=== PATIENT | male | born 1950 | race Caucasian/White ===

== ENCOUNTER → 2016-05-29 | Outpatient (CLI) | payer MEDICARE ==
[2016-05-29 16:00] LABS: Partial Thromboplastin Time 27.1 sec (22.0-30.0); Prothrombin Time 10.2 sec (9.0-12.0)
[2016-05-29 16:02] LABS: Basophils % (A) 0 %; CH 33.9; CHCM 35.2; Eosinophils # (A) 0.1 k/uL (0-0.7); Eosinophils % (A) 2 %; HCT 42.9 % (39.0-53.0); HDW 2.72; Luc # (Auto) 0.19; Luc % (Auto) 3; Lymphocytes # (A) 1.3 k/uL (1.0-4.8); Lymphocytes % (A) 18 %; MCH 33.8 pg (25.0-35.0); MCHC 34.9 g/dL (31.0-37.0); MCV 96.8 fL (80.0-100.0); Mean Platelet Volume 7.5; Monocytes # (A) 0.5 k/uL (0-1.0); Monocytes % (A) 7 %; Neutrophils # (A) 5.3 k/uL (1.3-7.7); Neutrophils % (A) 71 %; RBC 4.43 m/uL (4.30-5.90); WBC 7.5 k/uL (3.8-10.6); WBC (Perox) 7.33
[2016-05-29 16:06] LABS: Appearance,Urine Clear (Clear); Bilirubin,Urine Negative (Negative); Glucose,Urine (UA) Negative (Negative); Ketones,Urine Negative (Negative); Leukocyte Esterase,Urine Negative (Negative); Nitrite,Urine Negative (Negative); PH, Urine 5.5 (5.0-8.0); Protein,Urine Negative (Negative); Specific Gravity,Urine 1.007 (1.001-1.035); UA Billing (MACRO vs. MICRO) CHEM; Urobilinogen,Urine <2.0 mg/dL (<2.0)
[2016-05-29 16:10] LABS: ALT 50 U/L (21-72); AST 27 U/L (17-59); Alkaline Phosphatase 66 U/L (38-126); Anion Gap 11 mmol/L; Blood Urea Nitrogen 18 mg/dL (9-20); Calcium 9.7 mg/dL (8.4-10.2); Carbon Dioxide 25 mmol/L (22-30); Chloride 103 mmol/L (98-107); Glucose 112 mg/dL (74-99); Non-African American GFR(MDRD) >60 (>60 ml/min/1.73 sqM); Potassium 4.3 mmol/L (3.5-5.1); Sodium 139 mmol/L (137-145); Total Bilirubin 0.8 mg/dL (0.2-1.3); Total Protein 7.6 g/dL (6.3-8.2)
--- NOTE | 2016-05-30 08:11 | XR ---
EXAMINATION TYPE: XR chest 2V DATE OF EXAM: 05/29/2016 4:04 PM COMPARISON: Right chest x-ray 07 Aug 2015 HISTORY: Preop TECHNIQUE: Frontal and lateral views of the chest are obtained. FINDINGS: There is no pleural effusion, or pneumothorax seen. The cardiac silhouette size is within normal limits. Area of increased attenuation is present at the anterior right third rib similar to p rior exam compatible with bone island. The osseous structures are intact. IMPRESSION: No acute cardiopulmonary process.
== END | disposition home or self-care (01) ==
LOC: LABPAT 15:12
PROVIDERS: ATTEND Orthopaedic Surgery Orthopaedic Surgery of the Spine
DX: Z01.818 Encounter for other preprocedural examination (principal); Z01.812 Encounter for preprocedural laboratory examination; Z79.01 Long term (current) use of anticoagulants
CPT/HCPCS: 36415; 71020; 80053; 81003; 85025; 85610; 85730; 86850; 86900; 86901

== ENCOUNTER 2016-06-12 08:15 | Inpatient (IN) | payer MEDICARE ==
[2016-06-05 11:19] VITALS: BMI 33.2
[~2016-06-12 08:15] MED LIST: BACITRACIN 50,000 UNIT, POLYMYXIN B 500,000 UNIT in SODIUM CHLORIDE 0.9% IRRIGATIO 1,00... IRRIGATION ONE; DEXAMETHASONE SOD PHOSPHATE 10 MG/ML 1 ML VIAL IV ONE; HYDROmorphone 1 MG/ML 1 ML SYRINGE IVP PRN; LACTATED RINGERS 1,000 ML IV SCH; MIDAZOLAM 2 MG/2 ML VIAL IV PRN; ONDANSETRON 4 MG/2 ML VIAL IVP ONE; ceFAZolin 2 GM in SODIUM CHLORIDE 0.9% 100 ML IVPB ONE
[2016-06-12] MEDS ORDERED: LIDOCAINE 1% 20 ML VIAL (10MG/ML) FOR IV START INTRADERMA ONE (11:51)
[2016-06-12] MEDS ORDERED: LIDOCAINE 0.5%-EPI 1:200,000 50 ML VIAL SQ ONE (12:09)
[2016-06-12] MEDS ORDERED: fentaNYL (PF) 50 MCG/ML 2 ML AMP ONE (12:09)
[2016-06-12] MEDS ORDERED: THROMBIN (BOVINE) 5,000 UNIT VIAL TOPICAL ONE (12:09)
[2016-06-12] MEDS ORDERED: SUCCINYLCHOLINE CHLORIDE 100 MG/5 ML SYR IV ONE (12:09)
[2016-06-12] MEDS ORDERED: LIDOCAINE 1% INJ 10MG/ML (20 ML MDV) ONE (12:09)
[2016-06-12] MEDS ORDERED: GELATIN SPONGE,ABSORB (LARGE) 1 EACH SPONGE TOPICAL ONE (12:09)
[2016-06-12] MEDS ORDERED: MIDAZOLAM 2 MG/2 ML VIAL ONE (12:09)
[2016-06-12] MEDS ORDERED: DEXAMETHASONE SOD PHOS (MDV) 100 MG/10 ML VIAL ONE (12:09)
[2016-06-12] MEDS ORDERED: PHENYLEPHRINE-0.9% NACL SYG 1 MG/10 ML SYRINGE ONE (12:09)
[2016-06-12] MEDS ORDERED: ROCURONIUM BROMIDE 10 MG/ML 10 ML VIAL IV ONE (12:09)
[2016-06-12] MEDS ORDERED: ePHEDrine 50 MG/ML 1 ML AMP ONE (12:09)
[2016-06-12] MEDS ORDERED: PROPOFOL 10 MG/ML 20 ML VIAL IV ONE (12:09)
[2016-06-12] MEDS ORDERED: BUPIVACAINE (PF) 0.5% 30 ML VIAL SQ ONE (14:35)
--- NOTE | 2016-06-12 14:44 | XR ---
EXAMINATION TYPE: XR cervical spine 1V DATE OF EXAM ORDERED: 06/12/2016 1:02 PM HISTORY: Needle Placement. COMPARISON: None. FINDINGS: The patient is intubated. A metallic probe is pointing at the C4-5 disc level. IMPRESSION: MARKER IS AT THE C4-5 DISC LEVEL.
[2016-06-12] MEDS ORDERED: LACTATED RINGERS 1,000 ML IV ONE (14:46)
--- NOTE | 2016-06-12 15:07 | XR ---
Cervical spine HISTORY: Anterior cervical fusion and discectomy Correlation to prior cervical spine same date earlier time. Single lateral view submitted cervical sp ine. There is been interval anterior cervical fusion and discectomy at C5-C7. Anatomic alignment. Lower ce rvical vertebral bodies are not well seen. Endotracheal tube is present. IMPRESSION: Orthopedic follow-up.
[2016-06-12] MEDS ORDERED: HYDROcodone/APAP 5-325MG 1 EACH TAB PO PRN ×2 (15:10→15:16)
[2016-06-12] MEDS ORDERED: HYDROmorphone 1 MG/ML 1 ML SYRINGE IVP PRN ×3 (15:15→15:16)
[2016-06-12] MEDS ORDERED: DIAZEPAM 5 MG TAB PO PRN (15:16)
[2016-06-12] MEDS ORDERED: ONDANSETRON 4 MG/2 ML VIAL IVP PRN (15:16)
--- NOTE | 2016-06-12 15:16 | P.OP ---
Date of Procedure: 06/12/16 Preoperative Diagnosis: Cervical stenosis C5 6 C6 7, degenerative disc disease C5 6 C6 7, neck pain with right upper extremity radiculopathy Right carpal tunnel syndrome, Postoperative Diagnosis: Same Anesthesia: GETA Pathology: none sent Condition: stable Disposition: PACU Description of Procedure: BRIEF OPERATIVE NOTE Preoperative Diagnosis: Cervical stenosis C5 6 C6 7, degenerative disc disease C5 6 C6 7, large cervical osteophyte C5 6 C6 7, neck pain with upper extremity radiculopathy, right carpal tunnel syndrome electrodiagnostic proven Postoperative Diagnosis: Same Procedure: Anterior cervical decompression and fusion Placement of interbody graft Application of anterior cervical plate Under the same anesthesia patient also had performed a right carpal tunnel release Surgeon: Dr. Wills Steam Heating Installer: Musa Stanton is present throughout the entire the case persistence during positioning, dissection, exposure, visualization, and all crucial elements of the case as well as closure. Anesthesia: General anesthesia Estimated blood loss: Approximately 100 mL Complications: None apparent Components implanted: At the cervical spine the implanted K2M [place] anterior cervical plate system with appropriate screws and Vikos cervical allograft with 1 mL of bone putty to supplement the allograft Disposition: To recovery room in good stable condition. OPERATIVE INDICATIONS The patient has had long-standing issues in their neck and upper extremities. He was found have severe stenosis C5 6 and C6 7 along with right upper extremity carpal tunnel syndrome which was electric diagnostically proven. The patient had multiple treatments for his cervical spine and 4 x 4's extremities. He is not having prolonged benefit is having worsening symptoms despite conservative care. The patient has been through conservative treatment. We discussed various treatment options including surgery, and the patient wishes to proceed with surgery We discussed the risk, patient's alternatives and benefits of surgery including but not limited to, risk of bleeding risk of infection, risk of need for further surgery, risk of decreased, loss of motion, muscle function, malunion nonunion, hardware failure, nerve damage, paralysis, heart attack, and . He underwent clearance for both cervical surgery as well as for his right carpal tunnel syndrome. OPERATIVE SUMMARY After discussing all the risks, patient alternatives and benefits at length, the patient elected to proceed with surgical intervention, signed informed consent, and presented for their procedure. The patient was seen and examined in the preoperative holding area and the surgical site was marked. The patient was given antibiotics and brought to the operating room. The patient was positioned on the operating room table in a supine position being careful to pad any bony prominences and pressure points. The patient was sedated and intubated by anesthesia in standard fashion. Once the airway and C- spine were stabilized the patient's arms were padded and tucked at her side, with her shoulders gently taped. The head was placed in a donut pad with the neck in good neutral alignment and position. We were careful to maintain the patient's cervical spine and good neutral alignment and position throughout. The patient was prepped and draped in a normal standard fashion. An appropriate timeout and keystone protocol performed. We were able to proceed with the surgery. The local wound area was infiltrated with local anesthetic. An incision was made transversely approximately 2-1/2 cm over the appropriate levels at C6. Dissection was taken down subcutaneously to the level of the platysma which was split in line with its fibers. Dissection was taken with a carotid approach, with the trachea and esophagus medial and the carotid sheath laterally. We dissected down to the anterior surface of the vertebral bodies. Intraoperative x-ray was taken which showed a marker at the C4 5 level and I was able to expose the C5 6 and C6 7 level at which there were very large osteophytes. With the appropriate level positively confirmed, we were able to proceed with discectomy at the appropriate levels first at C6 7 and C5 6. All of the operative levels were exposed appropriately. The patient had all their twitches back, and there was no evidence of recurrent laryngeal issue. The wound was copiously irrigated and suctioned dry as had been done periodically throughout the case. At the appropriate level/levels, I established an annulotomy with an 11 blade scalpel. I removed the large anterior osteophytes combination of rongeurs and the high-speed bur. A discectomy was performed with a combination of pituitary rongeurs, curettes, a high-speed bur, and Kerrison rongeurs. The posterior longitudinal ligament was taken down as were any posterior osteophytes. There were large posterior osteophytes causing significant stenosis in the was were removed as well. First at C6 7 than at C5 6 This gave good central and bilateral foraminal decompression. There is no evidence of any dural tear or leak. The endplates were prepared with a high- speed bur. With the endplates in good parallel position, I was able to size for the appropriate size interbody graft. The wound was irrigated and suctioned dry the graft was prepared and malleted into position. It had good alignment and position with the anterior surface flush with the anterior surface of the vertebral bodies. This was done similarly the appropriate levels. With the grafts intact, I was able to measure and contour and appropriate sized plate. The plate was positioned at the midline over the appropriate levels at C5 6 and 7. Screw holes were established with a hand drill and drill guide. Screws were placed in good alignment and position with excellent bony purchase. They were seated under the locking device. The construct was checked and found to be stable. Intraoperative x-ray was taken which showed good alignment and position of the implants at the appropriate levels. There was no evidence of any dural tear or leak. Good hemostasis was maintained. The wound was copiously irrigated and suctioned dry as had been done periodically throughout the case. The platysma was closed with absorbable suture. The subcutaneous tissue was closed. The subcuticular tissue was closed with absorbable suture. The wound was cleaned and dried and dressed appropriately. A soft cervical collar was placed appropriately. We were able to then turn our attention to the right carpal tunnel surgery. At this point the drapes were broken down and we were able to keep him under the same anesthesia and prep and drape his right upper extremity with a nonsterile tourniquet over his right upper arm. With the patient appropriately prepped and draped in another timeout was performed for his right carpal tunnel syndrome surgery. He was injected local anesthetic. The arm was elevated and the tourniquet was raised to 250 mmHg was utilized to total of 13 minutes. a skin incision was made sharply through skin and subcu tissue approximately 1/2 cm in length at the volar aspect of his palm over the carpal tunnel. I was able to dissect down to the transverse carpal ligament. The transverse carpal ligament was identified and split sharply with an 11 blade scalpel. Once I had an appropriate red I was able to dissect under the transverse carpal ligament and then incised the transcarpal ligament with a tenotomy sit surgery proximally and distally to get good release approximately and distally on the transverse carpal alignment and the carpal tunnel. I was able to identify the median nerve. There is no evidence of acute injury to the median nerve. There is no evidence of any growth or deformity. The median nerve was appropriately decompressed approximately and distally the wound was copiously irrigated and suctioned dry and we will screw form closure. The skin was closed with 5-0 nylon interrupted stitches. The wound was dressed with Adaptic 4 x 4 and a bulky short arm volar splint which was well- padded and well molded. The tourniquet was dropped and the patient had good recirculation in his hand and fingers throughout. The patient was woken up by anesthesia, extubated, transferred back gently to their hospital bed and brought to the recovery room in good stable condition having undergone both anterior cervical decompression and fusion as well as his right carpal tunnel surgery.. The patient will be admitted to the hospital for appropriate postoperative care , medical management and monitoring. We will continue to follow them closely about the postoperative course.
[2016-06-12] MEDS ORDERED: OMALIZUMAB 150 MG VIAL SQ PRN (15:17)
[2016-06-12] MEDS ORDERED: ceFAZolin 2 GM in SODIUM CHLORIDE 0.9% 100 ML IVPB SCH (16:00)
[2016-06-12] MEDS ORDERED: NON-FORMULARY DRUG (Omega-3 Fatty Acids/Fish Oil [Fish Oil 1,000 Mg Softgel] 1 CAP) PO SCH (21:00)
[2016-06-12] MEDS ORDERED: POTASSIUM CHLORIDE ORAL LIQUID 40 MEQ/30 ML CUP PO SCH (21:00)
[2016-06-12] MEDS ORDERED: LATANOPROST 0.005% OPHTH DROPS 2.5 ML BTL BOTH EYES SCH (21:00)
[2016-06-12] MEDS: ATORVASTATIN 40 MG TAB PO SCH ×2 (21:06→21:50)
[2016-06-12] MEDS: LISINOPRIL-HCTZ 10-12.5 MG 1 EACH TAB PO SCH (21:06)
[2016-06-12] MEDS: ceFAZolin 2 GM in SODIUM CHLORIDE 0.9% 100 ML IVPB SCH (21:11)
[2016-06-12] MEDS: SODIUM CHLORIDE 0.9% 1,000 ML IV SCH (21:11)
[2016-06-12] MEDS: IBUPROFEN 600 MG TAB PO PRN (21:15)
[2016-06-12] MEDS: BENZOCAINE/MENTHOL LOZENG 1 EACH LOZENGE MUCOUS MEM PRN ×2 (21:15→21:52)
[2016-06-13] MEDS: ceFAZolin 2 GM in SODIUM CHLORIDE 0.9% 100 ML IVPB SCH (04:50)
[2016-06-13] MEDS: BENZOCAINE/MENTHOL LOZENG 1 EACH LOZENGE MUCOUS MEM PRN (04:53)
[2016-06-13] MEDS: IBUPROFEN 600 MG TAB PO PRN (04:59)
[2016-06-13] MEDS: SODIUM CHLORIDE 0.9% 1,000 ML IV SCH (04:59)
[2016-06-13] MEDS: LISINOPRIL-HCTZ 10-12.5 MG 1 EACH TAB PO SCH (08:47)
--- NOTE | 2016-06-13 08:57 | P.DS ---
Providers Date of admission: 06/12/16 11:03 Expected date of discharge: 06/13/16 Attending physician: Lennox Wills Primary care physician: Luis E Dobbins - Discharge Diagnosis(es) (1) Degenerative disc disease, cervical Current Visit: Yes Status: Acute (2) Cervicalgia Current Visit: Yes Status: Acute (3) Radiculopathy affecting upper extremity Current Visit: Yes Status: Acute (4) Carpal tunnel syndrome of right wrist Current Visit: Yes Status: Acute (5) Cervical stenosis of spinal canal Current Visit: Yes Status: Acute Hospital Course: This is a pleasant 66-year-old male who presented with C5-6 and C6-7 cervical stenosis and degenerative disc disease, cervical pain with right upper extremity radiculopathy, and right carpal tunnel syndrome who failed outpatient conservative therapy. He was admitted for an anterior cervical decompression and fusion C5-6 and C6-7 and right carpal tunnel release. The patient tolerated the procedure well and did well postoperatively. His pain is been well-controlled. He states he does have some discomfort at the right wrist and posterior cervical spine. He feels generally weak in the bilateral upper extremities without specific weakness. He is ready for discharge home. Condition on day of discharge stable. Patient was cleared preoperatively for surgery by Dr. Dobbins. Patient currently denies any nausea, vomiting, fever, or chills. Patient is eating and voiding freely without difficulty. Patient may shower Tegaderm dressing intact. Patient may remove Tegaderm dressing in 3 days and shower without a dressing at that time. Patient should keep Steri- Strips intact and allow them to fall off naturally. Patient should refrain from driving until at least after their first follow-up appointment in the office. Patient should keep splint and Mele wrap dry and intact over the right wrist. He should avoid excessive activities with right upper extremity. He may use the right upper extremity for light activities. No heavy lifting right upper extremity. Patient should avoid excessive neck flexion, extension, rotation, and lateral sidebending; no overhead lifting; no lifting greater than 10 pounds. Patient will be given a prescription for Tylenol 3 with codeine. 1 tab every 6 hours as needed for pain. Dispense 90. Patient should avoid anti- inflammatories over the next 6 weeks postsurgically. Physical Exam on day of discharge: Patient is awake, alert, and oriented 3 Vital signs stable Good chest excursion with deep inspiration and expiration Abdomen soft nontender No signs or symptoms of DVT; no calf pain Full range of motion of the cervical spine with adequate flexion, extension, and bilateral rotation Flue Gas Analyst strength, thumb strength, interosseous strength, biceps strength, triceps strength, and shoulder strength positive sustained bilaterally Soft cervical collar intact Incision is clean, dry, and intact; no erythema, purulence, or signs of infection Tegaderm dressing and non-stick Telfa intact Splint and Mele wrap clean, dry, and intact over the right wrist Patient able to wiggle all fingers and thumb of the right wrist without significant difficulty Active full range of motion of the right shoulder and elbow without difficulty Procedures: Anterior cervical decompression and fusion C5-6 and C6-7 and right carpal tunnel release. Patient Condition at Discharge: Stable Plan - Discharge Summary New Discharge Prescriptions: Acetaminophen-Codeine 300-30mg [Tylenol #3] 1 tab PO Q6H PRN #90 tablet PRN Reason: Pain Discharge Medication List Magnesium Gluconate [Magonate] 500 mg PO DAILY 08/07/15 [History] Niacinamide [Niacin] 500 mg PO DAILY 08/07/15 [History] Omalizumab [Xolair] 300 mg SQ QMONTH PRN 08/07/15 [History] Bybee-3 Fatty Acids/Fish Oil [Fish Oil 1,000 mg Softgel] 1 cap PO BID 08/07/15 [ History] Atorvastatin [Lipitor] 40 mg PO HS #30 tab 08/09/15 [Rx] Clopidogrel [Plavix] 75 mg PO DAILY tab 08/09/15 [Rx] Latanoprost [Xalatan 0.005%] 1 drop BOTH EYES HS 06/05/16 [History] Lisinopril-Hctz 10-12.5 mg [Zestoretic 10-12.5] 1 tab PO BID 06/05/16 [History] Potassium 99 mg PO HS 06/05/16 [History] Acetaminophen-Codeine 300-30mg [Tylenol #3] 1 tab PO Q6H PRN #90 tablet [Rx] Follow up Appointment(s)/Referral(s): Musa Zafar, EL [PHYSICIAN BLANKET WINDER HELPER] - 2 Weeks (Patient may follow-up with Musa Zafar PA-C or Dr. Dayo Wills at [facility] in 2-3 weeks following discharge. ) Activity/Diet/Wound Care/Special Instructions: 1. Patient may shower Tegaderm dressing intact. 2. Patient may remove Tegaderm dressing in 3 days and shower without a dressing at that time. 3. Patient should keep Steri-Strips intact and allow them to fall off naturally. 4. Patient should refrain from driving until at least after their first follow- up appointment in the office. 5. Patient should avoid excessive bending, twisting, and lifting; no lifting greater than 10 pounds 6. Do not soak in tub 7. Keep splint and Mele wrap clean, dry, and intact over the right wrist 8. Avoid excessive activities regards to the right upper extremity; able to perform light activity the right upper extremity Discharge Disposition: HOME SELF-CARE
[2016-06-13] MEDS ORDERED: NIACIN TR 500 MG CAPSULE.ER PO SCH (09:00)
[2016-06-13] MEDS ORDERED: CLOPIDOGREL 75 MG TAB PO SCH (09:00)
[2016-06-13] MEDS ORDERED: MAGNESIUM OXIDE 400 MG TAB PO SCH (09:00)
[2016-06-13 11:56] VITALS: BP 112/67; PULSE 71; RESP 15; TEMP 97.6
== END 2016-06-13 12:35 | disposition home or self-care (01) | DRG 473 ==
LOC: 2ORMAIN 11:03 → 3SUR 15:00
PROVIDERS: ADMIT Orthopaedic Surgery Orthopaedic Surgery of the Spine; ATTEND Orthopaedic Surgery Orthopaedic Surgery of the Spine
PROC: 0RG20A0 Fusion of 2 or more Cervical Vertebral Joints with Interbody Fusion Device, Anterior Approach, Anterior Column, Open Approach (ICD-10-PCS; 2016-06-12)
PROC: 01N50ZZ Release Median Nerve, Open Approach (ICD-10-PCS; 2016-06-12)
PROC: 4A11X4G Monitoring of Peripheral Nervous Electrical Activity, Intraoperative, External Approach (ICD-10-PCS; 2016-06-12)
PROC: 0RG20K0 Fusion of 2 or more Cervical Vertebral Joints with Nonautologous Tissue Substitute, Anterior Approach, Anterior Column, Open Approach (ICD-10-PCS; principal; 2016-06-12 13:00)
PROC: 0RB30ZZ Excision of Cervical Vertebral Disc, Open Approach (ICD-10-PCS; 2016-06-12 13:00)
DX: M48.02 Spinal stenosis, cervical region (principal); I10 Essential (primary) hypertension; G56.01 Carpal tunnel syndrome, right upper limb; M50.122 Cervical disc disorder at C5-C6 level with radiculopathy; M25.78 Osteophyte, vertebrae; E78.5 Hyperlipidemia, unspecified; R53.1 Weakness; Z86.73 Personal history of transient ischemic attack (TIA), and cerebral infarction without residual deficits; Z79.1 Long term (current) use of non-steroidal anti-inflammatories (NSAID); Z79.899 Other long term (current) drug therapy; Z87.891 Personal history of nicotine dependence; Z82.49 Family history of ischemic heart disease and other diseases of the circulatory system; Z83.3 Family history of diabetes mellitus; Z96.649 Presence of unspecified artificial hip joint
CPT/HCPCS: 72020; 86850; 86900; 86901

== ENCOUNTER → 2017-05-07 | Outpatient (CLI) | payer MEDICARE ==
[2017-05-07 16:47] LABS: Blood Urea Nitrogen 20 mg/dL (9-20)
--- NOTE | 2017-05-08 08:08 | CT ---
EXAMINATION TYPE: CT chest w con DATE OF EXAM: 05/07/2017 COMPARISON: 04/10/2012 HISTORY: Patient has no complaints at time of service. Follow up study for known lung nodule. CT DLP: 752 mGycm. Automated Exposure Control for Dose Reduction was Utilized. TECHNIQUE: CT scan of the thorax is performed following with IV Contrast, patient injected with 100 mL of Omnipaque 300. FINDINGS: LUNGS: The previously seen 6 mm subpleural pulmonary nodule in the lateral aspect of the right lung o n series 4 image 43 is unchanged in the prior 2013 and should be considered benign. Additionally B4 0 .5 mm superior segment right lower lobe pulmonary nodule on series 4 image 40 is also unchanged from the exam of 2013 and should also be considered benign. Additionally a 3 mm nodule within the right up per lobe on series 4 image 24 is retrospectively unchanged from the prior exam and should also be con sidered benign. No pulmonary masses or focal consolidation. No pneumothorax or pleural effusion. The lungs are grossly clear, there is no concerning parenchymal mass or nodule identified. There is no pleural effusion or pneumothorax seen. The tracheobronchial tree is patent. MEDIASTINUM: A similar-appearing 1 cm short axis prevascular lymph node is seen. There are no greater than 1 cm hilar or mediastinal lymph nodes. No pericardial effusion is seen. OTHER: 2 unchanged hepatic cysts are seen within the left lobe of the liver. Additional too small to accurately characterize right hepatic hypoattenuated lesion is similar to the prior exam. This likely represents an additional small cyst and a fourth hepatic cyst is seen in segment IVb, unchanged from the prior. There is partial visualization of an anterior cervical fusion device. Moderate multilevel degenerative changes of the thoracic spine are noted. IMPRESSION: 1. Multiple stable right-sided pulmonary nodules dating back to 2012, which should be considered julián gn. 2. Benign hepatic cysts.
== END | disposition home or self-care (01) ==
LOC: RADCTMAIN 16:08
PROVIDERS: ATTEND Family Medicine
DX: R91.8 Other nonspecific abnormal finding of lung field (principal)
CPT/HCPCS: 82565; 84520; 71260; 36415; Q9967

== ENCOUNTER 2017-05-14 10:46 | Emergency (ER) | payer MEDICARE ==
[2017-05-14 10:52] VITALS: RESP 18
[2017-05-14] MEDS ORDERED: LABETALOL 5 MG/ML VIAL MDV IVP STA (11:15)
[2017-05-14] MEDS ORDERED: SODIUM CHLORIDE 0.9% 500 ML IV STA (11:15)
--- NOTE | 2017-05-14 11:19 | ED ---
General Adult HPI - General Chief complaint: Neuro Symptoms/Deficit Stated complaint: DIZZINESS, HYPERTENSION Time Seen by Provider: 05/14/17 10:50 Source: patient, RN notes reviewed Mode of arrival: wheelchair Limitations: no limitations - History of Present Illness Initial comments: This is a 67-year-old male who presents emergency department with past medical history significant for TIAs as well as hypertension. Patient states since last night he has been feeling as though he cannot speak clearly even though I do not appreciate any deficit in his speech. Patient states he also has some expressive aphasia he can think of words and cannot express medication he cannot even come up with the correct word. Patient states he also feels a little bit flushed in the face and he also has some shaking in both of his hands that he normally does not have. Patient denies any recent fever chills or cough. Patient denies any chest pain palpitations but does have some shortness of breath occasionally. Patient denies any abdominal pain patient denies nausea vomiting or diarrhea. Patient denies any pain anywhere at this time. - Related Data Home Medications Medication Instructions Recorded Confirmed Magnesium Gluconate [Magonate] 500 mg PO DAILY 08/07/15 05/14/17 Niacinamide [Niacin] 500 mg PO DAILY 08/07/15 05/14/17 Omalizumab [Xolair] 300 mg SQ QMONTH PRN 08/07/15 05/14/17 [place]-3 Fatty Acids/Fish Oil [Fish 1 cap PO BID 08/07/15 05/14/17 Oil 1,000 mg Softgel] Latanoprost [Xalatan 0.005%] 1 drop BOTH EYES HS 06/05/16 05/14/17 Potassium 99 mg PO HS 06/05/16 05/14/17 Lisinopril [Prinivil] 10 mg PO BID 05/14/17 05/14/17 Previous Rx's Medication Instructions Recorded Atorvastatin [Lipitor] 40 mg PO HS #30 tab 08/09/15 Clopidogrel [Plavix] 75 mg PO DAILY tab 08/09/15 Allergies Allergy/AdvReac Type Severity Reaction Status Date / Time No Known Allergies Allergy Verified 05/14/17 11:01 Review of Systems ROS Statement: Those systems with pertinent positive or pertinent negative responses have been documented in the HPI. ROS Other: All systems not noted in ROS Statement are negative. 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 PASSED OUT IN 2013 AND HIT HEAD - HAS BEEN HAVING DIZZY SPELLS/ LIGHTHEADED EPISODES EVER SINCE. OCCASIONAL NOSE BLEEDS. History of Any Multi-Drug Resistant Organisms: None Reported Past Surgical History: Joint Replacement Additional Past Surgical History / Comment(s): left hip arthroplasty 2012, hemorrhoidectomy. Past Anesthesia/Blood Transfusion Reactions: No Reported Reaction Past Psychological History: No Psychological Hx Reported Smoking Status: Former smoker - Past Family History Father Family Medical History: Cancer Additional Family Medical History / Comment(s): Father of throat cancer in his 40's Mother Family Medical History: Diabetes Mellitus Additional Family Medical History / Comment(s): Pt thinks mother may have had cancer. Brother(s) Family Medical History: Cancer Additional Family Medical History / Comment(s): Leticia brother had a CVA with speach difficulty but had full recovery. General Exam - General Exam Comments Initial Comments: GENERAL: Patient is well-developed and well-nourished. Patient is nontoxic and well- hydrated and is in no acute distress. ENT: Neck is soft and supple. No significant lymphadenopathy is noted. Oropharynx is clear. Moist mucous membranes. Neck has full range of motion without eliciting any pain. EYES: The sclera were anicteric and conjunctiva were pink and moist. Extraocular movements were intact and pupils were equal round and reactive to light. Eyelids were unremarkable. PULMONARY: Unlabored respirations. Good breath sounds bilaterally. No audible rales rhonchi or wheezing was noted. CARDIOVASCULAR: There is a regular rate and rhythm without any murmurs gallops or rubs. ABDOMEN: Soft and nontender with normal bowel sounds. No palpable organomegaly was noted. There is no palpable pulsatile mass. SKIN: Skin is clear with no lesions or rashes and otherwise unremarkable. NEUROLOGIC: Patient is alert and oriented x3. Cranial nerves II through XII are grossly intact. Motor and sensory are also intact. Normal speech, volume and content. Symmetrical smile. Cerebellar exam grossly intact. Patient's NIH is 0. Patient does have some shaking in both hands when he tries to hold him up front of him but he is able to hold his hands out in front of him without drift but they were both shaking. MUSCULOSKELETAL: Normal extremities with adequate strength and full range of motion. No lower extremity swelling or edema. No calf tenderness. LYMPHATICS: No significant lymphadenopathy is noted PSYCHIATRIC: Normal psychiatric evaluation. Limitations: no limitations Course Vital Signs 05/14/17 05/14/17 05/14/17 10:48 11:31 12:00 Temperature 98.3 F Pulse Rate 119 H 77 68 Respiratory 18 18 18 Rate Blood Pressure 189/83 148/68 129/62 O2 Sat by Pulse 97 97 98 Oximetry 05/14/17 13:18 Temperature Pulse Rate 65 Respiratory 18 Rate Blood Pressure 138/67 O2 Sat by Pulse 99 Oximetry Medical Decision Making - Medical Decision Making EKG shows normal sinus rhythm at 79 bpm RI interval is on a 94 QRS is 86 QT interval 360 QTC is 412. Patient's EKG shows no ST segment elevation or depression or T wave abnormalities are noted. Patient's chest x-ray shows no acute abnormality. Patient's CT shows no acute normalities. Because of the patient's symptoms I suggest the patient stay patient talk to me for at least 15-20 minutes and concluded he did not want to stay and that he would follow-up with his neurologist as an outpatient. Patient states he's had similar symptoms for the last 4 years which was new information to me and stated that this didn't concern him for anything acute so he was fine with following up with his physician. - Lab Data Result diagrams: 05/14/17 11:27 05/14/17 11:27 Lab Results 05/14/17 05/14/17 05/14/17 Range/Units 11:27 11:27 11:27 WBC 7.7 (3.8-10.6) k/uL RBC 4.65 (4.30-5.90) m/uL Hgb 15.0 (13.0-17.5) gm/dL Hct 45.1 (39.0-53.0) % MCV 96.9 (80.0-100.0) fL MCH 32.3 (25.0-35.0) pg MCHC 33.3 (31.0-37.0) g/dL RDW 12.5 (11.5-15.5) % Plt Count 245 (150-450) k/uL Neutrophils % 79 % Lymphocytes % 14 % Monocytes % 6 % Eosinophils % 1 % Basophils % 0 % Neutrophils # 6.1 (1.3-7.7) k/uL Lymphocytes # 1.0 (1.0-4.8) k/uL Monocytes # 0.4 (0-1.0) k/uL Eosinophils # 0.1 (0-0.7) k/uL Basophils # 0.0 (0-0.2) k/uL PT (9.0-12.0) sec INR (<1.2) APTT (22.0-30.0) sec Sodium 142 (137-145) mmol/L Potassium 4.1 (3.5-5.1) mmol/L Chloride 106 (98-107) mmol/L Carbon Dioxide 25 (22-30) mmol/L Anion Gap 11 mmol/L BUN 15 (9-20) mg/dL Creatinine 0.91 (0.66-1.25) mg/dL Est GFR (MDRD) Af Amer >60 (>60 ml/min/1.73 sqM) Est GFR (MDRD) Non-Af >60 (>60 ml/min/1.73 sqM) Glucose 155 H (74-99) mg/dL Calcium 9.5 (8.4-10.2) mg/dL Magnesium (1.6-2.3) mg/dL Total Bilirubin 0.6 (0.2-1.3) mg/dL AST 21 (17-59) U/L ALT 29 (21-72) U/L Alkaline Phosphatase 54 (38-126) U/L Ammonia (<30) umol/L Total Creatine Kinase 70 (55-170) U/L CK-MB (CK-2) 1.3 (0.0-2.4) ng/mL CK-MB (CK-2) Rel Index 1.9 Troponin I <0.012 (0.000-0.034) ng/mL Total Protein 6.6 (6.3-8.2) g/dL Albumin 4.0 (3.5-5.0) g/dL Serum Alcohol mg/dL 05/14/17 05/14/17 05/14/17 Range/Units 11:27 11:27 12:18 WBC (3.8-10.6) k/uL RBC (4.30-5.90) m/uL Hgb (13.0-17.5) gm/dL Hct (39.0-53.0) % MCV (80.0-100.0) fL MCH (25.0-35.0) pg MCHC (31.0-37.0) g/dL RDW (11.5-15.5) % Plt Count (150-450) k/uL Neutrophils % % Lymphocytes % % Monocytes % % Eosinophils % % Basophils % % Neutrophils # (1.3-7.7) k/uL Lymphocytes # (1.0-4.8) k/uL Monocytes # (0-1.0) k/uL Eosinophils # (0-0.7) k/uL Basophils # (0-0.2) k/uL PT 10.2 (9.0-12.0) sec INR 1.0 (<1.2) APTT 25.3 (22.0-30.0) sec Sodium (137-145) mmol/L Potassium (3.5-5.1) mmol/L Chloride (98-107) mmol/L Carbon Dioxide (22-30) mmol/L Anion Gap mmol/L BUN (9-20) mg/dL Creatinine (0.66-1.25) mg/dL Est GFR (MDRD) Af Amer (>60 ml/min/1.73 sqM) Est GFR (MDRD) Non-Af (>60 ml/min/1.73 sqM) Glucose (74-99) mg/dL Calcium (8.4-10.2) mg/dL Magnesium 2.0 (1.6-2.3) mg/dL Total Bilirubin (0.2-1.3) mg/dL AST (17-59) U/L ALT (21-72) U/L Alkaline Phosphatase (38-126) U/L Ammonia (<30) umol/L Total Creatine Kinase (55-170) U/L CK-MB (CK-2) (0.0-2.4) ng/mL CK-MB (CK-2) Rel Index Troponin I (0.000-0.034) ng/mL Total Protein (6.3-8.2) g/dL Albumin (3.5-5.0) g/dL Serum Alcohol <10 mg/dL 05/14/17 Range/Units 12:18 WBC (3.8-10.6) k/uL RBC (4.30-5.90) m/uL Hgb (13.0-17.5) gm/dL Hct (39.0-53.0) % MCV (80.0-100.0) fL MCH (25.0-35.0) pg MCHC (31.0-37.0) g/dL RDW (11.5-15.5) % Plt Count (150-450) k/uL Neutrophils % % Lymphocytes % % Monocytes % % Eosinophils % % Basophils % % Neutrophils # (1.3-7.7) k/uL Lymphocytes # (1.0-4.8) k/uL Monocytes # (0-1.0) k/uL Eosinophils # (0-0.7) k/uL Basophils # (0-0.2) k/uL PT (9.0-12.0) sec INR (<1.2) APTT (22.0-30.0) sec Sodium (137-145) mmol/L Potassium (3.5-5.1) mmol/L Chloride (98-107) mmol/L Carbon Dioxide (22-30) mmol/L Anion Gap mmol/L BUN (9-20) mg/dL Creatinine (0.66-1.25) mg/dL Est GFR (MDRD) Af Amer (>60 ml/min/1.73 sqM) Est GFR (MDRD) Non-Af (>60 ml/min/1.73 sqM) Glucose (74-99) mg/dL Calcium (8.4-10.2) mg/dL Magnesium (1.6-2.3) mg/dL Total Bilirubin (0.2-1.3) mg/dL AST (17-59) U/L ALT (21-72) U/L Alkaline Phosphatase (38-126) U/L Ammonia <9 (<30) umol/L Total Creatine Kinase (55-170) U/L CK-MB (CK-2) (0.0-2.4) ng/mL CK-MB (CK-2) Rel Index Troponin I (0.000-0.034) ng/mL Total Protein (6.3-8.2) g/dL Albumin (3.5-5.0) g/dL Serum Alcohol mg/dL Disposition Clinical Impression: TIA (transient ischemic attack) Disposition: HOME SELF-CARE Instructions: Transient Ischemic Attack (ED) Referrals: Epifanio Dobbins MD [Primary Care Provider] - 1-2 days Time of Disposition: 13:55
[2017-05-14 11:43] LABS: Basophils % (A) 0 %; Eosinophils # (A) 0.1 k/uL (0-0.7); Eosinophils % (A) 1 %; HCT 45.1 % (39.0-53.0); Lymphocytes % (A) 14 %; MCH 32.3 pg (25.0-35.0); MCHC 33.3 g/dL (31.0-37.0); MCV 96.9 fL (80.0-100.0); Mean Platelet Volume 6.8; Monocytes # (A) 0.4 k/uL (0-1.0); Monocytes % (A) 6 %; Neutrophils # (A) 6.1 k/uL (1.3-7.7); Neutrophils % (A) 79 %; Platelet Count 245 k/uL (150-450); RBC 4.65 m/uL (4.30-5.90); RDW 12.5 % (11.5-15.5); WBC 7.7 k/uL (3.8-10.6)
[2017-05-14 11:57] LABS: ALT 29 U/L (21-72); AST 21 U/L (17-59); Alkaline Phosphatase 54 U/L (38-126); Anion Gap 11 mmol/L; Blood Urea Nitrogen 15 mg/dL (9-20); Calcium 9.5 mg/dL (8.4-10.2); Carbon Dioxide 25 mmol/L (22-30); Chloride 106 mmol/L (98-107); Glucose 155 mg/dL (74-99); Potassium 4.1 mmol/L (3.5-5.1); Sodium 142 mmol/L (137-145); Total Bilirubin 0.6 mg/dL (0.2-1.3); Total Protein 6.6 g/dL (6.3-8.2)
--- NOTE | 2017-05-14 12:08 | CT ---
EXAMINATION TYPE: CT brain wo con DATE OF EXAM: 05/14/2017 COMPARISON: 08/07/2015 INDICATION: Dizziness, Hypertension DLP: 1153 mGycm, Automated exposure control for dose reduction was used. CONTRAST: None CT of the brain is performed utilizing 3 mm thick sections through the posterior fossa and 3 mm thick sections through the remaining calvarium. Study is performed within 24 hours of arrival to the hosp [facility]. No abnormal hyperdensity is present to suggest an acute intracranial hemorrhage. No mass lesion is evident. No acute infarcts are evident. Ventricles and sulci are appropriate for the patient age. Mild mucosal thickening is within some posterior left ethmoid air cells and mid right ethmoid air diane ls. Paranasal sinuses and mastoid air cells are otherwise clear. IMPRESSIONS: 1. No acute intracranial process.
[2017-05-14 12:09] LABS: Creatine Kinase 70 U/L (55-170)
[2017-05-14 12:14] LABS: Partial Thromboplastin Time 25.3 sec (22.0-30.0); Prothrombin Time 10.2 sec (9.0-12.0)
[2017-05-14 12:22] LABS: Creatine Kinase MB 1.3 ng/mL (0.0-2.4); Troponin I <0.012 ng/mL (0.000-0.034)
--- NOTE | 2017-05-14 13:42 | XR ---
EXAMINATION TYPE: XR chest 2V DATE OF EXAM: 05/14/2017 COMPARISON: Prior chest x-ray 05/29/[address] 05/07/2017 HISTORY: Difficulty breathing TECHNIQUE: Frontal and lateral views of the chest are obtained. FINDINGS: Sclerotic focus in the anterior right third rib is again noted. There are overlying cardia c leads. There is no evident airspace disease, pneumothorax, or pleural effusion. Postop change noted cervical spine. Cardiac mediastinal silhouette, pulmonary vascularity and augie are stable. IMPRESSION: Sclerotic density in the anterior right third rib is unchanged, bone scan may be of bene fit, lesion has been stable dating 2012 and may represent bone island..
[2017-05-14 14:08] VITALS: BP 130/59; PULSE 70; TEMP 98.7
== END 2017-05-14 14:07 | disposition home or self-care (01) ==
LOC: EC 10:46
DX: G45.9 Transient cerebral ischemic attack, unspecified (principal); I10 Essential (primary) hypertension; Z87.891 Personal history of nicotine dependence; Z79.899 Other long term (current) drug therapy
CPT/HCPCS: 36415; 70450; 71046; 80053; 80320; 82140; 82550; 82553; 83735; 84484; 85025; 85610; 85730; 93005; 99284

== ENCOUNTER 2017-06-22 00:17 | Observation (INO) | payer MEDICARE ==
[2017-06-22 00:26] LABS: Glucose,Whole Blood 106 mg/dL (75-99)
[2017-06-22] MEDS ORDERED: SODIUM CHLORIDE 0.9% 500 ML IV STA (00:30)
[2017-06-22] MEDS ORDERED: SODIUM CHLORIDE 0.9% 1,000 ML IV STA (00:30)
[2017-06-22 00:41] LABS: Basophils % (A) 0 %; Eosinophils # (A) 0.1 k/uL (0-0.7); Eosinophils % (A) 1 %; Lymphocytes # (A) 3.4 k/uL (1.0-4.8); Lymphocytes % (A) 33 %; MCH 32.6 pg (25.0-35.0); MCHC 34.9 g/dL (31.0-37.0); MCV 93.5 fL (80.0-100.0); Mean Platelet Volume 7.7; Monocytes # (A) 0.8 k/uL (0-1.0); Monocytes % (A) 8 %; Neutrophils # (A) 5.9 k/uL (1.3-7.7); Neutrophils % (A) 57 %; Platelet Count 241 k/uL (150-450); RBC 4.92 m/uL (4.30-5.90); RDW 12.5 % (11.5-15.5); WBC 10.4 k/uL (3.8-10.6)
[2017-06-22] MEDS ORDERED: RX INFO: IV CONTRAST WAS GIVEN 1 EACH MISC MISCELLANE PRN (00:42)
[2017-06-22 00:48] LABS: ALT 39 U/L (21-72); AST 59 U/L (17-59); Albumin 4.4 g/dL (3.5-5.0); Alkaline Phosphatase 53 U/L (38-126); Anion Gap 10 mmol/L; Blood Urea Nitrogen 15 mg/dL (9-20); Calcium 9.6 mg/dL (8.4-10.2); Carbon Dioxide 24 mmol/L (22-30); Chloride 104 mmol/L (98-107); Glucose 102 mg/dL (74-99); Magnesium 2.2 mg/dL (1.6-2.3); Phosphorus 3.6 mg/dL (2.5-4.5); Potassium 5.8 mmol/L (3.5-5.1); Sodium 138 mmol/L (137-145); Total Bilirubin 1.5 mg/dL (0.2-1.3); Total Protein 7.5 g/dL (6.3-8.2)
[2017-06-22 00:59] LABS: Creatine Kinase MB 0.8 ng/mL (0.0-2.4); Troponin I 0.015 ng/mL (0.000-0.034)
--- NOTE | 2017-06-22 01:14 | ED ---
General Adult HPI - General Chief complaint: Dizziness Stated complaint: Weakness Time Seen by Provider: 06/22/17 00:29 Source: patient, EMS, RN notes reviewed, old records reviewed Mode of arrival: EMS Limitations: no limitations - History of Present Illness Initial comments: This is a 67 male to the ED co weakness, dizziness, lightheadedness, patient got out of bed and felt very dizzy unable to stand and is followed he was leaning to the left. Patient says he knew something was wrong and came to the ER for evaluation. Patient denies drugs or alcohol takes all medication as prescribed he does have history of high blood pressure high cholesterol history of prior TIA. Patient currently admits to some restlessness or trauma, and shaking of his upper extremities - Related Data Home Medications Medication Instructions Recorded Confirmed Magnesium Gluconate [Magonate] 500 mg PO DAILY 08/07/15 06/22/17 Niacinamide [Niacin] 500 mg PO DAILY 08/07/15 06/22/17 Omalizumab [Xolair] 300 mg SQ QMONTH PRN 08/07/15 06/22/17 [place]-3 Fatty Acids/Fish Oil [Fish 1 cap PO BID 08/07/15 06/22/17 Oil 1,000 mg Softgel] Latanoprost [Xalatan 0.005%] 1 drop BOTH EYES HS 06/05/16 06/22/17 Potassium 99 mg PO HS 06/05/16 06/22/17 Lisinopril [Prinivil] 10 mg PO BID 05/14/17 06/22/17 Previous Rx's Medication Instructions Recorded Atorvastatin [Lipitor] 40 mg PO HS #30 tab 08/09/15 Clopidogrel [Plavix] 75 mg PO DAILY tab 08/09/15 Allergies Allergy/AdvReac Type Severity Reaction Status Date / Time No Known Allergies Allergy Verified 06/22/17 00:30 Review of Systems ROS Statement: Those systems with pertinent positive or pertinent negative responses have been documented in the HPI. ROS Other: All systems not noted in ROS Statement are negative. 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 PASSED OUT IN 2013 AND HIT HEAD - HAS BEEN HAVING DIZZY SPELLS/ LIGHTHEADED EPISODES EVER SINCE. OCCASIONAL NOSE BLEEDS. History of Any Multi-Drug Resistant Organisms: None Reported Past Surgical History: Joint Replacement Additional Past Surgical History / Comment(s): left hip arthroplasty 2013, hemorrhoidectomy. Past Anesthesia/Blood Transfusion Reactions: No Reported Reaction Past Psychological History: No Psychological Hx Reported Smoking Status: Former smoker Past Alcohol Use History: Occasional Past Drug Use History: None Reported - Past Family History Father Family Medical History: Cancer Additional Family Medical History / Comment(s): Father of throat cancer in his 40's Mother Family Medical History: Diabetes Mellitus Additional Family Medical History / Comment(s): Pt thinks mother may have had cancer. Brother(s) Family Medical History: Cancer Additional Family Medical History / Comment(s): Leticia brother had a CVA with speach difficulty but had full recovery. General Exam - General Exam Comments Initial Comments: Tremor Limitations: no limitations General appearance: alert, in no apparent distress, anxious Head exam: Present: atraumatic, normocephalic, normal inspection Eye exam: Present: normal appearance, PERRL, EOMI. Absent: scleral icterus, conjunctival injection, periorbital swelling ENT exam: Present: normal exam, mucous membranes moist Neck exam: Present: normal inspection. Absent: tenderness, meningismus, lymphadenopathy Respiratory exam: Present: normal lung sounds bilaterally. Absent: respiratory distress, wheezes, rales, rhonchi, stridor Cardiovascular Exam: Present: regular rate, normal rhythm, normal heart sounds. Absent: systolic murmur, diastolic murmur, rubs, gallop, clicks GI/Abdominal exam: Present: soft, normal bowel sounds. Absent: distended, tenderness, guarding, rebound, rigid Extremities exam: Present: normal inspection, full ROM, normal capillary refill. Absent: tenderness, pedal edema, joint swelling, calf tenderness Back exam: Present: normal inspection Neurological exam: Present: alert, oriented X3, CN II-XII intact Psychiatric exam: Present: normal affect, normal mood Skin exam: Present: warm, dry, intact, normal color. Absent: rash Course Vital Signs 06/22/17 06/22/17 00:18 01:58 Temperature 98.8 F Pulse Rate 73 60 Respiratory 18 18 Rate Blood Pressure 170/81 141/63 O2 Sat by Pulse 98 95 Oximetry - Reevaluation(s) Reevaluation #1: 06/22/17 01:12 Patient's medical record prior CTA and echo of carotids are reviewed Reevaluation #2: 06/22/17 02:34 Patient with no real improvement in symptoms, so ataxic on ambulation EKG Findings - EKG Comments: EKG Findings:: EKG shows normal sinus rhythm rate of 68, PA 186, QRS 04, QTC 399 Medical Decision Making - Medical Decision Making 67 male for evaluation of not thinking straight altered mental status, ataxia weakness and dizziness. Patient be admitted for neurological observation, patient is also had a standard relationship with Dr. Wills of orthopedics, will consult - Lab Data Result diagrams: 06/22/17 00:20 06/22/17 00:20 Lab Results 06/22/17 06/22/17 06/22/17 Range/Units 00:20 00:20 00:20 WBC 10.4 (3.8-10.6) k/uL RBC 4.92 (4.30-5.90) m/uL Hgb 16.0 (13.0-17.5) gm/dL Hct 46.0 (39.0-53.0) % MCV 93.5 (80.0-100.0) fL MCH 32.6 (25.0-35.0) pg MCHC 34.9 (31.0-37.0) g/dL RDW 12.5 (11.5-15.5) % Plt Count 241 (150-450) k/uL Neutrophils % 57 % Lymphocytes % 33 % Monocytes % 8 % Eosinophils % 1 % Basophils % 0 % Neutrophils # 5.9 (1.3-7.7) k/uL Lymphocytes # 3.4 (1.0-4.8) k/uL Monocytes # 0.8 (0-1.0) k/uL Eosinophils # 0.1 (0-0.7) k/uL Basophils # 0.0 (0-0.2) k/uL PT (9.0-12.0) sec INR (<1.2) APTT (22.0-30.0) sec Sodium (137-145) mmol/L Potassium (3.5-5.1) mmol/L Chloride (98-107) mmol/L Carbon Dioxide (22-30) mmol/L Anion Gap mmol/L BUN (9-20) mg/dL Creatinine (0.66-1.25) mg/dL Est GFR (CKD-EPI)AfAm (>60 ml/min/1.73 sqM) Est GFR (CKD-EPI)NonAf (>60 ml/min/1.73 sqM) Glucose (74-99) mg/dL POC Glucose (mg/dL) 106 H (75-99) mg/dL POC Glu [employer] Desir Plasma Lactic Acid John (0.7-2.0) mmol/L Calcium (8.4-10.2) mg/dL Phosphorus (2.5-4.5) mg/dL Magnesium (1.6-2.3) mg/dL Total Bilirubin (0.2-1.3) mg/dL AST (17-59) U/L ALT (21-72) U/L Alkaline Phosphatase (38-126) U/L Total Creatine Kinase 70 (55-170) U/L CK-MB (CK-2) 0.8 (0.0-2.4) ng/mL CK-MB (CK-2) Rel Index 1.1 Troponin I 0.015 (0.000-0.034) ng/mL Total Protein (6.3-8.2) g/dL Albumin (3.5-5.0) g/dL Serum Alcohol mg/dL 06/22/17 06/22/17 06/22/17 Range/Units 00:20 00:20 00:30 WBC (3.8-10.6) k/uL RBC (4.30-5.90) m/uL Hgb (13.0-17.5) gm/dL Hct (39.0-53.0) % MCV (80.0-100.0) fL MCH (25.0-35.0) pg MCHC (31.0-37.0) g/dL RDW (11.5-15.5) % Plt Count (150-450) k/uL Neutrophils % % Lymphocytes % % Monocytes % % Eosinophils % % Basophils % % Neutrophils # (1.3-7.7) k/uL Lymphocytes # (1.0-4.8) k/uL Monocytes # (0-1.0) k/uL Eosinophils # (0-0.7) k/uL Basophils # (0-0.2) k/uL PT 10.5 (9.0-12.0) sec INR 1.1 (<1.2) APTT 25.0 (22.0-30.0) sec Sodium 138 (137-145) mmol/L Potassium 5.8 H (3.5-5.1) mmol/L Chloride 104 (98-107) mmol/L Carbon Dioxide 24 (22-30) mmol/L Anion Gap 10 mmol/L BUN 15 (9-20) mg/dL Creatinine 0.90 (0.66-1.25) mg/dL Est GFR (CKD-EPI)AfAm >90 (>60 ml/min/1.73 sqM) Est GFR (CKD-EPI)NonAf 87 (>60 ml/min/1.73 sqM) Glucose 102 H (74-99) mg/dL POC Glucose (mg/dL) (75-99) mg/dL POC Glu [employer] ID Plasma Lactic Acid John 1.4 (0.7-2.0) mmol/L Calcium 9.6 (8.4-10.2) mg/dL Phosphorus 3.6 (2.5-4.5) mg/dL Magnesium 2.2 (1.6-2.3) mg/dL Total Bilirubin 1.5 H (0.2-1.3) mg/dL AST 59 (17-59) U/L ALT 39 (21-72) U/L Alkaline Phosphatase 53 (38-126) U/L Total Creatine Kinase (55-170) U/L CK-MB (CK-2) (0.0-2.4) ng/mL CK-MB (CK-2) Rel Index Troponin I (0.000-0.034) ng/mL Total Protein 7.5 (6.3-8.2) g/dL Albumin 4.4 (3.5-5.0) g/dL Serum Alcohol mg/dL 06/22/17 Range/Units 00:53 WBC (3.8-10.6) k/uL RBC (4.30-5.90) m/uL Hgb (13.0-17.5) gm/dL Hct (39.0-53.0) % MCV (80.0-100.0) fL MCH (25.0-35.0) pg MCHC (31.0-37.0) g/dL RDW (11.5-15.5) % Plt Count (150-450) k/uL Neutrophils % % Lymphocytes % % Monocytes % % Eosinophils % % Basophils % % Neutrophils # (1.3-7.7) k/uL Lymphocytes # (1.0-4.8) k/uL Monocytes # (0-1.0) k/uL Eosinophils # (0-0.7) k/uL Basophils # (0-0.2) k/uL PT (9.0-12.0) sec INR (<1.2) APTT (22.0-30.0) sec Sodium (137-145) mmol/L Potassium (3.5-5.1) mmol/L Chloride (98-107) mmol/L Carbon Dioxide (22-30) mmol/L Anion Gap mmol/L BUN (9-20) mg/dL Creatinine (0.66-1.25) mg/dL Est GFR (CKD-EPI)AfAm (>60 ml/min/1.73 sqM) Est GFR (CKD-EPI)NonAf (>60 ml/min/1.73 sqM) Glucose (74-99) mg/dL POC Glucose (mg/dL) (75-99) mg/dL POC Glu [employer] ID Plasma Lactic Acid John (0.7-2.0) mmol/L Calcium (8.4-10.2) mg/dL Phosphorus (2.5-4.5) mg/dL Magnesium (1.6-2.3) mg/dL Total Bilirubin (0.2-1.3) mg/dL AST (17-59) U/L ALT (21-72) U/L Alkaline Phosphatase (38-126) U/L Total Creatine Kinase (55-170) U/L CK-MB (CK-2) (0.0-2.4) ng/mL CK-MB (CK-2) Rel Index Troponin I (0.000-0.034) ng/mL Total Protein (6.3-8.2) g/dL Albumin (3.5-5.0) g/dL Serum Alcohol <10 mg/dL - Radiology Data Radiology results: report reviewed (CT brain negative), image reviewed Disposition Clinical Impression: TIA (transient ischemic attack), Ataxia, Weakness, Neck pain Disposition: ADMITTED IP TO THIS [facility] Condition: Fair Referrals: Epifanio Dobbins MD [Primary Care Provider] - 1-2 days
--- NOTE | 2017-06-22 01:18 | CT ---
EXAMINATION TYPE: CT brain wo con DATE OF EXAM: 06/22/2017 COMPARISON: 05/14/2017 HISTORY: weakness CT DLP: 1121.60 mGycm Automated exposure control for dose reduction was used. FINDINGS: There is mild cerebral cortical atrophy. There is no mass effect nor midline shift. There is no sign of intracranial hemorrhage. The calvarium appears intact. IMPRESSION: NEGATIVE CT SCAN OF THE BRAIN. NO CHANGE.
--- NOTE | 2017-06-22 01:21 | XR ---
EXAMINATION TYPE: XR chest 2V DATE OF EXAM: 06/22/2017 COMPARISON: 05/25/2017 HISTORY: Weakness TECHNIQUE: Frontal and lateral views of the chest are obtained. FINDINGS: There is no heart failure nor confluent pneumonic infiltrate. Heart size is normal. Cervic al spine fusion surgery is noted. There are small linear density at the left lung base. IMPRESSION: Small area of subsegmental atelectasis at the left lung base similar to old exam. There is some calcification over the right upper lobe associated with the anterior right third rib that cou ld be an osteoma or healed fracture.
[2017-06-22 01:37] LABS: INR 1.1 (<1.2); Prothrombin Time 10.5 sec (9.0-12.0)
[2017-06-22] MEDS ORDERED: SODIUM CHLORIDE 0.9% 1,000 ML IV ONE (02:34)
[2017-06-22] MEDS ORDERED: LORazepam 2 MG/ML INJ IV PRN ×3 (02:34)
[2017-06-22] MEDS ORDERED: THIAMINE 100 MG/ML 2 ML VIAL IVPB STA (02:34)
[2017-06-22 03:40] LABS: Appearance,Urine Clear (Clear); Bilirubin,Urine Negative (Negative); Blood,Urine Negative (Negative); Color,Urine Light Yellow; Glucose,Urine (UA) Negative (Negative); Ketones,Urine Negative (Negative); Leukocyte Esterase,Urine Negative (Negative); Nitrite,Urine Negative (Negative); PH, Urine 5.5 (5.0-8.0); Protein,Urine Negative (Negative); Specific Gravity,Urine 1.007 (1.001-1.035); Urobilinogen,Urine <2.0 mg/dL (<2.0)
[2017-06-22] MEDS ORDERED: THIAMINE 100 MG/ML 2 ML VIAL IM STA (03:54)
[2017-06-22 03:57] VITALS: BMI 34.8
[2017-06-22 06:45] LABS: Anion Gap 10 mmol/L; Blood Urea Nitrogen 13 mg/dL (9-20); Calcium 8.8 mg/dL (8.4-10.2); Carbon Dioxide 25 mmol/L (22-30); Chloride 106 mmol/L (98-107); Glucose 96 mg/dL (74-99); Potassium 4.4 mmol/L (3.5-5.1); Sodium 141 mmol/L (137-145)
[2017-06-22] MEDS: MULTIVITAMINS, THERA 1 EACH TAB PO SCH (11:51)
--- NOTE | 2017-06-22 12:47 | P.CNOR ---
History of Present Illness - [facility] Consult date: 06/22/17 Requesting physician: Epifnaio Tenorio Consult reason: low back pain, other (Difficulty with ambulation and lower extremity radiculopathy with weakness) History of present illness: Patient is a very pleasant 67-year-old male who is well known to our service who is seen and examined at the bedside after consultation was placed due patient recently being seen and evaluated in our office. Patient was scheduled to undergo an MRI of the thoracic spine and lumbar spine with one scheduled for today and one scheduled for this coming Sunday. He states that approximately 11 :00 PM he woke up last night experiencing dizziness and lightheadedness. He did not feel like his legs would function appropriately and he is having difficulty with ambulation. He feels his processing is off. He presented to the emergency department for further evaluation. Patient was just seen in our office on 06/18/2017. Since that time he states he has followed with his primary care provider. He states he was having anxiety due to all his medical conditions and was prescribed citalopram by his primary care provider. He states upon waking up last night he also has been experiencing shakiness in the bilateral hands. He did have an episode of significant increased high blood pressure with a TIA in April 2017 at which time he states he was treated in the hospital. His symptoms continued to be consistent and persistent in regards to his lumbar spine. He continues to experience ongoing low back pain and bilateral lower extremity weakness and numbness. His low back pain is worse along the midline of the lower lumbar spine. He has continued to experience numbness in the bilateral knees extending to the toes. Prolonged ambulation exacerbates his numbness. He has been experiencing bilateral groin numbness as well. He has also continued to experience difficulty with ambulation and and continues to catch his left foot during ambulation. He states his left foot once to rotate laterally. He has been ambulating with a wide gait for stability. He feels ambulation has worsened since January 2017. He has a history of previous anterior cervical decompression and fusion at C5- 6 and C6-7 performed on 06/12/[address] Dayo Wills. 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 PASSED OUT IN 2013 AND HIT HEAD - HAS BEEN HAVING DIZZY SPELLS/ LIGHTHEADED EPISODES EVER SINCE. OCCASIONAL NOSE BLEEDS. History of Any Multi-Drug Resistant Organisms: None Reported Past Surgical History: Joint Replacement Additional Past Surgical History / Comment(s): left hip arthroplasty 2012, hemorrhoidectomy. Past Anesthesia/Blood Transfusion Reactions: No Reported Reaction Past Psychological History: No Psychological Hx Reported Additional Psychological History / Comment(s): Pt lives at home with his . Pt uses walker at times. Pt drives. Smoking Status: Former smoker Past Alcohol Use History: Occasional Additional Past Alcohol Use History / Comment(s): patient quit smoking in 2011. drinks 2 beers 4 days a week. Past Drug Use History: None Reported - Past Family History Father Family Medical History: Cancer Additional Family Medical History / Comment(s): Father of throat cancer in his 40's Mother Family Medical History: Diabetes Mellitus Additional Family Medical History / Comment(s): Pt thinks mother may have had cancer. Brother(s) Family Medical History: Cancer Additional Family Medical History / Comment(s): Joesphger brother had a CVA with speach difficulty but had full recovery. Medications and Allergies Home Medications Medication Instructions Recorded Confirmed Type Magnesium Gluconate [Magonate] 500 mg PO DAILY 08/07/15 06/22/17 History Niacinamide [Niacin] 500 mg PO DAILY 08/07/15 06/22/17 History Omalizumab [Xolair] 300 mg SQ QMONTH PRN 08/07/15 06/22/17 History [place]-3 Fatty Acids/Fish Oil [Fish 1 cap PO BID 08/07/15 06/22/17 History Oil 1,000 mg Softgel] Atorvastatin [Lipitor] 40 mg PO HS #30 tab 08/09/15 06/22/17 Rx Clopidogrel [Plavix] 75 mg PO DAILY tab 08/09/15 06/22/17 Rx Latanoprost [Xalatan 0.005%] 1 drop BOTH EYES HS 06/05/16 06/22/17 History Potassium 99 mg PO HS 06/05/16 06/22/17 History Lisinopril [Prinivil] 10 mg PO BID 05/14/17 06/22/17 History Aspirin EC [Ecotrin Low Dose] 81 mg PO DAILY 06/22/17 06/22/17 History Citalopram Hydrobromide 20 mg PO HS 06/22/17 06/22/17 History [Citalopram HBr] Allergies Allergy/AdvReac Type Severity Reaction Status Date / Time No Known Allergies Allergy Verified 06/22/17 08:28 Physical Examination Physical exam: Patient is awake, alert, and oriented 3 Vital signs stable Good chest excursion with deep inspiration and expiration Abdomen soft nontender Dorsiflexion, plantarflexion, and extensor hallucis longus positive sustained bilaterally Lower extremity strength 5/5 bilaterally except for left hip flexion strength at 3/5 Patellar reflex 4+ bilaterally and Achilles reflexes 3+ bilaterally Evidence of lower extremity hyperreflexia bilaterally No signs or symptoms of DVT; no calf pain No pain with internal and external rotation of the hips bilaterally Neurovascularly intact Results Pertinent studies: Previous MRI of the lumbar spine taken taken at an outside facility on 2015: L5-S1 degenerative disc disease and facet arthropathy; L3-4 and L4-5 facet arthropathy Previous MRI of the cervical spine taken taken at an outside facility on 2015: C5-6 and C6-7 severe degenerative disc disease with some myelomalacia within the spinal cord behind C6; evidence of central and bilateral neural foraminal stenosis at C5-6 and worse at C6-7; T1-2 spondylolisthesis and significant degenerative disc disease - Labs Labs: Abnormal Lab Results - Last 24 Hours (Table) 06/22/17 06/22/17 Range/Units 00:20 00:20 Potassium 5.8 H (3.5-5.1) mmol/L Glucose 102 H (74-99) mg/dL POC Glucose (mg/dL) 106 H (75-99) mg/dL Total Bilirubin 1.5 H (0.2-1.3) mg/dL Microbiology - Last 24 Hours (Table) 06/22/17 03:30 Urine Culture - Preliminary Urine,Clean Catch H & H 06/22/17 Range/Units 00:20 Hgb 16.0 (13.0-17.5) gm/dL Hct 46.0 (39.0-53.0) % Coagulation 06/22/17 Range/Units 00:20 INR 1.1 (<1.2) Result Diagrams: 06/22/17 00:20 06/22/17 06:02 Assessment and Plan Assessment: Assessment: Low back pain with lower extremity radiculopathy T1-2 spondylolisthesis and significant degenerative disc disease Lumbar facet arthropathy L5-S1 degenerative disc disease Cervical myelomalacia at C6 Difficulty with ambulation Lower extremity hyperreflexia History of anterior cervical decompression fusion at C5-6 and C6-7 performed on 06/12/2016 (1) Spondylolisthesis, thoracic region Current Visit: Yes Status: Acute Code(s): M43.14 - SPONDYLOLISTHESIS, THORACIC REGION SNOMED Code(s): 630180156 (2) Thoracic degenerative disc disease Current Visit: Yes Status: Acute Code(s): M51.34 - OTHER INTERVERTEBRAL DISC DEGENERATION, THORACIC REGION SNOMED Code(s): 64465250 (3) Low back pain Current Visit: Yes Status: Acute Code(s): M54.5 - LOW BACK PAIN SNOMED Code(s): 917166288 (4) Disc disease, degenerative, lumbar or lumbosacral Current Visit: Yes Status: Acute Code(s): M51.37 - OTHER INTERVERTEBRAL DISC DEGENERATION, LUMBOSACRAL REGION SNOMED Code(s): 77620631 (5) Myelomalacia of cervical cord Current Visit: Yes Status: Acute Code(s): G95.89 - OTHER SPECIFIED DISEASES OF SPINAL CORD SNOMED Code(s): 11253406 (6) History of cervical spinal arthrodesis Current Visit: Yes Status: Acute Code(s): Z98.1 - ARTHRODESIS STATUS SNOMED Code(s): 9010204323633 (7) Hyperreflexia of lower extremity Current Visit: Yes Status: Acute Code(s): R29.2 - ABNORMAL REFLEX SNOMED Code(s): 50310226 (8) History of TIA (transient ischemic attack) Current Visit: Yes Status: Acute Code(s): Z86.73 - PRSNL HX OF TIA (TIA), AND CEREB INFRC W/O RESID DEFICITS SNOMED Code(s): 131627554 (9) History of high blood pressure Current Visit: Yes Status: Acute Code(s): Z86.79 - PERSONAL HISTORY OF OTHER DISEASES OF THE CIRCULATORY SYSTEM SNOMED Code(s): 199479373 (10) Ataxia Current Visit: Yes Status: Acute Code(s): R27.0 - ATAXIA, UNSPECIFIED SNOMED Code(s): 46726729 (11) Weakness Current Visit: Yes Status: Acute Code(s): R53.1 - WEAKNESS SNOMED Code(s) : 26799038 (12) Dizziness Current Visit: No Status: Acute Code(s): R42 - DIZZINESS AND GIDDINESS SNOMED Code(s): 733181216 Plan: Plan: 1. After physical examination of the patient, discussion about our previous appointment in the office on 06/18/2017, and further discussion with Dr. Dayo Wills, we will currently plan to obtain an MRI of the thoracic spine and MRI of the lumbar spine for further evaluation while the patient is here in the hospital. He was previously scheduled for these MRI scans to be performed with one today and one this coming Sunday. We will plan to follow-up for further evaluation and determine an appropriate plan of care following the results of the MRI scans. We will continue to follow patient closely. 2. Medicine will continue to follow the patient closely in regards to his dizziness, lightheadedness, and other medical diagnoses 3. Patient has been discussed in detail with Dr. Dayo Wills and he agrees with this plan. Time with Patient: Less than 30
[2017-06-22] MEDS: THIAMINE 100 MG TAB PO SCH (16:27)
--- NOTE | 2017-06-22 18:03 | P.CNNES ---
History of Present Illness Consult date: 06/22/17 History of Present Illness: The patient is a 67-year-old right-handed white male states that last night around 10 PM he was laying in bed knee experienced some neck discomfort. He states his legs felt funny and he developed muscle spasms in his back and legs. He tried to get out of bed and he seemed to lean towards the left. He stood up and went to his 's room. He complained that he did not feel well. He went back to lay down and he developed some tremors of his hands and feet. He has a history of degenerative disc disease of his lumbar spine and has had a history of spinal injury in the thoracic spine with tingling sensation from the mid thorax down to his toes. Also has a history of cervical fusion and down he was scheduled to have an MRI of his thoracic and lumbar spine this week. The patient denies any episode of speech disturbance. He denied any focal weakness or focal numbness. He states he's had a history of episodic spells where he feels lightheaded and he gets tremors of his hands and feet and he gets foggy in his mind. He states last night he also had that same fogginess in his mind worried can't think clearly. He has a history of head injury in 2013 when he passed out and hit his head. There was loss of consciousness for unknown period of time. Also during the episodes he does get an elevated blood pressure. He states for the past week or so he's been having ear infection on the right ear and tinnitus. Review of Systems Eyes: denies blurred vision, denies pain Ears, nose, mouth and throat: Denies headache, Denies sore throat Cardiovascular: Reports as per HPI Respiratory: Denies cough Gastrointestinal: Reports as per HPI Neurological: Denies numbness, Denies weakness Past Medical History Past Medical History: Hyperlipidemia, Hypertension Additional Past Medical History / Comment(s): INJURED SPINAL CORD - LEGS GO NUMB. PASSED OUT IN 2013 AND HIT HEAD - HAS BEEN HAVING DIZZY SPELLS/ LIGHTHEADED EPISODES EVER SINCE. OCCASIONAL NOSE BLEEDS. History of Any Multi-Drug Resistant Organisms: None Reported Past Surgical History: Joint Replacement Additional Past Surgical History / Comment(s): left hip arthroplasty 2012, hemorrhoidectomy. Past Anesthesia/Blood Transfusion Reactions: No Reported Reaction Past Psychological History: No Psychological Hx Reported Additional Psychological History / Comment(s): Pt lives at home with his . Pt uses walker at times. Pt drives. Smoking Status: Former smoker Past Alcohol Use History: Occasional Additional Past Alcohol Use History / Comment(s): patient quit smoking in 2011. drinks 2 beers 4 days a week. Past Drug Use History: None Reported - Past Family History Father Family Medical History: Cancer Additional Family Medical History / Comment(s): Father of throat cancer in his 40's Mother Family Medical History: Diabetes Mellitus Additional Family Medical History / Comment(s): Pt thinks mother may have had cancer. Brother(s) Family Medical History: Cancer Additional Family Medical History / Comment(s): Leticia brother had a CVA with speach difficulty but had full recovery. Medications and Allergies Home Medications Medication Instructions Recorded Confirmed Type Magnesium Gluconate [Magonate] 500 mg PO DAILY 08/07/15 06/22/17 History Niacinamide [Niacin] 500 mg PO DAILY 08/07/15 06/22/17 History Omalizumab [Xolair] 300 mg SQ QMONTH PRN 08/07/15 06/22/17 History [place]-3 Fatty Acids/Fish Oil [Fish 1 cap PO BID 08/07/15 06/22/17 History Oil 1,000 mg Softgel] Atorvastatin [Lipitor] 40 mg PO HS #30 tab 08/09/15 06/22/17 Rx Clopidogrel [Plavix] 75 mg PO DAILY tab 08/09/15 06/22/17 Rx Latanoprost [Xalatan 0.005%] 1 drop BOTH EYES HS 06/05/16 06/22/17 History Potassium 99 mg PO HS 06/05/16 06/22/17 History Lisinopril [Prinivil] 10 mg PO BID 05/14/17 06/22/17 History Aspirin EC [Ecotrin Low Dose] 81 mg PO DAILY 06/22/17 06/22/17 History Citalopram Hydrobromide 20 mg PO HS 06/22/17 06/22/17 History [Citalopram HBr] Allergies Allergy/AdvReac Type Severity Reaction Status Date / Time No Known Allergies Allergy Verified 06/22/17 08:28 Physical Examination - Vital Signs Vital Signs: Vital Signs Temp Pulse Pulse Resp BP BP Pulse Ox 06/22/17 16:00 97.3 F L 75 18 131/73 94 L 06/22/17 12:00 98.3 F 67 16 116/57 92 L 06/22/17 08:00 97.2 F L 73 16 144/71 98 06/22/17 02:47 97.1 F L 75 15 155/68 95 06/22/17 01:58 60 18 141/63 95 06/22/17 00:18 98.8 F 73 18 170/81 98 Intake and Output 06/22/17 06/22/17 06/22/17 06:59 14:59 22:59 Intake Total 300 480 Output Total 1 550 Balance 299 -70 Intake: Intake, IV Titration 300 Amount Sodium Chloride 0.9% 1, 300 000 ml @ 100 mls/hr IV . Q10H ONE Rx#:[id number] Oral 480 Output: Urine 550 Urine/Stool Mix 1 Other: Voiding Method Urinal Urinal # Voids 1 1 # Bowel Movements 1 Weight 108 kg - Constitutional General appearance: average body habitus - EENT EENT: PERRL - Respiratory Respiratory: lungs clear - Cardiovascular Cardiovascular: regular rate, normal S1, normal S2 - Integumentary Integumentary: normal - Neurologic Mental status: He was awake alert and oriented he answered questions appropriately there is no aphasia or dysarthria Cranial nerve examination: PERRL, EOMI, VFF, V1/V2/V3 grossly intact, face symmetric, tongue midline Speech examination: intact Detailed motor examination: grossly full strength in all extremities, other ( Some weakness in the left hand 4/5) Detailed sensory examination: intact - Psychiatric Psychiatric: mood/affect appropriate Results - Laboratory Findings CBC and BMP: 06/22/17 00:20 06/22/17 06:02 Abnormal Lab Findings: Abnormal Labs 06/22/17 06/22/17 00:20 00:20 Potassium 5.8 H Glucose 102 H POC Glucose (mg/dL) 106 H Total Bilirubin 1.5 H Assessment and Plan (1) Dizziness Current Visit: Yes Status: Acute SNOMED Code(s): 975253987 (2) Gait disturbance Current Visit: Yes Status: Acute SNOMED Code(s): 31833203 (3) Degenerative disc disease Current Visit: Yes Status: Chronic SNOMED Code(s): 37220419 Plan: The patient is a 67-year-old man with history of chronic back pain and paresthesias and muscle spasms who presents with episode of muscle spasms difficulty with gait and dizziness. He has also been having recent tinnitus and ear infection. Recommend further evaluation with MRI of the brain and MRA of the vertebral arteries. Patient may be having episodes of VBI versus a peripheral vestibular disturbance. He is on Plavix 35 mg a day . Also recommend carotid ultrasound and echocardiogram.
[2017-06-22] MEDS: ASPIRIN 81 MG PO SCH (18:24)
[2017-06-22] MEDS: CLOPIDOGREL 75 MG TAB PO SCH (18:24)
[2017-06-22] MEDS: ENOXAPARIN 40 MG/0.4 ML SYRINGE SQ SCH (18:25)
[2017-06-22] MEDS: NIACIN TR 500 MG CAPSULE.ER PO SCH (18:25)
[2017-06-22] MEDS: LISINOPRIL 10 MG TAB PO SCH (18:28)
--- NOTE | 2017-06-22 18:44 | HP ---
HISTORY AND PHYSICAL DATE OF ADMISSION: June 22, 2017. PRESENTING COMPLAINT: Unsteady, foggy. HISTORY OF PRESENTING COMPLAINT: A pleasant 67-year-old patient of Dr. Dobbins. Chronic stable medical conditions include hypertension, hyperlipidemia, and chronic lower extremity weakness. The patient came in. The patient is states that some time ago she suffered from a board hook injury to the lower back. At that time, had gone back inside the house and came back to work under his truck and when he was unable to come out from under the truck, his had to help him up. Since then patient has had lower back pain, and weakness in the lower extremity including numbness mid back down. Some times trouble using his left leg. He did have a MRI that time. He was told that the spine was kameron. Since then, this patient has followed up also with Dr. Wills from [facility]. Did have a cervical spine surgery done. As recently as 2 days ago had also seen Dr. Wills. He was supposed to have another MRI of the spine. The patient last night woke up feeling not too well and he was finding his balance off. He tended to fall on the left side, felt foggy in the brain. Recently patient noted also some tremors in his upper extremity. The patient has also had some urinary urgency, and sometimes difficulty with stream. No trouble with his bowel. The patient does use a walker sometimes he says. No change in speech. No change in swallowing. Patient does feel rather anxious. REVIEW OF SYSTEMS: CONSTITUTIONAL: None. HEENT none. Respiratory none. Cardiovascular none. Gastrointestinal none. Genitourinary as above. Musculoskeletal as above. Dermatological, hematologic, lymphatic none. Psychiatry: A bit anxious. Neurological as above. PAST MEDICAL HISTORY: Hypertension, hyperlipidemia, spinal cord injury, bilateral leg weakness, episodes of dizzy spells. PAST SURGICAL HISTORY: Hemorrhoidectomy, left hip arthroplasty. SOCIAL HISTORY: . Does use a walker sometimes. Stopped smoking in 2011. Drinks 2 beers about 4 times a day. FAMILY HISTORY: Father of throat cancer in his 40s. MEDICATIONS: Home medications: 1. Potassium 99 mEq p.o. q.h.s. 2. Fish oil 1000 mg p.o. b.i.d. 3. Xolair 300 mg subcu every month. 4. Niacin 5 mg p.o. daily. 5. Magnesium 5 mg p.o. daily. 6. Prinivil 10 mg p.o. b.i.d. 7. Xalatan 0.005% 1 drop to both eyes q.h.s. 8. Plavix 75 mg p.o. daily. 9. Celexa 20 mg q.h.s. 10.Lipitor 40 mg q.h.s. 11.Aspirin 81 mg p.o. daily. ALLERGIES: None. PHYSICAL EXAMINATION: Vital signs on presentation, temperature 98.8, pulse 73, respiratory 18, blood pressure 140/63, pulse ox 95% on room air. General appearance: Average, well built, BMI 35. Lying in bed, somewhat anxious appearing. Eyes pupils are equal. Conjunctivae normal. HEENT: External appearance of nose and ears normal. Oral cavity normal. Neck JVD not raised. Mass not palpable. Respiratory effort normal. Lungs slightly decreased breath sounds. Cardiovascular 1st and 2nd sounds normal. No edema. ABDOMEN: Soft, nontender. Liver and spleen not palpable. Lymphatics: No lymph nodes palpable in neck or axillae. PSYCHIATRY: Alert and orient x3. Mood and affect slightly anxious-appearing. Neurological: Pupils equal. Cranial nerves grossly intact. Slight tremor of the hands. The patient's reflexes are up in both in the knee reflexes and planters and there was weakness in both lower extremities. The sensation grossly preserved. INVESTIGATIONS: White count 10.4, hemoglobin 16, potassium was 5.8, repeat 4.4. BUN and creatinine is normal. Troponin negative. UA negative. Serum alcohol less than 10. CT scan of the brain unremarkable. ASSESSMENT: 1. This is a patient who has had a previous back injury, has had numbness below the waist down and weakness in both the legs with hyporeflexia. Has been followed with Dr. Wills as an outpatient. MRI will have to determine if the patient develops some injury, myelopathy with upper motor neuron findings of lower extremity. At the same time, the patient's central features could be a panic attack itself. Need to rule out a central cause for which neurology is consulted. 2. Obesity BMI 35.2. 3. Essential hypertension. 4. Hyperlipidemia. PLAN: Home medications are resumed. Lovenox for DVT prophylaxis. Neurology and Dr. Wills from [facility] was consulted. We will also get a psychiatry evaluation to determine if there is a significant anxiety/panic attack component. Care was discussed with the patient. Copy to Dr. Dobbins. MMODL / IJN: [id number] /
[2017-06-22] MEDS: OMEGA 3 1000MG PO SCH (20:59)
[2017-06-22] MEDS ORDERED: ATORVASTATIN 40 MG TAB PO SCH (21:00)
[2017-06-22] MEDS ORDERED: CITALOPRAM HYDROBROMIDE 20 MG TAB PO SCH (21:00)
[2017-06-22] MEDS ORDERED: LATANOPROST 0.005% OPHTH DROPS 2.5 ML BTL BOTH EYES SCH (21:00)
[2017-06-22] MEDS ORDERED: POTASSIUM 99MG PO SCH (21:00)
--- NOTE | 2017-06-22 21:53 | MR ---
EXAMINATION TYPE: MR tspine/lspine wo con DATE OF EXAM: 06/22/2017 COMPARISON: NONE HISTORY: Pain TECHNIQUE: Multiplanar, multisequence imaging of the lumbar spine is performed without IV contrast. FINDINGS: Visualized cervical spine: Metallic artifact is seen from an anterior approach, consistent with anter ior C5-7 fusion change. At C6-7 the disc spur complex posteriorly abuts the ventral cord. There is 2 mm anterior degenerative listhesis of C7 upon T1. Thoracic spine: There is no thoracic malalignment. Multilevel mild thoracic spine degenerative disc a nd facet changes are seen. No focal epidural defects. The spinal cord is unremarkable, and there are no extramedullary/intradural defects. No focal skeletal findings. Lumbar spine: There are multilevel lumbar spine degenerative facet and disc changes, but these are re latively mild in degree, and there are no focal epidural defects. No candidate for nerve root impinge ment. The conus medullaris and cauda equina are unremarkable. No extramedullary/intradural defects. N o pars interarticularis defects or other focal skeletal findings. IMPRESSION: 1. C6-7 degenerative spinal canal narrowing. 2. Mild C7-T1 degenerative malalignment. 3. Mild multilevel thoracic spine spondylosis changes, without candidate for nerve root impingement. 4. Mild/moderate multilevel lumbar spine degenerative facet and disc changes, without candidate for n erve impingement.
[2017-06-22 23:31] VITALS: RESP 16
[2017-06-23] MEDS: THIAMINE 100 MG TAB PO SCH ×2 (07:58→16:37)
[2017-06-23] MEDS: NIACIN TR 500 MG CAPSULE.ER PO SCH (07:58)
[2017-06-23] MEDS: MULTIVITAMINS, THERA 1 EACH TAB PO SCH (07:58)
[2017-06-23] MEDS: ASPIRIN 81 MG PO SCH (07:59)
[2017-06-23] MEDS: ENOXAPARIN 40 MG/0.4 ML SYRINGE SQ SCH (07:59)
[2017-06-23] MEDS: LISINOPRIL 10 MG TAB PO SCH (07:59)
[2017-06-23] MEDS: CLOPIDOGREL 75 MG TAB PO SCH (07:59)
[2017-06-23 08:09] VITALS: PULSE 90
[2017-06-23] MEDS ORDERED: MAGNESIUM OXIDE 400 MG TAB PO SCH (09:00)
--- NOTE | 2017-06-23 10:29 | MR ---
EXAMINATION TYPE: MR brain wo/w mrane wo/wcon DATE OF EXAM: 06/23/2017 COMPARISON: Previous study dated 08/09/2015. HISTORY: Ataxia TECHNIQUE: Multiplanar, multisequence images of the brain and brainstem is performed without and with IV contras t, utilizing 10 mL intravenous Gadavist . MRA of the neck was also obtained. FINDINGS: Midline structures are unremarkable. There is a normal craniocervical junction. Echoplanar diffusion imaging demonstrates no areas of restricted diffusion. There are normal vascular flow voids. The orbits are normal. There is no evidence of a CP angle mass lesion. There are tiny, infrequent subcortical high signal FLAIR lesions within the cerebral hemispheres, ess entially unchanged from previous. These are nonspecific. There is no mass effect, midline shift or in tracranial blood. Following intravenous administration of gadolinium, I do not see evidence of abnormal enhancement. There is a normal origin of the great vessels. The right vertebral artery is dominant. There is no si gnificant carotid stenosis. IMPRESSION: 1. NO ACUTE INTRACRANIAL ABNORMALITY. 2. STABLE, MINIMAL SUBCORTICAL FLAIR LESIONS IN THE CEREBRAL HEMISPHERES OF UNCERTAIN ETIOLOGY. A DIF FERENTIAL DIAGNOSIS INCLUDES SMALL VESSEL DISEASE, HYPERTENSION, MIGRAINE HEADACHES, DEMYELINATION AN D LYME'S DISEASE. 3. NO SIGNIFICANT CAROTID STENOSIS.
--- NOTE | 2017-06-23 10:59 | P.CNOR ---
History of Present Illness - HPI Consult date: 06/23/17 Consult reason: other (Dizziness with numbness in upper and lower extremities) History of present illness: Patient is a 67-year-old man who is well known to our service. He has been having some increased tingling in his upper extremities and unsteadiness on his feet since and he felt some tightness in his back. He presented to the emergency room due to this and was admitted for further evaluation for possible TIAs. Patient denies any specific focal deficit but feels unsteady and feels that he leans and falls towards one side particularly to the left. His description of his issues are somewhat vague but he reports tingling in his bilateral upper extremities and tightness at his mid and lower back. He denies any weakness in his lower extremities. He denies any weakness in his upper extremities with focal nature. He denies any new specific weakness. He denies any changes in bowel bladder function. He is not having any nausea chest pain or shortness of breath. He does have history of some radicular symptoms at his upper extremities with cervical stenosis and underwent cervical a compression and fusion with our service. He had done fairly well with his procedure and had been progress with his upper extremity numbness and tingling and pain. He denies any specific pain in his neck currently. He does have some tightness in his mid and lower back. She denies any new injury. We had seen in the office regard to his issues and he is also known to have a spondylolisthesis at T1 2 and degenerative disc disease at that level with some mild stenosis at that level. With his issues at his thoracic and lumbar spine we had seen him as an outpatient and had referred him for a MRI of his thoracic and lumbar spine to be done as outpatient initially. Since he was here admitted at the hospital with some continued symptoms he underwent his thoracic and lumbar MRI yesterday and we have been able to.. He is also been able be seen with neurology and medicine and they're continuing workup as well. Review of Systems As stated per HPI. He denies any new weakness at his upper or lower extremity is. He has full active and passive range of motion at his bilateral upper and lower extremities. He does not note any specific focal deficit in his upper and lower extremity is. He does not have change of symptoms with motion at his head and neck. He is not having problems when he coughs or sneezes. He denies any changes in bowel bladder function. He describes the sensations in his back primarily is tightness through his mid back and toward his thoracolumbar junction. He is not having any changes in bowel bladder function. He says sometimes he has some difficulty over the past few months with completing his urination and relates that to potential prostate issues. He admits to some ringing in his ears and recent ear infection. 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 PASSED OUT IN 2013 AND HIT HEAD - HAS BEEN HAVING DIZZY SPELLS/ LIGHTHEADED EPISODES EVER SINCE. OCCASIONAL NOSE BLEEDS. History of Any Multi-Drug Resistant Organisms: None Reported Past Surgical History: Joint Replacement Additional Past Surgical History / Comment(s): left hip arthroplasty 2012, hemorrhoidectomy. Past Anesthesia/Blood Transfusion Reactions: No Reported Reaction Past Psychological History: No Psychological Hx Reported Additional Psychological History / Comment(s): Pt lives at home with his . Pt uses walker at times. Pt drives. Smoking Status: Former smoker Past Alcohol Use History: Occasional Additional Past Alcohol Use History / Comment(s): patient quit smoking in 2011. drinks 2 beers 4 days a week. Past Drug Use History: None Reported - Past Family History Father Family Medical History: Cancer Additional Family Medical History / Comment(s): Father of throat cancer in his 40's Mother Family Medical History: Diabetes Mellitus Additional Family Medical History / Comment(s): Pt thinks mother may have had cancer. Brother(s) Family Medical History: Cancer Additional Family Medical History / Comment(s): Leticia brother had a CVA with speach difficulty but had full recovery. Medications and Allergies Home Medications Medication Instructions Recorded Confirmed Type Magnesium Gluconate [Magonate] 500 mg PO DAILY 08/07/15 06/22/17 History Niacinamide [Niacin] 500 mg PO DAILY 08/07/15 06/22/17 History Omalizumab [Xolair] 300 mg SQ QMONTH PRN 08/07/15 06/22/17 History Belmond-3 Fatty Acids/Fish Oil [Fish 1 cap PO BID 08/07/15 06/22/17 History Oil 1,000 mg Softgel] Atorvastatin [Lipitor] 40 mg PO HS #30 tab 08/09/15 06/22/17 Rx Clopidogrel [Plavix] 75 mg PO DAILY tab 08/09/15 06/22/17 Rx Latanoprost [Xalatan 0.005%] 1 drop BOTH EYES HS 06/05/16 06/22/17 History Potassium 99 mg PO HS 06/05/16 06/22/17 History Lisinopril [Prinivil] 10 mg PO BID 05/14/17 06/22/17 History Aspirin EC [Ecotrin Low Dose] 81 mg PO DAILY 06/22/17 06/22/17 History Citalopram Hydrobromide 20 mg PO HS 06/22/17 06/22/17 History [Citalopram HBr] Allergies Allergy/AdvReac Type Severity Reaction Status Date / Time No Known Allergies Allergy Verified 06/22/17 08:28 Physical Examination Osteopathic Statement: *. No significant issues noted on an osteopathic structural exam other than those noted in the History and Physical/Consult. - C Spine: dermatomal strength & reflexes bilateral Shoulder strength: flexion: 5/5 (At his neck his incision is well-healed. There is no erythema there is no swelling. He has good motion in his neck. He is nontender to palpation anterior and posterior over his cervical spine. He has good strength at his neck and full range of motion. His upper extremities there is some chronic weakness at his left hand with interosseous and biceps. He has negative Kameron's. He is otherwise 5 out of 5 strength throughout his bilateral upper and lower extremities. His lower extremities he has somewhat brisk reflexes with 2+ to 3 deep tendon reflexes in knee and Achilles. He has no clonus. No neural tension signs. He is able walk on his toes and heels but feels somewhat unsteady on his feet. He is able to squat with good strength. He is nontender to palpation at his cervical and thoracic or lumbar spine. He is some paravertebral spasm of his mid and lower back.) Results - Labs Labs: Microbiology - Last 24 Hours (Table) 06/22/17 03:30 Urine Culture - Preliminary Urine,Clean Catch H & H 06/22/17 Range/Units 00:20 Hgb 16.0 (13.0-17.5) gm/dL Hct 46.0 (39.0-53.0) % Coagulation 06/22/17 Range/Units 00:20 INR 1.1 (<1.2) Result Diagrams: 06/22/17 00:20 06/22/17 06:02 - Diagnostic results Lumbar MRI with contrast: report reviewed, image reviewed (I have been able to review the images and the report of the thoracic and lumbar MRI. There is evidence of the thoracic spondylolisthesis at T12 and degenerative disc disease at T1 to some disc protrusion and mild stenosis at T1 2 I do not see obvious myelomalacia at that level. The evidence of his prior cervical surgery is there with some stenosis at C67 residually. There is no obvious cord change. His lumbar spine shows some degenerative disc disease with some facet arthrosis but no severe stenosis. There is no obvious instability. There is no severe stenosis at his thoracic or lumbar spine.) Assessment and Plan Assessment: Worsening of dizziness and tingling in the upper and lower extremities Spondylolisthesis T1 to with moderate stenosis at that level without focal neurologic deficit History of cervical stenosis with anterior cervical decompression and fusion C5 6 C6 7 which appears stable Plan: Worsening of dizziness and tingling in the upper and lower extremities Spondylolisthesis T1 to with moderate stenosis at that level without focal neurologic deficit History of cervical stenosis with anterior cervical decompression and fusion C5 6 C6 7 which appears stable Is difficult to determine the etiology the patient's worsening symptoms. He does have a recent ear infection and may have some tinnitus and dizziness stemming from this. He is continue management with medicine and is having further workup with neurology regards to possibility of TIAs. He had a cervical and brain MR a this morning and neurology will continue workup and treatment in that regard. He does have history of cervical stenosis and has a spondylolisthesis with mild to moderate stenosis at T1 to. His cervical surgery appears to be stable from C5 to C7. He does not show overt signs of cervical or spinal cord myelopathy although this certainly is a consideration for him. I would like to see if he makes any benefit with a short course of oral steroid medicines after having a dose of IV steroid medication here in Hospital. He is not having focal neurologic deficit or progressive neurologic demise and I do not plan any acute surgical intervention at this point. If his workup turns out to be negative and he continues to have significant symptoms we could consider decompressive surgery at his lower cervical and upper thoracic spine and possibly from C6 to T2 with decompression and fusion. I do not think that this is an emergent issue for him at a could be a consideration if he is not having improvement of his symptoms as he does have a spondylolisthesis which may be causing some irritation in his spinal cord at the T1 2 level. I think that we can determine this on an outpatient basis as I do not have acute surgical plans for him during this hospitalization. He should continue his workup and management with medicine and with neurology. He does have some anxiety issues and this may be contributing to his overall symptomatology as well. I discussed this with him and his at length at bedside and they seem to understand. He is asking if he is okay to go home from our standpoint and I think it would be okay from an orthopedic spine spine standpoint if it is clear with neurology and medicine. I can follow him up in 1 week's time for recheck evaluation if he is discharged otherwise we'll continue to follow him here in Hospital along with you.
[2017-06-23] MEDS: OMEGA 3 1000MG PO SCH (12:11)
--- NOTE | 2017-06-23 12:24 | ECHOF ---
Referral Reason:Altered mental status MEASUREMENTS -------- HEIGHT: 175.3 cm WEIGHT: 108.0 kg BP: 126/65 IVSd: 1.1 cm (0.6 - 1.1) LVIDd: 2.5 cm (3.9 - 5.3) LVPWd: 1.3 cm (0.6 - 1.1) IVSs: 1.6 cm LVIDs: 1.5 cm LVPWs: 1.7 cm Ao Diam: 3.2 cm (2.0 - 3.7) AV Cusp: 1.8 cm (1.5 - 2.6) LA Diam: 3.5 cm (2.7 - 3.8) MV E Curry: 0.63 m/s MV DecT: 196 ms MV A Curry: 0.62 m/s MV E/A Ratio: 1.01 RAP: 5.00 mmHg RVSP: 10.57 mmHg FINDINGS -------- Sinus rhythm. This was a technically good study. The left ventricular size is normal. There is borderline concentric left ventricular hypertrophy. Overall left ventricular systolic function is normal with, an EF between 55 - 60 %. The right ventricle is normal in size and function. The left atrium is normal in size. The right atrium is normal in size. The aortic valve is trileaflet, and appears structurally normal. No aortic stenosis or regurgitation. There is trace mitral regurgitation. Trace tricuspid regurgitation present. The right ventricular systolic pressure, as measured by Dopp ler, is 10.57mmHg. Pulmonic valve appears structurally normal. The aortic root size is normal. Normal inferior vena cava with normal inspiratory collapse consistent with estimated right atrial pre ssure of 5 mmHg. The pericardium is normal. CONCLUSIONS -------- 1. Sinus rhythm. 2. This was a technically good study. 3. The left ventricular size is normal. 4. There is borderline concentric left ventricular hypertrophy. 5. Overall left ventricular systolic function is normal with, an EF between 55 - 60 %. 6. The right ventricle is normal in size and function. 7. The left atrium is normal in size. 8. The right atrium is normal in size. 9. The aortic valve is trileaflet, and appears structurally normal. No aortic stenosis or regurgitati on. 10. There is trace mitral regurgitation. 11. Trace tricuspid regurgitation present. 12. The right ventricular systolic pressure, as measured by Doppler, is 10.57mmHg. 13. Pulmonic valve appears structurally normal. 14. The aortic root size is normal. 15. Normal inferior vena cava with normal inspiratory collapse consistent with estimated right atrial pressure of 5 mmHg. 16. The pericardium is normal. SHIPS EQUIPMENT ENGINEER: Yolanda Steel RDCS
[2017-06-23 14:18] LABS: Glucose,Whole Blood 133 mg/dL (75-99)
--- NOTE | 2017-06-23 15:28 | P.CN ---
Psychiatric Consult - . Consult date: 06/23/17 Consult:: 06/23/17 15:14 Identification: Patient is a 67-year-old male who was admitted to the hospital for complaints of ataxia, feeling lightheaded Reason for Consult: Possible panic attacks History of Present Illness: Patient's chart was reviewed and the patient was seen and interviewed in his room there were no family members present. Patient states that he has had these episodes over the last several years where he becomes lightheaded, feels off balance and has on occasion come to the emergency room for them. He states that he also begins to feel shaky. Patient states when I saw him that he had just gone to the bathroom and had sat down and run for the nurse because he just awakened use the bathroom and was feeling lightheaded and shaking. Patient showed me that his right and left hands were shaking. Patient was not able to report feeling anxious however. Patient states that he has had these episodes on and off for the last several years and his blood pressure is elevated during these periods, stating that his systolic goes up to in the 160s and he has had his antihypertensive medications changed because of this. He states that he just feels weird, like something is going wrong with him and feeling lightheaded and reports that he always has this shaking sensation. Patient is not able to elaborate further, denies that he is worried that he is going to have a heart attack or will and is unable to describe any precipitant. The patient states that he has never been treated for any psychiatric problems in the past and about a week ago was started on Celexa at 10 mg for 5 days and then increase to 20 mg and has been on it for just slightly over a week. Patient states that he sees no change in his symptoms since he began the medication. Upon further discussion with the patient his activities at home have decreased after an accident where he injured his back and has continued to have tingling sensation in his legs. He also states that he hit his head on a bench in 2013 and states that since that time he's had these current issues and his years of been drinking since then. He states that he always feels like there is a belt around his waist with tingling sensations down his legs. He states that he gets these tingling sensations when he has these episodes of feeling off balance and lightheaded. Patient states that because of this he has been doing less activity and his garage, he and his have been going out less frequently. He states that he and his sleep in separate bedrooms because of their different sleep schedules. He does not report that he snores. He states that he does have difficulty sleeping and it takes him about an hour to fall asleep. Patient does not endorse any psychotic symptoms, manic symptoms or depressive symptoms. Patient does not endorse any OCD symptoms. Past Psychiatric History: Patient denies any prior psychiatric treatment either inpatient or outpatient. He was recently started on Celexa and has been on it for a little over a week at 20 mg. Past Medical/Surgical History: Patient has hypertension, hyperlipidemia, status post back injury, status post left hip replacement Family History: Patient reports no psychiatric or alcohol or drug use disorders in the family and no completed suicides Social History: Patient was born and raised in [place] and states that both of his parents are . He has 8 living siblings and 1 siblings. He completed high school and then enlisted in the [employer] and served for 4 years. 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 Patient has been twice. He has no children from either marriage. His has 2 sons from her prior marriage and a have been for about 30 years. He reports no financial or relationship problems. He states that he does spend more time in his house now and on the computer and does less physical activity. He states that he and his do last outside the house as well. Substance Use History: Patient reports that he drinks 2 beers a day 4 times a week, denies any current or prior drug use history and currently is not using tobacco products Legal History: None Mental status: Appearance/Attitude: Patient is sitting at the edge of his bed, made good eye contact and was cooperative. Patient did not appear to be in any acute distress. When I first began speaking with the patient his right hand at rest with shaking when I asked him to extend his hands both of his hands were shaking however as the interview progressed his shaking stopped. Behavior: Patient did not exhibit any psychomotor agitation or retardation. Speech/Language: Patient's speech was spontaneous of normal volume and rhythm and he was coherent Thought Process: Patient was goal-directed, at times circumstantial and no evidence of loose association or flight of ideas Thought Content: Patient denied any auditory or visual hallucinations and no delusions or paranoid ideation were elicited. Patient was somatically preoccupied and Discussing his elevated blood pressure when he has these episodes of feeling shaky, lightheaded and off balance. He did not report that he was feeling anxious, did not report that he felt something bad was going to happen to him. Patient states that he has not been sleeping well, takes him an hour to fall asleep and he wakes up frequently during the evening. Patient reports no appetite disturbance. Patient reports no phobic behavior Suicidal/Homicidal Ideation: He denies any current suicidal or homicidal ideation Sensorium/Cognition: Patient is alert and oriented to person, place, and time and his recent and remote memory are grossly intact Mood/Affect: Patient's mood was worried and his affect was appropriate Insight/Judgment: Patient's insight and judgment are fair Assessment: Patient gives a history of having had a back injury about 12 years ago and reports that he continues to have some tingling below his waist and feels like there is a belt around his waist since the injury. He states that recently he has been doing less and less physical activity because of his back injury. Patient states that he has these episodes where he begins shaking most specifically his hands and is feeling lightheaded off balance but does not describe difficulty breathing, rapid heart rate or feeling that something bad is going to happen. Patient reports that he is worried about his physical health, that his legs would get worse, complained about his vision becoming worse complained that his blood pressure goes up and down and states that he's been doing less and less physical be activity. He states that he and his do last outside of the house. Patient did not endorse any symptoms of depression, aniceto or psychosis and states that he is never had these current episodes except over the last several years. Patient was recently begun on Celexa titrated to a dose of 20 mg for less than 10 days. Diagnosis: Unspecified anxiety disorder Plan: Patient does not give a classic history of panic disorder, he describes episodes where he feels shaky and lightheaded but does not express any symptoms of anxiety during this time but is somatically preoccupied. Patient reports that he is worried about his physical health, thinks that his legs will get worse, is concerned that his vision is getting worse and wonders if these episodes will continue to occur and feel they're related to his blood pressure going up and down. Patient was recently begun on Celexa 20 mg but he is only been on it for 10 days and I discussed with him that this is used to treat anxiety but that he needs to be on the medication for a longer period of time. There is no evidence of any major depressive disorder, manic symptoms or psychotic symptoms. I encouraged the patient to be more physically active, I also reviewed good sleep hygiene with the patient. I spoke with the patient regarding counseling and he declined at this time but I suggested that should he continue to be so worried about his physical health that he consider a referral from his primary care physician for counseling. I reviewed with the patient that he should not use caffeine products, that physical activity will assist in decreasing his level of anxiety and told him to continue with the Celexa 20 mg a day. If there are any further questions or concerns please don' t hesitate to contact me, I will sign off the case.
--- NOTE | 2017-06-23 16:39 | EEG ---
ELECTROENCEPHALOGRAM REPORT DATE OF EE06/23/2017. REFERRING PHYSICIAN: Dr. Powell. CONSULTING AND INTERPRETING PHYSICIAN: Dr. Shanell Bridges M.D. ELECTROENCEPHALOGRAPHIC EXAMINATION REPORT: INDICATION FOR EXAMINATION: This patient is a 67-year-old male being evaluated for gait ataxia and possible TIA. AGE: 67 EEG FINDINGS: A routine 21 channel awake digital EEG recording was accomplished utilizing the 10-20 international system with bipolar and referential montages. The background activity in the most alert resting state consists of a low to medium amplitude, fairly well developed and well sustained 7-8 Hz activity over the posterior head regions. This posterior rhythm attenuates to eye opening. There is a small amount of low amplitude 18-20 Hz beta activity seen maximally over the anterior head regions. Muscle and movement artifact was observed on a few occasions during the tracing. Hyperventilation was not performed. Photic stimulation at flash frequencies of 2-30 Hz produced a good symmetrical occipital driving response. No epileptiform discharges were seen. IMPRESSION: This EEG is within normal limits for the patient's age. The EEG failed to reveal any focal, lateralized, or epileptiform abnormalities. Clinical correlation is recommended. MMODL / IJN: [id number] /
[2017-06-23 17:03] VITALS: BP 145/79; TEMP 97.1
[2017-06-23] MEDS ORDERED: methylPREDNISolone SOD SUCCI 125 MG/2 ML VIAL IV SCH (21:00)
--- NOTE | 2017-06-23 21:36 | DS ---
DISCHARGE SUMMARY DATE OF ADMISSION: 06/22/2017. DATE OF DISCHARGE: 06/23/2017 FINAL DIAGNOSES: 1. Chronic lower extremity paraparesis, mild. 2. Obesity, BMI 35.2. 3. Essential hypertension. 4. Hyperlipidemia. 5. Unspecified anxiety disorder. HOSPITAL COURSE: This patient presented with an episode where he was a bit unsteady, woke up, a bit of anxiety. The patient has had a previous back injury with some weakness in lower extremity, does follow with Dr. Wills. The patient is hyperreflexic in lower extremity for quite a while. The patient also had previous neck surgery. MRI did show C6-C7 spinal canal narrowing and nonspecific changes on multiple lumbar spine levels. The patient was put on steroids by Dr. Wills, will follow up as an outpatient. The patient did also have a neurological workup by Dr. Bridges. EEG negative for seizure. Brain MRI and MRA unremarkable. 2D echo showed preserved LV function. Care was discussed with the patient. He is keen to go home. He will follow up with Dr. Wills as an outpatient. Otherwise able to get around. EXAM: LUNGS: Slightly decreased breath sounds. CARDIOVASCULAR: First and second sounds normal. CONSULTATIONS: Dr. Wills from orthopedics, Dr. Enrico Bridges from neurology, Dr. Lai from psychiatry. DISCHARGE MEDICATIONS: 1. Magnesium gluconate 500 mg p.o. daily. 2. Niacin 5 mg p.o. daily. 3. Xolair 3 mg subcu monthly. 4. Fish oil 1000 mg 1 capsule p.o. b.i.d. 5. Lipitor 40 mg q.h.s. 6. Plavix 75 mg p.o. daily. 7. Xalatan 1 drop both eyes q.h.s. 8. Potassium 99 mg p.o. q.h.s. 9. Prinivil 10 mg p.o. b.i.d. 10.Aspirin 81 mg p.o. daily. 11.Celexa 20 mg q.h.s. 12.Prednisone taper. Follow up with Dr. Dobbins in 1 week, Dr. Shell Bridges in 1 week, Dr. Dayo Wills in 1 week. MMODL / IJN: [id number] /
[2017-06-24] MEDS ORDERED: predniSONE 20 MG TAB PO SCH (09:00)
== END 2017-06-23 17:50 | disposition home or self-care (01) ==
LOC: EC 00:17 → 6SEL 02:34
PROVIDERS: ADMIT Hospitalist; ATTEND Hospitalist
DX: G82.20 Paraplegia, unspecified (principal); R42 Dizziness and giddiness; F41.9 Anxiety disorder, unspecified; I10 Essential (primary) hypertension; M48.04 Spinal stenosis, thoracic region; M51.16 Intervertebral disc disorders with radiculopathy, lumbar region; M43.14 Spondylolisthesis, thoracic region; M51.37 Other intervertebral disc degeneration, lumbosacral region; M51.34 Other intervertebral disc degeneration, thoracic region; M48.02 Spinal stenosis, cervical region; M46.96 Unspecified inflammatory spondylopathy, lumbar region; E78.5 Hyperlipidemia, unspecified; R25.1 Tremor, unspecified; H93.19 Tinnitus, unspecified ear; E66.9 Obesity, unspecified; Z68.35 Body mass index [BMI] 35.0-35.9, adult; Z79.02 Long term (current) use of antithrombotics/antiplatelets; Z79.82 Long term (current) use of aspirin; Z79.899 Other long term (current) drug therapy; Z98.1 Arthrodesis status; Z96.642 Presence of left artificial hip joint; Z86.73 Personal history of transient ischemic attack (TIA), and cerebral infarction without residual deficits; Z87.891 Personal history of nicotine dependence; Z80.0 Family history of malignant neoplasm of digestive organs; Z83.3 Family history of diabetes mellitus; Z82.3 Family history of stroke; Z87.828 Personal history of other (healed) physical injury and trauma
CPT/HCPCS: 96361 ×4; 96360 ×2; 99285 ×2; 96372 ×2; 36415; 95819; 93005; 93306; 80053; 80048; 82550; 82553; 83605; 83735; 84100; 84484; 85025; 85610; 85730; 81003; 80320; 87086; 87077; 87186; 71046; 70450; 70549; 70553; 72146; 72148; G0378 ×2; J3411; J1650 ×2; A9581

== ENCOUNTER 2021-05-06 12:48 | Observation (INO) | payer MEDICARE ==
[2021-05-06 13:17] LABS: Basophils % (A) 0 %; Eosinophils # (A) 0.1 k/uL (0-0.7); Eosinophils % (A) 1 %; HCT 42.1 % (39.0-53.0); HGB 14.3 gm/dL (13.0-17.5); Lymphocytes # (A) 1.3 k/uL (1.0-4.8); Lymphocytes % (A) 12 %; MCH 34.4 pg (25.0-35.0); MCV 101.3 fL (80.0-100.0); Mean Platelet Volume 7.4; Monocytes # (A) 0.7 k/uL (0-1.0); Monocytes % (A) 6 %; Neutrophils # (A) 8.3 k/uL (1.3-7.7); Neutrophils % (A) 79 %; Platelet Count 244 k/uL (150-450); RBC 4.16 m/uL (4.30-5.90); RDW 12.4 % (11.5-15.5); WBC 10.6 k/uL (3.8-10.6)
--- NOTE | 2021-05-06 13:20 | ED ---
General Adult HPI - General Chief complaint: Dizziness Stated complaint: Chest Pains Time Seen by Provider: 05/06/21 12:48 Source: patient, RN notes reviewed, old records reviewed Mode of arrival: EMS Limitations: no limitations - History of Present Illness Initial comments: 71-year-old male with a history of hypertension hyperlipidemia gait disturbance obesity history of chronic lower extremity paraparesis history of spinal cervical stenosis history of surgery to the same. The patient presents today with complaints of feeling off he states he's been having multiple symptoms he's had some dizziness and occurred when he tries get up quickly he does admit to probably not eating and drinking as much as normally. Additionally he states she's been having numbness to the toes of his feet he states his left foot does not work as well as it used to he states he did have a slightly symptoms for over a month. No chest pain reported. No shortness of breath. - Related Data Home Medications Medication Instructions Recorded Confirmed Magnesium Gluconate [Magonate] 500 mg PO DAILY 08/07/15 05/06/21 Niacinamide [Niacin] 500 mg PO DAILY 08/07/15 05/06/21 Latanoprost [Xalatan 0.005%] 1 drop BOTH EYES HS 06/05/16 05/06/21 Lisinopril [Prinivil] 10 mg PO BID 05/14/17 05/06/21 Aspirin EC [Ecotrin Low Dose] 81 mg PO HS 06/22/17 05/06/21 Citalopram Hydrobromide [CeleXA] 20 mg PO BID 05/06/21 05/06/21 Fish Oil/Dha/Epa [Fish Oil 1,200 1 cap PO DAILY 05/06/21 05/06/21 mg Fish Oil] Previous Rx's Medication Instructions Recorded Atorvastatin [Lipitor] 40 mg PO HS #30 tab 08/09/15 Clopidogrel [Plavix] 75 mg PO DAILY tab 08/09/15 Allergies Allergy/AdvReac Type Severity Reaction Status Date / Time No Known Allergies Allergy Verified 05/06/21 14:59 Review of Systems ROS Statement: Those systems with pertinent positive or pertinent negative responses have been documented in the HPI. ROS Other: All systems not noted in ROS Statement are negative. 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 PASSED OUT IN 2013 AND HIT HEAD - HAS BEEN HAVING DIZZY SPELLS/LIGHTHEADED EPISODES EVER SINCE. OCCASIONAL NOSE BLEEDS. History of Any Multi-Drug Resistant Organisms: None Reported Past Surgical History: Joint Replacement Additional Past Surgical History / Comment(s): left hip arthroplasty 2012, hemorrhoidectomy. Past Anesthesia/Blood Transfusion Reactions: No Reported Reaction Past Psychological History: No Psychological Hx Reported Smoking Status: Never smoker Past Alcohol Use History: Occasional Past Drug Use History: None Reported - Past Family History Father Family Medical History: Cancer Additional Family Medical History / Comment(s): Father of throat cancer in his 40's Mother Family Medical History: Diabetes Mellitus Additional Family Medical History / Comment(s): Pt thinks mother may have had cancer. Brother(s) Family Medical History: Cancer Additional Family Medical History / Comment(s): Leticia brother had a CVA with speach difficulty but had full recovery. General Exam - General Exam Comments Initial Comments: This is a well-developed well-nourished awake alert oriented times 3 male Limitations: no limitations General appearance: alert, in no apparent distress Head exam: Present: atraumatic, normocephalic, normal inspection Eye exam: Present: normal appearance, PERRL, EOMI. Absent: scleral icterus, conjunctival injection, periorbital swelling ENT exam: Present: mucous membranes dry Neck exam: Present: normal inspection, full ROM, other. Absent: tenderness, meningismus, lymphadenopathy Respiratory exam: Present: normal lung sounds bilaterally. Absent: respiratory distress, wheezes, rales, rhonchi, stridor Cardiovascular Exam: Present: regular rate, normal rhythm, normal heart sounds. Absent: systolic murmur, diastolic murmur, rubs, gallop, clicks GI/Abdominal exam: Present: soft, normal bowel sounds. Absent: distended, tenderness, guarding, rebound, rigid, bruit, pulsatile mass (No stridor JVD or bruits) Rectal exam: Present: deferred Extremities exam: Present: normal inspection, normal capillary refill, other (Decreased dorsiflexion of the left foot). Absent: tenderness, pedal edema, joint swelling, calf tenderness Back exam: Present: normal inspection Neurological exam: Present: alert, oriented X3, CN II-XII intact, motor sensory deficit (As above) Psychiatric exam: Present: normal affect, normal mood Skin exam: Present: warm, dry, intact, normal color. Absent: rash Course Vital Signs 05/06/21 13:02 Temperature 98.4 F Pulse Rate 79 Respiratory 20 Rate Blood Pressure 173/78 O2 Sat by Pulse 96 Oximetry EKG Findings - EKG Results: EKG: interpreted by GERARD, sinus rhythm (Sinus rhythm 74. Interval 168 QRS duration 103 daily since QTC 377/4 for borderline left exodeviation no acute ST- T wave changes) Medical Decision Making - Medical Decision Making I did a long discussion with the patient and his regarding the findings the symptoms patient demonstrates are subacute however the patient is demonstrating frequent falls and inability to dorsiflex his left foot intermittent episodes of lower extremity weakness also dizziness. I did discuss the case with Dr. Boucher patient will be admitted neurological consultation will be obtained - Lab Data Result diagrams: 05/06/21 13:07 05/06/21 13:07 Lab Results 05/06/21 05/06/21 05/06/21 Range/Units 13:07 13:07 13:07 WBC 10.6 (3.8-10.6) k/uL RBC 4.16 L (4.30-5.90) m/uL Hgb 14.3 (13.0-17.5) gm/dL Hct 42.1 (39.0-53.0) % MCV 101.3 H (80.0-100.0) fL MCH 34.4 (25.0-35.0) pg MCHC 34.0 (31.0-37.0) g/dL RDW 12.4 (11.5-15.5) % Plt Count 244 (150-450) k/uL MPV 7.4 Neutrophils % 79 % Lymphocytes % 12 % Monocytes % 6 % Eosinophils % 1 % Basophils % 0 % Neutrophils # 8.3 H (1.3-7.7) k/uL Lymphocytes # 1.3 (1.0-4.8) k/uL Monocytes # 0.7 (0-1.0) k/uL Eosinophils # 0.1 (0-0.7) k/uL Basophils # 0.0 (0-0.2) k/uL Sodium 137 (137-145) mmol/L Potassium 4.6 (3.5-5.1) mmol/L Chloride 108 H (98-107) mmol/L Carbon Dioxide 21 L (22-30) mmol/L Anion Gap 8 mmol/L BUN 18 (9-20) mg/dL Creatinine 0.88 (0.66-1.25) mg/dL Est GFR (CKD-EPI)AfAm >90 (>60 ml/min/1.73 sqM) Est GFR (CKD-EPI)NonAf 86 (>60 ml/min/1.73 sqM) Glucose 108 H (74-99) mg/dL Calcium 9.3 (8.4-10.2) mg/dL Magnesium 2.0 (1.6-2.3) mg/dL Total Bilirubin 0.7 (0.2-1.3) mg/dL AST 25 (17-59) U/L ALT 29 (4-49) U/L Alkaline Phosphatase 64 (38-126) U/L Creatine Kinase 110 (55-170) U/L Troponin I <0.012 (0.000-0.034) ng/mL Total Protein 6.6 (6.3-8.2) g/dL Albumin 4.0 (3.5-5.0) g/dL Urine Color Urine Appearance (Clear) Urine pH (5.0-8.0) Ur Specific Foster (1.001-1.035) Urine Protein (Negative) Urine Glucose (UA) (Negative) Urine Ketones (Negative) Urine Blood (Negative) Urine Nitrite (Negative) Urine Bilirubin (Negative) Urine Urobilinogen (<2.0) mg/dL Ur Leukocyte Esterase (Negative) Coronavirus (PCR) (Not Detectd) 05/06/21 05/06/21 Range/Units 13:50 17:21 WBC (3.8-10.6) k/uL RBC (4.30-5.90) m/uL Hgb (13.0-17.5) gm/dL Hct (39.0-53.0) % MCV (80.0-100.0) fL MCH (25.0-35.0) pg MCHC (31.0-37.0) g/dL RDW (11.5-15.5) % Plt Count (150-450) k/uL MPV Neutrophils % % Lymphocytes % % Monocytes % % Eosinophils % % Basophils % % Neutrophils # (1.3-7.7) k/uL Lymphocytes # (1.0-4.8) k/uL Monocytes # (0-1.0) k/uL Eosinophils # (0-0.7) k/uL Basophils # (0-0.2) k/uL Sodium (137-145) mmol/L Potassium (3.5-5.1) mmol/L Chloride (98-107) mmol/L Carbon Dioxide (22-30) mmol/L Anion Gap mmol/L BUN (9-20) mg/dL Creatinine (0.66-1.25) mg/dL Est GFR (CKD-EPI)AfAm (>60 ml/min/1.73 sqM) Est GFR (CKD-EPI)NonAf (>60 ml/min/1.73 sqM) Glucose (74-99) mg/dL Calcium (8.4-10.2) mg/dL Magnesium (1.6-2.3) mg/dL Total Bilirubin (0.2-1.3) mg/dL AST (17-59) U/L ALT (4-49) U/L Alkaline Phosphatase (38-126) U/L Creatine Kinase (55-170) U/L Troponin I (0.000-0.034) ng/mL Total Protein (6.3-8.2) g/dL Albumin (3.5-5.0) g/dL Urine Color Light Yellow Urine Appearance Clear (Clear) Urine pH 6.5 (5.0-8.0) Ur Specific Foster 1.006 (1.001-1.035) Urine Protein Negative (Negative) Urine Glucose (UA) Negative (Negative) Urine Ketones Negative (Negative) Urine Blood Negative (Negative) Urine Nitrite Negative (Negative) Urine Bilirubin Negative (Negative) Urine Urobilinogen <2.0 (<2.0) mg/dL Ur Leukocyte Esterase Negative (Negative) Coronavirus (PCR) Not Detected (Not Detectd) - Radiology Data Radiology results: report reviewed (Imaging reviewed no evidence of acute findings.), image reviewed Disposition Clinical Impression: Neuropathy, Frequent falls, Failure to thrive syndrome, adult Disposition: ADMITTED IP TO THIS [facility] Condition: Fair Referrals: Epifanio Dobbins MD [Primary Care Provider] - 1-2 days
[2021-05-06 13:25] LABS: ALT 29 U/L (4-49); AST 25 U/L (17-59); African American GFR (CKD) >90 (>60 ml/min/1.73 sqM); Alkaline Phosphatase 64 U/L (38-126); Anion Gap 8 mmol/L; Blood Urea Nitrogen 18 mg/dL (9-20); Calcium 9.3 mg/dL (8.4-10.2); Carbon Dioxide 21 mmol/L (22-30); Chloride 108 mmol/L (98-107); Creatine Kinase 110 U/L (55-170); Glucose 108 mg/dL (74-99); Non-African American GFR(CKD) 86 (>60 ml/min/1.73 sqM); Potassium 4.6 mmol/L (3.5-5.1); Sodium 137 mmol/L (137-145); Total Bilirubin 0.7 mg/dL (0.2-1.3); Total Protein 6.6 g/dL (6.3-8.2)
--- NOTE | 2021-05-06 13:42 | CT ---
EXAMINATION TYPE: CT brain wo con DATE OF EXAM: 05/06/2021 COMPARISON: 06/22/2017 HISTORY: loss of balance, lower extremity weakness more on the Lt CT DLP: 1100.4 mGycm Automated exposure control for dose reduction was used. FINDINGS: The ventricles, basal cisterns and sulci over the convexities are within normal limits for the patien t's age and there is no mass, mass effect or shift of the midline structures. There is no acute intra or extra-axial hemorrhage. No abnormal density is seen throughout the brain parenchyma. Posterior fossa and the brainstem, fourth ventricle and cerebellar pontine angles are grossly normal. The intraorbital contents are normal symmetric. There is moderate chronic inflammatory change in the maxillary and ethmoid and frontal sinuses. There is been no significant interval change since the dari or study. IMPRESSION: AGE-APPROPRIATE ATROPHY BUT NO MASS, MASS EFFECT OR INTRACRANIAL HEMORRHAGE. MODERATE CHRONIC SINUSIT IS.
--- NOTE | 2021-05-06 13:45 | XR ---
EXAMINATION TYPE: XR chest 2V DATE OF EXAM: 05/06/2021 COMPARISON: 06/22/2017 HISTORY: Weakness TECHNIQUE: Frontal and lateral views of the chest are obtained. FINDINGS: There is no focal air space opacity, pleural effusion, or pneumothorax seen. The cardiac silhouette size is within normal limits. The osseous structures are intact. IMPRESSION: No acute cardiopulmonary process.
[2021-05-06 14:08] LABS: Appearance,Urine Clear (Clear); Bilirubin,Urine Negative (Negative); Blood,Urine Negative (Negative); Color,Urine Light Yellow; Glucose,Urine (UA) Negative (Negative); Ketones,Urine Negative (Negative); Leukocyte Esterase,Urine Negative (Negative); Nitrite,Urine Negative (Negative); PH, Urine 6.5 (5.0-8.0); Protein,Urine Negative (Negative); Specific Gravity,Urine 1.006 (1.001-1.035); Urobilinogen,Urine <2.0 mg/dL (<2.0)
[2021-05-06] MEDS ORDERED: NALOXONE 0.4 MG/ML 1 ML VIAL IV PRN ×3 (18:13→18:29)
[2021-05-06] MEDS ORDERED: ONDANSETRON 4 MG/2 ML VIAL IVP PRN (18:17)
[2021-05-06] MEDS ORDERED: ACETAMINOPHEN TAB 325 MG TAB PO PRN (18:17)
[2021-05-06] MEDS ORDERED: LOPERAMIDE 2 MG CAP PO PRN (18:17)
[2021-05-06] MEDS ORDERED: MAG HYDROX/AL HYDROX/SIMETH 30 ML CUP PO PRN (18:17)
[2021-05-06] MEDS ORDERED: CALCIUM CARBONATE 500 MG CHEWABLE PO PRN (18:17)
--- NOTE | 2021-05-06 18:23 | P.HPIM ---
History of Present Illness H&P Date: 05/06/21 This 71-year-old male with past medical history of hypertension spinal stenosis admitted to the hospital with left leg weakness and numbness that has been going for the last several months getting worse over last few days patient states that he has been also dizzy and not feeding well Denies any chest pain Review of systems and systems has been reviewed all negative and positive findings as per history of present illness Constitutional: No acute distress, conversant, pleasant Eyes: Anicteric sclerae, moist conjunctiva, no lid-lag PERRLA ENMT: NC/AT Oropharynx clear, no erythema, exudates Neck: Supple, FROM, no masses, or JVD No carotid bruits No thyromegaly Lungs: Clear to auscultation Clear to percussion Normal respiratory effort, no accessory muscle use Cardiovascular: Heart regular in rate and rhythm, No murmurs, gallops, or rubs No peripheral edema Abdominal: Soft Nontender, no guarding, rebound or rigidity Abdomen moving with respiration Normoactive bowel sounds No hepatomegaly, No splenomegaly No palpable mass No abdominal wall hernia noted Skin: Normal temperature, tone, texture, turgor No induration No subcutaneous nodules No rash, lesions No ulcers Extremities: No digital cyanosis No clubbing Pedal pulses intact and symmetrical Radial pulses intact and symmetrical Normal gait and station No calf tenderness Psychiatric:Alert and oriented to person, place and time Appropriate affect Intact judgement Neuro: Muscles Strength 5/5 in all 4 extremities Sensation to light touch grossly present throughout Cranial nerves II-XII grossly intact No focal sensory deficits Left leg weakness likely related to spinal stenosis but we'll also check MRI of the brain MRI of the lumbar spine and consult neurology We put the patient on telemetry Check cardiac enzymes Hypertension Observe overnight Past Medical History Past Medical History: Hyperlipidemia, Hypertension Additional Past Medical History / Comment(s): INJURED SPINAL CORD - LEGS GO NUMB. PASSED OUT IN 2013 AND HIT HEAD - HAS BEEN HAVING DIZZY SPELLS/LIGHTHEADED EPISODES EVER SINCE. OCCASIONAL NOSE BLEEDS. History of Any Multi-Drug Resistant Organisms: None Reported Past Surgical History: Joint Replacement Additional Past Surgical History / Comment(s): left hip arthroplasty 2012, hemorrhoidectomy. Past Anesthesia/Blood Transfusion Reactions: No Reported Reaction Past Psychological History: No Psychological Hx Reported Smoking Status: Never smoker Past Alcohol Use History: Occasional Past Drug Use History: None Reported - Past Family History Father Family Medical History: Cancer Additional Family Medical History / Comment(s): Father of throat cancer in his 40's Mother Family Medical History: Diabetes Mellitus Additional Family Medical History / Comment(s): Pt thinks mother may have had cancer. Brother(s) Family Medical History: Cancer Additional Family Medical History / Comment(s): Leticia brother had a CVA with speach difficulty but had full recovery. Medications and Allergies Home Medications Medication Instructions Recorded Confirmed Type Magnesium Gluconate [Magonate] 500 mg PO DAILY 08/07/15 05/06/21 History Niacinamide [Niacin] 500 mg PO DAILY 08/07/15 05/06/21 History Atorvastatin [Lipitor] 40 mg PO HS #30 tab 08/09/15 05/06/21 Rx Clopidogrel [Plavix] 75 mg PO DAILY tab 08/09/15 05/06/21 Rx Latanoprost [Xalatan 0.005%] 1 drop BOTH EYES HS 06/05/16 05/06/21 History Lisinopril [Prinivil] 10 mg PO BID 05/14/17 05/06/21 History Aspirin EC [Ecotrin Low Dose] 81 mg PO HS 06/22/17 05/06/21 History Citalopram Hydrobromide [CeleXA] 20 mg PO BID 05/06/21 05/06/21 History Fish Oil/Dha/Epa [Fish Oil 1,200 1 cap PO DAILY 05/06/21 05/06/21 History mg Fish Oil] Allergies Allergy/AdvReac Type Severity Reaction Status Date / Time No Known Allergies Allergy Verified 05/06/21 14:59 Physical Exam Vitals: Vital Signs Temp Pulse Resp BP Pulse Ox 05/06/21 13:02 98.4 F 79 20 173/78 96 Intake and Output 05/06/21 05/06/21 05/06/21 06:59 14:59 22:59 Other: Weight 104.326 kg Results CBC & Chem 7: 05/06/21 13:07 05/06/21 13:07 Labs: Abnormal Lab Results - Last 24 Hours (Table) 05/06/21 05/06/21 Range/Units 13:07 13:07 RBC 4.16 L (4.30-5.90) m/uL MCV 101.3 H (80.0-100.0) fL Neutrophils # 8.3 H (1.3-7.7) k/uL Chloride 108 H (98-107) mmol/L Carbon Dioxide 21 L (22-30) mmol/L Glucose 108 H (74-99) mg/dL
[2021-05-06] MEDS: CITALOPRAM HYDROBROMIDE 20 MG TAB PO SCH (20:54)
[2021-05-06] MEDS: ATORVASTATIN 40 MG TAB PO SCH (20:54)
[2021-05-06] MEDS: ASPIRIN 81 MG PO SCH (20:54)
[2021-05-06] MEDS: LATANOPROST 0.005% OPHTH DROPS 2.5 ML BTL BOTH EYES SCH (20:56)
[2021-05-06] MEDS: SODIUM CHLORIDE 0.9% 1,000 ML IV SCH (20:57)
[2021-05-07] MEDS: HYDROcodone/APAP 5-325MG 1 EACH TAB PO PRN ×3 (02:36→19:32)
[2021-05-07] MEDS: SODIUM CHLORIDE 0.9% 1,000 ML IV SCH ×2 (02:39→19:34)
[2021-05-07] MEDS: CITALOPRAM HYDROBROMIDE 20 MG TAB PO SCH ×2 (08:10→19:31)
[2021-05-07] MEDS: MAGNESIUM OXIDE 400 MG TAB PO SCH (08:10)
[2021-05-07] MEDS: CLOPIDOGREL 75 MG TAB PO SCH (08:10)
[2021-05-07 12:01] LABS: Basophils # (A) 0.04 X 10*3/uL (0.00-0.10); Basophils % (A) 0.6 %; Eosinophils # (A) 0.25 X 10*3/uL (0.04-0.35); Eosinophils % (A) 3.7 %; HCT 40.1 % (39.6-50.0); HGB 12.9 g/dL (13.0-17.0); Immature Grans, Automated 0.1 %; Lymphocytes # (A) 1.67 X 10*3/uL (0.90-5.00); Lymphocytes % (A) 24.8 %; MCH 32.7 pg (27.0-32.0); MCHC 32.2 g/dL (32.0-37.0); MCV 101.5 fL (80.0-97.0); Mean Platelet Volume 9.7 fL (9.5-12.2); Monocytes # (A) 0.76 X 10*3/uL (0.20-1.00); Monocytes % (A) 11.3 %; NRBC Per 100 WBC 0 /100 WBCS (0.0-0.0); Neutrophils # (A) 4.01 X 10*3/uL (1.80-7.70); Neutrophils % (A) 59.5 %; Platelet Count 225 X 10*3/uL (140-440); RBC 3.95 X 10*6/uL (4.40-5.60); RDW 12.7 % (11.5-14.5); WBC 6.74 X 10*3/uL (4.50-10.00)
[2021-05-07 12:17] LABS: African American GFR (CKD) 93.9 (60.0-200.0); Albumin 3.8 g/dL (3.8-4.9); Albumin/Globulin Ratio 2.09 (1.60-3.17); Anion Gap 10.1 mmol/L (10.00-18.00); BUN/Creat Ratio 13.77 Ratio (12.00-20.00); Blood Urea Nitrogen 12.9 mg/dL (9.0-27.0); Calcium 8.7 mg/dL (8.7-10.3); Carbon Dioxide 22.3 mmol/L (20.0-27.5); Globulin 1.8 g/dL (1.6-3.3); Potassium 4.1 mmol/L (3.5-5.5); Total Bilirubin 0.5 mg/dL (0.30-1.20); Total Protein 5.6 g/dL (6.2-8.2)
--- NOTE | 2021-05-07 13:01 | MR ---
EXAMINATION TYPE: MR brain/lspine wo con DATE OF EXAM: 05/07/2021 COMPARISON: 06/23/2017 MRI of the brain. 06/22/2017 MRI of the L-spine. HISTORY: Left leg weakness CONTRAST: Standard multiplanar, multisequence MRI departmental protocol without contrast was obtained for the b rain and lumbar spine. FINDINGS: Brain MRI: Scattered nonspecific FLAIR signal abnormalities are demonstrated again the supratentorial white shashi er. Foci of similar signal intensity are seen in the bilateral temporal lobes and appear new. No intracranial diffusion restriction, hemorrhage, midline shift or mass effect appreciated.Midline s tructures are normal in signal. The brain volume is mildly decreased. The ventricles and CSF spaces and basilar cisterns are maintain ed to a degree relative to the brain volume loss. No ventricular dilatation is appreciated. Mild mucosal sinus disease noted. No effusion seen in the mastoid air cells. No acute or significant intraorbital abnormalities.T2/FLAIR intense lesions are again demonstrated in the soft tissue posteri or to the occipital region. Lumbar spine MRI: There is diffuse disc degenerative changes progressed in the interval. End plate degenerative changes most prominent in the inferior L5. There is narrowing of L5-S1 disc space. Facet joint arthropathy c hanges extending from L2-3 through L5-S1 appears to be most severe at L5-S1. There is disc bulging at L3-4, L4-5 and L5-S1. There is bilateral neural foraminal narrowing most significant at L3-4 and L5- S1, worse on the left side. The spinal cord terminates at the level of L1-2. The included spinal cord is normal in signal. Intrathecal nerve roots are unremarkable. Marrow signal is maintained. Mild par aspinal muscular atrophy noted. IMPRESSION: 1. No acute intracranial abnormality. 2. Nonspecific FLAIR signal intensities in the white matter, some are stable and some are new the dif ferential would include small vessel disease, hypertension or demyelinating disease. Lack of IV contr ast Limited evaluation. 3. Degenerative changes of the lumbar spine, mildly progressed in the interval as described above. Cl inical correlation with symptomology recommended.
--- NOTE | 2021-05-07 13:45 | P.PN ---
Subjective Progress Note Date: 05/07/21 Principal diagnosis: This 71-year-old male with past medical history of hypertension spinal stenosis admitted to the hospital with left leg weakness and numbness that has been going for the last several months getting worse over last few days patient states that he has been also dizzy and not feeding well Denies any chest pain Review of systems and systems has been reviewed all negative and positive findings as per history of present illness Constitutional: No acute distress, conversant, pleasant Eyes: Anicteric sclerae, moist conjunctiva, no lid-lag PERRLA ENMT: NC/AT Oropharynx clear, no erythema, exudates Neck: Supple, FROM, no masses, or JVD No carotid bruits No thyromegaly Lungs: Clear to auscultation Clear to percussion Normal respiratory effort, no accessory muscle use Cardiovascular: Heart regular in rate and rhythm, No murmurs, gallops, or rubs No peripheral edema Abdominal: Soft Nontender, no guarding, rebound or rigidity Abdomen moving with respiration Normoactive bowel sounds No hepatomegaly, No splenomegaly No palpable mass No abdominal wall hernia noted Skin: Normal temperature, tone, texture, turgor No induration No subcutaneous nodules No rash, lesions No ulcers Extremities: No digital cyanosis No clubbing Pedal pulses intact and symmetrical Radial pulses intact and symmetrical Normal gait and station No calf tenderness Psychiatric:Alert and oriented to person, place and time Appropriate affect Intact judgement Neuro: Muscles Strength 5/5 in all 4 extremities Sensation to light touch grossly present throughout Cranial nerves II-XII grossly intact No focal sensory deficits Left leg weakness likely related to spinal stenosis but we'll also check MRI of the brain MRI of the lumbar spine and consult neurology Patient continues to have left hip pain will consult orthopedic surgery as the patient did have hip replacement past we'll also check bilateral hip x-rays We put the patient on telemetry Check cardiac enzymes Hypertension Observe overnight Objective - Vital Signs Vital signs: Vital Signs Temp 98.1 F 05/07/21 07:27 Pulse 70 05/07/21 07:27 Resp 16 05/07/21 07:27 BP 163/76 05/07/21 07:27 Pulse Ox 95 05/07/21 07:27 Intake & Output 05/06/21 05/07/21 05/07/21 18:59 06:59 18:59 Intake Total 118 Balance 118 Weight 104.326 kg 104.326 kg Intake: Oral 118 Other: # Voids 2 - Labs CBC & Chem 7: 05/07/21 07:06 05/07/21 07:06 Labs: Abnormal Lab Results - Last 24 Hours (Table) 05/07/21 05/07/21 Range/Units 07:06 07:06 RBC 3.95 L (4.40-5.60) X 10*6/uL Hgb 12.9 L (13.0-17.0) g/dL MCV 101.5 H (80.0-97.0) fL MCH 32.7 H (27.0-32.0) pg Total Protein 5.6 L (6.2-8.2) g/dL
--- NOTE | 2021-05-07 14:40 | XR ---
EXAMINATION TYPE: XR Hip Bilateral Complete DATE OF EXAM: 05/07/2021 COMPARISON: NONE HISTORY: Bilateral hip pain TECHNIQUE: 2 views each hip FINDINGS: There is left hip prosthesis. Components appear in anatomic position. The proximal right femur and hip joint appear intact. There is no sign of hip dysplasia. Acetabulum i s intact. IMPRESSION: Negative bilateral hip exam. No fracture. No significant change compared to pelvis x-ray exam 04/12/2014.
--- NOTE | 2021-05-07 15:41 | P.CNNES ---
History of Present Illness Consult date: 05/07/21 Reason for Consult: left leg weakness History of Present Illness: The patient is a 71-year-old male who is seen in neurologic consultat [facility] on May 07, 2021, via telemedicine. The patient reports a history of left hip replacement. He says that for the past 2 years, he has been experiencing left hip pain. For the past 2 weeks, the pain has become very severe. He says that with any type of movement he experiences pain. He attempts to put weight on his left leg and because of the severe hip pain, his left leg gives out. The patient has fallen a few times. Reports falling to his knees. He has not fallen onto his left hip. The patient also reports experiencing numbness in his low back when he is walking. He sleeps in the bed with a heating pad on his low back because of pain. He reports that his legs feel weak. He is unable to slide his left slipper on. He has difficulty putting his left sock and shoe 1. The patient reports that his left leg is worse than the right leg. He says that he is unable to walk in his usual fashion. The patient also reports that the left leg seems to be uncoordinated at times. The patient denies numbness tingling in his lower extremities. He denies saddle anesthesia. He denies loss of bowel and bladder control. The patient also describes what sound to be symptoms of restless leg syndrome. He reports experiencing jumping of his left leg, at night. Review of Systems the patient reports some sensation of lightheadedness when he attempts to get out of bed. He reports that he must sit on the edge of the bed for short period of time, before rising. 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 PASSED OUT IN 2013 AND HIT HEAD - HAS BEEN HAVING DIZZY SPELLS/LIGHTHEADED EPISODES EVER SINCE. OCCASIONAL NOSE BLEEDS. History of Any Multi-Drug Resistant Organisms: None Reported Past Surgical History: Joint Replacement Additional Past Surgical History / Comment(s): left hip arthroplasty 2012, hemorrhoidectomy. Past Anesthesia/Blood Transfusion Reactions: No Reported Reaction Past Psychological History: No Psychological Hx Reported Additional Psychological History / Comment(s): Pt lives at home with his . Pt uses walker at times. Pt drives. Smoking Status: Former smoker Past Alcohol Use History: Occasional Additional Past Alcohol Use History / Comment(s): patient quit smoking in 2011. drinks 2 beers 4 days a week. Past Drug Use History: None Reported - Past Family History Father Family Medical History: Cancer Additional Family Medical History / Comment(s): Father of throat cancer in his 40's Mother Family Medical History: Diabetes Mellitus Additional Family Medical History / Comment(s): Pt thinks mother may have had cancer. Brother(s) Family Medical History: Cancer Additional Family Medical History / Comment(s): Leticia brother had a CVA with speach difficulty but had full recovery. Medications and Allergies Home Medications Medication Instructions Recorded Confirmed Type Magnesium Gluconate [Magonate] 500 mg PO DAILY 08/07/15 05/06/21 History Niacinamide [Niacin] 500 mg PO DAILY 08/07/15 05/06/21 History Atorvastatin [Lipitor] 40 mg PO HS #30 tab 08/09/15 05/06/21 Rx Clopidogrel [Plavix] 75 mg PO DAILY tab 08/09/15 05/06/21 Rx Latanoprost [Xalatan 0.005%] 1 drop BOTH EYES HS 06/05/16 05/06/21 History Lisinopril [Prinivil] 10 mg PO BID 05/14/17 05/06/21 History Aspirin EC [Ecotrin Low Dose] 81 mg PO HS 06/22/17 05/06/21 History Citalopram Hydrobromide [CeleXA] 20 mg PO BID 05/06/21 05/06/21 History Fish Oil/Dha/Epa [Fish Oil 1,200 1 cap PO DAILY 05/06/21 05/06/21 History mg Fish Oil] Allergies Allergy/AdvReac Type Severity Reaction Status Date / Time No Known Allergies Allergy Verified 05/06/21 14:59 Physical Examination - Vital Signs Vital Signs: Vital Signs Temp Pulse Pulse Resp BP BP Pulse Ox 05/07/21 07:27 98.1 F 70 16 163/76 95 05/07/21 00:38 97.7 F 57 L 20 164/74 95 05/06/21 20:30 99.2 F 94 22 177/75 95 05/06/21 20:07 78 18 05/06/21 20:00 94 20 05/06/21 19:07 78 18 147/68 96 05/06/21 13:02 98.4 F 79 20 173/78 96 Intake and Output 05/06/21 05/07/21 05/07/21 22:59 06:59 14:59 Intake Total 118 Balance 118 Intake: Oral 118 Other: # Voids 2 Weight 104.326 kg Gen.: The patient is reclining in the bed. He is well-nourished, well-developed and in no acute distress. HEENT: Head is atraumatic, normocephalic. Fundus not visualized. There is no scleral icterus. Mucous membranes are moist. Neck: Supple without carotid bruits Heart: Regular rate and rhythm Lungs: Clear to auscultation Extremities: Without edema Neurological examination Mental status: The patient is awake, alert and oriented 3. His speech is clear. There is no dysarthria or aphasia. Cranial nerves: Pupils are equal at 2 mm and reactive. Visual kwong are full to confrontation. Extraocular movements are intact. There is no nystagmus. Facial sensation is intact. There is no facial asymmetry. Hearing is grossly intact. Uvula and palate are midline. Shoulder shrug is symmetric. Tongue protrudes midline. Motor: Upper extremity strength is 5/5 bilaterally. Right lower extremity strength 5/5. Left hip flexor 1/5. Left hip adductor and abductor strength 5/5, limited by pain. Left ankle dorsiflexion 2-3/5. Left extensor hallucis longus 2-3/5. Coordination: Finger to nose testing is intact. There is an intention tremor of the bilateral upper extremities. Rapid alternating movements are intact. Deep tendon reflexes: 2+/4+ in the right upper and lower extremities. Left upper extremity reflexes 3+/4+. Left patellar reflex 2+/4+. Sensation: Grossly intact to light touch throughout. There is no extinction with double simultaneous stimulation. Gait: Not assessed Results - Laboratory Findings CBC and BMP: 05/07/21 07:06 05/07/21 07:06 Abnormal Lab Findings: Abnormal Labs 05/06/21 05/06/21 13:07 13:07 RBC 4.16 L MCV 101.3 H Neutrophils # 8.3 H Chloride 108 H Carbon Dioxide 21 L Glucose 108 H Assessment and Plan Assessment: 1. Weakness of left hip flexor, left ankle dorsiflexor and left extensor hallucis longus muscles, with severe left hip pain and back pain-suspect lumbar radiculopathy/plexopathy. There are no upper motor neuron signs to suggest cerebral origin 2. History of previous hip replacement 3. History of previous cervical spine surgery Plan: 1. MRI of brain and lumbar spine has been reviewed-neurosurgery should be consultation regarding lumbar radiculopathy 2. Pain control 3. Consider physical therapy when pain is under control Thank you for allowing us to participate in the care of this patient. There is no further neurology intervention indicated at this time. Please call if needed Time with Patient: Greater than 30 (spent 40 minutes with patient via telemedicine)
[2021-05-07] MEDS: ATORVASTATIN 40 MG TAB PO SCH (19:32)
[2021-05-07] MEDS: ASPIRIN 81 MG PO SCH (19:32)
[2021-05-07] MEDS: LATANOPROST 0.005% OPHTH DROPS 2.5 ML BTL BOTH EYES SCH (19:34)
[2021-05-07 20:35] VITALS: RESP 18
[2021-05-08] MEDS: SODIUM CHLORIDE 0.9% 1,000 ML IV SCH (06:13)
[2021-05-08 07:30] VITALS: BP 173/81; PULSE 61; TEMP 97.8
[2021-05-08] MEDS: MAGNESIUM OXIDE 400 MG TAB PO SCH (08:05)
[2021-05-08] MEDS: CLOPIDOGREL 75 MG TAB PO SCH (08:05)
[2021-05-08] MEDS: CITALOPRAM HYDROBROMIDE 20 MG TAB PO SCH (08:05)
--- NOTE | 2021-05-08 08:56 | P.CNOR ---
History of Present Illness - [facility] Consult date: 05/08/21 Consult reason: back pain (and left hip pain) History of present illness: The patient is a 71 y/o male who presented to the emergency department 2 days ago with weakness and frequent falls. He was complaining of weakness in the left foot and inability to lift his left foot normally. Orthopedics was consulted for left hip pain. He states he had a left total hip arthroplasty about [address] Ramana Amaro. He has also seen Dr. Wills in the recent past as well. Most of the hip pain is in the groin. The patient was recently seen by Dr. Ramana Amaro in the office about [address] Amaro recommended physical therapy due to weakened hip and leg muscles. The patient does not want to physical therapy and does not think it will help his pain. He has had multiple falls lately and has bumped his hip on equipment in his garage. He states he is unable to find his shoes sometimes because he can't feel his feet. Today, he states his pain is about the same and he feels that his legs have not improved since admission. 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 PASSED OUT IN 2013 AND HIT HEAD - HAS BEEN HAVING DIZZY SPELLS/LIGHTHEADED EPISODES EVER SINCE. OCCASIONAL NOSE BLEEDS. History of Any Multi-Drug Resistant Organisms: None Reported Past Surgical History: Joint Replacement Additional Past Surgical History / Comment(s): left hip arthroplasty 2012, hemorrhoidectomy. Past Anesthesia/Blood Transfusion Reactions: No Reported Reaction Past Psychological History: No Psychological Hx Reported Additional Psychological History / Comment(s): Pt lives at home with his . Pt uses walker at times. Pt drives. Smoking Status: Former smoker Past Alcohol Use History: Occasional Additional Past Alcohol Use History / Comment(s): patient quit smoking in 2011. drinks 2 beers 4 days a week. Past Drug Use History: None Reported - Past Family History Father Family Medical History: Cancer Additional Family Medical History / Comment(s): Father of throat cancer in his 40's Mother Family Medical History: Diabetes Mellitus Additional Family Medical History / Comment(s): Pt thinks mother may have had cancer. Brother(s) Family Medical History: Cancer Additional Family Medical History / Comment(s): Leticia brother had a CVA with speach difficulty but had full recovery. Medications and Allergies Home Medications Medication Instructions Recorded Confirmed Type Magnesium Gluconate [Magonate] 500 mg PO DAILY 08/07/15 05/06/21 History Niacinamide [Niacin] 500 mg PO DAILY 08/07/15 05/06/21 History Atorvastatin [Lipitor] 40 mg PO HS #30 tab 08/09/15 05/06/21 Rx Clopidogrel [Plavix] 75 mg PO DAILY tab 08/09/15 05/06/21 Rx Latanoprost [Xalatan 0.005%] 1 drop BOTH EYES HS 06/05/16 05/06/21 History Lisinopril [Prinivil] 10 mg PO BID 05/14/17 05/06/21 History Aspirin EC [Ecotrin Low Dose] 81 mg PO HS 06/22/17 05/06/21 History Citalopram Hydrobromide [CeleXA] 20 mg PO BID 05/06/21 05/06/21 History Fish Oil/Dha/Epa [Fish Oil 1,200 1 cap PO DAILY 05/06/21 05/06/21 History mg Fish Oil] Allergies Allergy/AdvReac Type Severity Reaction Status Date / Time No Known Allergies Allergy Verified 05/06/21 14:59 Physical Examination The patient is a 71 y/o male in no acute distress. He is alert and oriented x3. Exam of the back reveals no dimples, patches, lacerations, or abrasions. Non- tender to palpation over the midline. There is some paravertebral spasm. Straight leg raise is positive on the left. There is pain on flexion of the hip. No pain on internal or external rotation of the left hip. Circulatory status is intact bilaterally. Right Lower extremity: Motor strength of the lower extremity is 5/5 including dorsiflexion, plantar flexion, extensor hallucis longus, hip flexion, knee extension abduction and adduction. Left Lower extremity: Motor strength of the lower extremity is 4/5 including dorsiflexion, plantar flexion, extensor hallucis longus, hip flexion, knee extension abduction and adduction. Results - Labs Labs: Abnormal Lab Results - Last 24 Hours (Table) 05/07/21 05/07/21 Range/Units 07:06 07:06 RBC 3.95 L (4.40-5.60) X 10*6/uL Hgb 12.9 L (13.0-17.0) g/dL MCV 101.5 H (80.0-97.0) fL MCH 32.7 H (27.0-32.0) pg Total Protein 5.6 L (6.2-8.2) g/dL H & H 05/06/21 05/07/21 Range/Units 13:07 07:06 Hgb 14.3 12.9 L (13.0-17.5) gm/dL Hct 42.1 40.1 (39.0-53.0) % Result Diagrams: 05/08/21 07:39 05/08/21 07:39 - Diagnostic results Hip x-ray: image reviewed (X-rays of the left hip reveal a total hip arthroplasty in good alignment and position. ) Assessment and Plan (1) Left hip pain Status: Acute Code(s): M25.552 - PAIN IN LEFT HIP SNOMED Code(s): 85465388 (2) History of total left hip replacement Status: Acute Code(s): Z96.642 - PRESENCE OF LEFT ARTIFICIAL HIP JOINT SNOMED Code(s): 906594719761 (3) Frequent falls Status: Acute Code(s): R29.6 - REPEATED FALLS SNOMED Code(s): 110956317 Plan: The clinical and x-ray findings were discussed with the patient. The left total hip arthroplasty appears stable without gross loosening or dislocation. We will continue to recommend physical therapy at this time. There is evidence of weakness to the left lower extremity that is most likely coming from his back. The patient is stable for discharge today if cleared by internal medicine. I advised him to see Dr. Wills in the next week after discharge for further evaluation of his pain and leg weakness. If he remains in the hospital, we will have Dr. Wills/PALOMA Alvarado see the patient tomorrow.
[2021-05-08 10:55] LABS: Basophils # (A) 0.04 X 10*3/uL (0.00-0.10); Basophils % (A) 0.6 %; Eosinophils # (A) 0.24 X 10*3/uL (0.04-0.35); Eosinophils % (A) 3.4 %; HCT 40.1 % (39.6-50.0); HGB 12.9 g/dL (13.0-17.0); Immature Grans, Automated 0.3 %; Lymphocytes # (A) 1.34 X 10*3/uL (0.90-5.00); Lymphocytes % (A) 18.8 %; MCH 32.6 pg (27.0-32.0); MCHC 32.2 g/dL (32.0-37.0); MCV 101.3 fL (80.0-97.0); Mean Platelet Volume 9.4 fL (9.5-12.2); Monocytes # (A) 0.77 X 10*3/uL (0.20-1.00); Monocytes % (A) 10.8 %; NRBC Per 100 WBC 0 /100 WBCS (0.0-0.0); Neutrophils % (A) 66.1 %; Platelet Count 220 X 10*3/uL (140-440); RBC 3.96 X 10*6/uL (4.40-5.60); RDW 12.6 % (11.5-14.5); WBC 7.11 X 10*3/uL (4.50-10.00)
[2021-05-08 11:06] LABS: African American GFR (CKD) 98.5 (60.0-200.0); Albumin 3.7 g/dL (3.8-4.9); Albumin/Globulin Ratio 1.95 (1.60-3.17); Anion Gap 9.8 mmol/L (10.00-18.00); BUN/Creat Ratio 12.56 Ratio (12.00-20.00); Blood Urea Nitrogen 11.3 mg/dL (9.0-27.0); Calcium 8.8 mg/dL (8.7-10.3); Carbon Dioxide 24.2 mmol/L (20.0-27.5); Globulin 1.9 g/dL (1.6-3.3); Potassium 4.4 mmol/L (3.5-5.5); Total Bilirubin 0.4 mg/dL (0.30-1.20); Total Protein 5.6 g/dL (6.2-8.2)
--- NOTE | 2021-05-08 11:13 | P.DS ---
Providers Date of admission: 05/06/21 18:31 Expected date of discharge: 05/08/21 Attending physician: Juanjose Gomez MD Consults: 05/06/21 18:18 Consult Physician Routine Consulting Provider: Scotty Arenas Consult Reason/Comments: left leg weakness Do you want consulting provider notified?: Yes 05/07/21 13:40 Consult Physician Routine Consulting Provider: Sherrell Barrios Consult Reason/Comments: hip pain Do you want consulting provider notified?: Yes Primary care physician: [facility] Course: 71-year-old male admitted to the hospital with left leg weakness patient has extensive workup including MRI of the brain and spine orthopedic consultation neuro consultation no evidence of CVA no evidence of acute coronary syndrome the patient continued to have weakness in the left hip which is likely musculoskeletal in origin Patient advised to follow-up with neurosurgery as the patient did have neurosurgery before and also follow-up with orthopedics as an outpatient Also advised to follow-up with neurology for the persistent dizziness Constitutional: No acute distress, conversant, pleasant Eyes: Anicteric sclerae, moist conjunctiva, no lid-lag PERRLA ENMT: NC/AT Oropharynx clear, no erythema, exudates Neck: Supple, FROM, no masses, or JVD No carotid bruits No thyromegaly Lungs: Clear to auscultation Clear to percussion Normal respiratory effort, no accessory muscle use Cardiovascular: Heart regular in rate and rhythm, No murmurs, gallops, or rubs No peripheral edema Abdominal: Soft Nontender, no guarding, rebound or rigidity Abdomen moving with respiration Normoactive bowel sounds No hepatomegaly, No splenomegaly No palpable mass No abdominal wall hernia noted Skin: Normal temperature, tone, texture, turgor No induration No subcutaneous nodules No rash, lesions No ulcers Extremities: No digital cyanosis No clubbing Pedal pulses intact and symmetrical Radial pulses intact and symmetrical Normal gait and station No calf tenderness Psychiatric:Alert and oriented to person, place and time Appropriate affect Intact judgement Neuro: Assessment and plan discharge plan left leg weakness likely musculoskeletal in origin patient to follow-up with neurosurgery and orthopedics Dizziness no evidence of CVA patient to follow-up with neurology Patient Condition at Discharge: Fair Plan - Discharge Summary Discharge Rx Participant: Yes New Discharge Prescriptions: Continue Niacinamide [Niacin] 500 mg PO DAILY Magnesium Gluconate [Magonate] 500 mg PO DAILY Atorvastatin [Lipitor] 40 mg PO HS #30 tab Clopidogrel [Plavix] 75 mg PO DAILY tab Latanoprost [Xalatan 0.005%] 1 drop BOTH EYES HS Lisinopril [Prinivil] 10 mg PO BID Aspirin EC [Ecotrin Low Dose] 81 mg PO HS Citalopram Hydrobromide [CeleXA] 20 mg PO BID Fish Oil/Dha/Epa [Fish Oil 1,200 mg Fish Oil] 1 cap PO DAILY Discharge Medication List Magnesium Gluconate [Magonate] 500 mg PO DAILY 08/07/15 [History] Niacinamide [Niacin] 500 mg PO DAILY 08/07/15 [History] Atorvastatin [Lipitor] 40 mg PO HS #30 tab 08/09/15 [Rx] Clopidogrel [Plavix] 75 mg PO DAILY tab 08/09/15 [Rx] Latanoprost [Xalatan 0.005%] 1 drop BOTH EYES HS 06/05/16 [History] Lisinopril [Prinivil] 10 mg PO BID 05/14/17 [History] Aspirin EC [Ecotrin Low Dose] 81 mg PO HS 06/22/17 [History] Citalopram Hydrobromide [CeleXA] 20 mg PO BID 05/06/21 [History] Fish Oil/Dha/Epa [Fish Oil 1,200 mg Fish Oil] 1 cap PO DAILY 05/06/21 [History] Follow up Appointment(s)/Referral(s): Epifanio Dobbins MD [Primary Care Provider] - 1-2 days Lennox Wills DO [Doctor of Osteopathic Medicine] - 1 Week Zita Daly MD [Medical Doctor] - 1 Week Discharge Disposition: HOME SELF-CARE
== END 2021-05-08 12:00 | disposition home or self-care (01) ==
LOC: EC 12:48 → 4SSUR 18:31 → 6NMEDSUR 19:17
PROVIDERS: ADMIT Internal Medicine; ATTEND Internal Medicine
DX: R07.9 Chest pain, unspecified (principal); G82.20 Paraplegia, unspecified; M25.552 Pain in left hip; R53.1 Weakness; Z20.822 Contact with and (suspected) exposure to COVID-19; M48.02 Spinal stenosis, cervical region; M51.36 Other intervertebral disc degeneration, lumbar region; G37.9 Demyelinating disease of central nervous system, unspecified; M46.96 Unspecified inflammatory spondylopathy, lumbar region; M62.50 Muscle wasting and atrophy, not elsewhere classified, unspecified site; I10 Essential (primary) hypertension; R62.7 Adult failure to thrive; R29.6 Repeated falls; E66.9 Obesity, unspecified; E78.5 Hyperlipidemia, unspecified; Z68.33 Body mass index [BMI] 33.0-33.9, adult; Z79.02 Long term (current) use of antithrombotics/antiplatelets; Z79.899 Other long term (current) drug therapy; Z87.891 Personal history of nicotine dependence; Z96.642 Presence of left artificial hip joint; Z80.1 Family history of malignant neoplasm of trachea, bronchus and lung; Z82.3 Family history of stroke; Z87.19 Personal history of other diseases of the digestive system; Z83.3 Family history of diabetes mellitus
CPT/HCPCS: 99285; 36415; 93005; 80053 ×3; 82550; 83735; 84484; 85025 ×3; 81003; 87635; 73521; 71046; 70450; 70551; 72148; G0378 ×3

== ENCOUNTER → 2021-06-01 | Outpatient (CLI) | payer MEDICARE ==
[2021-06-01 13:02] LABS: INR 0.9 (<1.2); Partial Thromboplastin Time 25.6 sec (22.0-30.0); Prothrombin Time 10.4 sec (9.0-12.0)
[2021-06-01 18:45] LABS: Appearance,Urine Clear (Clear); Bilirubin,Urine Negative (Negative); Blood,Urine Negative (Negative); Color,Urine Yellow (Yellow); Ketones,Urine Negative (Negative); Leukocyte Esterase,Urine Negative (Negative); Nitrite,Urine Negative (Negative); Protein,Urine Negative (Negative); Specific Gravity,Urine 1.014 (1.001-1.030); Urobilinogen,Urine 0.2 (0.2,1.0)
[2021-06-01 18:57] LABS: HCT 44.2 % (39.6-50.0); HGB 14.2 g/dL (13.0-17.0); MCH 32.9 pg (27.0-32.0); MCHC 32.1 g/dL (32.0-37.0); MCV 102.3 fL (80.0-97.0); Mean Platelet Volume 10.3 fL (9.5-12.2); NRBC Per 100 WBC 0 /100 WBCS (0.0-0.0); Platelet Count 278 X 10*3/uL (140-440); RBC 4.32 X 10*6/uL (4.40-5.60); RDW 12.8 % (11.5-14.5); WBC 7.99 X 10*3/uL (4.50-10.00)
[2021-06-02 02:11] LABS: African American GFR (CKD) 86.8 (60.0-200.0); Albumin 4.2 g/dL (3.8-4.9); Albumin/Globulin Ratio 1.8 (1.60-3.17); Anion Gap 14.9 mmol/L (10.00-18.00); BUN/Creat Ratio 19.5 Ratio (12.00-20.00); Blood Urea Nitrogen 19.5 mg/dL (9.0-27.0); Calcium 9.1 mg/dL (8.7-10.3); Carbon Dioxide 20.1 mmol/L (20.0-27.5); Globulin 2.4 g/dL (1.6-3.3); Non-African American GFR(CKD) 74.9 (60.0-200.0); Potassium 4.6 mmol/L (3.5-5.5); Total Bilirubin 0.3 mg/dL (0.30-1.20); Total Protein 6.6 g/dL (6.2-8.2)
== END | disposition home or self-care (01) ==
LOC: LABPAT 11:59
PROVIDERS: ATTEND Orthopaedic Surgery Orthopaedic Surgery of the Spine
DX: Z01.812 Encounter for preprocedural laboratory examination (principal); M48.061 Spinal stenosis, lumbar region without neurogenic claudication
CPT/HCPCS: 80053; 81003; 85027; 85610; 85730

== ENCOUNTER 2021-10-15 13:11 | Observation (INO) | payer MEDICARE ==
--- NOTE | 2021-10-15 13:39 | ED ---
General Adult HPI - General Chief complaint: Syncope Stated complaint: syncope Time Seen by Provider: 10/15/21 13:26 Source: patient, EMS Mode of arrival: EMS - History of Present Illness Initial comments: Dictation was produced using [employer] dictation software. please excuse any grammatical, word or spelling errors. Chief Complaint: 71-year-old male presents to emergency department after presumed syncopal episode History of Present Illness: 71-year-old male who believes that he had to 6 episodes today. Patient states he felt fine last night. He tried to get out of bed. He does a maneuver where he swings vigorously to try and stand up. He states that he tried to perform this maneuver and all of a sudden next thing he knows he is lying flat on the bed. He tried to this again a similar episode. Patient denies any history of cardiac disease. Denies any recent changes in his medications. She does take multiple medications for blood pressure. Denies any chest pain. No pain complaints. No constitutional symptoms. No shortness of breath. Patient feels like his mouth is dry. The ROS documented in this emergency department record has been reviewed and confirmed by me. Those systems with pertinent positive or negative responses have been documented in the HPI. All other systems are other negative and/or noncontributory. PHYSICAL EXAM: General Impression: Alert and oriented x3, not in acute distress HEENT: Normocephalic atraumatic, extra-ocular movements intact, pupils equal and reactive to light bilaterally, mucous membranes moist. Cardiovascular: Heart regular rate and rhythm Chest: Able to complete full sentences, no retractions, no tachypnea Abdomen: abdomen soft, non-tender, non-distended, no organomegaly Musculoskeletal: Pulses present and equal in all extremities, no peripheral edema Motor: no focal deficits noted Neurological: CN II-XII grossly intact, no focal motor or sensory deficits noted Skin: Intact with no visualized rashes Psych: Normal affect and mood ED course: 71-year-old well-appearing male with no significant cardiac history presents to the emergency department for episodes suspicious of syncope. Vital signs upon arrival are within acceptable limits. Laboratory evaluation obtained. CBC, coag panel, metabolic panel is unremarkable. Troponins negative. Patient observed in emergency Department with no issues. Given patient's age and comorbidities there is suspicion of cardiac syncope. Patient be admitted to observation to sound physician group with consultation to cardiology. EKG interpretation: Ventricular rate 79, sinus rhythm, IN interval 192, care is 102, QTC 394. No IN prolongation, no QTC prolongation, no ST or T-wave changes noted. Overall, this EKG is unremarkable - Related Data Home Medications Medication Instructions Recorded Confirmed lisinopriL [Prinivil] 10 mg PO BID 05/14/17 10/15/21 Aspirin EC [Ecotrin Low Dose] 81 mg PO DAILY 06/22/17 10/15/21 Budesonide/Formoterol Fumarate 2 puff INHALATION RT-BID 06/08/21 10/15/21 [Symbicort 160-4.5 Mcg Inhaler] Previous Rx's Medication Instructions Recorded Atorvastatin [Lipitor] 40 mg PO HS #30 tab 08/09/15 Clopidogrel [Plavix] 75 mg PO DAILY tab 08/09/15 Tamsulosin [Flomax] 0.4 mg PO DAILY #30 cap 06/11/21 Citalopram Hydrobromide [CeleXA] 20 mg PO DAILY #0 tab 06/14/21 Allergies Allergy/AdvReac Type Severity Reaction Status Date / Time No Known Allergies Allergy Verified 10/15/21 14:52 Review of Systems ROS Statement: Those systems with pertinent positive or pertinent negative responses have been documented in the HPI. ROS Other: All systems not noted in ROS Statement are negative. 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 PASSED OUT IN 2013 AND HIT HEAD - HAS BEEN HAVING DIZZY SPELLS/LIGHTHEADED EPISODES EVER SINCE. OCCASIONAL NOSE BLEEDS. History of Any Multi-Drug Resistant Organisms: None Reported Past Surgical History: Joint Replacement Additional Past Surgical History / Comment(s): left hip arthroplasty 2012, hemorrhoidectomy. Past Anesthesia/Blood Transfusion Reactions: No Reported Reaction Past Psychological History: No Psychological Hx Reported Smoking Status: Former smoker Past Alcohol Use History: Occasional Past Drug Use History: None Reported - Past Family History Father Family Medical History: Cancer Additional Family Medical History / Comment(s): Father of throat cancer in his 40's. Mother Family Medical History: Diabetes Mellitus Additional Family Medical History / Comment(s): Pt thinks mother may have had cancer. Brother(s) Family Medical History: Cancer, CVA/TIA Additional Family Medical History / Comment(s): Leticia brother had a CVA with speach difficulty but had full recovery. Course Vital Signs 10/15/21 10/15/21 10/15/21 13:12 13:46 14:17 Temperature 97.8 F Pulse Rate 83 86 Respiratory 18 18 Rate Blood Pressure 137/63 139/76 Blood Pressure 148/71 [Left Arm Sitting] Blood Pressure 152/73 [Left Arm Standing] Blood Pressure 150/77 [Left Arm Supine] O2 Sat by Pulse 96 97 Oximetry Medical Decision Making - Lab Data Result diagrams: 10/15/21 13:39 10/15/21 13:39 Lab Results 10/15/21 10/15/21 10/15/21 Range/Units 13:39 13:39 13:39 WBC 7.6 (3.8-10.6) k/uL RBC 4.73 (4.30-5.90) m/uL Hgb 15.0 (13.0-17.5) gm/dL Hct 45.5 (39.0-53.0) % MCV 96.1 (80.0-100.0) fL MCH 31.7 (25.0-35.0) pg MCHC 33.0 (31.0-37.0) g/dL RDW 13.2 (11.5-15.5) % Plt Count 254 (150-450) k/uL MPV 7.1 Neutrophils % 74 % Lymphocytes % 16 % Monocytes % 7 % Eosinophils % 2 % Basophils % 0 % Neutrophils # 5.6 (1.3-7.7) k/uL Lymphocytes # 1.2 (1.0-4.8) k/uL Monocytes # 0.5 (0-1.0) k/uL Eosinophils # 0.2 (0-0.7) k/uL Basophils # 0.0 (0-0.2) k/uL PT 10.1 (9.0-12.0) sec INR 0.9 (<1.2) APTT 25.5 (22.0-30.0) sec Sodium 137 (137-145) mmol/L Potassium 4.5 (3.5-5.1) mmol/L Chloride 107 (98-107) mmol/L Carbon Dioxide 24 (22-30) mmol/L Anion Gap 6 mmol/L BUN 14 (9-20) mg/dL Creatinine 0.97 (0.66-1.25) mg/dL Est GFR (CKD-EPI)AfAm >90 (>60 ml/min/1.73 sqM) Est GFR (CKD-EPI)NonAf 78 (>60 ml/min/1.73 sqM) Glucose 104 H (74-99) mg/dL Calcium 9.5 (8.4-10.2) mg/dL Magnesium 2.1 (1.6-2.3) mg/dL Total Bilirubin 0.4 (0.2-1.3) mg/dL AST 26 (17-59) U/L ALT 27 (4-49) U/L Alkaline Phosphatase 81 (38-126) U/L Troponin I (0.000-0.034) ng/mL Total Protein 6.6 (6.3-8.2) g/dL Albumin 4.0 (3.5-5.0) g/dL 10/15/21 Range/Units 13:39 WBC (3.8-10.6) k/uL RBC (4.30-5.90) m/uL Hgb (13.0-17.5) gm/dL Hct (39.0-53.0) % MCV (80.0-100.0) fL MCH (25.0-35.0) pg MCHC (31.0-37.0) g/dL RDW (11.5-15.5) % Plt Count (150-450) k/uL MPV Neutrophils % % Lymphocytes % % Monocytes % % Eosinophils % % Basophils % % Neutrophils # (1.3-7.7) k/uL Lymphocytes # (1.0-4.8) k/uL Monocytes # (0-1.0) k/uL Eosinophils # (0-0.7) k/uL Basophils # (0-0.2) k/uL PT (9.0-12.0) sec INR (<1.2) APTT (22.0-30.0) sec Sodium (137-145) mmol/L Potassium (3.5-5.1) mmol/L Chloride (98-107) mmol/L Carbon Dioxide (22-30) mmol/L Anion Gap mmol/L BUN (9-20) mg/dL Creatinine (0.66-1.25) mg/dL Est GFR (CKD-EPI)AfAm (>60 ml/min/1.73 sqM) Est GFR (CKD-EPI)NonAf (>60 ml/min/1.73 sqM) Glucose (74-99) mg/dL Calcium (8.4-10.2) mg/dL Magnesium (1.6-2.3) mg/dL Total Bilirubin (0.2-1.3) mg/dL AST (17-59) U/L ALT (4-49) U/L Alkaline Phosphatase (38-126) U/L Troponin I <0.012 (0.000-0.034) ng/mL Total Protein (6.3-8.2) g/dL Albumin (3.5-5.0) g/dL Disposition Clinical Impression: Syncope Disposition: ADMITTED IP TO THIS HOSP Condition: Fair Referrals: Epifanio Dobbins MD [Primary Care Provider] - 1-2 days Decision Time: 15:33
[2021-10-15 13:50] LABS: Basophils % (A) 0 %; Eosinophils # (A) 0.2 k/uL (0-0.7); Eosinophils % (A) 2 %; HCT 45.5 % (39.0-53.0); Lymphocytes # (A) 1.2 k/uL (1.0-4.8); Lymphocytes % (A) 16 %; MCH 31.7 pg (25.0-35.0); MCV 96.1 fL (80.0-100.0); Mean Platelet Volume 7.1; Monocytes # (A) 0.5 k/uL (0-1.0); Monocytes % (A) 7 %; Neutrophils # (A) 5.6 k/uL (1.3-7.7); Neutrophils % (A) 74 %; Platelet Count 254 k/uL (150-450); RBC 4.73 m/uL (4.30-5.90); RDW 13.2 % (11.5-15.5); WBC 7.6 k/uL (3.8-10.6)
[2021-10-15 14:04] LABS: INR 0.9 (<1.2); Partial Thromboplastin Time 25.5 sec (22.0-30.0); Prothrombin Time 10.1 sec (9.0-12.0)
[2021-10-15 14:05] LABS: ALT 27 U/L (4-49); AST 26 U/L (17-59); African American GFR (CKD) >90 (>60 ml/min/1.73 sqM); Alkaline Phosphatase 81 U/L (38-126); Anion Gap 6 mmol/L; Blood Urea Nitrogen 14 mg/dL (9-20); Calcium 9.5 mg/dL (8.4-10.2); Carbon Dioxide 24 mmol/L (22-30); Chloride 107 mmol/L (98-107); Glucose 104 mg/dL (74-99); Magnesium 2.1 mg/dL (1.6-2.3); Non-African American GFR(CKD) 78 (>60 ml/min/1.73 sqM); Potassium 4.5 mmol/L (3.5-5.1); Sodium 137 mmol/L (137-145); Total Bilirubin 0.4 mg/dL (0.2-1.3); Total Protein 6.6 g/dL (6.3-8.2)
[2021-10-15] MEDS ORDERED: NALOXONE 0.4 MG/ML 1 ML VIAL IV PRN (15:26)
[2021-10-15] MEDS: SODIUM CHLORIDE 0.9% 1,000 ML IV SCH (15:39)
--- NOTE | 2021-10-15 18:35 | P.HPIM ---
History of Present Illness H&P Date: 10/15/21 History of Presenting Illness: Patient is a very pleasant 71-year-old male with a past medical history of hyperlipidemia, CVA on Plavix and aspirin, previous head injury in 2013 rate resulting in chronic difficulties with balance, COPD, multiple neck and back surgeries, and BPH. He presented to the emergency department with a chief complaint of possible syncopal episodes. Patient reports upon multiple attempts of getting up out of bed he was suddenly on his back. Patient reports he believes he stayed awake throughout the entire event but is unsure. Patient reports he felt very off balance and a little woozy accompanied by tinnitus. Patient reports that he has a history of difficulties with his balance and tinnitus but states today it was a little worse and recurrent. Patient denied having any headache, changes in his vision, dysphasia, changes or difficulties w ith his speech, chest pain or palpitations, shortness of breath, nausea, vomiting, or experiencing any numbness/tingling/weakness in his extremities. He underwent full evaluation in the emergency department. Labs completed with CBC, coags, and CMP unremarkable. Troponin negative at less than 0.012. EKG showing sinus rhythm at 79 bpm with no noted T-wave or ST abnormalities showing no signs of acute ischemia. Patient admitted under our services with consultation to cardiology and neurology. Review of systems: Pertinent positives and negatives as discussed in HPI, a complete review of syst ems was performed and all other systems are negative. Physical exam: Vital signs reviewed and stable. General: Nontoxic, no distress and appears stated age. Derm: Skin warm and dry, normal coloration for ethnicity. Head: Atraumatic, normocephalic and symmetric. Eyes: EOMs intact, no lid lag, and anicteric sclera Mouth: no lip lesions, mucus membranes moist Cardiovascular: regular rate and rhythm with normal S1S2, systolic murmur, positive posterior tibial pulses bilaterally, and cap refill < 2 seconds. Lungs: Respirations even, regular, and unlabored on room air. Lungs CTA bilaterally, no rhonchi, no rales, no wheezing, and no accessory muscle usage. Abdominal: soft, nontender to palpation, no guarding, no appreciable organomegaly Ext: ROM intact. No gross muscle atrophy, no edema, no contractures Neuro: Speech clear, face symmetrical and CN II-XII grossly intact with no noted focal neuro deficits. Patient has foot drop to left foot. Psych: Alert and oriented to person, place, time, and situation. Appropriate and pleasant affect. Assessment and Plan of Care: Syncopal episodes Hx of head injury due to syncopal episodes resulting in chronic episodes of dizziness/lightheadedness Hx of CVA -Neurology consulted -Cardiology consulted -CT head to be completed -Echocardiogram -Fall precautions -Neuro checks -Continue to antiplatelet therapy with aspirin and plavix BPH -Continue Flomax COPD -Continue Symbicort The patient is admitted with an anticipated less than 2 midnight stay for evaluation of syncopal episodes CODE STATUS: Full code DVT prophylaxis: Lovenox Discussed with: Patient and RN Anticipated discharge date: 1-[address]: Home A total of 45 minutes was spent on the care of this complex patient more than 50% of the time was spent in counseling and care coordination. I reviewed the documentation as provided by the LILY above, who is the original author of this note. 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 PASSED OUT IN 2013 AND HIT HEAD - HAS BEEN HAVING DIZZY SPELLS/LIGHTHEADED EPISODES EVER SINCE. OCCASIONAL NOSE BLEEDS. History of Any Multi-Drug Resistant Organisms: None Reported Past Surgical History: Joint Replacement Additional Past Surgical History / Comment(s): left hip arthroplasty 2012, hemorrhoidectomy. Past Anesthesia/Blood Transfusion Reactions: No Reported Reaction Past Psychological History: No Psychological Hx Reported Smoking Status: Former smoker Past Alcohol Use History: Occasional Past Drug Use History: None Reported - Past Family History Father Family Medical History: Cancer Additional Family Medical History / Comment(s): Father of throat cancer in his 40's. Mother Family Medical History: Diabetes Mellitus Additional Family Medical History / Comment(s): Pt thinks mother may have had cancer. Brother(s) Family Medical History: Cancer, CVA/TIA Additional Family Medical History / Comment(s): Leticia brother had a CVA with speach difficulty but had full recovery. Medications and Allergies Home Medications Medication Instructions Recorded Confirmed Type Atorvastatin [Lipitor] 40 mg PO HS #30 tab 08/09/15 10/15/21 Rx Clopidogrel [Plavix] 75 mg PO DAILY tab 08/09/15 10/15/21 Rx lisinopriL [Prinivil] 10 mg PO BID 05/14/17 10/15/21 History Aspirin EC [Ecotrin Low Dose] 81 mg PO DAILY 06/22/17 10/15/21 History Budesonide/Formoterol Fumarate 2 puff INHALATION RT-BID 06/08/21 10/15/21 History [Symbicort 160-4.5 Mcg Inhaler] Tamsulosin [Flomax] 0.4 mg PO DAILY #30 cap 06/11/21 10/15/21 Rx Citalopram Hydrobromide [CeleXA] 20 mg PO DAILY #0 tab 06/14/21 10/15/21 Rx Allergies Allergy/AdvReac Type Severity Reaction Status Date / Time No Known Allergies Allergy Verified 10/15/21 14:52 Physical Exam Osteopathic Statement: *. No significant issues noted on an osteopathic structural exam other than those noted in the History and Physical/Consult. Vitals: Vital Signs Temp Pulse Resp BP BP BP BP 10/15/21 15:39 85 18 144/73 10/15/21 14:17 86 18 139/76 10/15/21 13:46 148/71 152/73 150/77 10/15/21 13:12 97.8 F 83 18 137/63 Pulse Ox 10/15/21 15:39 94 L 10/15/21 14:17 97 10/15/21 13:46 10/15/21 13:12 96 Intake and Output 10/15/21 10/15/21 10/15/21 06:59 14:59 22:59 Other: Weight 102.058 kg Results CBC & Chem 7: 10/15/21 13:39 10/15/21 13:39 Labs: Abnormal Lab Results - Last 24 Hours (Table) 10/15/21 Range/Units 13:39 Glucose 104 H (74-99) mg/dL
--- NOTE | 2021-10-15 19:39 | CT ---
EXAMINATION TYPE: CT brain wo con DATE OF EXAM: 10/15/2021 COMPARISON: 05/06/2021 HISTORY: syncope episodes and dizziness CT DLP: 1133.30 mGycm Automated exposure control for dose reduction was used. There is cerebral cortical atrophy. There is no mass effect or midline shift. No evidence of intracra nial hemorrhage. Calvarium is intact. The skull base is intact. There is normal aeration of the masto id sinuses. IMPRESSION: Cerebral atrophy. No acute intracranial abnormality. No change.
[2021-10-15] MEDS: SYMBICORT 160-4.5 MCG INHALER INHALATION SCH (20:04)
[2021-10-15] MEDS: lisinopriL 10 MG TAB PO SCH (20:17)
[2021-10-15] MEDS: ATORVASTATIN 40 MG TAB PO SCH (20:17)
[2021-10-16] MEDS: ENOXAPARIN 40 MG/0.4 ML SYRINGE SQ SCH (07:58)
[2021-10-16] MEDS: ASPIRIN 81 MG PO SCH (07:58)
[2021-10-16] MEDS: TAMSULOSIN 0.4 MG CAP.ER.24H PO SCH (07:59)
[2021-10-16] MEDS: lisinopriL 10 MG TAB PO SCH ×2 (07:59→20:53)
[2021-10-16] MEDS: CLOPIDOGREL 75 MG TAB PO SCH (07:59)
[2021-10-16] MEDS: CITALOPRAM HYDROBROMIDE 20 MG TAB PO SCH (07:59)
[2021-10-16] MEDS: SYMBICORT 160-4.5 MCG INHALER INHALATION SCH ×2 (08:36→20:56)
--- NOTE | 2021-10-16 08:54 | P.CRDCN ---
History of Present Illness History of present illness: HISTORY OF PRESENTING ILLNESS Patient is pleasant 72-year-old male with history of COPD, multiple neck and back issues, BPH, TIA, hyperlipidemia, hypertension who presents secondary to lightheadedness. Patient states he had woke up and was getting up to get out of bed and then felt dizzy and therefore had to fall back in the bed. He tried again and felt dizzy and lightheaded and therefore had a fall back in bed. He has had a few of these issues since arriving to emergency department. He does describe that after his CAT scan he felt more of a vertigo type room spinning sensation. He has had a couple issues since a head injury and apparent syncopal episode 14 years ago. He also has chronic back issues and had a prior spinal fusion back in May. He also had a TIA in April and has been on aspirin and Plavix since that time. Denies any history of CAD, stents. 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 He denies any chest pain, pressure, shortness breath. He quit smoking approximately 10-15 years ago. Does have a few drinks daily and denies any illicit drugs. He has been on muscle relaxers however this is nothing new. EKG shows sinus rhythm with no significant ST-T wave abnormalities. Troponin is noted to be normal x 1. Orthostatic vitals were normal. REVIEW OF SYSTEMS At the time of my exam: CONSTITUTIONAL: Denies fever or chills. CARDIOVASCULAR: Denies chest pain, shortness of breath, orthopnea, PND or palpitations. +Lightheadedness RESPIRATORY: Denies cough. GASTROINTESTINAL: Denies abdominal pain, diarrhea, constipation, nausea or vomi ting. MUSCULOSKELETAL: Denies myalgias. NEUROLOGIC: Denies numbness, tingling or weakness. ENDOCRINE: Denies fatigue, weight change, polydipsia or polyurina. GENITOURINARY: Denies burning, hematuria or urgency with micturation. HEMATOLOGIC: Denies history of anemia or bleeding. PHYSICAL EXAMINATION Vital signs reviewed. CONSTITUTIONAL: No apparent distress. HEENT: Head is normocephalic. Pupils are equal, round. Sclerae anicteric. Mucous membranes of the mouth are moist. No JVD. No carotid bruit. CHEST EXAMINATION: Lungs are clear to auscultation. No chest wall tenderness is noted on palpation or with deep breathing. HEART EXAMINATION: Regular rate and rhythm. S1, S2 heard. No murmurs, gallops or rub. ABDOMEN: Soft, nontender. Positive bowel sounds. EXTREMITIES: 2+ peripheral pulses, no lower extremity edema and no calf tenderness. NEUROLOGIC EXAMINATION: Patient is awake, alert and oriented x3. ASSESSMENT 1. Dizziness, describes more room spinning vertigo sensation without any syncope. More likely vertigo 2. Hypertension 3. History of prior TIA 4. Hyperlipidemia 5. A number of back issues status post spinal fusion 6. Occasional alcohol use 7. Obesity 8. Questionable history of syncope 14 years ago PLAN Check repeat troponin for completeness sake. EKG and symptoms unrevealing. Orthostatics normal. Symptoms appear more related to vertigo. He has had chronic issues since a fall 14 years ago. Telemetry revealed only sinus rhythm any significant arrhythmias. No significant murmurs on exam. Patient may be discharged home if second troponin noted to be normal with outpatient follow-up in 1 week with likely echo and stress tests in the office. 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 PASSED OUT IN 2013 AND HIT HEAD - HAS BEEN HAVING DIZZY SPELLS/LIGHTHEADED EPISODES EVER SINCE. OCCASIONAL NOSE BLEEDS. History of Any Multi-Drug Resistant Organisms: None Reported Past Surgical History: Joint Replacement Additional Past Surgical History / Comment(s): left hip arthroplasty 2012, hemorrhoidectomy. Past Anesthesia/Blood Transfusion Reactions: No Reported Reaction Past Psychological History: No Psychological Hx Reported Smoking Status: Former smoker Past Alcohol Use History: Occasional Past Drug Use History: None Reported - Past Family History Father Family Medical History: Cancer Additional Family Medical History / Comment(s): Father of throat cancer in his 40's. Mother Family Medical History: Diabetes Mellitus Additional Family Medical History / Comment(s): Pt thinks mother may have had cancer. Brother(s) Family Medical History: Cancer, CVA/TIA Additional Family Medical History / Comment(s): Leticia brother had a CVA with speach difficulty but had full recovery. Medications and Allergies Home Medications Medication Instructions Recorded Confirmed Type Atorvastatin [Lipitor] 40 mg PO HS #30 tab 08/09/15 10/15/21 Rx Clopidogrel [Plavix] 75 mg PO DAILY tab 08/09/15 10/15/21 Rx lisinopriL [Prinivil] 10 mg PO BID 05/14/17 10/15/21 History Aspirin EC [Ecotrin Low Dose] 81 mg PO DAILY 06/22/17 10/15/21 History Budesonide/Formoterol Fumarate 2 puff INHALATION RT-BID 06/08/21 10/15/21 History [Symbicort 160-4.5 Mcg Inhaler] Tamsulosin [Flomax] 0.4 mg PO DAILY #30 cap 06/11/21 10/15/21 Rx Citalopram Hydrobromide [CeleXA] 20 mg PO DAILY #0 tab 06/14/21 10/15/21 Rx Allergies Allergy/AdvReac Type Severity Reaction Status Date / Time No Known Allergies Allergy Verified 10/15/21 14:52 Physical Exam Vitals: Vital Signs Temp Pulse Pulse Resp BP BP BP 10/16/21 07:00 97.6 F 71 18 10/16/21 05:30 97.9 F 70 16 130/75 106/65 10/16/21 01:49 95 16 10/15/21 19:27 98.7 F 95 16 10/15/21 17:17 97.7 F 103 H 20 10/15/21 15:39 85 18 144/73 10/15/21 14:17 86 18 139/76 10/15/21 13:46 148/71 152/73 10/15/21 13:12 97.8 F 83 18 137/63 BP BP Pulse Ox 10/16/21 07:00 114/68 94 L 10/16/21 05:30 134/75 94 L 10/16/21 01:49 10/15/21 19:27 129/78 95 10/15/21 17:17 131/65 96 10/15/21 15:39 94 L 10/15/21 14:17 97 10/15/21 13:46 150/77 10/15/21 13:12 96 Intake and Output 10/15/21 10/16/21 10/16/21 22:59 06:59 14:59 Intake Total 500 Balance 500 Intake: Oral 500 Other: # Voids 1 1 Weight 102.058 kg Results 10/15/21 13:39 10/15/21 13:39 Cardiac Enzymes 10/15/21 10/15/21 Range/Units 13:39 13:39 AST 26 (17-59) U/L Troponin I <0.012 (0.000-0.034) ng/mL Coagulation 10/15/21 Range/Units 13:39 PT 10.1 (9.0-12.0) sec APTT 25.5 (22.0-30.0) sec CBC 10/15/21 Range/Units 13:39 WBC 7.6 (3.8-10.6) k/uL RBC 4.73 (4.30-5.90) m/uL Hgb 15.0 (13.0-17.5) gm/dL Hct 45.5 (39.0-53.0) % Plt Count 254 (150-450) k/uL Comprehensive Metabolic Panel 10/15/21 Range/Units 13:39 Sodium 137 (137-145) mmol/L Potassium 4.5 (3.5-5.1) mmol/L Chloride 107 (98-107) mmol/L Carbon Dioxide 24 (22-30) mmol/L BUN 14 (9-20) mg/dL Creatinine 0.97 (0.66-1.25) mg/dL Glucose 104 H (74-99) mg/dL Calcium 9.5 (8.4-10.2) mg/dL AST 26 (17-59) U/L ALT 27 (4-49) U/L Alkaline Phosphatase 81 (38-126) U/L Total Protein 6.6 (6.3-8.2) g/dL Albumin 4.0 (3.5-5.0) g/dL Current Medications Generic Name Dose Route Start Last Admin Trade Name Sergio PRN Reason Stop Dose Admin Aspirin 81 mg 10/16/21 09:00 10/16/21 07:58 Aspirin 81 Mg PO 81 mg DAILY SAYDA Administration Atorvastatin Calcium 40 mg 10/15/21 21:00 10/15/21 20:17 Atorvastatin 40 Mg Tab PO 40 mg HS SAYDA Administration Budesonide/Formoterol Fumarate 2 puff 10/15/21 20:00 10/16/21 08:36 Symbicort 160-4.5 Mcg Inhaler INHALATION 2 puff RT-BID SAYDA Administration Citalopram Hydrobromide 20 mg 10/16/21 09:00 10/16/21 07:59 Citalopram Hydrobromide 20 Mg Tab PO 20 mg DAILY SAYDA Administration Clopidogrel Bisulfate 75 mg 10/16/21 09:00 10/16/21 07:59 Clopidogrel 75 Mg Tab PO 75 mg DAILY SAYDA Administration Enoxaparin Sodium 40 mg 10/16/21 09:00 10/16/21 07:58 Enoxaparin 40 Mg/0.4 Ml Syringe SQ 40 mg DAILY SAYDA Administration Sodium Chloride 1,000 mls @ 20 mls/hr 10/15/21 15:30 10/15/21 15:39 Saline 0.9% IV 20 mls/hr .Q24H SAYDA Administration Lisinopril 10 mg 10/15/21 21:00 10/16/21 07:59 Lisinopril 10 Mg Tab PO 10 mg BID SAYDA Administration Naloxone HCl 0.2 mg 10/15/21 15:26 Naloxone 0.4 Mg/Ml 1 Ml Vial IV Q2M PRN Opioid Reversal Tamsulosin HCl 0.4 mg 10/16/21 09:00 10/16/21 07:59 Tamsulosin 0.4 Mg Cap.Er.24h PO 0.4 mg DAILY SAYDA Administration Intake and Output 10/15/21 10/16/21 10/16/21 22:59 06:59 14:59 Intake Total 500 Balance 500 Intake: Oral 500 Other: # Voids 1 1 Weight 102.058 kg 10/15/21 13:39 10/15/21 13:39
[2021-10-16] MEDS: MECLIZINE 25 MG TAB PO SCH ×3 (10:20→20:53)
--- NOTE | 2021-10-16 14:52 | P.PN ---
Subjective Progress Note Date: 10/16/21 Hospital course Patient is a very pleasant 71-year-old male with a past medical history of hyperlipidemia, CVA on Plavix and aspirin, previous head injury in 2014 rate resulting in chronic difficulties with balance, COPD, multiple neck and back surgeries, and BPH. He presented to the emergency department with a chief complaint of possible syncopal episodes. Patient reports upon multiple attempts of getting up out of bed he was suddenly on his back. Patient reports he believes he stayed awake throughout the entire event but is unsure. Patient reports he felt very off balance and a little woozy accompanied by tinnitus. Patient reports that he has a history of difficulties with his balance and tinnitus but states today it was a little worse and recurrent. Patient denied having any headache, changes in his vision, dysphasia, changes or difficulties with his speech, chest pain or palpitations, shortness of breath, nausea, vomiting, or experiencing any numbness/tingling/weakness in his extremities. He underwent full evaluation in the emergency department. Labs completed with CBC, coags, and CMP unremarkable. Troponin negative at less than 0.012. EKG showing sinus rhythm at 79 bpm with no noted T-wave or ST abnormalities showing no signs of acute ischemia. Patient admitted under our services with consultation to cardiology and neurology. Physical exam: Patient seen and fully evaluated again at bedside this morning. Patient reports that he still feels a little "woozy" and having difficulties with his balance continued tinnitus. Discussed with patient that he would benefit from outpatient evaluation by ENT specialist upon discharge. Started patient on meclizine 25 mg 3 times daily scheduled. Consult also placed to physical and occupational therapy. Patient continues to deny having any headache, changes in vision, chest pain, palpitations, shortness of breath, or experiencing any n umbness/tingling/weakness in his extremities. Vital signs reviewed and stable. General: Nontoxic, no distress and appears stated age. Derm: Skin warm and dry, normal coloration for ethnicity. Head: Atraumatic, normocephalic and symmetric. Eyes: EOMs intact, no lid lag, and anicteric sclera Mouth: no lip lesions, mucus membranes moist Cardiovascular: regular rate and rhythm with normal S1S2, systolic murmur, positive posterior tibial pulses bilaterally, and cap refill < 2 seconds. Lungs: Respirations even, regular, and unlabored on room air. Lungs CTA bilaterally, no rhonchi, no rales, no wheezing, and no accessory muscle usage. Abdominal: soft, nontender to palpation, no guarding, no appreciable organomegaly Ext: ROM intact. No gross muscle atrophy, no edema, no contractures Neuro: Speech clear, face symmetrical and CN II-XII grossly intact with no noted focal neuro deficits. Patient has foot drop to left foot. Psych: Alert and oriented to person, place, time, and situation. Appropriate and pleasant affect. Assessment and Plan of Care: Syncopal/Pre-syncopal episodes Hx of head injury due to syncopal episodes resulting in chronic episodes of dizziness/lightheadedness with balance difficulties Hx of CVA Chronic tinnitus -Neurology consulted -Cardiology consulted -CT head to be completed -Echocardiogram -Fall precautions -Neuro checks -Continue to antiplatelet therapy with aspirin and plavix -Orthostatic vitals negative -Patient started on scheduled meclizine 25 mg 3 times daily -Balance difficulties and chronic tinnitus likely secondary to vestibular disorder, patient would benefit from outpatient ENT evaluation and upon discharge. -PT/OT consulted. BPH -Continue Flomax COPD -Continue Symbicort CODE STATUS: Full code DVT prophylaxis: Lovenox Discussed with: Patient and RN Anticipated discharge date: Tomorrow morning Anticipated discharge place: Home A total of 37 minutes was spent on the care of this complex patient more than 50% of the time was spent in counseling and care coordination. I reviewed the documentation as provided by the LILY above, who is the original author of this note. I agree with the documented assessment and plan, with the following changes: none Objective - Vital Signs Vital signs: Vital Signs Temp 97.6 F 10/16/21 07:00 Pulse 71 10/16/21 07:00 Resp 18 10/16/21 07:00 BP 114/68 10/16/21 07:00 Pulse Ox 94 L 10/16/21 07:00 FiO2 Intake & Output 10/15/21 10/16/21 10/16/21 18:59 06:59 18:59 Intake Total 500 Balance 500 Weight 102.058 kg Intake: Oral 500 Other: # Voids 1 1 - Labs CBC & Chem 7: 10/15/21 13:39 10/15/21 13:39 Labs: Abnormal Lab Results - Last 24 Hours (Table) 10/15/21 Range/Units 13:39 Glucose 104 H (74-99) mg/dL
[2021-10-16] MEDS: SODIUM CHLORIDE 0.9% 1,000 ML IV SCH (17:19)
[2021-10-16] MEDS: ATORVASTATIN 40 MG TAB PO SCH (20:53)
[2021-10-16 21:26] VITALS: RESP 18
--- NOTE | 2021-10-17 00:24 | P.CNNES ---
History of Present Illness Consult date: 10/16/21 Requesting physician: Vivek Moscoso Reason for Consult: Syncopal episode History of Present Illness: Patient is a 71-year-old male came to the hospital by ambulance yesterday at 1:11 PM for dizziness. Patient states that yesterday morning he woke up at 9:30 AM and he was laying in the bed. She threw, worse over, swing his legs, sat up on the side of the bed and then he just fell backwards on the bed. He found himself looking up on the ceiling. He got up, sat on the side of the bed and fell again. He says that it happened by itself. When he finally got up, did not feel stable. Every time he got up, felt off balance. He called the ambulance. Patient denies loss of consciousness. He remembers falling back on the bed, but had no control on it. EKG shows normal sinus rhythm. Denied any chest pain or shortness of breath. His blood pressure at the scene was 175/92, pulse rate 88, respirations 15, saturation 100% blood sugar 111. Temperature 98.1. EKG shows sinus rhythm with left axis deviation. CT head showed cerebral atrophy, no acute intracranial abnormality. I personally reviewd CT, agree with the findings. There is prominent mucosal thickening of bilateral maxillary sinuses, bilateral ethmoid and slight involvement of the frontal and sphenoid sinuses. External auditory canal appears clear. Patient's blood pressure on arrival was 137/63. Patient had orthostatics checked which was essentially negative. Supine blood pressure 150/77, sitting 148/71 and standing 152/73. Repeat orthostatics checked this morning was positive, with sitting blood pressure 130/75 and standing 106/65. A third reading showed supine blood pressure 143/67, sitting 116/70 and standing 116/71. Blood test shows normal CBC PT/PTT, normal CMP and troponins. Patient had a normal B12 486 on 06/13/2021, folate 9.8 and normal TSH. Patient states that about 4-5 weeks ago, he was walking, when his left foot caught on something, he fell, hitting head on the toolbox. He did not pass out. Patient states that while he was in the hospital, and he went for computed tomography scan of the head, when he laid down on the table, the room started spinning lasting for a few seconds. There was no nausea or vomiting. When he came back in his room, and he laid down, the room spun again. Each time it lasted for about few seconds. He states that when he takes pain pills, next morning he feels like "drunk". Patient admits to having tinnitus for about 10 years. He has seen an ENT specialist in the past, placed him on antibiotics. He has history of recurrent backs infection, for which she is recommended to have peroxide wash to remove wax every 2 months. Denies any sinus issues, only since disease is related to ALLERGIES. Denies any loss of hearing or any pain in the ears. Patient has smoked 1 to 1-1/2 pack per day from age 17 until he quit at age 57. Smoked for 40 years. He has hypertension. Patient had history of neck surgery about one to 2 years ago. He also has history of lumbar surgery by Dr. Bradley in end of May 2021. He has developed numbness of his hands and problems with fine motor tasks. His symptoms improved significantly after neck surgery. Patient has history of COPD. Review of Systems Patient denies any problem with the vision. He states he has left foot drop since his back surgery. He also has wasting of interosseous muscles of his murray nds. No chest pain, abdominal pain, nausea vomiting diarrhea. No double vision, no fever or chills. Patient has history of left hip surgeries in the past twice. He has left hip pain. Also has neck and back surgeries. All other 14 point review systems reviewed, and unremarkable. 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 PASSED OUT IN 2013 AND HIT HEAD - HAS BEEN HAVING DIZZY SPELLS/LIGHTHEADED EPISODES EVER SINCE. OCCASIONAL NOSE BLEEDS. History of Any Multi-Drug Resistant Organisms: None Reported Past Surgical History: Joint Replacement Additional Past Surgical History / Comment(s): left hip arthroplasty 2012, hemorrhoidectomy. Past Anesthesia/Blood Transfusion Reactions: No Reported Reaction Past Psychological History: No Psychological Hx Reported Smoking Status: Former smoker Past Alcohol Use History: Occasional Past Drug Use History: None Reported - Past Family History Father Family Medical History: Cancer Additional Family Medical History / Comment(s): Father of throat cancer in his 40's. Mother Family Medical History: Diabetes Mellitus Additional Family Medical History / Comment(s): Pt thinks mother may have had cancer. Brother(s) Family Medical History: Cancer, CVA/TIA Additional Family Medical History / Comment(s): Leticia brother had a CVA with speach difficulty but had full recovery. Medications and Allergies Home Medications Medication Instructions Recorded Confirmed Type Atorvastatin [Lipitor] 40 mg PO HS #30 tab 08/09/15 10/15/21 Rx Clopidogrel [Plavix] 75 mg PO DAILY tab 08/09/15 10/15/21 Rx lisinopriL [Prinivil] 10 mg PO BID 05/14/17 10/15/21 History Aspirin EC [Ecotrin Low Dose] 81 mg PO DAILY 06/22/17 10/15/21 History Budesonide/Formoterol Fumarate 2 puff INHALATION RT-BID 06/08/21 10/15/21 History [Symbicort 160-4.5 Mcg Inhaler] Tamsulosin [Flomax] 0.4 mg PO DAILY #30 cap 06/11/21 10/15/21 Rx Citalopram Hydrobromide [CeleXA] 20 mg PO DAILY #0 tab 06/14/21 10/15/21 Rx Allergies Allergy/AdvReac Type Severity Reaction Status Date / Time No Known Allergies Allergy Verified 10/15/21 14:52 Physical Examination - Vital Signs Vital Signs: Vital Signs Temp Pulse Resp BP BP BP BP 10/16/21 14:19 98.6 F 69 20 135/66 10/16/21 14:00 69 20 10/16/21 08:00 71 18 10/16/21 07:00 97.6 F 71 18 114/68 10/16/21 05:30 97.9 F 70 16 130/75 106/65 134/75 10/16/21 01:49 95 16 10/15/21 19:27 98.7 F 95 16 129/78 Pulse Ox 10/16/21 14:19 99 10/16/21 14:00 10/16/21 08:00 10/16/21 07:00 94 L 10/16/21 05:30 94 L 10/16/21 01:49 10/15/21 19:27 95 Intake and Output 10/16/21 10/16/21 10/16/21 06:59 14:59 22:59 Other: # Voids 1 1 Patient is an elderly male, very pleasant, in no acute distress. Patient is alert awake oriented to time place and person. Speech and language functions are normal. No aphasia or dysarthria. Attention, concentration and fund of knowledge is adequate. On cranial examination, pupils are equal, round and reacting to light, visual kwong are full on confrontation, extraocular muscles are intact with no nystagmus. Face is symmetric, tongue protrudes to the midline. Palatal elevation and sensation normal, hearing is normal for finger rubbing, and shoulder shrug normal, facial sensation normal. Shoulder shrug normal. On muscle strength testing, there is no pronator drift and the strength is normal in arms and legs distally and proximally, except left hip flexion which is 5-. Deep tendon reflexes are (right/left) biceps 1/2+, brachioradialis 1/3, knees 3/3, ankles 2+/2+ and plantars are upgoing bilaterally. Sensory to touch is equal with no neglect. Cerebellar function showed no ataxia for [id number] testing. No dysdiadochokinesia. Tone is slightly increased in the left leg, with mild left leg spasticity, and bulk of muscles decrease in the interosseous muscles of both hands, left slightly worse. Last Cleaner is 5-bilaterally. Gait deferred. I had patient laid down in the bed, and did not feel vertigo. When he told to the right or left side, did not have any vertigo. On general examination, there is no carotid bruit or murmur, S1-S2 audible. Abdomen is soft nontender. Chest is clear. Peripheral pulses are present. No edema. Results - Laboratory Findings CBC and BMP: 10/15/21 13:39 10/15/21 13:39 Abnormal Lab Findings: Abnormal Labs 10/15/21 13:39 Glucose 104 H Assessment and Plan Assessment: * Intermittent dizziness/vertigo, likely due to peripheral vestibular dysfunction. CT head showed pansinusitis, otherwise normal. * History of cervical spinal surgery 06/11/2022 for cervical spinal stenosis and cervical myelopathy. Patient does have spasticity of the lower > upper limbs, left more than right. * Postural hypotension, with positive orthostatics. * Hypertension * X tobacco use Plan: * Patient's dizziness/vertigo is likely related to peripheral vestibular dysfunction. CT head showed pansinusitis. Suggest treatment with course of antibiotics, like Augmentin (or Z-Pack) * Antivert as needed. * Carotid Doppler, rule out stenosis. * Hydration * Patient's balance will always be an issue related to his history of cervical myelopathy, related to previous spinal stenosis. * Patient's B12 486, folate 9.80 on 06/13/2021. No need to repeat. * Continue aspirin and Plavix 75 mg and Lipitor 40 mg. * Neurologically clear, if carotid Doppler comes back negative. * Dr. Scotty Arenas will be available for neurology service if any concerns in the morning. Thank you for the consult.
[2021-10-17] MEDS: SYMBICORT 160-4.5 MCG INHALER INHALATION SCH (07:08)
[2021-10-17 07:55] VITALS: BP 131/78; PULSE 74; TEMP 98
[2021-10-17] MEDS ORDERED: AMOXIC-POT CLAV 875-125MG 1 EACH TAB PO SCH (09:00)
--- NOTE | 2021-10-17 09:17 | P.DS ---
Providers Date of admission: 10/15/21 15:31 Expected date of discharge: 10/17/21 Attending physician: Gustavo Rees MD Consults: 10/15/21 15:30 Consult Physician Routine Consulting Provider: Melida Hernandez Consult Reason/Comments: syncope Do you want consulting provider notified?: Yes 10/15/21 16:32 Consult Physician Routine Consulting Provider: Zach Russell Consult Reason/Comments: syncopal episode Do you want consulting provider notified?: Yes Primary care physician: [facility] Course: Discharge Diagnosis: Syncopal/Pre-syncopal episodes likely resulting from vertigo, patient discharged home on meclizine 25 mg 3 times daily and may benefit from vestibular rehab, recommended follow up outpatient with ENT. Parasinusitis, complete 10 day course of antibiotics with Augmentin and follow up outpatient with ENT as recommended. Hx of head injury due to syncopal episodes resulting in chronic episodes of dizziness/lightheadedness with balance difficulties, may benefit from vestibular rehab Hx of CVA Chronic tinnitus BPH. Continue Flomax COPD. Continue [facility] Hospital Course: Patient is a very pleasant 71-year-old male with a past medical history of hyperlipidemia, CVA on Plavix and aspirin, previous head injury in 2013 rate resulting in chronic difficulties with balance, COPD, multiple neck and back surgeries, and BPH. He presented to the emergency department with a chief complaint of possible syncopal episodes. Patient reports upon multiple attempts of getting up out of bed he was suddenly on his back. Patient reports he believes he stayed awake throughout the entire event but is unsure. Patient reports he felt very off balance and a little woozy accompanied by tinnitus. Patient reports that he has a history of difficulties with his balance and tinnitus but states today it was a little worse and recurrent. Patient denied having any headache, changes in his vision, dysphasia, changes or difficulties with his speech, chest pain or palpitations, shortness of breath, nausea, vomiting, or experiencing any numbness/tingling/weakness in his extremities. He underwent full evaluation in the emergency department. Labs completed with CBC, coags, and CMP unremarkable. Troponin negative at less than 0.012. EKG showing sinus rhythm at 79 bpm with no noted T-wave or ST abnormalities showing no signs of acute ischemia. Patient admitted under our services with consultation to cardiology and neurology. CT head completed reported to reveal cerebral atrophy negative for acute intercranial abnormality. After review by neurologist, and is reported CT concerning for parasinusitis. Patient started on Augmentin and meclizine. Patient reports significant improvement in dizziness/lightheadedness/balance difficulties since starting beginning Antivert. Patient medically stable for discharge at this time. Patient to complete 10 day course of antibiotics with Augmentin and follow up outpatient with ENT. Patient to continue meclizine 25 mg 3 times daily for dizziness/lightheadedness. Patient informed that he may benefit from vestibular rehab. Physical exam: Vital signs reviewed and stable. General: Nontoxic, no distress and appears stated age. Derm: Skin warm and dry, normal coloration for ethnicity. Head: Atraumatic, normocephalic and symmetric. Eyes: EOMs intact, no lid lag, and anicteric sclera Mouth: no lip lesions, mucus membranes moist Cardiovascular: regular rate and rhythm with normal S1S2, systolic murmur, positive posterior tibial pulses bilaterally, and cap refill < 2 seconds. Lungs: Respirations even, regular, and unlabored on room air. Lungs CTA bilaterally, no rhonchi, no rales, no wheezing, and no accessory muscle usage. Abdominal: soft, nontender to palpation, no guarding, no appreciable organomegaly Ext: ROM intact. No gross muscle atrophy, no edema, no contractures Neuro: Speech clear, face symmetrical and CN II-XII grossly intact with no noted focal neuro deficits. Patient has foot drop to left foot. Psych: Alert and oriented to person, place, time, and situation. Appropriate and pleasant affect. A total of 33 minutes of time were spent preparing this complex discharge summary. Pt was discharged on 10/17/21 at 9:16 AM I reviewed the documentation as provided by the LLIY above, who is the original author of this note. I agree with the documented assessment and plan, with the following changes: none Patient Condition at Discharge: Stable Plan - Discharge Summary Discharge Rx Participant: Yes New Discharge Prescriptions: New Meclizine [Antivert] 25 mg PO TID 30 Days #90 tab Amoxic-Pot Clav 875-125Mg [Augmentin 875-125] 1 each PO Q12HR 10 Days #20 tab Continue Atorvastatin [Lipitor] 40 mg PO HS #30 tab Clopidogrel [Plavix] 75 mg PO DAILY tab lisinopriL [Prinivil] 10 mg PO BID Aspirin EC [Ecotrin Low Dose] 81 mg PO DAILY Tamsulosin [Flomax] 0.4 mg PO DAILY #30 cap Citalopram Hydrobromide [CeleXA] 20 mg PO DAILY #0 tab Budesonide/Formoterol Fumarate [Symbicort 160-4.5 Mcg Inhaler] 2 puff INHALATION RT-BID Discharge Medication List Atorvastatin [Lipitor] 40 mg PO HS #30 tab 08/09/15 [Rx] Clopidogrel [Plavix] 75 mg PO DAILY tab 08/09/15 [Rx] lisinopriL [Prinivil] 10 mg PO BID 05/14/17 [History] Aspirin EC [Ecotrin Low Dose] 81 mg PO DAILY 06/22/17 [History] Budesonide/Formoterol Fumarate [Symbicort 160-4.5 Mcg Inhaler] 2 puff INHALATION RT-BID 06/08/21 [History] Tamsulosin [Flomax] 0.4 mg PO DAILY #30 cap 06/11/21 [Rx] Citalopram Hydrobromide [CeleXA] 20 mg PO DAILY #0 tab 06/14/21 [Rx] Amoxic-Pot Clav 875-125Mg [Augmentin 875-125] 1 each PO Q12HR 10 Days #20 tab 10/17/21 [Rx] Meclizine [Antivert] 25 mg PO TID 30 Days #90 tab 10/17/21 [Rx] Follow up Appointment(s)/Referral(s): Epifanio Dobbins MD [Primary Care Provider] - 1-2 days Philipp Poon MD [STAFF PHYSICIAN] - 1 Week Patient Instructions/Handouts: Syncope (DC) Activity/Diet/Wound Care/Special Instructions: Activity: As tolerated. Take breaks as needed. Remember to change positions slowly from lying to sitting, sitting to standing, and standing before walking. Diet: Heart healthy and carb consistent diet. Avoid salts, or foods with hidden salts such as canned or boxed foods and frozen dinners. Extra salt makes your heart work harder and traps the fluid in your body for longer. Special Instructions: Take all of your medications as directed and remember to keep all of your doctor's appointments and follow-up as needed. Thank you for allowing us to participate in your care, it was truly a pleasure having you for our patient!!! Discharge Disposition: HOME SELF-CARE
[2021-10-17] MEDS: ASPIRIN 81 MG PO SCH (09:26)
[2021-10-17] MEDS: MECLIZINE 25 MG TAB PO SCH (09:26)
[2021-10-17] MEDS: CITALOPRAM HYDROBROMIDE 20 MG TAB PO SCH (09:26)
[2021-10-17] MEDS: CLOPIDOGREL 75 MG TAB PO SCH (09:26)
[2021-10-17] MEDS: TAMSULOSIN 0.4 MG CAP.ER.24H PO SCH (09:26)
[2021-10-17] MEDS: lisinopriL 10 MG TAB PO SCH (09:26)
[2021-10-17] MEDS: ENOXAPARIN 40 MG/0.4 ML SYRINGE SQ SCH (09:30)
--- NOTE | 2021-10-17 10:25 | P.PN ---
Subjective Progress Note Date: 10/17/21 HISTORY OF PRESENT ILLNESS: Patient is pleasant 72-year-old male with history of COPD, multiple neck and back issues, BPH, TIA, hyperlipidemia, hypertension who presents secondary to lightheadedness. Patient states he had woke up and was getting up to get out of bed and then felt dizzy and therefore had to fall back in the bed. He tried again and felt dizzy and lightheaded and therefore had a fall back in bed. He has had a few of these issues since arriving to emergency department. He does describe that after his CAT scan he felt more of a vertigo type room spinning sensation. He has had a couple issues since a head injury and apparent syncopal episode 14 years ago. He also has chronic back issues and had a prior spinal fusion back in May. He also had a TIA in April and has been on aspirin and Plavix since that time. Denies any history of CAD, stents. 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 He denies any chest pain, pressure, shortness breath. He quit smoking approximately 10-15 years ago. Does have a few drinks daily and denies any illicit drugs. He has been on muscle relaxers however this is nothing new. EKG shows sinus rhythm with no significant ST-T wave abnormalities. Troponin is noted to be normal x 1. Orthostatic vitals were normal. 10/17/2021 Patient examined this morning the bedside. Patient denies any chest pain or pressure. Denies shortness of breath. Denies any dizziness or lightheadedness. Blood pressure is stable. Troponins negative 2. PHYSICAL EXAM: VITAL SIGNS: Reviewed. GENERAL: Well-developed in no acute distress. NECK: Supple. No JVD or thyromegaly LUNGS: Respirations even and unlabored. Lungs essentially clear to auscultation bilaterally. HEART: Regular rate and rhythm. S1 and S2 heard. EXTREMITIES: Normal range of motion. No clubbing or cyanosis. Peripheral pulses intact. No lower extremity edema ASSESSMENT: 1. Dizziness, describes more room spinning vertigo sensation without any syncope. More likely vertigo 2. Hypertension 3. History of prior TIA 4. Hyperlipidemia 5. A number of back issues status post spinal fusion 6. Occasional alcohol use 7. Obesity 8. Questionable history of syncope 14 years ago PLAN: Patient is currently stable from a cardiac perspective He may be discharged home today and follow-up on an outpatient basis Nurse practitioner note has been reviewed by physician. Signing provider agrees with the documented findings, assessment, and plan of care. Objective - Vital Signs Vital signs: Vital Signs Temp 98 F 10/17/21 07:00 Pulse 74 10/17/21 07:54 Resp 18 10/17/21 07:00 BP 131/78 10/17/21 07:54 Pulse Ox 93 L 10/17/21 07:00 FiO2 Intake & Output 10/16/21 10/17/21 10/17/21 18:59 06:59 18:59 Intake Total 115 Balance 115 Intake: Oral 115 Other: Voiding Method Toilet # Voids 1 2 - Labs CBC & Chem 7: 10/15/21 13:39 10/15/21 13:39
--- NOTE | 2021-10-17 10:37 | US ---
EXAMINATION TYPE: US carotid duplex BILAT DATE OF EXAM: 10/17/2021 COMPARISON: US CLINICAL HISTORY: vertigo, dizziness. Dizziness TECHNIQUE: Carotid duplex ultrasound examination. Indirect Doppler criteria was utilized. FINDINGS: EXAM MEASUREMENTS: RIGHT: Peak Systolic Velocity (PSV) cm/sec ----- Right CCA: 76.0 ----- Right ICA: 84.5 ----- Right ECA: 124 ICA/CCA ratio: 1.1 RIGHT: End Diastole cm/sec ----- Right CCA: 20.1 ----- Right ICA: 24.0 ----- Right ECA: 21.2 LEFT: Peak Systolic Velocity (PSV) cm/sec ----- Left CCA: 98.7 ----- Left ICA: 70.2 ----- Left ECA: 97.1 ICA/CCA ratio: 0.7 LEFT: End Diastole cm/sec ----- Left CCA: 22.1 ----- Left ICA: 17.5 ----- Left ECA: 16.8 VERTEBRALS (direction of flow): Right Vertebral: Antegrade Left Vertebral: Antegrade Rhythm: Normal GUARD DANCE HALL NOTES: No significant stenosis seen Grayscale, color Doppler, spectral Doppler imaging performed of the carotid arteries. Waveform analys is does not show significant stenosis of the internal carotid arteries. IMPRESSION: No hemodynamic significant stenosis of the proximal internal carotid arteries by Doppler criteria, in direct measurement of carotid stenosis Criteria for Assigning % of Stenosis / Diameter reduction (Estimation based on the indirect measurements of the internal carotid artery velocities (ICA PSV). 1. Normal (no stenosis)=ICA PSV < 125 cm/s: ratio < 2.0: ICA EDV<40 cm/s. 2. Less than 50% stenosis=ICA PSV < 125 cm/s: ratio < 2.0: ICA EDV<40 cm/s. 3. 50 to 69% stenosis=ICA PSV of 125 to 230 cm/s: ration 2.0 ? 4.0: ICA EDV 40-100 cm/s. 4. Greater than 70% stenosis to near occlusion= ICA PSV > 230 cm/s: ratio > 4.0: ICA EDV > 100 cm/s. 5. Near occlusion= ICA PSV velocities may be low or undetectable: variable ratio and ICA EDV. 6. Total occlusion=unable to detect flow.
--- NOTE | 2021-10-17 17:10 | CA ---
Transthoracic Echo Report Name: Last Swanson Age: 71 Gender: M : 1950 Exam Date: 10/17/2021 11:07 Exam Location: [facility] Ht (in): 68 Wt (lb): 225 Ordering Physician: Girma Rivas DO Attending/Referring Phys: [id number], Rob Automatic Drill Operator Suzie Aaron RDCS Procedure CPT: Indications: Syncope Cardiac Hx: Technical Quality: Fair Contrast 1: Total Dose (mL): Contrast 2: Total Dose (mL): MEASUREMENTS (Male / Female) Normal Values 2D ECHO LV Diastolic Diameter PLAX 3.6 cm 4.2 - 5.9 / 3.9 - 5.3 cm LV Systolic Diameter PLAX 2.0 cm IVS Diastolic Thickness 1.2 cm 0.6 - 1.0 / 0.6 - 0.9 cm LVPW Diastolic Thickness 1.2 cm 0.6 - 1.0 / 0.6 - 0.9 cm LV Relative Wall Thickness 0.7 RV Internal Dim ED PLAX 4.5 cm LA Volume 42.8 cm??? 18 - 58 / 22 - 52 cm??? M-MODE Aortic Root Diameter MM 3.8 cm LA Systolic Diameter MM 2.8 cm LA Ao Ratio MM 0.7 AV Cusp Separation MM 1.8 cm DOPPLER AV Peak Velocity 149.1 cm/s AV Peak Gradient 8.9 mmHg LVOT Peak Velocity 137.7 cm/s LVOT Peak Gradient 7.6 mmHg MV Area PHT 4.1 cm??? Mitral E Point Velocity 84.3 cm/s Mitral A Point Velocity 56.2 cm/s Mitral E to A Ratio 1.5 MV Deceleration Time 184.9 ms MV E' Velocity 5.7 cm/s Mitral E to MV E' Ratio 14.7 TR Peak Velocity 188.7 cm/s TR Peak Gradient 14.2 mmHg Right Ventricular Systolic Press 19.2 mmHg FINDINGS Left Ventricle Mildly increased septal wall thickness. Normal left ventricular systolic function with no obvious regional wall motion abnormalities. Normal left ventricular diastolic filling pattern. Left ventricular ejection fraction is estimated at 55-60 %. Right Ventricle Mild right ventricular dilatation. Right ventricular systolic pressure within normal limits. Right Atrium Normal right atrial size. Left Atrium Normal left atrial size. No evidence for an atrial septal defect. Mitral Valve Structurally normal mitral valve. No mitral stenosis, regurgitation or prolapse. Aortic Valve No aortic valve stenosis or regurgitation. Tricuspid Valve Structurally normal tricuspid valve. Mild tricuspid regurgitation. Pulmonic Valve Structurally normal pulmonic valve. Trace pulmonic regurgitation. Pericardium No pericardial effusion. Aorta Normal size aortic root and proximal ascending aorta. CONCLUSIONS [Hypertrophy with preserved systolic function Previewed by: Dr. Roque Carr MD (Electronically Signed) Final Date: 17 October 2021 17:09
== END 2021-10-17 12:10 | disposition home or self-care (01) ==
LOC: EC 13:11 → 6NMEDSUR 15:31
PROVIDERS: ADMIT Internal Medicine; ATTEND Internal Medicine
DX: R55 Syncope and collapse (principal); I10 Essential (primary) hypertension; J44.9 Chronic obstructive pulmonary disease, unspecified; N40.0 Benign prostatic hyperplasia without lower urinary tract symptoms; H93.19 Tinnitus, unspecified ear; E78.5 Hyperlipidemia, unspecified; E66.9 Obesity, unspecified; J32.4 Chronic pansinusitis; Z79.899 Other long term (current) drug therapy; Z79.82 Long term (current) use of aspirin; Z79.51 Long term (current) use of inhaled steroids; Z86.73 Personal history of transient ischemic attack (TIA), and cerebral infarction without residual deficits; Z87.891 Personal history of nicotine dependence; Z96.642 Presence of left artificial hip joint; Z80.0 Family history of malignant neoplasm of digestive organs; Z83.3 Family history of diabetes mellitus; Z82.3 Family history of stroke; Z79.02 Long term (current) use of antithrombotics/antiplatelets; Z98.1 Arthrodesis status; Z68.34 Body mass index [BMI] 34.0-34.9, adult
CPT/HCPCS: 96372; 99285; 36415; 94640 ×4; 93005; 93306; 97166; 80053; 83735; 84484 ×2; 85025; 85610; 85730; 93880; 70450; G0378 ×3; J1650

== ENCOUNTER → 2022-02-04 | Outpatient (CLI) | payer MEDICARE ==
--- NOTE | 2022-02-04 14:50 | MR ---
EXAMINATION TYPE: MR cspine/tspine wo/w con DATE OF EXAM: 02/04/2022 COMPARISON: 05/20/2014 and 06/22/2017 HISTORY: Neck pain, history of neck surgery. Mid back pain. CONTRAST: Standard multiplanar, multisequence MRI departmental protocol images were obtained without contrast a nd with 10 mL intravenous Gadavist gadolinium contrast. The cervical vertebra have fairly normal alignment. There is metal artifact from anterior fusion surg yoly from C5 to C7 level. There is a minimal subluxation at C7-T1 of 2 mm. There is significant narrow ing of the spinal canal at C6-7 with flattening of the cord. There is some mild cervical cord edema. Spinal canal measures less than 5 mm at C6-7. Canal measures 7 mm at C4-5 and C5-6. The brainstem is intact. The thoracic vertebrae have fairly normal alignment. There is multilevel thoracic disc space narrowin g. At T6-7 and T7-8 there is mild posterior disc bulging. There is developmentally adequate canal and no significant thoracic spinal stenosis. Thoracic spinal cord shows some thinning. No masses cord ed karoline. There is no thoracic paraspinal mass. The posterior elements are intact. The contrast images cindy w no pathologic enhancement. No evidence of thoracic or cervical spinal cord mass. IMPRESSION: There is 5 mm cervical spinal stenosis at C6-7 which is slightly improved compared to the preoperativ e exam of 05/20/2014. There is improvement in the C5-6 spinal stenosis. There is a subluxation at C7-T1 which is increased compared to old exam. Cervical cord C6-7 myelomalacia. Mild posterior disc bulging at T6-7 and T7-8. No thoracic spinal stenosis. No compression fracture. F acet cord mild atrophy.
== END | disposition home or self-care (01) ==
LOC: RADMRIMAIN 12:56
PROVIDERS: ATTEND Psychiatry & Neurology Neurology
DX: S13.181A Dislocation of C7/T1 cervical vertebrae, initial encounter (principal); M48.02 Spinal stenosis, cervical region; G95.89 Other specified diseases of spinal cord; M51.34 Other intervertebral disc degeneration, thoracic region
CPT/HCPCS: 72156; 72157; A9585

== ENCOUNTER → 2023-03-28 | Outpatient (CLI) | payer MEDICARE ==
--- NOTE | 2023-04-02 10:23 | MR ---
EXAMINATION TYPE: MR cervical spine wo con DATE OF EXAM: 03/28/2023 COMPARISON: 05/20/2014 HISTORY: Pain, Numbness and Shaking of hands, chronic falls, CONTRAST: Performed utilizing 0 mL intravenous Gadavist gadolinium contrast. TECHNIQUE: Multiplanar multiecho imaging on a 3.0 Desiree magnet is performed through the cervical spin e. FINDINGS: The craniovertebral junction is normal. Vertebral body alignment is normal. Anterior cer vical fusion is present C5-C7. There is a grade 1 spondylolisthesis of C7 anterior and T1. Grade 1 spondylolisthesis of T1 anteriorl y on T2 is evident. This appears to be an interval finding from comparison. T1-2: Grade 1 to grade 2 spondylolisthesis is present. Disc uncovering is present. No AP spinal canal stenosis is present. Some facet hypertrophy is present with posterior lateral thecal sac compression . Some canal narrowing may be present. C7-T1: Disc uncovering is present. No cord contact is evident. No AP spinal canal stenosis. Left for aminal stenosis is present. C6-7: Left paracentral endplate spurring is present. This has moderate anterior thecal sac compressio n. Cord contact and cord deformity is present. Some signal change within the spinal cord is present. Some myelomalacia may be present. AP spinal canal stenosis is present measuring 0.6 cm. Bilateral for aminal narrowing is present. C5-6: No focal disc herniation or significant disc bulge is evident. There is some central endplate s purring present with mild anterior thecal sac compression, no cord contact is evident. No spinal can al stenosis or neural foraminal stenosis is present. C4-5: Broad-based disc bulge is present. Some subligamentous disc extension posterior to C4 is presen t. No cord contact is evident. Bilateral foraminal stenosis is present. C3-4: No focal disc herniation or significant disc bulge is evident. No spinal canal stenosis or carleen ral foraminal stenosis is present. C2-3: No focal disc herniation or significant disc bulge is evident. No spinal canal stenosis or carleen ral foraminal stenosis is present. Spine anterior cervical fusion is present C5-C7. Grade 1 spondylolisthesis of C7 anteriorly on T1 and T1-2 T1 anterior and T2 spondylolisthesis is present. Some endplate changes are present T1-2. IMPRESSION: 1. Endplate spurring with cord contact and deformity at C6-7. AP spinal canal stenosis present. 2. Signal change posterior to the stenosis at C6-7 may be some myelomalacia. 3. Spondylolisthesis C7 on T1 and T1 on T2 discussed above. 4. Foraminal stenosis discussed above. 5. Subligamentous disc herniation C4-5 without cord contact or deformity.
== END | disposition home or self-care (01) ==
LOC: RADMRIMAIN 12:42
PROVIDERS: ATTEND Orthopaedic Surgery Orthopaedic Surgery of the Spine
DX: S13.4XXD Sprain of ligaments of cervical spine, subsequent encounter (principal); M47.12 Other spondylosis with myelopathy, cervical region; M51.36 Other intervertebral disc degeneration, lumbar region; M54.50 Low back pain, unspecified; M54.16 Radiculopathy, lumbar region; R26.89 Other abnormalities of gait and mobility; R53.1 Weakness; M47.816 Spondylosis without myelopathy or radiculopathy, lumbar region; E66.9 Obesity, unspecified; M21.372 Foot drop, left foot; R29.6 Repeated falls; M48.02 Spinal stenosis, cervical region; M50.221 Other cervical disc displacement at C4-C5 level; M43.12 Spondylolisthesis, cervical region
CPT/HCPCS: 72141

== ENCOUNTER 2023-03-29 14:52 | Emergency (ER) | payer MEDICARE ==
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
[2023-03-29 15:19] VITALS: RESP 16
[2023-03-29] MEDS ORDERED: DILTIAZEM DRIP BOLUS FROM BAG 1 MG SOLN IV ONE (15:19)
[2023-03-29] MEDS ORDERED: DILTIAZEM 125 MG in SODIUM CHLORIDE 0.9% 100 ML IV SCH (15:30)
[2023-03-29 15:58] LABS: Basophils % (A) 0 %; Eosinophils % (A) 0 %; HCT 42.6 % (39.0-53.0); HGB 14.5 gm/dL (13.0-17.5); Lymphocytes # (A) 0.5 k/uL (1.0-4.8); Lymphocytes % (A) 5 %; MCH 33.3 pg (25.0-35.0); MCV 98.1 fL (80.0-100.0); Mean Platelet Volume 7.3; Monocytes # (A) 0.2 k/uL (0-1.0); Monocytes % (A) 2 %; Neutrophils # (A) 9.3 k/uL (1.3-7.7); Neutrophils % (A) 93 %; Platelet Count 234 k/uL (150-450); RBC 4.34 m/uL (4.30-5.90); RDW 12.3 % (11.5-15.5); WBC 9.9 k/uL (3.8-10.6)
[2023-03-29 16:11] LABS: ALT 34 U/L (4-49); AST 23 U/L (17-59); African American GFR (CKD) >90 (>60 ml/min/1.73 sqM); Albumin 3.8 g/dL (3.5-5.0); Alcohol <10 mg/dL; Alkaline Phosphatase 69 U/L (38-126); Anion Gap 7 mmol/L; Blood Urea Nitrogen 17 mg/dL (9-20); Calcium 8.9 mg/dL (8.4-10.2); Carbon Dioxide 24 mmol/L (22-30); Chloride 106 mmol/L (98-107); Creatine Kinase 86 U/L (55-170); Glucose 141 mg/dL (74-99); Magnesium 2.2 mg/dL (1.6-2.3); Non-African American GFR(CKD) 87 (>60 ml/min/1.73 sqM); Phosphorus 3.1 mg/dL (2.5-4.5); Potassium 4.4 mmol/L (3.5-5.1); Sodium 137 mmol/L (137-145); Total Bilirubin 0.6 mg/dL (0.2-1.3); Total Protein 6.2 g/dL (6.3-8.2)
[2023-03-29 16:13] LABS: Partial Thromboplastin Time 24.9 sec (22.0-30.0); Prothrombin Time 10.7 sec (10.0-12.5)
[2023-03-29 16:19] LABS: NT-Pro-B-Type Natriuretic Pept 364 pg/mL
--- NOTE | 2023-03-29 17:18 | XR ---
EXAMINATION TYPE: XR chest 1V DATE OF EXAM: 03/29/2023 COMPARISON: 05/06/2021 HISTORY: 72-year-old male with increased weakness TECHNIQUE: Single frontal view of the chest is obtained. FINDINGS: ACDF hardware. Heart normal size. Aorta and pulmonary vasculature within normal limits. Myers zy densities relating to portable technique and body habitus. No consolidation or pleural effusion. IMPRESSION: No acute process.
--- NOTE | 2023-03-29 17:19 | XR ---
EXAMINATION TYPE: XR pelvis AP view DATE OF EXAM: 03/29/2023 Comparison: 04/12/2014 Clinical History: 72-year-old male with weakness and recent fall Findings: Partially visualized lower lumbar fusion hardware down to the L5 level. SI joints appear symmetric an d intact as is the pubic symphysis. Mild degenerative change of the right hip. Partially visualized l eft total hip arthroplasty. Limited visualization of the right mid and lower femoral neck due to exte rnal rotation of the hip to the patient positioning. No displaced fracture is seen. Pelvic phlebolith . Impression: Limited right femoral neck due to external rotation of the hip during repositioning. Incompletely vis ualized femoral component of the left total hip arthroplasty. No displaced fracture seen.
[2023-03-29] MEDS: SODIUM CHLORIDE 0.9% 1,000 ML IV STA (17:39)
--- NOTE | 2023-03-29 17:40 | CT ---
EXAMINATION TYPE: CT brain wo con DATE OF EXAM: 03/29/2023 COMPARISON: 10/15/2021 HISTORY: 72-year-old male with weakness TECHNIQUE: Examination was done in axial plane without intravenous contrast. Coronal and sagittal r econstructions performed. CT DLP: 1203 mGycm Automated exposure control for dose reduction was used. FINDINGS: There is no evidence of acute intracranial hemorrhage, acute ischemic changes, mass, mass-effect, or extra-axial fluid collection. There is no effacement of cerebral sulci or basal subarachnoid cister ns. Mild ventricular prominence likely due to central cerebral atrophy. Some atherosclerotic calcific ations in the carotid siphons. There is no midline shift. Pope-white matter distinction is preserved . Scattered mild mucosal thickening maxillary sinuses and more moderate within the ethmoid air cells. M ild left sphenoid sinus as well. Mastoid air cells are pneumatized. Orbits and globes are intact. IMPRESSION: No acute intracranial abnormality seen. Mild to moderate chronic paranasal sinus disease, slightly im proved from 10/15/2021.
[2023-03-29 18:52] LABS: Appearance,Urine Clear (Clear); Bilirubin,Urine Negative (Negative); Blood,Urine Negative (Negative); Color,Urine Colorless; Glucose,Urine (UA) Negative (Negative); Ketones,Urine Negative (Negative); Leukocyte Esterase,Urine Negative (Negative); Nitrite,Urine Negative (Negative); PH, Urine 6.5 (5.0-8.0); Protein,Urine Negative (Negative); Urobilinogen,Urine <2.0 mg/dL (<2.0)
[2023-03-29 20:46] VITALS: BP 144/74; PULSE 82; TEMP 98.7
== END 2023-03-30 00:49 | disposition home or self-care (01) ==
LOC: EC 14:52
DX: R53.1 Weakness (principal); R29.6 Repeated falls; R42 Dizziness and giddiness; I10 Essential (primary) hypertension; Z79.899 Other long term (current) drug therapy; Z87.891 Personal history of nicotine dependence; Z86.73 Personal history of transient ischemic attack (TIA), and cerebral infarction without residual deficits
CPT/HCPCS: 36415; 93005; 83880; 80053; 82550; 83605; 83735; 84100; 84484; 85025; 85610; 85730; 81003; 72170; 71045; 70450; 99285; G0480; 80320

== ENCOUNTER → 2023-04-30 | Outpatient (CLI) | payer MEDICARE ==
[2023-04-30 15:25] LABS: INR 0.9 (<1.2); Partial Thromboplastin Time 26.4 sec (22.0-30.0); Prothrombin Time 9.9 sec (10.0-12.5)
[2023-04-30 18:58] LABS: Basophils # (A) 0.04 X 10*3/uL (0.00-0.10); Basophils % (A) 0.5 %; Eosinophils # (A) 0.15 X 10*3/uL (0.04-0.35); Eosinophils % (A) 1.8 %; HCT 44.8 % (39.6-50.0); HGB 15.1 g/dL (13.0-17.0); Lymphocytes # (A) 1.75 X 10*3/uL (0.90-5.00); Lymphocytes % (A) 20.5 %; MCH 32.5 pg (27.0-32.0); MCHC 33.7 g/dL (32.0-37.0); MCV 96.6 FL (80.0-97.0); Mean Platelet Volume 9.6 FL (9.5-12.2); Monocytes # (A) 0.79 X 10*3/uL (0.20-1.00); Monocytes % (A) 9.3 %; NRBC Per 100 WBC 0 X 10*3/uL (0.00-0.01); Neutrophils # (A) 5.78 X 10*3/uL (1.80-7.70); Neutrophils % (A) 67.5 %; Platelet Count 260 X 10*3/uL (140-440); RBC 4.64 X 10*6/uL (4.40-5.60); RDW 12.2 % (11.5-14.5); WBC 8.54 X 10*3/uL (4.50-10.00)
[2023-04-30 19:54] LABS: Blood Urea Nitrogen 17.8 mg/dL (9.0-27.0); Calcium 9.5 mg/dL (8.7-10.3); Carbon Dioxide 21.9 mmol/L (21.6-31.8); Chloride 104 mmol/L (96-109); Glucose 97 mg/dL (70-110); Potassium 4.9 mmol/L (3.5-5.5); Sodium 138 mmol/L (135-145)
== END | disposition home or self-care (01) ==
LOC: LABWHC1 13:43
PROVIDERS: ATTEND Orthopaedic Surgery Orthopaedic Surgery of the Spine
DX: Z01.812 Encounter for preprocedural laboratory examination (principal); M48.02 Spinal stenosis, cervical region
CPT/HCPCS: 36415; 80048; 85025; 85610; 85730; 86850; 86900; 86901; 87070

== ENCOUNTER 2023-05-09 06:31 | Inpatient (IN) | payer MEDICARE ==
[2023-05-04 12:00] VITALS: BMI 33.2
[~2023-05-09 06:31] MED LIST changes: -BACITRACIN 50,000 UNIT, POLYMYXIN B 500,000 UNIT in SODIUM CHLORIDE 0.9% IRRIGATIO 1,00... IRRIGATION ONE; -DEXAMETHASONE SOD PHOSPHATE 10 MG/ML 1 ML VIAL IV ONE; -HYDROmorphone 1 MG/ML 1 ML SYRINGE IVP PRN; -LACTATED RINGERS 1,000 ML IV SCH; -MIDAZOLAM 2 MG/2 ML VIAL IV PRN; -ONDANSETRON 4 MG/2 ML VIAL IVP ONE; +TRANEXAMIC 1,000 MG/100ML-NACL 1,000 MG in SALINE 1 100ML.BAG IVPB PRN; -ceFAZolin 2 GM in SODIUM CHLORIDE 0.9% 100 ML IVPB ONE
[2023-05-09] MEDS ORDERED: LIDOCAINE 1% (10MG/ML) FOR IV START INTRADERMA PRN (06:47)
[2023-05-09] MEDS ORDERED: MIDAZOLAM 2 MG/2 ML VIAL IV PRN (06:47)
[2023-05-09] MEDS: LACTATED RINGERS 1,000 ML IV SCH (08:11)
[2023-05-09] MEDS: ONDANSETRON 4 MG/2 ML VIAL IVP ONE (08:12)
[2023-05-09] MEDS ORDERED: ONDANSETRON 4 MG/2 ML VIAL ONE (08:26)
[2023-05-09] MEDS ORDERED: PROPOFOL 10 MG/ML 20 ML VIAL IV ONE (08:26)
[2023-05-09] MEDS ORDERED: LIDOCAINE 1% INJ 10MG/ML (20 ML MDV) ONE (08:26)
[2023-05-09] MEDS ORDERED: PHENYLEPHRINE-0.9% NACL SYG 1,000 MCG/10 ML SYRINGE ONE (08:26)
[2023-05-09] MEDS ORDERED: ePHEDrine 50 MG/ML 1 ML VIAL ONE (08:26)
[2023-05-09] MEDS ORDERED: fentaNYL (PF) 50 MCG/ML 2 ML AMP ONE (08:26)
[2023-05-09] MEDS ORDERED: DEXAMETHASONE SOD PHOSPHATE 10 MG/ML 1 ML VIAL ONE (08:26)
[2023-05-09] MEDS ORDERED: VASOPRESSIN 20 UNIT/ML 1 ML VIAL ONE (08:26)
[2023-05-09] MEDS ORDERED: SUCCINYLCHOLINE CHLORIDE 200 MG/10 ML VIAL IV ONE (08:26)
[2023-05-09] MEDS ORDERED: WATER FOR INJECTION, STERILE 10 ML VIAL IV ONE (08:26)
[2023-05-09] MEDS ORDERED: TRANEXAMIC 1,000 MG/100ML-NACL PREMIX BAG ONE (08:26)
[2023-05-09] MEDS ORDERED: PHENYLEPHRINE 10 MG/ML VIAL ONE (08:26)
[2023-05-09] MEDS ORDERED: ETOMIDATE 2 MG/ML 10 ML VIAL ONE (08:26)
[2023-05-09] MEDS ORDERED: ALBUMIN HUMAN 5% (12.5gm) 250 ML BOTTLE IVPB ONE (08:26)
[2023-05-09] MEDS ORDERED: EPINEPHrine 10 ML SYRINGE (0.1 MG/ML) ONE (08:26)
[2023-05-09] MEDS ORDERED: MIDAZOLAM 2 MG/2 ML VIAL ONE (08:26)
[2023-05-09] MEDS ORDERED: HYDROmorphone (PF) 1 MG/ML ONE (08:26)
[2023-05-09] MEDS: GELATIN SPONGE,ABSORB (LARGE) 1 EACH SPONGE TOPICAL ONE (08:29)
[2023-05-09] MEDS: LIDOCAINE 0.5%-EPI 1:200,000 50 ML VIAL SQ ONE (08:29)
[2023-05-09] MEDS: THROMBIN (BOVINE) 5,000 UNIT VIAL TOPICAL ONE (08:29)
[2023-05-09] MEDS: ceFAZolin 1,000 MG in SODIUM CHLORIDE 0.9% IRRIGATIO 1,000 ML IRRIGATION PRN ×2 (09:37→11:09)
[2023-05-09] MEDS: LACTATED RINGERS 1,000 ML IV ONE ×2 (09:55→11:42)
--- NOTE | 2023-05-09 14:20 | FL ---
EXAMINATION TYPE: FL guidance operating room DATE OF EXAM: 05/09/2023 HISTORY: Fluoroscopy time Total dose area product (DAP) in uGy*m?, mGy*cm? (or similar): 3147.15 IMPRESSION: 1. Fluoroscopy time.
[2023-05-09] MEDS ORDERED: BENZOCAINE/MENTHOL LOZENG 1 EACH LOZENGE MUCOUS MEM PRN (14:26)
[2023-05-09] MEDS ORDERED: diazePAM 5 MG TAB PO PRN (14:26)
[2023-05-09] MEDS ORDERED: ONDANSETRON 4 MG/2 ML VIAL IVP PRN (14:27)
[2023-05-09] MEDS ORDERED: ALBUTEROL NEBULIZED 2.5 MG/3 ML INHALATION PRN (14:29)
--- NOTE | 2023-05-09 14:45 | P.OP ---
Date of Procedure: 05/09/23 Preoperative Diagnosis: Cervical thoracic myelopathy, severe cervical stenosis C7-T1 T1-2, cervical stenosis C4-5 T2-3 T3-4, spondylolisthesis T1-T2 3 T3-4, spinal listhesis C4-5, history of prior fusion C5-6 C6-7, upper extremity weakness, lower extremity weakness, cervical myelopathy thoracic myelomalacia, Postoperative Diagnosis: Same Anesthesia: GETA Pathology: none sent Condition: stable Disposition: PACU Description of Procedure: DESCRIPTION OF PROCEDURE(S): BRIEF OPERATIVE NOTE Preoperative Diagnosis: Cervical thoracic myelopathy, severe cervical stenosis C7-T1 T1-2, cervical stenosis C4-5 T2-3 T3-4, spondylolisthesis T1-T2 3 T3-4, spinal listhesis C4-5, history of prior fusion C5-6 C6-7, upper extremity weakness, lower extremity weakness, cervical myelopathy thoracic myelomalacia, Postoperative Diagnosis: Same Procedure: Application of Trevino inspector and adjuster golf club head laminectomy and decompression C4-5 C7-T1 T1-2 T2-3 T3-[address] navigation aided Posterior lateral decompression and fusion at C4-5 with instrumentation through C5-C7 with decompression fusion C 7 T1 T1-T2 3 and T3-4 Use of computer navigation for fusion Local autogenous bone grafting Use of bone graft extenders Surgeon: Dr. Wills Mamma Logist: Musa DOW who is present throughout the entire the case persistence during positioning, dissection, exposure, visualization, and all crucial elements of the case as well as closure. Anesthesia: General anesthesia per Dr. Roldan Estimated blood loss: Approximately 750 mL, with 250 given back through [employer] Complications: None apparent Components implanted: K2M [place] pedicle screw system withscrews measuring 5 mm in diameter to rods , bone graft substitute bone fibers to supplement the local autogenous bone graft Disposition: To recovery room in good stable condition. OPERATIVE INDICATIONS The patient has had severe issues at his upper and lower extremities and has had been having great deal of difficulty with any sort of balance and ambulation due to his severe myelopathy and myelomalacia at his cervical spine. He has severe stenosis C6-7 and C7-T1 with significant stenosis at C4-5 and at see 7 T1 and T1-2 and 2 3 and T3-4 with spondylolisthesis at multiple levels. He was not having any benefit despite conservative treatment and was having significant worsening where he was having difficulty even getting to the bathroom on his own at home. He was having multiple falls due to his severe stenosis and changes within the spinal cord causing his weakness and cervical myelopathy and myelomalacia. He had a history of prior decompression fusion anteriorly at C5 5 6 C6-7 many years ago which has been doing well for him. These issues were new for him over the past year and has been worsening over the past several months. The patient had evidence of spondylolisthesis at multiple levels. We discussed at length the issues involved and the severe changes at his spinal cord and the causes of weakness and neurologic change that he was having. We felt that surgery would give him best option though the surgery would have to be quite extensive. The patient has been through conservative treatment. We discussed various treatment options including surgery, and the patient wishes to proceed with surgery We discussed the risk, patient's alternatives and benefits of surgery including but not limited to, risk of bleeding risk of infection, risk of need for further surgery, risk of decreased, loss of motion, muscle function, malunion nonunion, hardware failure, nerve damage, paralysis, heart attack, blindness and . They understood issues with the current pandemic and the possibility of exposure. OPERATIVE SUMMARY After discussing all the risks, patient alternatives and benefits at length, the patient elected to proceed with surgical intervention, signed informed consent, and presented for their procedure. The patient was seen and examined in the preoperative holding area and the surgical site was marked. The patient was given antibiotics and brought to the operating room. The patient was sedated and intubated by anesthesia in standard fashion. I then placed a Trevino inspector and adjuster golf club head after sterilizing the area above his ears. It was placed and tensioned appropriately. The patient was positioned on to the operating room table in a prone position on the appropriate frame which was well-padded and well molded. The Trevino inspector and adjuster golf club head was placed intact and appropriately and secured. We were careful to pad any bony prominences and pressure points. We were careful to maintain the patient's cervical spine and good neutral alignment and position throughout. The patient was prepped and draped in a normal standard fashion. Neuromonitoring was done before and after positioning and during the case and postoperatively as well. His all remained stable. An appropriate timeout and keystone protocol performed. We were able to proceed with the surgery. The local wound area was infiltrated with local anesthetic. Appropriate timeout was completed and we will first proceed with surgery. A midline incision was made at the cervical spine extending over the cervical thoracic junction from C4-T4. Dissection was taken down over the midline over the spinous processes down to the lamina over the lateral masses of the cervical spine and over the transfer abscess of the thoracic spine. I was able exposed areas. There is no evidence of motion at C5-6 and C6-7. There is obvious instability at C4-5. I was able to expose appropriately and the appropriate levels were confirmed with a C arm intraoperatively. With this accomplished then we were able to then prepare for placement of the hardware. We are placing pedicle screws at the T1-T4 levels and lateral mass screws at C4-5 and 6. I felt that we would have greater accuracy instability with usage of CT-guided navigation. We used [employer] CT-guided navigation system. The appropriate sensor and clamp was placed at the spinous processes of T4. The drapes were placed over the patient and a spin was accomplished to get intraoperative CT guidance navigation. Once this was established and then you was able to use the guidance system to map out the appropriate starting point angle and placement of the screws. For the pedicle screws I was able to establish a starting hole with the intraoperative guidance system it was positioned drilled the hole was palpated to find good for menendez good base a pedicle finder was then establish to establish the rest of the hole into the pedicle the hole was then palpated found of good menendez good base it was tapped appropriately and a screw was placed in good alignment good position with excellent bony purchase the system was used from T1-T2-T3 and T4 bilaterally. Similarly at the lateral masses I was used able to use the guidance navigation system to establish starting holes at the lateral masses C4-C5-C6. Starting holes were established with the guidance system drilled appropriately and then screws were placed in good alignment good position with excellent bony purchase bilaterally at C4-C5 and C6. With the hardware intact we then did another spin with CT guidance navigation and found to have excellent alignment position of all the hardware at C4-T4. Bilaterally. With the screws intact I was able to establish positioning and dissection for the decompression. I performed a complete laminectomy at T1 and was able to achieve excellent central and bilateral decompression at C7-T1 and T1-2. This was done with high- speed bur curettes and Kerrison rongeurs. Similarly I was able to perform decompression at the interlaminar space at T3-3 T3-4 and C4-5 centrally and bilaterally with combination of high-speed bur curettes and Kerrison rongeurs. All the bone that was removed was saved for local autogenous bone grafting. It was stripped and morselized appropriately for use later in the case. I was able to get excellent decompression at C4-5 C7-T1 T1-2 T2-3 T3-4. There is no evidence of any dural tear or leak. Good hemostasis was maintained. I felt we had good decompression. With this accomplished I was then able to prepare for placement of the rods. We were then able to measure, contour and place the rods and appropriate hardware bilaterally. I was able to place capcrews, tighten them down, and torque them with the torque screwdriver appropriately. With this intact I was able to place the local autogenous bone graft with additional bone graft enhancer as necessary into the posterior lateral gutters over the decorticated transverse processes and facet joints and the decorticated lateral masses from C4-T4. The remainder of the bone graft was With the bone graft intact, a stable construct, and good decompression at the appropriate levels from C4-T4, we were able to proceed with closure. Good hemostasis was maintained. There is no evidence of dural tear or leak. The fascia was closed for a watertight closure. A superficial drain was placed the subcutaneous tissue was closed with 2-0 Vicryl. The skin was closed with adelina. The wound was cleaned and dried and dressed with the appropriate dressing. It was placed in a hard cervical collar. The drapes were broken down. The patient was gently rolled back onto their hospital bed being careful to maintain their cervical spine and good neutral alignment and position with the Trevino inspector and adjuster golf club head intact. Once patient was supine on his stretcher we were able to remove the Trevino inspector and adjuster golf club head appropriately there is no evidence any bleeding or undue trauma. They were woken up by anesthesia, extubated, and brought to the recovery room in good stable condition with his hard cervical collar intact.. The patient will be admitted to the hospital for appropriate postoperative care, medical management and monitoring. We will continue to follow them closely about the postoperative course.
[2023-05-09] MEDS: HYDROmorphone 0.5 MG/0.5 ML SYRINGE IVP PRN (16:15)
[2023-05-09] MEDS: ACETAMINOPHEN IV (For NPO) 1,000 MG/100 ML VIAL IVPB ONE (16:15)
[2023-05-09] MEDS: SODIUM CHLORIDE 0.9% 1,000 ML IV SCH (16:33)
[2023-05-09] MEDS: DEXAMETHASONE SOD PHOSPHATE 4 MG/ML 1 ML VIAL IV ONE (16:44)
[2023-05-09] MEDS: SYMBICORT 160-4.5 MCG INHALER INHALATION SCH (19:59)
[2023-05-09] MEDS: HYDROcodone/APAP 10-325MG 1 EACH TAB PO PRN (21:50)
[2023-05-09] MEDS: CYCLOBENZAPRINE 10 MG TAB PO PRN (21:50)
[2023-05-09] MEDS: lisinopriL 10 MG TAB PO SCH (21:50)
[2023-05-09] MEDS: CITALOPRAM HYDROBROMIDE 20 MG TAB PO SCH (21:50)
[2023-05-09] MEDS: ATORVASTATIN 40 MG TAB PO SCH (21:50)
[2023-05-10] MEDS: HYDROmorphone 1 MG/ML 1 ML SYRINGE IVP PRN (06:50)
[2023-05-10] MEDS ORDERED: NON FORMULARY DRUG (Fish Oil/Dha/Epa [Fish Oil 1,200 Mg Fish Oil] 1 EACH Capsule) PO SCH (09:00)
[2023-05-10] MEDS: MAGNESIUM OXIDE 400 MG TAB PO SCH (09:24)
[2023-05-10] MEDS: TAMSULOSIN 0.4 MG CAP.ER.24H PO SCH (09:24)
[2023-05-10] MEDS: SENNOSIDES-DOCUSATE SODIUM 1 EACH TAB PO SCH (09:24)
[2023-05-10] MEDS: NIACIN TR 500 MG CAPLET PO SCH (09:24)
--- NOTE | 2023-05-10 09:55 | P.PN ---
Progress Note - Text Progress Note Date: 05/10/23 Postoperative day #1 Patient is seen and examined today at bedside. The patient has some pain around the surgical site as expected. Pain is being controlled with medication. He has not yet been out of bed. His Christopher is intact. He is tolerating his diet appropriately. He has not noticed any change in his neurologic status thus far Physical Exam Afebrile with stable vital signs Abdomen is soft nontender. Chest has good excursion deep and space expiration The incision site is clean dry and intact. No erythema there is no purulence. Drain is intact Extremities have not had neurologic change from prior to surgery. He has weakness somewhat globally but particularly at his left lower extremity. He is able to move his arms and lift his arms and make a fist. He has 3 out of 5 strength with dorsiflexion plantarflexion at the left foot which is unchanged from prior to surgery. Calves and thighs were soft nontender without evidence of DVT. Assessment/Plan Postoperative day 1 status post posterior cervical decompression and fusion from C4-T4 for his severe cervical myelopathy with myelomalacia and upper and lower extremity weakness Upper and lower extremity weakness and inability to ambulate Patient is progressing as expected from the surgery. We will leave is drain int act for 1 more day and have it discontinued tomorrow His neurologic status appears stable and hopefully he will gain some function with his surgery. We will start him mobilizing and transferring with physical therapy We will continue to increase the patient's mobilization with therapy. Will discontinue the Christopher and hopefully he will be able to urinate on his own He will likely need placement post hospitalization for rehab or half-way with physical therapy as he is not able to ambulate or mobilize on his own safely. He is having repeated falls at home and his tries to help him but she is not able to help lift him or get him up. His drain is intact and we will discontinue it tomorrow We will continue pain control with oral or IV medications. We'll continue to follow patient closely.
[2023-05-11] MEDS: CLOPIDOGREL 75 MG TAB PO SCH (09:53)
--- NOTE | 2023-05-11 11:06 | P.PN ---
Progress Note - Text Progress Note Date: 05/11/23 Orthopedic Spine History of present illness: Patient is a mic is a pleasant 73-year-old male who is seen and examined the bedside following C4-T4 posterior cervical decompression and fusion. He is known to have significant changes at his cervical and thoracic spine. He has continued to keep his hard cervical collar intact at all times. His postoperative dressing remains intact with drain intact. His dressing is clean and dry. He continues to have significant weakness with his upper extremities and lower extremities. At the bedside he is able to perform some active range of motion of his bilateral upper extremities independently but movements are slow. He does have some difficulty feeding himself due to his weakness. He has significant difficulty with any mobilization. He is unable to ambulate on his own. He did work with physical therapy but had significant difficulty with even trying to stand at the bedside. Patient admits he has not left his house for couple months due to his significant difficulty with mobilization. He does continue to have significant pain at his cervicothoracic spine. Pain continues to be controlled with IV and oral narcotic medications. We will plan for consultation with internal medicine for postoperative medical management. Currently, patient is planning for discharge to [facility] once authorization has been obtained. This may be possible tomorrow, 05/12/2023, or this coming 05/14/2023. His Christopher catheter was discontinued. He did initially have some difficulty with voiding. He states he did require straight catheterization. He has been able to void independently since that time. Currently does not complain of nausea, vomiting, fever, or chills. Physical Exam Cervical Fusion: Status post surgical day number 2 Patient is awake, alert, and oriented 3 Vital signs stable Good chest excursion with deep inspiration and expiration Abdomen nontender Sub Plant Manager strength, thumb strength, interosseous strength, biceps strength, triceps strength, and shoulder strength positive sustained bilaterally Patient is able to perform active range of motion his upper extremities independently 1 arm at a time but movements are slow and generally weaker throughout range of motion Patient does have difficulty lifting his hand to his mouth Hard cervical collar intact Hemovac drain is removed at the bedside Dressing is clean, dry, and intact; no erythema, purulence, or signs of infection over the posterior cervicothoracic spine Assessment: C4-T4 posterior cervicothoracic decompression and fusion Cervical thoracic myelopathy C7-T1 and T1-2 severe cervical stenosis C4-5, T2-3, and T3-4 cervical stenosis T1-2, T2-3, and T3-4 spondylolisthesis C4-5 spondylolisthesis History of previous cervical fusion C5-6 and C6-7 Upper extremity weakness Lower extremity weakness Thoracic myelomalacia Hypertension Hyperlipidemia Inability to ambulate Plan: 1. Ambulate as tolerated; work with Physical Therapy to increase mobilization 2. Continue pain control with oral and IV medications as needed; currently plan to continue with IV Dilaudid and oral [place] 10/325 3. Postoperative dressing remains intact. Dressing is currently clean, dry, and intact. Dressing should remain dry patient should not shower over this dressing. 4. Patient must keep hard cervical collar intact at all times. 5. We will continue to follow the patient closely; case management is currently working on authorization. Once patient has obtained authorization, we will plan for discharge to [facility] [place] as early as tomorrow, 05/12/2023, or 05/14/2023; Patient can follow-up with Musa Zafar PA-C or Dr. Dayo Wills at [facility] in 1-2 weeks following discharge 6. Consultation has been placed for medicine for medical management postoperatively.
--- NOTE | 2023-05-11 15:59 | P.CONS ---
History of Present Illness - Reason for Consult Consult date: 05/11/23 Requesting physician: Lennox Wills - History of Present Illness Patient is a 73-year-old male with hypertension, dyslipidemia, COPD, lung nodules, and prior CVA who presented to the hospital for C4-T4 posterior cervical thoracic decompression and fusion. Patient tolerated procedure well without any immediate postoperative complications. Patient seen and examined at bedside. He reports that he is doing fairly well postoperatively. His current pain is a 4 out of 10. He denies any lightheadedness, dizziness, chest pain, shortness of breath, or palpitations. He states that he has been having progressive weakness of his upper and lower extremities as well and is shaking hands with repeated falls. He denies any recent cough, cold, fever, flu. No other complaints currently. Vital signs reviewed General: nontoxic, no distress, appears at stated age Derm: warm, dry Eyes: EOMI, no lid lag, anicteric sclera, pupils equal round reactive to light ENT: Nose and ears atraumatic Cardiovascular: S1S2 reg, no murmur, no edema Lungs: Decreased breath sounds bilateral, no rhonchi, no rales, no wheeze, no accessory muscle use Abdominal: soft, nontender to palpation, no guarding Ext: no gross muscle atrophy, no contractures Neuro: CN II-XII grossly intact, cervical collar in place, bilateral upper extremities muscle strength 3 out of 5, bilateral lower extremities 2+ out of 5 Psych: Alert, oriented, appropriate affect Assessment/Plan: 73-year-old male status post C4-T4 posterior cervical thoracic decompression and fusion Paraplegia, patient using electric wheelchair at home Sinus tachycardia -Telemetry reviewed -Check CBC, basic metabolic profile, and magnesium to rule out any electrolyte abnormalities. Patient without any chest pain or dizziness. Hypertension, controlled Dyslipidemia Hx of Prior CVA --Continue home lisinopril 10 mg twice daily -Follow blood pressures -Lipitor 40 mg at night -Plavix 75 mg daily COPD without exacerbation Lung nodules -Symbicort 2 puffs twice daily, albuterol nebulizer 2.5 mg every 6 hours as needed for shortness of breath Imaging: None new Data Review: Preoperative blood work reviewed with creatinine 1 and hemoglobin 15.1 Thank you for allowing us to participate in the care of this pleasant patient. Do not hesitate to contact us with questions. Someone can be reached from the [facility] hospitalist group all hours of the day at [phone] or via perfect serve. This dictation was prepared using [employer] voice recognition software. Though every attempt is made to correct errors during dictation some may still exist. Past Medical History Past Medical History: COPD, CVA/TIA, Hyperlipidemia, Hypertension, Osteoarthritis (OA) Additional Past Medical History / Comment(s): fall 03-29-23-was seen in ER at [facility], steroids Mar 2023- LEGS GO NUMB-unable to walk-able to stand with asst to transfer. BPH. OCCASIONAL NOSE BLEEDS. History of Any Multi-Drug Resistant Organisms: None Reported Past Surgical History: Back Surgery, Joint Replacement Additional Past Surgical History / Comment(s): left hip arthroplasty 2012, hemorrhoidectomy,lower neck surgery,mid back surger Past Anesthesia/Blood Transfusion Reactions: No Reported Reaction Additional Past Anesthesia/Blood Transfusion Reaction / Comm: has had hallucination after having anesthesia with last surgery-lower back. no hx blood transfusion Smoking Status: Former smoker - Past Family History Father Family Medical History: Cancer Additional Family Medical History / Comment(s): Father of throat cancer in his 40's. Mother Family Medical History: Diabetes Mellitus Additional Family Medical History / Comment(s): Pt thinks mother may have had cancer. Brother(s) Family Medical History: Cancer, CVA/TIA Additional Family Medical History / Comment(s): Youger brother had a CVA with speach difficulty but had full recovery. older brother had CA Medications and Allergies Home Medications Medication Instructions Recorded Confirmed Type Atorvastatin [Lipitor] 40 mg PO HS #30 tab 08/09/15 05/04/23 Rx Clopidogrel [Plavix] 75 mg PO DAILY tab 08/09/15 05/04/23 Rx lisinopriL [Prinivil] 10 mg PO BID 05/14/17 05/04/23 History Budesonide/Formoterol Fumarate 2 puff INHALATION RT-BID 06/08/21 05/04/23 History [Symbicort 160-4.5 Mcg Inhaler] Albuterol Sulfate [Albuterol 1 - 2 puff PO RT-Q6H PRN 03/29/23 05/04/23 History Sulfate Hfa] Fish Oil/Dha/Epa [Fish Oil 1,200 1 cap PO DAILY 03/29/23 05/04/23 History mg Fish Oil] Magnesium Gluconate [Magonate] 500 mg PO DAILY 03/29/23 05/04/23 History Tamsulosin [Flomax] 0.4 mg PO QAM 03/29/23 05/04/23 History Citalopram Hydrobromide [CeleXA] 20 mg PO HS 05/04/23 05/04/23 History Niacin 500 mg PO DAILY 05/04/23 05/04/23 History Baclofen 10 mg PO TID PRN #60 tab 05/11/23 Rx HYDROcodone/APAP 10-325MG [[place] 1 each PO Q6H PRN #28 tab 05/11/23 Rx 10] Allergies Allergy/AdvReac Type Severity Reaction Status Date / Time No Known Allergies Allergy Verified 05/09/23 07:34 Physical Exam Osteopathic Statement: *. No significant issues noted on an osteopathic structural exam other than those noted in the History and Physical/Consult. Vitals: Vital Signs Temp Pulse Resp BP BP Pulse Ox FiO2 05/11/23 13:38 97.5 F L 92 17 138/84 96 05/11/23 07:56 95 2 05/11/23 06:58 97.6 F 102 H 17 131/83 95 05/11/23 01:45 99.6 F 101 H 17 117/73 94 L 05/10/23 19:20 99.8 F H 51 L 17 147/81 94 L Intake and Output 05/11/23 05/11/23 05/11/23 06:59 14:59 22:59 Intake Total 900 Output Total 350 Balance 550 Intake: Intake, IV Titration 900 Amount Sodium Chloride 0.9% 1, 900 000 ml @ 75 mls/hr IV . [id number] Rx#:[id number] Output: Drainage 10 Neck 10 Urine 340 Other: # Voids 1
[2023-05-11] MEDS: HYDROmorphone 0.5 MG/0.5 ML SYRINGE IVP PRN (16:41)
[2023-05-11 16:55] LABS: HCT 34.9 % (39.0-53.0); HGB 11.9 gm/dL (13.0-17.5); MCH 33.8 pg (25.0-35.0); MCV 99.6 fL (80.0-100.0); Mean Platelet Volume 7.4; Platelet Count 213 k/uL (150-450); RBC 3.51 m/uL (4.30-5.90); WBC 13.6 k/uL (3.8-10.6)
[2023-05-11 17:01] LABS: African American GFR (CKD) 77 (>60 ml/min/1.73 sqM); Anion Gap -1 mmol/L; Blood Urea Nitrogen 18 mg/dL (9-20); Calcium 7.9 mg/dL (8.4-10.2); Carbon Dioxide 27 mmol/L (22-30); Chloride 106 mmol/L (98-107); Glucose 115 mg/dL (74-99); Non-African American GFR(CKD) 67 (>60 ml/min/1.73 sqM); Potassium 4.2 mmol/L (3.5-5.1); Sodium 132 mmol/L (137-145)
--- NOTE | 2023-05-12 09:46 | P.PN ---
Progress Note - Text Progress Note Date: 05/12/23 Postoperative day #3 Patient is seen and examined today at bedside. The patient has some pain around the surgical site as expected. Pain is being controlled with medication. He has been tolerating his regular diet adequately. His hard collar is intact. He does not note any significant change in his upper or lower extremities thus far. He has sat up and stood at the side of the bed with physical therapy Physical Exam Afebrile with stable vital signs Abdomen is soft nontender. Chest has good excursion deep and space expiration The incision site is clean dry and intact. No erythema there is no purulence. The adelina are intact there is no active drainage Extremities have not had neurologic change from prior to surgery. He has global weakness but is able to move his hands and fingers. His most significant weakness is at his left lower extremity essentially unchanged. He is able to dorsiflex plantarflex Calves and thighs were soft nontender without evidence of DVT. Assessment/Plan Postoperative day #3 status post posterior cervical decompression and fusion C3- 4 to T4 for his cervical thoracic myelopathy and severe stenosis with upper and lower extremity weakness Patient is progressing slowly as expected from the surgery. We need to try to get him to mobilize further with physical therapy for standing ambulation and transfers so that he can do this on his own safely. He is not at that point yet. We will continue to increase the patient's mobilization with therapy. He was voiding somewhat but he is still having significant postvoid residual yesterday and had his Christopher catheter placed again yesterday. Will keep that again overnight and do another trial to discontinue his Christopher tomorrow. I do not think that he is ready for rehab quite yet as he is still having urinary issues and he has not been able to ambulate at all thus far. We need to make further progress with this and thus it is likely that he would go to rehab/extended care on Sunday. I discussed this with him. He is continuing medical management as well We will continue pain control with oral or IV medications. We'll continue to follow patient closely.
--- NOTE | 2023-05-12 11:58 | P.PN ---
Subjective Progress Note Date: 05/12/23 Patient is a 73-year-old male with hypertension, dyslipidemia, COPD, lung nodules, and prior CVA who presented to the hospital for C4-T4 posterior cervical thoracic decompression and fusion. Patient tolerated procedure well without any immediate postoperative complications. Christopher was discontinued on 05/10 and had to be reinserted for urinary retention. Patient seen and examined at bedside. He reports his pain is well-controlled today. Denies any shortness of breath, lightheadedness, dizziness. Still feeling very weak. Vital signs reviewed General: Nontoxic, no distress, appears at stated age, crevical collar in place Cardiovascular: S1S2 reg, no murmur Lungs: Decreased bs bilateral, no rhonchi, no rales, no accessory muscle use Abdominal: Soft, nontender to palpation, no guarding, Ext: No gross muscle atrophy, + edema b/l lower extremities, no contractures Psych: Alert, oriented, appropriate affect Assessment/Plan: 73-year-old male status post C4-T4 posterior cervical thoracic decompression and fusion. Management per orthospine. Paraplegia, patient using electric wheelchair at home BPH with urinary retention - Continue with home flomax, repeat voiding trial in AM, start prosac Hypertension, controlled Dyslipidemia Hx of Prior CVA -Continue home lisinopril 10 mg twice daily -Follow blood pressures -Lipitor 40 mg at night -Plavix 75 mg daily COPD without exacerbation Lung nodules -Symbicort 2 puffs twice daily, albuterol nebulizer 2.5 mg every 6 hours as needed for shortness of breath Sinus tachycardia, resolved Imaging: None new Data Review: None new This dictation was prepared using [employer] voice recognition software. Though every attempt is made to correct errors during dictation some may still exist. Objective - Vital Signs Vital signs: Vital Signs Temp 98.1 F 05/12/23 07:39 Pulse 90 05/12/23 08:00 Resp 17 05/12/23 08:00 BP 129/77 05/12/23 07:39 Pulse Ox 93 L 05/12/23 07:59 FiO2 21 05/12/23 07:59 Intake & Output 05/11/23 05/12/23 05/12/23 18:59 06:59 18:59 Output Total 650 Balance -650 Output: Urine 650 Other: Voiding Method Indwelling Catheter Indwelling Catheter - Labs CBC & Chem 7: 05/11/23 16:40 05/11/23 16:21 Labs: Abnormal Lab Results - Last 24 Hours (Table) 05/11/23 05/11/23 Range/Units 16:21 16:40 WBC 13.6 H (3.8-10.6) k/uL RBC 3.51 L (4.30-5.90) m/uL Hgb 11.9 L (13.0-17.5) gm/dL Hct 34.9 L (39.0-53.0) % Sodium 132 L (137-145) mmol/L Glucose 115 H (74-99) mg/dL Calcium 7.9 L (8.4-10.2) mg/dL
[2023-05-12] MEDS: FINASTERIDE 5 MG TAB PO SCH (18:03)
[2023-05-13] MEDS ORDERED: bisacodyL 5 MG TABLET.DR PO PRN (09:15)
--- NOTE | 2023-05-13 09:18 | P.PN ---
Progress Note - Text Progress Note Date: 05/13/23 Postoperative day #4 Patient is seen and examined today at bedside. The patient has some pain around the surgical site as expected. Pain is being controlled with medication. He was able to move his arms and his legs better this morning and bed when I saw him. His pain is adequately controlled. He still is fully intact. Physical Exam Afebrile with stable vital signs Abdomen is soft nontender. Chest has good excursion deep and space expiration The incision site is clean dry and intact. No erythema there is no purulence. The site seems clear. Extremities have not had neurologic change from prior to surgery. With encouragement he is able to move his upper extremities and his lower extremities somewhat better overall. He still has significant weakness particularly in his left leg and toward his left hand Calves and thighs were soft nontender without evidence of DVT. Assessment/Plan Postoperative day #4 status post open decompression and posterior decompression fusion C4-T4 for severe cervical stenosis and cervical thoracic myelopathy with myelomalacia and upper EXTR lower extremity weakness Urinary retention Patient is progressing very slowly as expected from the surgery. His pain seems adequately controlled and the site is healing appropriately. We need to encourage him more to move his arms and legs even while in bed. I given him instructions for this at length today and he seems to understand. He is also using his incentive spirometer more to try to get off his low-flow oxygen nasal cannula. We will continue to increase the patient's mobilization with therapy. He has history of urinary retention. He has been taking Flomax at home for quite a while but it still says he has difficulty starting his stream. He was started on some more medicine which may take a bit of time to start to take effect and we will keep his Christopher in until tomorrow to give him another voiding challenge. He should keep his antibiotics while having the Christopher intact. We can consider going to retirement tomorrow. We will continue pain control with oral or IV medications. We'll continue to follow patient closely.
[2023-05-13] MEDS: ALBUTEROL HFA INHALER INHALATION PRN (11:51)
--- NOTE | 2023-05-13 12:30 | P.PN ---
Subjective Progress Note Date: 05/13/23 (delayed charting seen at 0905) Patient is a 73-year-old male with hypertension, dyslipidemia, COPD, lung nodules, and prior CVA who presented to the hospital for C4-T4 posterior cervical thoracic decompression and fusion. Patient tolerated procedure well without any immediate postoperative complications. Christopher was discontinued on 05/10 and had to be reinserted for urinary retention. Patient seen and examined at bedside. His pain is better today. He is still having some dryness in his throat but denies any overt difficulty swallowing. He reports that he is cannot work harder at moving his lower extremities. Vital signs reviewed General: Nontoxic, no distress, appears at stated age, crevical collar in place Cardiovascular: S1S2 reg, no murmur Lungs: Decreased bs bilateral, no rhonchi, no rales, no accessory muscle use Abdominal: Soft, nontender to palpation, no guarding, Ext: No gross muscle atrophy, + edema b/l lower extremities, no contractures Psych: Alert, oriented, appropriate affect Assessment/Plan: 73-year-old male status post C4-T4 posterior cervical thoracic decompression and fusion. Management per orthospine. Paraplegia, patient using electric wheelchair at home BPH with urinary retention - Continue with home flomax, Proscar 5 mg daily -Case discussed with Dr. Wills. We will keep Christopher catheter in place until tomorrow Hypertension, controlled Dyslipidemia Hx of Prior CVA -Continue home lisinopril 10 mg twice daily -Follow blood pressures -Lipitor 40 mg at night -Plavix 75 mg daily COPD without exacerbation Lung nodules -Symbicort 2 puffs twice daily, albuterol nebulizer 2.5 mg every 6 hours as needed for shortness of breath Sinus tachycardia, resolved Imaging: None new Data Review: None new Thank you for allowing us to participate in the care of this pleasant patient. Do not hesitate to contact us with questions. Someone can be reached from the [facility] hospitalist group all hours of the day at [phone] or via perfect serve. This dictation was prepared using [employer] voice recognition software. Though every attempt is made to correct errors during dictation some may still exist. Objective - Vital Signs Vital signs: Vital Signs Temp 97.6 F 05/13/23 07:41 Pulse 83 05/13/23 07:41 Resp 16 05/13/23 07:41 BP 111/71 05/13/23 07:41 Pulse Ox 97 05/13/23 08:01 FiO2 21 05/12/23 07:59 Intake & Output 05/12/23 05/13/23 05/13/23 18:59 06:59 18:59 Output Total 250 200 Balance -250 -200 Output: Urine 250 200 Other: Voiding Method Indwelling Catheter Indwelling Catheter - Labs CBC & Chem 7: 05/11/23 16:40 05/11/23 16:21
--- NOTE | 2023-05-14 08:40 | P.DS ---
Providers Date of admission: 05/09/23 06:31 Expected date of discharge: 05/14/23 Attending physician: Lennox Wills Consults: 05/11/23 10:50 Consult Physician Routine Consulting Provider: Angelica Anderson Consult Reason/Comments: Post-Operative medical management Do you want consulting provider notified?: Yes Primary care physician: Luis E Dobbins - Discharge Diagnosis(es) (1) Myelopathy Current Visit: Yes Status: Acute (2) Thoracic stenosis Current Visit: Yes Status: Acute (3) Myelomalacia Current Visit: Yes Status: Acute (4) Upper extremity weakness Current Visit: Yes Status: Acute (5) Spondylolisthesis Current Visit: Yes Status: Acute (6) Cervical stenosis of spinal canal Current Visit: Yes Status: Acute (7) History of cervical spinal arthrodesis Current Visit: No Status: Acute (8) Hyperlipidemia Current Visit: No Status: Acute (9) Hypertension Current Visit: No Status: Acute (10) Lower extremity weakness Current Visit: No Status: Acute (11) Retention of urine, unspecified Current Visit: No Status: Acute Hospital Course: This is a pleasant 73-year-old male who presented with Cervical thoracic myelopathy, C7-T1 and T1-2 severe cervical stenosis, C4-5, T2-3, and T3-4 cervi bebe stenosis, T1-2, T2-3, and T3-4 spondylolisthesis, C4-5 spondylolisthesis, History of previous cervical fusion C5-6 and C6-7, Upper extremity weakness, Lower extremity weakness, and Thoracic myelomalacia who failed outpatient conservative therapy. He was admitted for C4-T4 posterior cervicothoracic decompression and fusion. The patient tolerated the procedure. He has been progressing slowly postoperatively. He has had significant difficulty with mobilization both pre and post operatively. He is at least 2 two-person assist. He has been able to be transferred to a bedside chair with 2 person assistance. He has been trying to work with physical therapy. He is unable to stand independently. He is planning for discharge to [facility] on the . Authorization was approved by his insurance on Sunday. Currently, he will be cleared for discharge from an orthopedic spine standpoint pending clearance by medicine. He is having difficulty with urinary retention. He was initially able to void postoperatively but has since had difficulty voiding. He does have a history of urinary retention as well. Christopher catheter is currently intact. We are planning for voiding trial this morning. If he is unable to void independently, we would plan for reinsertion of Christopher catheter with plans for him to discharge to rehab with the Christopher catheter intact. He was also started on Flomax by medicine. He may continue with this medication per recommendations of medicine. If he is discharged to rehab with Christopher catheter, we would plan for him to have evaluation with urology outpatient. Condition on day of discharge stable. Patient was cleared preoperatively for surgery by Dr. Dobbins. Patient currently denies any nausea, vomiting, fever, or chills. Patient must keep hard cervical collar intact at all times. Dressing has been removed over the posterior cervical thoracic spine. [place] remain intact. Juan to remain intact 12 days postoperatively. Patient may shower without a dressing intact at this time. Patient may have daily dressing changes over the surgical site at the cervical thoracic spine as needed. They may be removed at the rehabilitation facility or at his follow-up appointment in our office. Patient should avoid excessive neck flexion, extension, rotation, and lateral sidebending; no overhead lifting; no lifting greater than 10 pounds. MAPS was previously reviewed. An "Opiod Start Talking" Form has been signed and placed in the patient's chart. A prescription has been written for hydrocodone 10 mg / 325 mg, 1 tab, every 6 hours, as needed for acute pain, dispense #28. He is also given a prescription for baclofen 10 mg, 3 times daily, as needed for muscle spasm, dispense #60. Patient's other medical diagnoses include hypertension, hyperlipidemia, and inability to ambulate. 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, thumb strength, interosseous strength, biceps strength, triceps strength, and shoulder strength positive sustained bilaterally but significantly weak Patient is able to perform active range of motion his upper extremities independently 1 arm at a time but movements are slow and significantly weaker throughout range of motion Patient does have difficulty lifting his hand to his mouth Hard cervical collar intact Dressing over the cervical thoracic spine is removed [place] are intact over the incision site at the cervical thoracic spine No erythema, purulence, or signs of infection over the posterior cervicothoracic spine Procedures: C4-T4 posterior cervicothoracic decompression and fusion Patient Condition at Discharge: Stable Plan - Discharge Summary Discharge Rx Participant: No New Discharge Prescriptions: New HYDROcodone/APAP 10-325MG [[place] 10] 1 each PO Q6H PRN #28 tab PRN Reason: Pain Baclofen 10 mg PO TID PRN #60 tab PRN Reason: Spasms No Action Atorvastatin [Lipitor] 40 mg PO HS #30 tab Clopidogrel [Plavix] 75 mg PO DAILY tab lisinopriL [Prinivil] 10 mg PO BID Tamsulosin [Flomax] 0.4 mg PO QAM Fish Oil/Dha/Epa [Fish Oil 1,200 mg Fish Oil] 1 cap PO DAILY Budesonide/Formoterol Fumarate [Symbicort 160-4.5 Mcg Inhaler] 2 puff INHALATION RT-BID Magnesium Gluconate [Magonate] 500 mg PO DAILY Albuterol Sulfate [Albuterol Sulfate Hfa] 1 - 2 puff PO RT-Q6H PRN PRN Reason: Shortness Of Breath Citalopram Hydrobromide [CeleXA] 20 mg PO HS Niacin 500 mg PO DAILY Discharge Medication List Atorvastatin [Lipitor] 40 mg PO HS #30 tab 08/09/15 [Rx] Clopidogrel [Plavix] 75 mg PO DAILY tab 08/09/15 [Rx] lisinopriL [Prinivil] 10 mg PO BID 05/14/17 [History] Budesonide/Formoterol Fumarate [Symbicort 160-4.5 Mcg Inhaler] 2 puff INHALATION RT-BID 06/08/21 [History] Albuterol Sulfate [Albuterol Sulfate Hfa] 1 - 2 puff PO RT-Q6H PRN 03/29/23 [History] Fish Oil/Dha/Epa [Fish Oil 1,200 mg Fish Oil] 1 cap PO DAILY 03/29/23 [History] Magnesium Gluconate [Magonate] 500 mg PO DAILY 03/29/23 [History] Tamsulosin [Flomax] 0.4 mg PO QAM 03/29/23 [History] Citalopram Hydrobromide [CeleXA] 20 mg PO HS 05/04/23 [History] Niacin 500 mg PO DAILY 05/04/23 [History] Baclofen 10 mg PO TID PRN #60 tab 05/11/23 [Rx] HYDROcodone/APAP 10-325MG [[place] 10] 1 each PO Q6H PRN #28 tab 05/11/23 [Rx] Follow up Appointment(s)/Referral(s): Musa Zafar, EL [PHYSICIAN FLATBED OWNER OPERATOR] - 1 Week (Patient may follow-up with Musa Zafar PA-C or Dr. Dayo Wills at [facility] in 1-2 weeks following discharge. ) Activity/Diet/Wound Care/Special Instructions: 1. Patient must keep hard cervical collar intact at all times 2. [place] to remain intact at the cervical thoracic spine; juan to be removed 10 to 12 days postoperatively 3. Daily dressing changes over the surgical site at the cervical thoracic spine as needed 4. Patient should avoid excessive cervical flexion, extension, and side bending; avoid overhead lifting; no lifting greater than 10 pounds 5. Take medications as prescribed 6. Patient should avoid anti-inflammatory medications over the next 6 weeks postoperatively 7. Do not soak in tub 8. Patient may transfer and ambulate to [facility] with assistance Discharge Disposition: TRANSFER TO SNF/ECF
--- NOTE | 2023-05-14 09:42 | P.PN ---
Subjective Progress Note Date: 05/14/23 Patient is a 73-year-old male with hypertension, dyslipidemia, COPD, lung nodules, and prior CVA who presented to the hospital for C4-T4 posterior cervical thoracic decompression and fusion. Patient tolerated procedure well without any immediate postoperative complications. Christopher was discontinued on 05/10 and had to be reinserted for urinary retention. Patient seen and examined at bedside. He is up and sitting in the chair. His pain is overall better. He is having a hard time urinating. He has no other complaints currently. Vital signs reviewed General: Nontoxic, no distress, appears at stated age, crevical collar in place Cardiovascular: S1S2 reg, no murmur Lungs: Decreased bs bilateral, no rhonchi, no rales, no accessory muscle use Abdominal: Soft, nontender to palpation, no guarding, Ext: No gross muscle atrophy, + edema b/l lower extremities, no contractures Psych: Alert, oriented, appropriate affect Assessment/Plan: 73-year-old male status post C4-T4 posterior cervical thoracic decompression and fusion. Management per orthospine. Paraplegia, patient using electric wheelchair at home BPH with urinary retention -catheter has been removed today. Patient has not yet Voided. - Continue with home flomax, Proscar 5 mg daily Hypertension, controlled Dyslipidemia Hx of Prior CVA -Continue home lisinopril 10 mg twice daily -Follow blood pressures -Lipitor 40 mg at night -Plavix 75 mg daily COPD without exacerbation Lung nodules -Symbicort 2 puffs twice daily, albuterol nebulizer 2.5 mg every 6 hours as needed for shortness of breath Sinus tachycardia, resolved Imaging: None new Data Review: None new Medically optimized for discharged at the discretion of spine ortho. Thank you for allowing us to participate in the care of this pleasant patient. Do not hesitate to contact us with questions. Someone can be reached from the [facility] hospitalist group all hours of the day at [phone] or via [employer]. This dictation was prepared using [employer] voice recognition software. Though every attempt is made to correct errors during dictation some may still exist. Objective - Vital Signs Vital signs: Vital Signs Temp 98.1 F 05/14/23 07:33 Pulse 89 05/14/23 07:33 Resp 16 05/14/23 07:33 BP 129/76 05/14/23 07:33 Pulse Ox 95 05/14/23 07:33 FiO2 21 05/12/23 07:59 Intake & Output 05/13/23 05/14/23 05/14/23 18:59 06:59 18:59 Output Total 700 Balance -700 Output: Urine 700 Other: # Voids 800 - Labs CBC & Chem 7: 05/11/23 16:40 05/11/23 16:21
[2023-05-14 13:39] VITALS: BP 119/70; PULSE 105; RESP 19; TEMP 97.1
== END 2023-05-14 14:45 | DRG 454 ==
LOC: 2ORMAIN 06:31 → EDSTATUS 08:30 → 4SSUR 15:14
PROVIDERS: ADMIT Orthopaedic Surgery Orthopaedic Surgery of the Spine; ATTEND Orthopaedic Surgery Orthopaedic Surgery of the Spine
PROC: 0RG207J Fusion of 2 or more Cervical Vertebral Joints with Autologous Tissue Substitute, Posterior Approach, Anterior Column, Open Approach (ICD-10-PCS; 2023-05-09)
PROC: 00NW0ZZ Release Cervical Spinal Cord, Open Approach (ICD-10-PCS; 2023-05-09)
PROC: 0RG7071 Fusion of 2 to 7 Thoracic Vertebral Joints with Autologous Tissue Substitute, Posterior Approach, Posterior Column, Open Approach (ICD-10-PCS; 2023-05-09)
PROC: 00NX0ZZ Release Thoracic Spinal Cord, Open Approach (ICD-10-PCS; 2023-05-09)
PROC: 0RG4071 Fusion of Cervicothoracic Vertebral Joint with Autologous Tissue Substitute, Posterior Approach, Posterior Column, Open Approach (ICD-10-PCS; 2023-05-09)
PROC: 0RG407J Fusion of Cervicothoracic Vertebral Joint with Autologous Tissue Substitute, Posterior Approach, Anterior Column, Open Approach (ICD-10-PCS; 2023-05-09)
PROC: 0RG707J Fusion of 2 to 7 Thoracic Vertebral Joints with Autologous Tissue Substitute, Posterior Approach, Anterior Column, Open Approach (ICD-10-PCS; 2023-05-09)
PROC: 8E09XBZ Computer Assisted Procedure of Head and Neck Region (ICD-10-PCS; 2023-05-09)
PROC: 8E0WXBZ Computer Assisted Procedure of Trunk Region (ICD-10-PCS; 2023-05-09)
PROC: 30233H0 Transfusion of Autologous Whole Blood into Peripheral Vein, Percutaneous Approach (ICD-10-PCS; 2023-05-09)
PROC: 0RG2071 Fusion of 2 or more Cervical Vertebral Joints with Autologous Tissue Substitute, Posterior Approach, Posterior Column, Open Approach (ICD-10-PCS; principal; 2023-05-09 08:30)
DX: M43.14 Spondylolisthesis, thoracic region (principal); G82.20 Paraplegia, unspecified; G95.89 Other specified diseases of spinal cord; G99.2 Myelopathy in diseases classified elsewhere; J44.9 Chronic obstructive pulmonary disease, unspecified; M48.03 Spinal stenosis, cervicothoracic region; I10 Essential (primary) hypertension; M48.02 Spinal stenosis, cervical region; M43.12 Spondylolisthesis, cervical region; N40.1 Benign prostatic hyperplasia with lower urinary tract symptoms; E78.5 Hyperlipidemia, unspecified; R29.6 Repeated falls; R33.8 Other retention of urine; R00.0 Tachycardia, unspecified; R63.30 Feeding difficulties, unspecified; Z96.642 Presence of left artificial hip joint; Z79.02 Long term (current) use of antithrombotics/antiplatelets; Z79.51 Long term (current) use of inhaled steroids; Z87.891 Personal history of nicotine dependence; Z86.73 Personal history of transient ischemic attack (TIA), and cerebral infarction without residual deficits; Z98.1 Arthrodesis status; Z91.81 History of falling; Z79.899 Other long term (current) drug therapy
CPT/HCPCS: 72040; 80048; 83735; 85027; 86891; 94640; 94760

== ENCOUNTER → 2023-11-17 | Outpatient (CLI) | payer MEDICARE ==
--- NOTE | 2023-11-17 19:43 | MR ---
EXAMINATION TYPE: MR Prostate wo/w con DATE OF EXAM: 11/17/2023 11:25 AM COMPARISON: None. CLINICAL INDICATION: Male, 73 years old with history of R97.20 ELEVATED PROSTATE SPECIFIC ANTIGEN [PS A]; Elevated PSA. TECHNIQUE: Multi-planar, multi-sequence imaging of the pelvis is performed prior to and following the uncomplicated administration of bolus intravenous gadolinium. CONTRAST: 8.5 Gadavist Interpretive Criteria: PI-RADS v2.1 SERUM PSA: 10-15-23 = 8.160 02-15-23 = 6.94 SURGICAL PATHOLOGY: No data available. FINDINGS: Prostatic dimensions: 4.6 x 5.6 x 4.3 cm. Ellipsoid Volume:58.00 (PSA density=0.14 ng/mL/m CENTRAL GLAND (Central and Transition Zones/CZ+TZ): Multiple bilateral, heterogenous appearing hypertrophic stromal nodules, without suspicious lesion. M edian lobe hypertrophy with protrusion into the base of the bladder. (PI-RADS 2) PERIPHERAL ZONE (PZ): Limited evaluation diffusion weighted imaging due to susceptibility artifact. W ithin the limitations of the exam no suspicious areas definitively visualized. Extruded left lateral base BPH nodule (PI-RADS 2) SEMINAL VESICLES (SV): Symmetric and unremarkable. PERIPROSTATIC TISSUES: Unremarkable. LYMPH NODES: No enlarged pelvic lymph node. REMAINING PELVIS: Bladder wall is within normal limits given distention. No abnormal free or organized intrapelvic fluid collection. No pathologic bowel dilation or mural thickening. No hernia visualized OSSEOUS STRUCTURES: No suspicious osseous abnormality. Left hip arthroplasty with susceptibility artifacts. IMPRESSION: 1. Limited evaluation diffusion weighted imaging due to susceptibility artifact. Within that limitati on, no evidence for clinically significant prostate cancer of the exam no suspicious areas definitive ly visualized. (PI-RADS 2) 2. Moderate BPH, estimated gland volume 58.00 mL. 3. No suspicious osseous lesion. No lymphadenopathy. No evidence of prostate adenocarcinoma involving the periprostatic tissues.
== END | disposition home or self-care (01) ==
LOC: RADMRIMAIN 10:05
PROVIDERS: ATTEND Urology
DX: R97.20 Elevated prostate specific antigen [PSA] (principal)
CPT/HCPCS: 72197; A9585

== ENCOUNTER 2024-03-24 14:03 | Emergency (ER) | payer MEDICARE ==
[2024-03-24 14:08] VITALS: BP 109/62; PULSE 76; RESP 20; TEMP 98
--- NOTE | 2024-03-24 15:23 | ED ---
General Adult HPI - General Source: patient, RN notes reviewed Mode of arrival: wheelchair Limitations: no limitations <April Monaco - Last Filed: 03/24/24 15:22> <Rolan Douglass - Last Filed: 03/24/24 16:45> - General Chief complaint: Recheck/Abnormal Lab/Rx Stated complaint: Urogenital Time Seen by Provider: 03/24/24 15:22 - History of Present Illness Initial comments: Quick [id number] male presenting to the ER for chief complaint of urinary retention since this morning. States he is constantly dribbling urine however feels as though he cannot completely empty his bladder. Also admits constipation since yesterday. (April Monaco) - Related Data Home Medications Medication Instructions Recorded Confirmed lisinopriL [Prinivil] 10 mg PO BID 05/14/17 05/04/23 Budesonide/Formoterol Fumarate 2 puff INHALATION RT-BID 06/08/21 05/04/23 [Symbicort 160-4.5 Mcg Inhaler] Albuterol Sulfate [Albuterol 1 - 2 puff PO RT-Q6H PRN 03/29/23 05/04/23 Sulfate Hfa] Fish Oil/Dha/Epa [Fish Oil 1,200 1 cap PO DAILY 03/29/23 05/04/23 mg Fish Oil] Magnesium Gluconate [Magonate] 500 mg PO DAILY 03/29/23 05/04/23 Tamsulosin [Flomax] 0.4 mg PO QAM 03/29/23 05/04/23 Citalopram Hydrobromide [CeleXA] 20 mg PO HS 05/04/23 05/04/23 Niacin 500 mg PO DAILY 05/04/23 05/04/23 Previous Rx's Medication Instructions Recorded Atorvastatin [Lipitor] 40 mg PO HS #30 tab 08/09/15 Clopidogrel [Plavix] 75 mg PO DAILY tab 08/09/15 Baclofen 10 mg PO TID PRN #60 tab 05/11/23 HYDROcodone/APAP 10-325MG [Watson 1 each PO Q6H PRN #28 tab 05/11/23 10] Finasteride [Proscar] 5 mg PO DAILY tab 05/14/23 Sennosides-Docusate Sodium 1 each PO DAILY tab 05/14/23 [Senokot-S] bisacodyL [Dulcolax] 5 mg PO DAILY PRN tab 05/14/23 Allergies Allergy/AdvReac Type Severity Reaction Status Date / Time No Known Allergies Allergy Verified 03/24/24 14:08 Review of Systems ROS Other: All systems not noted in ROS Statement are negative. <April Monaco - Last Filed: 03/24/24 15:22> ROS Other: All systems not noted in ROS Statement are negative. <Rolan Douglass Disha - Last Filed: 03/24/24 16:45> ROS Statement: Those systems with pertinent positive or pertinent negative responses have been documented in the HPI. Past Medical History Past Medical History: CVA/TIA, Hyperlipidemia, Hypertension Additional Past Medical History / Comment(s): fall 03-29-23-was seen in ER at [facility], steroids Mar 2023- LEGS GO NUMB-unable to walk-able to stand with asst to transfer. BPH. OCCASIONAL NOSE BLEEDS. History of Any Multi-Drug Resistant Organisms: None Reported Past Surgical History: Joint Replacement Additional Past Surgical History / Comment(s): left hip arthroplasty 2012, hemorrhoidectomy. Past Anesthesia/Blood Transfusion Reactions: No Reported Reaction Additional Past Anesthesia/Blood Transfusion Reaction / Comment(s): has had hallucination after having anesthesia with last surgery-lower back. no hx blood transfusion Past Psychological History: No Psychological Hx Reported Smoking Status: Former smoker Past Alcohol Use History: None Reported Past Drug Use History: None Reported - Past Family History Father Family Medical History: Cancer Additional Family Medical History / Comment(s): Father of throat cancer in his 40's. Mother Family Medical History: Diabetes Mellitus Additional Family Medical History / Comment(s): Pt thinks mother may have had cancer. Brother(s) Family Medical History: Cancer, CVA/TIA Additional Family Medical History / Comment(s): Youger brother had a CVA with speach difficulty but had full recovery. older brother had CA <April Monaco - Last Filed: 03/24/24 15:22> General Exam Limitations: no limitations <April Monaco - Last Filed: 03/24/24 15:22> General appearance: alert, in no apparent distress Head exam: Present: atraumatic, normocephalic Eye exam: Present: normal appearance, PERRL ENT exam: Present: normal exam Neck exam: Present: normal inspection. Absent: tenderness, meningismus Respiratory exam: Present: normal lung sounds bilaterally. Absent: respiratory distress, wheezes Cardiovascular Exam: Present: regular rate, normal rhythm GI/Abdominal exam: Present: distended. Absent: tenderness Extremities exam: Present: normal inspection, normal capillary refill. Absent: calf tenderness Neurological exam: Present: alert, oriented X3 Psychiatric exam: Present: normal affect, normal mood Skin exam: Present: warm, dry, intact. Absent: cyanosis, diaphoretic <Rolan Douglass - Last Filed: 03/24/24 16:45> - General Exam Comments Initial Comments: Visual Physical Exam Vital signs reviewed General: Well-appearing, nontoxic, no acute distress. Head: Normocephalic, atraumatic Eyes: PERRLA, EOMI ENT: Airway patent Chest: Nonlabored breathing Skin: No visual rash, normal skin tone Neuro: Alert and oriented 3 Musculoskeletal: No gross abnormalities (April Monaco) Course Vital Signs 03/24/24 14:06 Temperature 98 F Pulse Rate 76 Respiratory 20 Rate Blood Pressure 109/62 O2 Sat by Pulse 94 L Oximetry Medical Decision Making <April Monaco - Last Filed: 03/24/24 15:22> <Rolan Douglass - Last Filed: 03/24/24 16:45> - Medical Decision Making I completed the quick note portion of this chart signed April Monaco PA-C (April Monaco) Was pt. sent in by a medical professional or institution ([facility], PROPERTY DEVELOPER, urgent care, hospital, or senior living...) When possible be specific @ -No Did you speak to anyone other than the patient for history (EMS, parent, family, police, friend...)? What history was obtained from this source @ -No Did you review nursing and triage notes (agree or disagree)? Why? @ -I reviewed and agree with nursing and triage notes Were old charts reviewed (outside hosp., previous admission, EMS record, old EKG, old radiological studies, urgent care reports/EKG's, senior living records)? Report findings @ -No old charts were reviewed Differential Diagnosis UTI, BPH, urinary retention, constipation EKG interpreted by me (3pts min.). @ -As above X-rays interpreted by me (1pt min.). @ -None done CT interpreted by me (1pt min.). @ -None done U/S interpreted by me (1pt. min.). @ -Bladder scan shows approximately 700 cc of retained urine What testing was considered but not performed or refused? (CT, X-rays, U/S, labs)? Why? @ -None What meds were considered but not given or refused? Why? @ -None Did you discuss the management of the patient with other professionals (professionals i.e. , PA, PROPERTY DEVELOPER, lab, RT, psych nurse, certified social workers in health care, unbundler, teacher, gift officer, case hardener)? Give summary @ -No Was smoking cessation discussed for >3mins.? @ -No Was critical care preformed (if so, how long)? @ -No Were there social determinants of health that impacted care today? How? (Homelessness, low income, unemployed, alcoholism, drug addiction, transportation, low edu. Level, literacy, decrease access to med. care, [place] [facility], rehab)? @ -No Was there de-escalation of care discussed even if they declined (Discuss DNR or withdrawal of care, Hospice)? DNR status @ -No What co-morbidities impacted this encounter? (DM, HTN, Smoking, COPD, CAD, Cancer, CVA, ARF, Chemo, Hep., AIDS, mental health diagnosis, sleep apnea, morbid obesity)? @ -Immobility at baseline Was patient admitted / discharged? Hospital course, mention meds given and route, prescriptions, significant lab abnormalities, going to OR and other pertinent info. @ -73-year-old male presenting with acute urinary retention. Patient denies preceding symptoms, no hematuria, no significant abdominal pain. He does have a sensation that he has to have a bowel movement but has been unable to have a normal bowel movement as well over the past 24 hours. Bladder scan revealed 700 cc of urine. Christopher catheter is placed. Urinalysis is negative for infection or hematuria. Patient stable for discharge with follow-up with urology. Undiagnosed new problem with uncertain prognosis? @ -No Drug Therapy requiring intensive monitoring for toxicity (Heparin, Nitro, Insulin, Cardizem)? @ -No Were any procedures done? @ -No Diagnosis/symptom? @ -Urinary retention Acute, or Chronic, or Acute on Chronic? @ -Acute Uncomplicated (without systemic symptoms) or Complicated (systemic symptoms)? @ -Default Side effects of treatment? @ -No Exacerbation, Progression, or Severe Exacerbation? @ -No Poses a threat to life or bodily function? How? (Chest pain, USA, MS, pneumonia, PE, COPD, DKA, ARF, appy, cholecystitis, CVA, Diverticulitis, Homicidal, Suicidal, threat to staff... and all critical care pts) @ -No (Rolan Douglass) - Lab Data Lab Results 03/24/24 Range/Units 16:15 Urine Color Yellow Urine Appearance Clear (Clear) Urine pH 6.0 (5.0-8.0) Ur Specific [place] 1.017 (1.001-1.035) Urine Protein Negative (Negative) Urine Glucose (UA) Negative (Negative) Urine Ketones Negative (Negative) Urine Blood Negative (Negative) Urine Nitrite Negative (Negative) Urine Bilirubin Negative (Negative) Urine Urobilinogen <2.0 (<2.0) mg/dL Ur Leukocyte Esterase Negative (Negative) Disposition <April Monaco - Last Filed: 03/24/24 15:22> Is patient prescribed a controlled substance at d/c from ED?: No Time of Disposition: 16:45 <Rolan Douglass - Last Filed: 03/24/24 16:45> Clinical Impression: Retention of urine, unspecified Disposition: HOME SELF-CARE Condition: Fair Instructions (If sedation given, give patient instructions): Urinary Retention in Men (ED) Referrals: Epifanio Dobbins MD [Primary Care Provider] - 1-2 days Tao Yanez MD [STAFF PHYSICIAN] - 1-2 days
--- NOTE | 2024-03-24 15:57 | XR ---
EXAMINATION TYPE: XR KUB DATE OF EXAM: 03/24/2024 3:52 PM CLINICAL HISTORY: Constipation. TECHNIQUE: 3 supine KUB images of the abdomen are obtained. COMPARISON: None. FINDINGS: Scattered gas is seen in predominantly non-distended small bowel loops. There is a dilated gas-filled small bowel loops in the left upper to mid abdomen measuring up to 4.4 cm. Gas and fecal m aterial is seen in nondistended ascending colon. Surgical change of the L3-L5 levels is seen. Surgica l changes left hip is noted. Scattered small bilateral pelvic phleboliths. Lung bases are clear. IMPRESSION: Overall nonspecific but favor nonobstructive bowel gas pattern. Single slightly dilated small bowel l oop, consider focal ileus. [facility], , 03/24/2024 3:54 PM
[2024-03-24 16:32] LABS: Appearance,Urine Clear (Clear); Bilirubin,Urine Negative (Negative); Blood,Urine Negative (Negative); Color,Urine Yellow; Glucose,Urine (UA) Negative (Negative); Ketones,Urine Negative (Negative); Leukocyte Esterase,Urine Negative (Negative); Nitrite,Urine Negative (Negative); Protein,Urine Negative (Negative); Specific Gravity,Urine 1.017 (1.001-1.035); Urobilinogen,Urine <2.0 mg/dL (<2.0)
== END 2024-03-24 18:01 | disposition home or self-care (01) ==
LOC: EC 14:03
DX: R33.9 Retention of urine, unspecified (principal); M62.3 Immobility syndrome (paraplegic); Z86.73 Personal history of transient ischemic attack (TIA), and cerebral infarction without residual deficits; Z87.891 Personal history of nicotine dependence
CPT/HCPCS: 51702; 51798; 74018; 81003; 99284

== ENCOUNTER → 2024-06-12 | Day surgery (SDC) | payer MEDICARE ==
--- NOTE | 2024-06-09 18:58 | P.GSHP ---
History of Present Illness H&P Date: 06/09/24 Chief Complaint: Elevated PSA level The patient is a 74-year-old white male with no family history of prostate cancer. His PSA level has been elevated and was most recently 7.980. Prostate MRI last year showed a volume of 58 cc with no suspicious lesions seen. He has been treated for urinary retention in the past and currently takes tamsulosin for BPH. - Cardiovascular Cardiovascular: Reports high blood pressure - Genitourinary (Male) Genitourinary: Reports nocturia Past Medical History Past Medical History: COPD, CVA/TIA, Hyperlipidemia, Hypertension, Osteoarthritis (OA) Additional Past Medical History / Comment(s): fall 03-29-23-was seen in ER at [facility], steroids Mar 2023- LEGS GO NUMB-unable to walk-able to stand with asst to transfer only.- has not been able to walk since 02/2023.uses transfer equip to transfer to chairs and bed. uses electric chair. ( needs 2 person assist with gait belt) BPH. OCCASIONAL NOSE BLEEDS. PSA elevated MRI . hand tremors History of Any Multi-Drug Resistant Organisms: None Reported Past Surgical History: Back Surgery, Joint Replacement Additional Past Surgical History / Comment(s): left hip arthroplasty 2012, hemorrhoidectomy. neck surgery Past Anesthesia/Blood Transfusion Reactions: No Reported Reaction Additional Past Anesthesia/Blood Transfusion Reaction / Comment(s): has had hallucination after having anesthesia with last surgery-lower back. no hx blood transfusion Smoking Status: Former smoker - Past Family History Father Family Medical History: Cancer Additional Family Medical History / Comment(s): Father of throat cancer in his 40's. Mother Family Medical History: Diabetes Mellitus Additional Family Medical History / Comment(s): Pt thinks mother may have had cancer. Brother(s) Family Medical History: Cancer, CVA/TIA Additional Family Medical History / Comment(s): Youger brother had a CVA with speach difficulty but had full recovery. older brother had CA Medications and Allergies Home Medications Medication Instructions Recorded Confirmed Type Atorvastatin [Lipitor] 40 mg PO HS #30 tab 08/09/15 06/09/24 Rx Clopidogrel [Plavix] 75 mg PO DAILY tab 08/09/15 06/09/24 Rx lisinopriL [Prinivil] 10 mg PO DAILY 05/14/17 06/09/24 History Budesonide/Formoterol Fumarate 2 puff INHALATION RT-BID 06/08/21 06/09/24 History [Symbicort 160-4.5 Mcg Inhaler] Albuterol Sulfate [Albuterol 1 - 2 puff PO RT-Q6H PRN 03/29/23 06/09/24 History Sulfate Hfa] Tamsulosin [Flomax] 0.4 mg PO QAM 03/29/23 06/09/24 History Citalopram Hydrobromide [CeleXA] 20 mg PO HS 05/04/23 06/09/24 History Sennosides-Docusate Sodium 1 each PO DAILY tab 05/14/23 06/09/24 Rx [Senokot-S] Albuterol Inhaler [Ventolin Hfa 1 - 2 puff INHALATION Q6H PRN 06/09/24 06/09/24 History Inhaler] Cyclobenzaprine [Flexeril] 10 mg PO TID PRN 06/09/24 06/09/24 History Ipratropium-Albuterol Nebulize 3 ml INHALATION DIRECTED PRN 06/09/24 06/09/24 History [Duoneb 0.5 mg-3 mg/3 ml Soln] Allergies Allergy/AdvReac Type Severity Reaction Status Date / Time No Known Allergies Allergy Verified 06/09/24 15:22 Surgical - Exam - General well developed, well nourished, no distress - Respiratory normal respiratory effort - Genitourinary normal penis with no external lesions, testicles non-tender - Rectum Rectum: normal sphincter tone, no masses, other (Prostate moderately enlarged and smooth) - Psychiatric oriented to time, oriented to person, oriented to place, speech is normal, memory intact Assessment and Plan (1) Elevated prostate specific antigen [PSA] Status: Acute Code(s): R97.20 - ELEVATED PROSTATE SPECIFIC ANTIGEN [PSA] SNOMED Code(s): 607464070 Plan: The patient will undergo transrectal ultrasound of the prostate with biopsies. The procedure has been reviewed in detail with the patient. He has been made aware of potential risks, which include anesthesia, bleeding, and infection. He has chosen not to give himself an enema prior to the procedure and was made aware of the fact that this can increase his risk of infection. He is also aware that a negative biopsy does not completely rule out prostate cancer.
[~2024-06-12] MED LIST changes: +KETOROLAC 15 MG/ML 1 ML VIAL IVP PRN; +LIDOCAINE 1% (10MG/ML) FOR IV START INTRADERMA PRN; +LIDOCAINE 1% INJ 10MG/ML (20 ML MDV) ONE; +PHENYLEPHRINE 10 MG/ML VIAL ONE; +PROPOFOL 10 MG/ML 20 ML VIAL IV ONE; -TRANEXAMIC 1,000 MG/100ML-NACL 1,000 MG in SALINE 1 100ML.BAG IVPB PRN
[2024-06-12] MEDS: IV FLUID CONTINUATION 1,000 ML IV ONE (10:07)
[2024-06-12] MEDS: GENTAMICIN 40 MG/ML 2 ML VIAL IM PRN (10:07)
[2024-06-12] MEDS: ONDANSETRON 4 MG/2 ML VIAL IVP PRN (10:07)
[2024-06-12] MEDS: LACTATED RINGERS 1,000 ML IV SCH (10:07)
[2024-06-12 10:27] VITALS: TEMP 98.1
--- NOTE | 2024-06-12 13:32 | P.OP ---
Date of Procedure: 06/12/24 Preoperative Diagnosis: Elevated PSA level Postoperative Diagnosis: Same Procedure(s) Performed: Transrectal ultrasound-guided biopsies of the prostate Anesthesia: MAC Surgeon: Sacha Garibay Estimated Blood Loss (ml): 5 IV fluids (ml): 200 Pathology: other (Prostate biopsies) Condition: stable Disposition: PACU Indications for Procedure: The patient is a 74-year-old white male with no family history of prostate cancer. His PSA level has been elevated and was most recently 7.980. Prostate MRI last year showed a volume of 58 cc with no suspicious lesions seen. He has been treated for urinary retention in the past and currently takes tamsulosin for BPH. Operative Findings: Prostate volume 47.5 cc. No suspicious lesions seen. Description of Procedure: The patient was taken to the operating room and placed in the left lateral decubitus position. RAMANDEEP revealed the prostate to be mildly enlarged but smooth. The [employer] transrectal ultrasound probe was placed intrarectally. The prostate was imaged in both the axial and sagittal planes, revealing a prostate volume of 47.5 mL. The seminal vesicles appeared normal. The peripheral zone appeared normal. The central zone appeared normal. The transitional zone showed evidence of enlargement consistent with BPH. Using the Biopty gun, 12 biopsies were obtained using a standard template. Once the procedure was completed, the ultrasound probe was removed. The patient tolerated the procedure well was taken to the recovery room stable condition.
[2024-06-12 14:10] VITALS: RESP 16
[2024-06-12 14:11] VITALS: BP 106/63; PULSE 83
== END | disposition home or self-care (01) ==
LOC: OR 09:05
PROVIDERS: ATTEND Urology
DX: C61 Malignant neoplasm of prostate (principal); E78.5 Hyperlipidemia, unspecified; I10 Essential (primary) hypertension; J44.9 Chronic obstructive pulmonary disease, unspecified; M19.90 Unspecified osteoarthritis, unspecified site; N40.1 Benign prostatic hyperplasia with lower urinary tract symptoms; G25.81 Restless legs syndrome; Z79.02 Long term (current) use of antithrombotics/antiplatelets; Z79.51 Long term (current) use of inhaled steroids; Z86.73 Personal history of transient ischemic attack (TIA), and cerebral infarction without residual deficits; Z87.891 Personal history of nicotine dependence; Z79.899 Other long term (current) drug therapy
CPT/HCPCS: 55700; 88344; 88305; J1580; J2405; J2003; J2704; J2371

== ENCOUNTER 2024-06-17 07:42 | Emergency (ER) | payer MEDICARE ==
[2024-06-17 07:54] VITALS: RESP 18; TEMP 98.2
--- NOTE | 2024-06-17 08:04 | ED ---
General Adult HPI - General Chief complaint: Urogenital Stated complaint: Abd pain Time Seen by Provider: 06/17/24 07:44 Source: patient, EMS, RN notes reviewed, old records reviewed Mode of arrival: EMS Limitations: no limitations - History of Present Illness Initial comments: 74-year-old male with decreased urine output over the past 18 to 24 hours. Patient states he had a prostate biopsy and has been unable to urinate since that time. He has had issues with urinary retention previously and does follow with urology. He states he has a fullness in his lower abdomen. No fever. No vomiting. - Related Data Home Medications Medication Instructions Recorded Confirmed lisinopriL [Prinivil] 10 mg PO DAILY 05/14/17 06/12/24 Budesonide/Formoterol Fumarate 2 puff INHALATION RT-BID 06/08/21 06/12/24 [Symbicort 160-4.5 Mcg Inhaler] Albuterol Sulfate [Albuterol 1 - 2 puff PO RT-Q6H PRN 03/29/23 06/12/24 Sulfate Hfa] Tamsulosin [Flomax] 0.4 mg PO QAM 03/29/23 06/12/24 Citalopram Hydrobromide [CeleXA] 20 mg PO HS 05/04/23 06/12/24 Albuterol Inhaler [Ventolin Hfa 1 - 2 puff INHALATION Q6H PRN 06/09/24 06/12/24 Inhaler] Cyclobenzaprine [Flexeril] 10 mg PO TID PRN 06/09/24 06/12/24 Ipratropium-Albuterol Nebulize 3 ml INHALATION DIRECTED PRN 06/09/24 06/12/24 [Duoneb 0.5 mg-3 mg/3 ml Soln] Previous Rx's Medication Instructions Recorded Atorvastatin [Lipitor] 40 mg PO HS #30 tab 08/09/15 Clopidogrel [Plavix] 75 mg PO DAILY tab 08/09/15 Sennosides-Docusate Sodium 1 each PO DAILY tab 05/14/23 [Senokot-S] Allergies Allergy/AdvReac Type Severity Reaction Status Date / Time No Known Allergies Allergy Verified 06/17/24 07:54 Review of Systems ROS Statement: Those systems with pertinent positive or pertinent negative responses have been documented in the HPI. ROS Other: All systems not noted in ROS Statement are negative. Past Medical History Past Medical History: COPD, CVA/TIA, Hyperlipidemia, Hypertension, Osteoarthritis (OA) Additional Past Medical History / Comment(s): [facility] 03[facility]29-23[facility]B-unable to walk-able to stand with asst to transfer only.- has not been able to walk since 02/2023.uses transfer equip to transfer to chairs and bed. uses electric chair. ( needs 2 person assist with gait belt) BPH. OCCASIONAL NOSE BLEEDS. PSA elevated MRI . hand tremors History of Any Multi-Drug Resistant Organisms: None Reported Past Surgical History: Back Surgery, Joint Replacement Additional Past Surgical History / Comment(s): left hip arthroplasty 2012, hemorrhoidectomy. neck surgery Past Anesthesia/Blood Transfusion Reactions: No Reported Reaction Additional Past Anesthesia/Blood Transfusion Reaction / Comment(s): has had hallucination after having anesthesia with last surgery-lower back. no hx blood transfusion Past Psychological History: No Psychological Hx Reported Smoking Status: Former smoker - Past Family History Father Family Medical History: Cancer Additional Family Medical History / Comment(s): Father of throat cancer in his 40's. Mother Family Medical History: Diabetes Mellitus Additional Family Medical History / Comment(s): Pt thinks mother may have had cancer. Brother(s) Family Medical History: Cancer, CVA/TIA Additional Family Medical History / Comment(s): Youger brother had a CVA with speach difficulty but had full recovery. older brother had CA General Exam General appearance: alert, in no apparent distress Head exam: Present: atraumatic, normocephalic Eye exam: Present: normal appearance, PERRL ENT exam: Present: normal exam Neck exam: Present: normal inspection Respiratory exam: Present: normal lung sounds bilaterally. Absent: respiratory distress, wheezes Cardiovascular Exam: Present: regular rate, normal rhythm GI/Abdominal exam: Present: soft, distended. Absent: tenderness, guarding Extremities exam: Present: normal inspection, normal capillary refill Neurological exam: Present: alert. Absent: motor sensory deficit Psychiatric exam: Present: depressed Skin exam: Present: warm, dry, intact Course Vital Signs 06/17/24 07:49 Temperature 98.2 F Pulse Rate 99 Respiratory 18 Rate Blood Pressure 159/79 O2 Sat by Pulse 96 Oximetry Medical Decision Making - Medical Decision Making Was pt. sent in by a medical professional or institution (PALOMA Parikh, BUCKET WASH OPERATOR, urgent care, hospital, or senior care...) When possible be specific @ -No Did you speak to anyone other than the patient for history (EMS, parent, family, police, friend...)? What history was obtained from this source @ -No Did you review nursing and triage notes (agree or disagree)? Why? @ -I reviewed and agree with nursing and triage notes Were old charts reviewed (outside hosp., previous admission, EMS record, old EKG, old radiological studies, urgent care reports/EKG's, senior care records)? Report findings @ -No old charts were reviewed Differential Diagnosis hematuria, urinary tract infection, urinary retention secondary to BPH, mass EKG interpreted by me (3pts min.). @ -As above X-rays interpreted by me (1pt min.). @ -None done CT interpreted by me (1pt min.). @ -None done U/S interpreted by me (1pt. min.). @ -None done What testing was considered but not performed or refused? (CT, X-rays, U/S, labs)? Why? @ -None What meds were considered but not given or refused? Why? @ -None Did you discuss the management of the patient with other professionals (professionals i.e. PALOMA Parikh, BUCKET WASH OPERATOR, lab, RT, psych nurse, high school social studies tutor, beam machine operator, teacher, nuclear officer, case supervisor)? Give summary @ -No Was smoking cessation discussed for >3mins.? @ -No Was critical care preformed (if so, how long)? @ -No Were there social determinants of health that impacted care today? How? (Homelessness, low income, unemployed, alcoholism, drug addiction, transportation, low edu. Level, literacy, decrease access to med. care, half-way, rehab)? @ -No Was there de-escalation of care discussed even if they declined (Discuss DNR or withdrawal of care, Hospice)? DNR status @ -No What co-morbidities impacted this encounter? (DM, HTN, Smoking, COPD, CAD, Cancer, CVA, ARF, Chemo, Hep., AIDS, mental health diagnosis, sleep apnea, morbid obesity)? @ -History of retention Was patient admitted / discharged? Hospital course, mention meds given and route, prescriptions, significant lab abnormalities, going to OR and other pertinent info. @ -[74-year-old male with urinary retention lower abdominal discomfort. Christopher catheter was placed with more than 700 output. Urinalysis shows 107 red cells no signs of infection currently Undiagnosed new problem with uncertain prognosis? @ -No Drug Therapy requiring intensive monitoring for toxicity (Heparin, Nitro, Insulin, Cardizem)? @ -No Were any procedures done? @ -No Diagnosis/symptom? @ -Acute urinary retention Acute, or Chronic, or Acute on Chronic? @ -Acute Uncomplicated (without systemic symptoms) or Complicated (systemic symptoms)? @ -Default Side effects of treatment? @ -No Exacerbation, Progression, or Severe Exacerbation? @ -No Poses a threat to life or bodily function? How? (Chest pain, [place], [place], pneumonia, PE, COPD, DKA, ARF, appy, cholecystitis, CVA, Diverticulitis, Homicidal, Suicidal, threat to staff... and all critical care pts) @ -No - Lab Data Lab Results 06/17/24 Range/Units 08:10 Urine Color Yellow Urine Appearance Clear (Clear) Urine pH 6.5 (5.0-8.0) Ur Specific [place] 1.018 (1.001-1.035) Urine Protein Negative (Negative) Urine Glucose (UA) Negative (Negative) Urine Ketones Negative (Negative) Urine Blood Moderate H (Negative) Urine Nitrite Negative (Negative) Urine Bilirubin Negative (Negative) Urine Urobilinogen <2.0 (<2.0) mg/dL Ur Leukocyte Esterase Negative (Negative) Urine RBC 107 H (0-5) /hpf Urine WBC 1 (0-5) /hpf Urine Opiates Screen Not Detected (NotDetected) Ur Oxycodone Screen Not Detected (NotDetected) Urine Methadone Screen Not Detected (NotDetected) Ur Barbiturates Screen Not Detected (NotDetected) U Tricyclic Antidepress Not Detected (NotDetected) Ur Phencyclidine Scrn Not Detected (NotDetected) Ur Amphetamines Screen Not Detected (NotDetected) U Methamphetamines Scrn Not Detected (NotDetected) U Benzodiazepines Scrn Not Detected (NotDetected) Urine Cocaine Screen Not Detected (NotDetected) U Marijuana (THC) Screen Not Detected (NotDetected) Disposition Clinical Impression: Urinary retention Disposition: HOME SELF-CARE Condition: Fair Instructions (If sedation given, give patient instructions): Urinary Retention in Men (ED) Is patient prescribed a controlled substance at d/c from ED?: No Referrals: Epifanio Dobbisn MD [Primary Care Provider] - 1-2 days Sacha Garibay MD [STAFF PHYSICIAN] - 1-2 days Time of Disposition: 08:33
[2024-06-17 08:59] LABS: Amphetamine Screen,Urine Not Detected (NotDetected); Appearance,Urine Clear (Clear); Barbiturate Screen,Urine Not Detected (NotDetected); Benzodiazepines Screen,Urine Not Detected (NotDetected); Bilirubin,Urine Negative (Negative); Blood,Urine Moderate (Negative); Cocaine Screen,Urine Not Detected (NotDetected); Color,Urine Yellow; Glucose,Urine (UA) Negative (Negative); Ketones,Urine Negative (Negative); Leukocyte Esterase,Urine Negative (Negative); Methadone Screen, Urine Not Detected (NotDetected); Nitrite,Urine Negative (Negative); Opiate Screen,Urine Not Detected (NotDetected); Oxycodone Screen, Urine Not Detected (NotDetected); PH, Urine 6.5 (5.0-8.0); Phencyclidine Screen,Urine Not Detected (NotDetected); Protein,Urine Negative (Negative); RBC,Urine 107 /hpf (0-5); Specific Gravity,Urine 1.018 (1.001-1.035); Tricyclic Antidepressant,Urine Not Detected (NotDetected); Urn Cannabinoid Scrn Not Detected (NotDetected); Urobilinogen,Urine <2.0 mg/dL (<2.0); WBC,Urine 1 /hpf (0-5)
[2024-06-17 09:34] VITALS: BP 149/76; PULSE 87
== END 2024-06-17 09:56 | disposition home or self-care (01) ==
LOC: EC 07:42
DX: R33.9 Retention of urine, unspecified (principal); Z87.891 Personal history of nicotine dependence; Z86.73 Personal history of transient ischemic attack (TIA), and cerebral infarction without residual deficits
CPT/HCPCS: 51702; 80306; 81001; 99284

== ENCOUNTER 2024-06-22 04:19 | Inpatient (IN) | payer MEDICARE ==
[2024-06-22] MEDS: HYDROmorphone 0.5 MG/0.5 ML SYRINGE IVP STA ×2 (04:41→06:54)
--- NOTE | 2024-06-22 04:49 | ED ---
General Adult HPI - General Chief complaint: Extremity Injury, Lower Stated complaint: Hip Pain Time Seen by Provider: 06/22/24 04:22 Source: patient, EMS, RN notes reviewed, old records reviewed Mode of arrival: EMS Limitations: no limitations - History of Present Illness Initial comments: 74-year-old male with right hip pain. Patient had a minor fall earlier in the evening from his reclining chair. He states that he has had progressive pain in the right hip pain with range of motion. He did not fall or sustain any significant trauma, he more slid out of the chair. No head or neck trauma. No abdominal pain. Pain is isolated to the right hip. - Related Data Home Medications Medication Instructions Recorded Confirmed lisinopriL [Prinivil] 10 mg PO DAILY 05/14/17 06/12/24 Budesonide/Formoterol Fumarate 2 puff INHALATION RT-BID 06/08/21 06/12/24 [Symbicort 160-4.5 Mcg Inhaler] Albuterol Sulfate [Albuterol 1 - 2 puff PO RT-Q6H PRN 03/29/23 06/12/24 Sulfate Hfa] Tamsulosin [Flomax] 0.4 mg PO QAM 03/29/23 06/12/24 Citalopram Hydrobromide [CeleXA] 20 mg PO HS 05/04/23 06/12/24 Albuterol Inhaler [Ventolin Hfa 1 - 2 puff INHALATION Q6H PRN 06/09/24 06/12/24 Inhaler] Cyclobenzaprine [Flexeril] 10 mg PO TID PRN 06/09/24 06/12/24 Ipratropium-Albuterol Nebulize 3 ml INHALATION DIRECTED PRN 06/09/24 06/12/24 [Duoneb 0.5 mg-3 mg/3 ml Soln] Previous Rx's Medication Instructions Recorded Atorvastatin [Lipitor] 40 mg PO HS #30 tab 08/09/15 Clopidogrel [Plavix] 75 mg PO DAILY tab 08/09/15 Sennosides-Docusate Sodium 1 each PO DAILY tab 05/14/23 [Senokot-S] Allergies Allergy/AdvReac Type Severity Reaction Status Date / Time No Known Allergies Allergy Verified 06/22/24 04:28 Review of Systems ROS Statement: Those systems with pertinent positive or pertinent negative responses have been documented in the HPI. ROS Other: All systems not noted in ROS Statement are negative. Past Medical History Past Medical History: COPD, CVA/TIA, Hyperlipidemia, Hypertension, Osteoarthritis (OA) Additional Past Medical History / Comment(s): fall 03-29-23-was seen in ER at [facility], steroids Mar 2023- LEGS GO NUMB-unable to walk-able to stand with asst to transfer only.- has not been able to walk since 02/2023.uses transfer equip to transfer to chairs and bed. uses electric chair. ( needs 2 person assist with gait belt) BPH. OCCASIONAL NOSE BLEEDS. PSA elevated MRI . hand tremors History of Any Multi-Drug Resistant Organisms: None Reported Past Surgical History: Back Surgery, Joint Replacement Additional Past Surgical History / Comment(s): left hip arthroplasty 2012, hemorrhoidectomy. neck surgery Past Anesthesia/Blood Transfusion Reactions: No Reported Reaction Additional Past Anesthesia/Blood Transfusion Reaction / Comment(s): has had hallucination after having anesthesia with last surgery-lower back. no hx blood transfusion Past Psychological History: No Psychological Hx Reported Smoking Status: Former smoker - Past Family History Father Family Medical History: Cancer Additional Family Medical History / Comment(s): Father of throat cancer in his 40's. Mother Family Medical History: Diabetes Mellitus Additional Family Medical History / Comment(s): Pt thinks mother may have had cancer. Brother(s) Family Medical History: Cancer, CVA/TIA Additional Family Medical History / Comment(s): Youger brother had a CVA with speach difficulty but had full recovery. older brother had CA General Exam Limitations: no limitations General appearance: alert, in no apparent distress Head exam: Present: atraumatic, normocephalic Eye exam: Present: normal appearance, PERRL ENT exam: Present: normal exam Neck exam: Present: normal inspection. Absent: tenderness, meningismus Respiratory exam: Present: normal lung sounds bilaterally. Absent: respiratory distress, wheezes Cardiovascular Exam: Present: regular rate, normal rhythm GI/Abdominal exam: Present: soft. Absent: distended, tenderness Extremities exam: Present: tenderness (Right hip). Absent: full ROM Neurological exam: Present: alert, oriented X3 Psychiatric exam: Present: normal affect, normal mood Skin exam: Present: warm, dry, intact Course Vital Signs 06/22/24 06/22/24 04:23 06:28 Temperature 98.5 F Pulse Rate 85 78 Respiratory 22 20 Rate Blood Pressure 173/79 138/96 O2 Sat by Pulse 96 94 L Oximetry Medical Decision Making - Medical Decision Making Was pt. sent in by a medical professional or institution (PALOMA Parikh, DIRECTOR COMMUNITY ORGANIZATION, urgent care, hospital, or halfway...) When possible be specific @ -No Did you speak to anyone other than the patient for history (EMS, parent, family, police, friend...)? What history was obtained from this source @ -Patient's , indicating that the patient is having an increased time transferring at home. Did you review nursing and triage notes (agree or disagree)? Why? @ -I reviewed and agree with nursing and triage notes Were old charts reviewed (outside hosp., previous admission, EMS record, old EKG, old radiological studies, urgent care reports/EKG's, halfway records)? Report findings @ -No old charts were reviewed Differential Musculoskeletal Muscular strain, contusion, ligament sprain, fracture, arthritis, septic arthritis, bursitis, cellulitis, muscle spasm, nerve compression, DVT, arterial occlusion, herpes zoster, electrolyte abnormality, tumor.... This is not meant to be in all inclusive list EKG interpreted by me (3pts min.). @ -As above X-rays interpreted by me (1pt min.). @ -X-ray of the left hip is negative for displaced fracture or dislocation. degenerative changes. CT interpreted by me (1pt min.). @ -None done U/S interpreted by me (1pt. min.). @ -None done What testing was considered but not performed or refused? (CT, X-rays, U/S, labs)? Why? @ -None What meds were considered but not given or refused? Why? @ -None Did you discuss the management of the patient with other professionals (professionals i.e. PALOMA Parikh, DIRECTOR COMMUNITY ORGANIZATION, lab, RT, psych nurse, sr. social media & mobile manager, senior lead software engineer, teacher, aircraft electronics technical officer, test case developer)? Give summary @ -Sound physician group Was smoking cessation discussed for >3mins.? @ -No Was critical care preformed (if so, how long)? @ -No Were there social determinants of health that impacted care today? How? (Homelessness, low income, unemployed, alcoholism, drug addiction, transportation, low edu. Level, literacy, decrease access to med. care, fdc, rehab)? @ -No Was there de-escalation of care discussed even if they declined (Discuss DNR or withdrawal of care, Hospice)? DNR status @ -No What co-morbidities impacted this encounter? (DM, HTN, Smoking, COPD, CAD, Cancer, CVA, ARF, Chemo, Hep., AIDS, mental health diagnosis, sleep apnea, mor bid obesity)? @ -None Was patient admitted / discharged? Hospital course, mention meds given and ro chemehuevi, prescriptions, significant lab abnormalities, going to OR and other pertinent info. @ -[74-year-old male who is wheelchair-bound presents with right hip pain after minor fall. Further history obtained from the indicates that the patient is having increasingly more difficult time transferring. X-ray performed in the emergency department is negative for displaced fracture or dislocation. Laboratory testing unremarkable. The patient will benefit from physical therapy evaluation. Patient and family are requesting possible rehabilitation at this time. Undiagnosed new problem with uncertain prognosis? @ -No Drug Therapy requiring intensive monitoring for toxicity (Heparin, Nitro, Insulin, Cardizem)? @ -No Were any procedures done? @ -No Diagnosis/symptom? @ -Intractable hip pain, difficulty transferring at home. Acute, or Chronic, or Acute on Chronic? @ -Chronic Uncomplicated (without systemic symptoms) or Complicated (systemic symptoms)? @ -Default Side effects of treatment? @ -No Exacerbation, Progression, or Severe Exacerbation? @ -No Poses a threat to life or bodily function? How? (Chest pain, [place], [place], pneumonia, PE, COPD, DKA, ARF, appy, cholecystitis, CVA, Diverticulitis, Homicidal, Suicidal, threat to staff... and all critical care pts) @ -Yes, worsening debility - Lab Data Result diagrams: 06/22/24 06:36 06/22/24 06:36 Lab Results 06/22/24 06/22/24 Range/Units 06:36 06:36 WBC 11.0 H (3.8-10.6) k/uL RBC 3.98 L (4.30-5.90) m/uL Hgb 11.6 L (13.0-17.5) gm/dL Hct 36.9 L (39.0-53.0) % MCV 92.7 (80.0-100.0) fL MCH 29.2 (25.0-35.0) pg MCHC 31.5 (31.0-37.0) g/dL RDW 15.5 (11.5-15.5) % Plt Count 335 (150-450) k/uL MPV 7.4 Neutrophils % 83 % Lymphocytes % 8 % Monocytes % 7 % Eosinophils % 1 % Basophils % 0 % Neutrophils # 9.1 H (1.3-7.7) k/uL Lymphocytes # 0.9 L (1.0-4.8) k/uL Monocytes # 0.7 (0-1.0) k/uL Eosinophils # 0.1 (0-0.7) k/uL Basophils # 0.0 (0-0.2) k/uL Sodium 138 (137-145) mmol/L Potassium 4.5 (3.5-5.1) mmol/L Chloride 107 (98-107) mmol/L Carbon Dioxide 25 (22-30) mmol/L Anion Gap 6 mmol/L BUN 18 (9-20) mg/dL Creatinine 0.91 (0.66-1.25) mg/dL Est GFR (CKD-EPI)AfAm >90 (>60 ml/min/1.73 sqM) Est GFR (CKD-EPI)NonAf 82 (>60 ml/min/1.73 sqM) Glucose 127 H (74-99) mg/dL Calcium 9.0 (8.4-10.2) mg/dL Total Bilirubin 0.5 (0.2-1.3) mg/dL AST 18 (17-59) U/L ALT 18 (4-49) U/L Alkaline Phosphatase 88 (38-126) U/L Total Protein 6.0 L (6.3-8.2) g/dL Albumin 3.4 L (3.5-5.0) g/dL Disposition Clinical Impression: Frequent falls, Gait disturbance, Weakness Disposition: ADMITTED IP TO THIS [facility] Condition: Stable Is patient prescribed a controlled substance at d/c from ED?: No Referrals: Epifanio Dobbins MD [Primary Care Provider] - 1-2 days Time of Disposition: 06:57
[2024-06-22 06:43] LABS: Basophils % (A) 0 %; Eosinophils # (A) 0.1 k/uL (0-0.7); Eosinophils % (A) 1 %; HCT 36.9 % (39.0-53.0); HGB 11.6 gm/dL (13.0-17.5); Lymphocytes # (A) 0.9 k/uL (1.0-4.8); Lymphocytes % (A) 8 %; MCH 29.2 pg (25.0-35.0); MCHC 31.5 g/dL (31.0-37.0); MCV 92.7 fL (80.0-100.0); Mean Platelet Volume 7.4; Monocytes # (A) 0.7 k/uL (0-1.0); Monocytes % (A) 7 %; Neutrophils # (A) 9.1 k/uL (1.3-7.7); Neutrophils % (A) 83 %; Platelet Count 335 k/uL (150-450); RBC 3.98 m/uL (4.30-5.90); RDW 15.5 % (11.5-15.5)
[2024-06-22 06:53] LABS: ALT 18 U/L (4-49); AST 18 U/L (17-59); African American GFR (CKD) >90 (>60 ml/min/1.73 sqM); Albumin 3.4 g/dL (3.5-5.0); Alkaline Phosphatase 88 U/L (38-126); Anion Gap 6 mmol/L; Blood Urea Nitrogen 18 mg/dL (9-20); Carbon Dioxide 25 mmol/L (22-30); Chloride 107 mmol/L (98-107); Glucose 127 mg/dL (74-99); Non-African American GFR(CKD) 82 (>60 ml/min/1.73 sqM); Potassium 4.5 mmol/L (3.5-5.1); Sodium 138 mmol/L (137-145); Total Bilirubin 0.5 mg/dL (0.2-1.3)
[2024-06-22] MEDS ORDERED: NALOXONE 0.4 MG/ML 1 ML VIAL IV PRN (06:53)
[2024-06-22] MEDS ORDERED: IBUPROFEN 400 MG TAB PO PRN (06:53)
[2024-06-22] MEDS ORDERED: ACETAMINOPHEN TAB 325 MG TAB PO PRN (06:53)
[2024-06-22] MEDS: ACETAMINOPHEN TAB 500 MG TAB PO STA (06:54)
--- NOTE | 2024-06-22 07:12 | XR ---
EXAM: XR Bilateral Hips With Pelvis When Performed, 2 or 3 Views CLINICAL HISTORY: ITS.REASON XR Reason: pain TECHNIQUE: Three or four views of the bilateral hips with pelvis when performed. COMPARISON: X-ray dated 05/07/2021. FINDINGS: Bones/joints: Postsurgical changes are seen to the spine. Left hip arthroplasty is in place without evidence of surrounding lucency to indicate loosening or infection. Moderate to severe degenerative changes are seen at the right hip. No acute fracture. No dislocation. Soft tissues: Unremarkable. IMPRESSION: No acute findings in the bilateral hips.
[2024-06-22] MEDS: SYMBICORT 160-4.5 MCG INHALER INHALATION SCH (08:53)
[2024-06-22] MEDS: HYDROmorphone 0.5 MG/0.5 ML SYRINGE IVP PRN ×2 (09:57→11:15)
[2024-06-22] MEDS: lisinopriL 10 MG TAB PO SCH (09:58)
[2024-06-22] MEDS: ENOXAPARIN 40 MG/0.4 ML SYRINGE SQ SCH (09:58)
[2024-06-22] MEDS: CYCLOBENZAPRINE 10 MG TAB PO PRN (09:58)
[2024-06-22] MEDS: CLOPIDOGREL 75 MG TAB PO SCH (09:58)
[2024-06-22] MEDS: SENNOSIDES-DOCUSATE SODIUM 1 EACH TAB PO SCH (09:58)
[2024-06-22] MEDS: TAMSULOSIN 0.4 MG CAP.ER.24H PO SCH (09:58)
--- NOTE | 2024-06-22 10:39 | P.HPIM ---
History of Present Illness H&P Date: 06/22/24 74 year old M with COPD, CVA, HTN, HLD, BPH presents to the ED for right hip pain. Apparently he slipped at home but did not fall. Patient reports right hip pain that has been ongoing for years but recently aggravated. He denies any LOC or head trauma. He reports difficulties with his ADL and IADLs because of this. Pain is 10/10, located in the right anterior hip. Patient is unable to describe it much more than this due to severe pain. Apparently he has been largely bed bound since 02/2023. In the ED he underwent extensive evaluation. BP 173/79, HR 85, T 98.5F, RR 22, 96% on RA. CBC, CMP significant for WBC 11, RBC 3.98, Hg 11.6, Hct 36.9, glu 127, alb 3.4. Hip XR negative. Patient is admitted for further workup and management. General: toxic, severe distress, appears stated age Derm: warm, dry Head: atraumatic, normocephalic, symmetric Mouth: no lip lesion, mucus membranes moist Cardiovascular: S1S2 tachy, no murmur Lungs: Clear to auscultation bilaterally, no rales , no accessory muscle use Abd: Soft, non tender to palpation Ext: no gross muscle atrophy, no edema, no contractures Neuro: No focal neurologic deficits. Psych: Alert and oriented. Based on my assessment of this patient, this patient meets a high complexity level of care. Debility secondary to R hip pain: XR unremarkable. Obtain CT R hip. Dilaudid 1 mg IV Q3 PRN, Percocet 7.5 Q4H scheduled. Fall precautions. PT consulted. Case management for possible placement. Leukocytosis which is likely reactive: No signs of active infection. Monitor fever profile. Normocytic anemia: Mild. No signs of active bleeding. Outpatient workup. COPD not in acute exacerbation: DuoNeb Q4H PRN SOB/wheezing. Symbicort 2 INH BID. CVA: Plavix 75 mg PO QD. Lipitor 40 mg PO QHS. Hypertension: Lisinopril 10 mg PO QD. Dyslipidemia: Lipitor as above. Depression: Celexa 20 mg PO QHS. BPH: Flomax 0.4 mg PO QD. CODE STATUS: FULL CODE. DVT Prophylaxis: Lovenox SQ GI Prophylaxis: Designated medical POA if patient is not able to make medical decisions for themselves: I have reviewed the following foreign law consultant notes: ED note. I have reviewed the results of the following tests: As above. I have ordered the following tests: As above. I have discussed the care of this patient with the following independent historian: DANYEL I have independently interpreted the following test below: I have discussed the management of this patient with the following physician: Past Medical History Past Medical History: COPD, CVA/TIA, Hyperlipidemia, Hypertension, Osteoarthritis (OA) Additional Past Medical History / Comment(s): fall 03-29-23-was seen in ER at [facility], steroids Mar 2023- LEGS GO NUMB-unable to walk-able to stand with asst to transfer only.- has not been able to walk since 02/2023.uses transfer equip to transfer to chairs and bed. uses electric chair. ( needs 2 person assist with gait belt) BPH. OCCASIONAL NOSE BLEEDS. PSA elevated MRI . hand tremors History of Any Multi-Drug Resistant Organisms: None Reported Past Surgical History: Back Surgery, Joint Replacement Additional Past Surgical History / Comment(s): left hip arthroplasty 2012, hemorrhoidectomy. neck surgery Past Anesthesia/Blood Transfusion Reactions: No Reported Reaction Additional Past Anesthesia/Blood Transfusion Reaction / Comment(s): has had hallucination after having anesthesia with last surgery-lower back. no hx blood transfusion Past Psychological History: No Psychological Hx Reported Smoking Status: Former smoker - Past Family History Father Family Medical History: Cancer Additional Family Medical History / Comment(s): Father of throat cancer in his 40's. Mother Family Medical History: Diabetes Mellitus Additional Family Medical History / Comment(s): Pt thinks mother may have had cancer. Brother(s) Family Medical History: Cancer, CVA/TIA Additional Family Medical History / Comment(s): Joesphger brother had a CVA with speach difficulty but had full recovery. older brother had CA Medications and Allergies Home Medications Medication Instructions Recorded Confirmed Type Atorvastatin [Lipitor] 40 mg PO HS #30 tab 08/09/15 06/22/24 Rx Clopidogrel [Plavix] 75 mg PO DAILY tab 08/09/15 06/22/24 Rx lisinopriL [Prinivil] 10 mg PO DAILY 05/14/17 06/22/24 History Budesonide/Formoterol Fumarate 2 puff INHALATION RT-BID 06/08/21 06/22/24 History [Symbicort 160-4.5 Mcg Inhaler] Albuterol Sulfate [Albuterol 2 puff PO RT-Q6H PRN 03/29/23 06/22/24 History Sulfate Hfa] Tamsulosin [Flomax] 0.4 mg PO DAILY 03/29/23 06/22/24 History Citalopram Hydrobromide [CeleXA] 20 mg PO HS 05/04/23 06/22/24 History Cyclobenzaprine [Flexeril] 10 mg PO TID PRN 06/09/24 06/22/24 History Ipratropium-Albuterol Nebulize 3 ml INHALATION RT-QID PRN 06/09/24 06/22/24 History [Duoneb 0.5 mg-3 mg/3 ml Soln] Latanoprost [Latanoprost 0.005%] 1 drop BOTH EYES HS 06/22/24 06/22/24 History Sennosides-Docusate Sodium 1 tab PO DAILY 06/22/24 06/22/24 History [Senokot-S] Allergies Allergy/AdvReac Type Severity Reaction Status Date / Time No Known Allergies Allergy Verified 06/22/24 08:47 Physical Exam Vitals: Vital Signs Temp Pulse Pulse Resp BP BP Pulse Ox 06/22/24 08:33 97.6 F 90 16 153/73 95 06/22/24 07:44 85 18 127/83 94 L 06/22/24 06:28 78 20 138/96 94 L 06/22/24 04:23 98.5 F 85 22 173/79 96 Intake and Output 06/21/24 06/22/24 06/22/24 22:59 06:59 14:59 Other: Weight 90.718 kg Results CBC & Chem 7: 06/22/24 06:36 06/22/24 06:36 Labs: Abnormal Lab Results - Last 24 Hours (Table) 06/22/24 06/22/24 Range/Units 06:36 06:36 WBC 11.0 H (3.8-10.6) k/uL RBC 3.98 L (4.30-5.90) m/uL Hgb 11.6 L (13.0-17.5) gm/dL Hct 36.9 L (39.0-53.0) % Neutrophils # 9.1 H (1.3-7.7) k/uL Lymphocytes # 0.9 L (1.0-4.8) k/uL Glucose 127 H (74-99) mg/dL Total Protein 6.0 L (6.3-8.2) g/dL Albumin 3.4 L (3.5-5.0) g/dL
--- NOTE | 2024-06-22 12:09 | CT ---
EXAMINATION TYPE: CT hip RT wo con DATE OF EXAM: 06/22/2024 11:11 AM COMPARISON: None. CLINICAL INDICATION: Male, 74 years old with history of Hip pain, RT hip pain TECHNIQUE: Contrast used: mL of , (none if empty) Oral contrast used: (none if empty) Axial images at 3 mm thick sections. Reconstructed images in the coronal and sagittal planes. 3-D re constructed images were performed. FINDINGS: Femoral head articulates with the acetabulum. Joint space narrowing is present. In the axial plane there are 2 very subtle cortical changes present, series 3 image 65 which could martino ggest underlying nondisplaced femoral neck fracture. Findings are not confirmed on the coronal or sag ittal plane imaging. 3-D reconstructed images appear without acute fracture. Soft tissues appear normal. Femoral head spurring is present. Symphysis pubis is visualized appears n ormal. IMPRESSION: 1. NONDISPLACED FRACTURE OF THE MID FEMORAL NECK IN THE AXIAL PLANE IS NOT EXCLUDED. FINDINGS HOWEVER CANNOT BE CONFIRMED ON ADDITIONAL IMAGES. CONSIDER MRI OR BONE SCAN IF ADDITIONAL IMAGING IS REQUIRE D. 2. MODERATE DEGENERATIVE CHANGES RIGHT HIP. [facility], , 06/22/2024 12:06 PM
[2024-06-22] MEDS: oxyCODONE-APAP 7.5-325MG 1 EACH TAB PO SCH (12:35)
[2024-06-22 17:04] LABS: Appearance,Urine Cloudy (Clear); Bilirubin,Urine Negative (Negative); Blood,Urine Large (Negative); Color,Urine Yellow; Glucose,Urine (UA) Negative (Negative); Hyaline Casts,Urine 16 /lpf (0-2); Ketones,Urine Negative (Negative); Leukocyte Esterase,Urine Moderate (Negative); Mucus,Urine Many /hpf; Nitrite,Urine Negative (Negative); PH, Urine 5.5 (5.0-8.0); Protein,Urine Trace (Negative); RBC,Urine 88 /hpf (0-5); Specific Gravity,Urine 1.019 (1.001-1.035); Urobilinogen,Urine <2.0 mg/dL (<2.0); WBC,Urine 22 /hpf (0-5)
--- NOTE | 2024-06-22 17:56 | P.PN ---
Progress Note - Text Progress Note Date: 06/22/24 Stat consult was placed for right hip pain. Patient presented to the ER today due to worsening right hip pain. Apparently there was a possible fall. On exam at bedside patient is very lethargic from pain medication, and able to achieve a history, there is no family present. CT scan and right hip x-rays were done. Inconclusive of acute fracture to the right hip noted at this time. Osteoarthritic changes are present on exam. Previous left total hip arthroplasty components are appreciated on exam and appears stable. Patient has had multiple spine surgeries with Dr[facility] Discussed with nursing, essentially takes care of the patient he has been pretty much bedridden since February 2023. He has a Christopher catheter that is chronically in due to retention, urology has been consulted for this. Exam was very limited at bedside, there was no open lesions or sores appreciated throughout the right lower extremity. Patient is very rigid on exam, difficult to determine his passive and active range of motion. MRI without contrast of the right hip was ordered for further evaluation Full consult pending
[2024-06-22] MEDS: DEXTROSE 5%-0.9% NACL 1,000 ML IV SCH (18:07)
--- NOTE | 2024-06-22 19:31 | P.GSCN ---
History of Present Illness Consult date: 06/22/24 Reason for Consult: Urinary retention Requesting physician: Kmiani Alfonso History of present illness: The patient is a 74-year-old white male with no family history of prostate cancer. His PSA level has been elevated and was most recently 7.980. Prostate MRI last year showed a volume of 58 cc with no suspicious lesions seen. He has been treated for urinary retention in the past and currently takes tamsulosin for BPH. On June 12, 2024 he underwent a prostate ultrasound with biopsies. 2 of 12 biopsies showed evidence of [place] 7 (3+4) adenocarcinoma, and an additional biopsy showed [place] 6 adenocarcinoma. The patient developed urinary retention and underwent Gutiérrez catheter insertion on June 17, 2024. Over 700 cc of urine was drained, and he now has an indwelling Gutiérrez catheter. He slipped at home and presented to the ER with right hip pain. CT scan of the right hip was nondiagnostic, and an MRI of the hip has been ordered for further evaluation. Review of Systems - Genitourinary Reports as per HPI Past Medical History Past Medical History: COPD, CVA/TIA, Hyperlipidemia, Hypertension, Osteoarth ritis (OA) Additional Past Medical History / Comment(s): fall 03-29-23[facility] NUMB-unable to walk-able to stand with asst to transfer only.- has not been able to walk since 02/2023.uses transfer equip to transfer to chairs and bed. uses electric chair. ( needs 2 person assist with gait belt) BPH. OCCASIONAL NOSE BLEEDS. PSA elevated MRI . hand tremors, gutiérrez for retention 05/2024 History of Any Multi-Drug Resistant Organisms: None Reported Past Surgical History: Back Surgery, Joint Replacement Additional Past Surgical History / Comment(s): left hip arthroplasty 2012, hemorrhoidectomy. neck surgery, prostate biopsy Past Anesthesia/Blood Transfusion Reactions: No Reported Reaction Additional Past Anesthesia/Blood Transfusion Reaction / Comm: has had hallucination after having anesthesia with last surgery-lower back. no hx blood transfusion Past Psychological History: No Psychological Hx Reported Additional Psychological History / Comment(s): Pt lives at home with his . Pt uses walker at times. Pt drives. Smoking Status: Former smoker Past Alcohol Use History: Occasional Additional Past Alcohol Use History / Comment(s): patient quit smoking in 2011. Past Drug Use History: None Reported - Past Family History Father Family Medical History: Cancer Additional Family Medical History / Comment(s): Father of throat cancer in his 40's. Mother Family Medical History: Diabetes Mellitus Additional Family Medical History / Comment(s): Pt thinks mother may have had cancer. Brother(s) Family Medical History: Cancer, CVA/TIA Additional Family Medical History / Comment(s): Youger brother had a CVA with speach difficulty but had full recovery. older brother had CA Medications and Allergies Home Medications Medication Instructions Recorded Confirmed Type Atorvastatin [Lipitor] 40 mg PO HS #30 tab 08/09/15 06/22/24 Rx Clopidogrel [Plavix] 75 mg PO DAILY tab 08/09/15 06/22/24 Rx lisinopriL [Prinivil] 10 mg PO DAILY 05/14/17 06/22/24 History Budesonide/Formoterol Fumarate 2 puff INHALATION RT-BID 06/08/21 06/22/24 History [Symbicort 160-4.5 Mcg Inhaler] Albuterol Sulfate [Albuterol 2 puff PO RT-Q6H PRN 03/29/23 06/22/24 History Sulfate Hfa] Tamsulosin [Flomax] 0.4 mg PO DAILY 03/29/23 06/22/24 History Citalopram Hydrobromide [CeleXA] 20 mg PO HS 05/04/23 06/22/24 History Cyclobenzaprine [Flexeril] 10 mg PO TID PRN 06/09/24 06/22/24 History Ipratropium-Albuterol Nebulize 3 ml INHALATION RT-QID PRN 06/09/24 06/22/24 History [Duoneb 0.5 mg-3 mg/3 ml Soln] Latanoprost [Latanoprost 0.005%] 1 drop BOTH EYES HS 06/22/24 06/22/24 History Sennosides-Docusate Sodium 1 tab PO DAILY 06/22/24 06/22/24 History [Senokot-S] Allergies Allergy/AdvReac Type Severity Reaction Status Date / Time No Known Allergies Allergy Verified 06/22/24 08:47 Surgical - Exam Vital Signs Temp Pulse Resp BP Pulse Ox 98.5 F 85 22 173/79 96 04/06/25 04:23 06/22/24 04:23 06/22/24 04:23 06/22/24 04:23 06/22/24 04:23 - General well developed, well nourished, moderate distress - Respiratory normal respiratory effort - Genitourinary Normal phallus, normal testes. A Gutiérrez catheter is in place, draining urine which is essentially clear. - Psychiatric oriented to time, oriented to person, oriented to place, speech is normal, memory intact Results - Labs 06/22/24 06:36 06/22/24 06:36 Abnormal Lab Results - Last 24 Hours (Table) 06/22/24 06/22/24 06/22/24 Range/Units 06:36 06:36 16:40 WBC 11.0 H (3.8-10.6) k/uL RBC 3.98 L (4.30-5.90) m/uL Hgb 11.6 L (13.0-17.5) gm/dL Hct 36.9 L (39.0-53.0) % Neutrophils # 9.1 H (1.3-7.7) k/uL Lymphocytes # 0.9 L (1.0-4.8) k/uL Glucose 127 H (74-99) mg/dL Total Protein 6.0 L (6.3-8.2) g/dL Albumin 3.4 L (3.5-5.0) g/dL Urine Protein Trace H (Negative) Urine Blood Large H (Negative) Ur Leukocyte Esterase Moderate H (Negative) Urine RBC 88 H (0-5) /hpf Urine WBC 22 H (0-5) /hpf Hyaline Casts 16 H (0-2) /lpf Urine Mucus Many H (None) /hpf Diabetes panel 06/22/24 Range/Units 06:36 Sodium 138 (137-145) mmol/L Potassium 4.5 (3.5-5.1) mmol/L Chloride 107 (98-107) mmol/L Carbon Dioxide 25 (22-30) mmol/L BUN 18 (9-20) mg/dL Creatinine 0.91 (0.66-1.25) mg/dL Glucose 127 H (74-99) mg/dL Calcium 9.0 (8.4-10.2) mg/dL AST 18 (17-59) U/L ALT 18 (4-49) U/L Alkaline Phosphatase 88 (38-126) U/L Total Protein 6.0 L (6.3-8.2) g/dL Albumin 3.4 L (3.5-5.0) g/dL Calcium panel 06/22/24 Range/Units 06:36 Calcium 9.0 (8.4-10.2) mg/dL Albumin 3.4 L (3.5-5.0) g/dL Pituitary panel 06/22/24 Range/Units 06:36 Sodium 138 (137-145) mmol/L Potassium 4.5 (3.5-5.1) mmol/L Chloride 107 (98-107) mmol/L Carbon Dioxide 25 (22-30) mmol/L BUN 18 (9-20) mg/dL Creatinine 0.91 (0.66-1.25) mg/dL Glucose 127 H (74-99) mg/dL Calcium 9.0 (8.4-10.2) mg/dL Adrenal panel 06/22/24 Range/Units 06:36 Sodium 138 (137-145) mmol/L Potassium 4.5 (3.5-5.1) mmol/L Chloride 107 (98-107) mmol/L Carbon Dioxide 25 (22-30) mmol/L BUN 18 (9-20) mg/dL Creatinine 0.91 (0.66-1.25) mg/dL Glucose 127 H (74-99) mg/dL Calcium 9.0 (8.4-10.2) mg/dL Total Bilirubin 0.5 (0.2-1.3) mg/dL AST 18 (17-59) U/L ALT 18 (4-49) U/L Alkaline Phosphatase 88 (38-126) U/L Total Protein 6.0 L (6.3-8.2) g/dL Albumin 3.4 L (3.5-5.0) g/dL Assessment and Plan (1) Retention of urine, unspecified Current Visit: No Status: Acute Code(s): R33.9 - RETENTION OF URINE, UNSPECIFIED SNOMED Code(s): 643208370 (2) Malignant neoplasm of prostate Current Visit: Yes Status: Acute Code(s): C61 - MALIGNANT NEOPLASM OF PROSTA TE SNOMED Code(s): 682112153 Plan: I reviewed the biopsy results with the patient briefly, and explained to him that he will require an appointment upon discharge for further discussion regarding the management of his prostate cancer. He is currently receiving tamsulosin, and I would suggest that the catheter be removed for a voiding trial prior to discharge, once his overall condition is improved. Time with Patient: Greater than 30
[2024-06-22] MEDS: CITALOPRAM HYDROBROMIDE 20 MG TAB PO SCH (20:03)
[2024-06-22] MEDS: ATORVASTATIN 40 MG TAB PO SCH (20:03)
[2024-06-23 10:01] LABS: Prothrombin Time 11.1 sec (10.0-12.5)
--- NOTE | 2024-06-23 11:25 | MR ---
EXAMINATION TYPE: MR hip RT wo con DATE OF EXAM: 06/23/2024 10:38 AM COMPARISON: CT right hip one day earlier. CLINICAL INDICATION: Male, 74 years old with history of hip pain, possible fracture, pain IV Contrast: cc (None if empty) Standard multiplanar, multisequence MRI departmental protocol Multiplanar, multisequence images of the pelvis focus in the right hip were acquired without contrast . FINDINGS: Exam suboptimal as patient unable to complete entire protocol. In addition images obtained show patient motion. There is susceptibility artifact from surgical change in the left hip present. Right femoral head sha pe is maintained. There is moderate size joint effusion. No suspicious increased T2 signal or osseous edema identified. No serpiginous diminished T1 signal to suggest radial occult fracture. There is mi ld to moderate subcutaneous edema over the anterior and right lateral thigh. There is some edematous change in the right aspect of the pelvis. Christopher catheter is present. Susceptibility artifact from balta gical change in the visualized portion of the lumbar spine is also noted. IMPRESSION: Suboptimal study without MRI evidence for acute osseous fracture in the right hip . [facility], , 06/23/2024 11:22 AM
--- NOTE | 2024-06-23 13:06 | P.CNOR ---
History of Present Illness - [facility] Consult date: 06/23/24 Consult reason: joint pain (Right hip pain, possible fracture) History of present illness: Patient is 74-year-old male who was initially evaluated yesterday at bedside with regards to right hip pain. On exam yesterday patient had received some IV pain medication and was very lethargic, was unable to obtain much history. Today on exam he is much more with it, I also was able to speak to the . Patient is essentially been bedridden for the last year or so after undergoing a cervical spine procedure. Patient's takes care of him at home on most occasions. Patient admits to multiple falls over the last year or so, the states the most recent fall was about 6 months ago. She states that over the last 2 to 3 days he has complained of more pain involving that right hip. There was concern for a possible slipping type injury but no acute trauma or fall from standing. X-ray and CT scan of the right hip were done on 06/22/2024 and [facility], they were inconclusive for a acute displaced fracture. An MRI without contrast was ordered for further evaluation. Patient was unable to tolerate the MRI and had significant motion artifact, images were done reports were inconclusive for acute displaced fracture. Patient has a history of a left total hip arthroplasty that was done many years ago. He also has history of both cervical and lumbar fusions. Patient describes most of the pain as a spasming type discomfort on the anterior lateral aspect of the upper thigh. When discussing patient's overall medical state with his , she states that rigidity has gotten worse with time. Patient essentially uses a wheelchair around the house and she does help him transfer. Review of Systems Constitutional: Reports as per [facility] Past Medical History Past Medical History: COPD, CVA/TIA, Hyperlipidemia, Hypertension, Osteoarthritis (OA) Additional Past Medical History / Comment(s): fall 24-was seen in ER at [facility], cait Mar 2023- LEGS GO NUMB-unable to walk-able to stand with asst to transfer only.- has not been able to walk since 02/2023.uses transfer equip to transfer to chairs and bed. uses electric chair. ( needs 2 person assist with gait belt) BPH. OCCASIONAL NOSE BLEEDS. PSA elevated MRI . hand tremors, gutiérrez for retention 05/2024 History of Any Multi-Drug Resistant Organisms: None Reported Past Surgical History: Back Surgery, Joint Replacement Additional Past Surgical History / Comment(s): left hip arthroplasty 2012, hemorrhoidectomy. neck surgery, prostate biopsy Past Anesthesia/Blood Transfusion Reactions: No Reported Reaction Additional Past Anesthesia/Blood Transfusion Reaction / Comm: has had hallucination after having anesthesia with last surgery-lower back. no hx blood transfusion Past Psychological History: No Psychological Hx Reported Additional Psychological History / Comment(s): Pt lives at home with his . Pt uses walker at times. Pt drives. Smoking Status: Former smoker Past Alcohol Use History: Occasional Additional Past Alcohol Use History / Comment(s): patient quit smoking in 2011. Past Drug Use History: None Reported - Past Family History Father Family Medical History: Cancer Additional Family Medical History / Comment(s): Father of throat cancer in his 40's. Mother Family Medical History: Diabetes Mellitus Additional Family Medical History / Comment(s): Pt thinks mother may have had cancer. Brother(s) Family Medical History: Cancer, CVA/TIA Additional Family Medical History / Comment(s): Youger brother had a CVA with speach difficulty but had full recovery. older brother had CA Medications and Allergies Home Medications Medication Instructions Recorded Confirmed Type Atorvastatin [Lipitor] 40 mg PO HS #30 tab 08/09/15 06/22/24 Rx Clopidogrel [Plavix] 75 mg PO DAILY tab 08/09/15 06/22/24 Rx lisinopriL [Prinivil] 10 mg PO DAILY 05/14/17 06/22/24 History Budesonide/Formoterol Fumarate 2 puff INHALATION RT-BID 06/08/21 06/22/24 History [Symbicort 160-4.5 Mcg Inhaler] Albuterol Sulfate [Albuterol 2 puff PO RT-Q6H PRN 03/29/23 06/22/24 History Sulfate Hfa] Tamsulosin [Flomax] 0.4 mg PO DAILY 03/29/23 06/22/24 History Citalopram Hydrobromide [CeleXA] 20 mg PO HS 05/04/23 06/22/24 History Cyclobenzaprine [Flexeril] 10 mg PO TID PRN 06/09/24 06/22/24 History Ipratropium-Albuterol Nebulize 3 ml INHALATION RT-QID PRN 06/09/24 06/22/24 History [Duoneb 0.5 mg-3 mg/3 ml Soln] Latanoprost [Latanoprost 0.005%] 1 drop BOTH EYES HS 06/22/24 06/22/24 History Sennosides-Docusate Sodium 1 tab PO DAILY 06/22/24 06/22/24 History [Senokot-S] Allergies Allergy/AdvReac Type Severity Reaction Status Date / Time No Known Allergies Allergy Verified 06/22/24 08:47 Physical Examination Right lower extremity: No open lesions, sores, areas of erythema or soft tissue swelling Active and passive range of motion were very difficult, patient has significant muscle contractures and is very rigid. Passive motion with regards to hip flexion and internal and external rotation reproduces no significant groin pain. Patient would develop any type of spasm in that extremity that would cause pain on the anterior lateral aspect on exam No point tenderness appreciated to the proximal right femur. He is nontender surrounding the knee, lower leg, foot or ankle Sensory exams to light touch is diminished throughout that extremity Calf is soft, no tenderness with palpation Compartments of the upper and lower leg are soft and compressible Dorsalis pedis pulses 2+ Results - Labs Labs: Abnormal Lab Results - Last 24 Hours (Table) 06/22/24 Range/Units 16:40 Urine Protein Trace H (Negative) Urine Blood Large H (Negative) Ur Leukocyte Esterase Moderate H (Negative) Urine RBC 88 H (0-5) /hpf Urine WBC 22 H (0-5) /hpf Hyaline Casts 16 H (0-2) /lpf Urine Mucus Many H (None) /hpf H & H 06/22/24 Range/Units 06:36 Hgb 11.6 L (13.0-17.5) gm/dL Hct 36.9 L (39.0-53.0) % Coagulation 06/23/24 Range/Units 09:18 INR 1.0 (<1.2) Result Diagrams: 06/22/24 06:36 06/22/24 06:36 - Diagnostic results Hip x-ray: report reviewed, image reviewed Hip MRI: report reviewed, image reviewed Hip CT: report reviewed, image reviewed Assessment and Plan Assessment: Right hip pain Right hip osteoarthritis Possible occult nondisplaced right femoral neck fracture History of left total knee arthroplasty History of previous cervical and lumbar fusions Multiple medical comorbidities Plan: I was able to discuss the case, this to include physical exam findings and the hip x-ray, hip CT and hip MRI findings with my attending Dr. Lutz. Taking into consideration the patient's ambulatory state along with no obvious evidence of acute displaced fracture, we will hold off on orthopedic intervention at this time Pain control, oral and IV medication as needed Toe-touch weightbearing with transfers GI and DVT prophylaxis per primary medical service Other medical specialty recommendations appreciated Recommending follow-up in the outpatient setting in the next 10 to 14 days for clinical and x-ray evaluation, would recommend subacute rehab placement for this patient Time with Patient: Less than 30
--- NOTE | 2024-06-23 14:13 | P.PN ---
Subjective Progress Note Date: 06/23/24 The patient is in the hospital with hip pain on the right side after falling. He was seen by Dr Garibay for urine retention. He is known to Dr Garibay for a recent diagnosis of prostate cancer. He is not going to have immediate hip surgery. He is still in pain in his right hip from the fall and still has his gutiérrez. He is still non ambulatory. Objective - Vital Signs Vital signs: Vital Signs Temp 97.8 F 06/23/24 07:00 Pulse 61 06/23/24 07:00 Resp 16 06/23/24 07:00 BP 111/57 06/23/24 07:00 Pulse Ox 94 L 06/23/24 07:00 FiO2 Intake & Output 06/22/24 06/23/24 06/23/24 18:59 06:59 18:59 Intake Total 118 Output Total 500 Balance -500 118 Weight 90.718 kg Intake: Oral 118 Output: Urine 500 Other: Voiding Method Indwelling Catheter Indwelling Catheter Indwelling Catheter # Bowel Movements 0 - Labs CBC & Chem 7: 06/22/24 06:36 06/22/24 06:36 Labs: Abnormal Lab Results - Last 24 Hours (Table) 06/22/24 Range/Units 16:40 Urine Protein Trace H (Negative) Urine Blood Large H (Negative) Ur Leukocyte Esterase Moderate H (Negative) Urine RBC 88 H (0-5) /hpf Urine WBC 22 H (0-5) /hpf Hyaline Casts 16 H (0-2) /lpf Urine Mucus Many H (None) /hpf Assessment and Plan Assessment: Impression/recommendations: the patient is still in pain and non ambulatory. After discussing with the nursing staff I donot think he is ready for a voiding trial I will follow
--- NOTE | 2024-06-23 14:23 | P.PN ---
Subjective Progress Note Date: 06/23/24 Hospital Course: 74 year old M with COPD, CVA, HTN, HLD, BPH presents to the ED for right hip p ain. Apparently he slipped at home but did not fall. Patient reports right hip pain that has been ongoing for years but recently aggravated. He denies any LOC or head trauma. He reports difficulties with his ADL and IADLs because of this. Pain is 10/10, located in the right anterior hip. Patient is unable to describe it much more than this due to severe pain. Apparently he has been largely bed bound since 02/2023. In the ED he underwent extensive evaluation. BP 173/79, HR 85, T 98.5F, RR 22, 96% on RA. CBC, CMP significant for WBC 11, RBC 3.98, Hg 11.6, Hct 36.9, glu 127, alb 3.4. Hip XR negative. Patient is admitted for further workup and management. Hip CT showed nondisplaced fracture of the mid femoral neck in the axial plane not excluded, findings however could not be confirmed with additional images, MRI hip was ordered and showed suboptimal study without MRI evidence for acute or show structure in the right knee. Orthopedic surgery consulted, no plans for orthopedic surgery. Pain management consulted as patient is still not able to ambulate, PT OT following. Urology consulted for urine retention, patient was recently diagnosed with prostate cancer, will need to follow-up in clinic, Christopher catheter inserted Pertinent Imaging: As above Subjective: Continues to complain of inability to ambulate, right pain pain Pertinent positives and negatives as discussed above, a complete review of systems was performed and all other systems are negative. Vitals Signs Reviewed. General: [nontoxic], [no distress], [appears at stated age] Derm: [warm], [dry] Head: [atraumatic], [normocephalic], [symmetric] Eyes: [EOMI], [no lid lag], [anicteric sclera] Mouth: [no lip lesion], [mucus membranes moist] Cardiovascular: [S1S2 reg], [no murmur] Lungs: [CTA bilateral], [no rhonchi, no rales] , [no accessory muscle use] Abdominal: [soft], [ nontender to palpation], [no guarding], [no appreciable organomegaly] Ext: [no gross muscle atrophy], [no edema], [no contractures], unable to fully assess due to significant pain in the right hip Neuro: [ CN II-XI grossly intact], [no focal neuro deficits] Psych: [Alert], [oriented], [appropriate affect] Data Reviewed Today: Pertinent Labs: PT 11.1, INR 1.0 Imaging: As above Assessment and Plan: Debility secondary to right hip pain -No signs of fracture on hip MRI -Continue pain control with Dilaudid IM 1 mg IV every 2 hours as needed, Percocet 7.5 every 4 hours scheduled -PT OT -Orthopedic surgery consulted, appreciate recommendations -Pain management consulted, appreciate recommendations -Case management following Leukocytosis likely reactive -No signs of infection, afebrile, repeat CBC in a.m. Normocytic anemia -No signs of active bleeding, recommend outpatient workup COPD not in acute exacerbation -Continue DuoNeb every 4 hours as needed for shortness of breath/wheezing, Symbicort 2 inhalations twice daily History of CVA -Continue Plavix 75 mg daily, Lipitor 40 mg p.o. nightly Hypertension -Lisinopril 10 mg p.o. daily Hyperlipidemia: Lipitor as above Depression: Celexa 20 mg p.o. nightly BPH: Flomax 0.4 mg daily Recent diagnosis of prostate cancer, urinary retention: Urology following, continue Flomax, outpatient follow-up regarding prostate cancer treatment. DVT ppx: Lovenox Code status: Full code Anticipated discharge place: TBD Anticipated discharge time: TBD Objective - Vital Signs Vital signs: Vital Signs Temp 97.8 F 06/23/24 07:00 Pulse 61 06/23/24 07:00 Resp 16 06/23/24 07:00 BP 111/57 06/23/24 07:00 Pulse Ox 94 L 06/23/24 07:00 FiO2 Intake & Output 06/22/24 06/23/24 06/23/24 18:59 06:59 18:59 Intake Total 118 Output Total 500 Balance -500 118 Weight 90.718 kg Intake: Oral 118 Output: Urine 500 Other: Voiding Method Indwelling Catheter Indwelling Catheter Indwelling Catheter # Bowel Movements 0 - Labs CBC & Chem 7: 06/22/24 06:36 06/22/24 06:36 Labs: Abnormal Lab Results - Last 24 Hours (Table) 04/06/25 Range/Units 16:40 Urine Protein Trace H (Negative) Urine Blood Large H (Negative) Ur Leukocyte Esterase Moderate H (Negative) Urine RBC 88 H (0-5) /hpf Urine WBC 22 H (0-5) /hpf Hyaline Casts 16 H (0-2) /lpf Urine Mucus Many H (None) /hpf
--- NOTE | 2024-06-23 15:23 | P.PAINPG ---
Objective - Vital Signs Vital signs: Vital Signs Temp 97.8 F 06/23/24 07:00 Pulse 61 06/23/24 07:00 Resp 16 06/23/24 07:00 BP 111/57 06/23/24 07:00 Pulse Ox 94 L 06/23/24 07:00 FiO2 Intake & Output 06/22/24 06/23/24 06/23/24 18:59 06:59 18:59 Intake Total 118 Output Total 500 Balance -500 118 Weight 90.718 kg Intake: Oral 118 Output: Urine 500 Other: Voiding Method Indwelling Catheter Indwelling Catheter Indwelling Catheter # Bowel Movements 0 - Labs CBC & Chem 7: 06/22/24 06:36 06/22/24 06:36 Labs: Abnormal Lab Results - Last 24 Hours (Table) 06/22/24 Range/Units 16:40 Urine Protein Trace H (Negative) Urine Blood Large H (Negative) Ur Leukocyte Esterase Moderate H (Negative) Urine RBC 88 H (0-5) /hpf Urine WBC 22 H (0-5) /hpf Hyaline Casts 16 H (0-2) /lpf Urine Mucus Many H (None) /hpf PQRS Measure Charge Sheet Comment: HISTORY OF PRESENT ILLNESS: A 74 yr old inpatient male as a referral from Dr Caraballo presents today w severe and chronic R hip pain secondary to DJD for evaluation. Pt states pain level is provoked at 8 /10 in intensity, constant, localized in the R hip, throbbing in character without shooting pain. Pain is provoked by any movement. Pain is alleviated by medications, repositioning and rest . Pt is disinterested in injections at this time. PMH: OA, COPD, CVA, Hyperlipidemia, HTN, BPH PSH: L Hip Arthroplasty (2012), Cervical Surgery, Lumbar Surgery, Prostate Biopsy, Hemorrhoidectomy SH: Former tobacco user, Occ ETOH use, No illicit drug use FH: Fa- Throat CA, in his 40s. Mo- DM. Bro- CVA. Bro- CA All: See list Meds: See list incl Dilaudid 1mg q3h, Percocet 7.5/325mg q6h prn, Tyl 650mg q6h prn REVIEW OF ORGAN SYSTEMS: CONSTITUTIONAL: No fevers or chills. No recent weight loss. NEUROLOGICAL: + numbness and tingling along the distal ext remities. No seizure disorders or headaches. MUSCULOSKELETAL: + pain PSYCHIATRIC: Denies current depression or suicidal thoughts. Physical Examinations : Constitutional : Cooperative , not in acute distress . Neurologic : Cranial nerve II to XII intact. No focal neurological deficits. Psychiatric : alert & oriented x 3. Matching mood & appropriate affect. Judgment & insight intact. Musculoskeletal : Cervical Spine Motor strength in the deltoid and biceps: Normal right side. Normal Left side Motor strength biceps and the wrist extensors: Normal right side . Normal left side Motor strength in the triceps muscle: Normal right side. Normal left side Deep tendon reflexes: Normal at the biceps. Normal at Brachioradialis. Normal at triceps Vertebral body tenderness to deep palpation over Cervical facet loading test: positive bilaterally Spurling test: positive bilaterally Neck distraction test: positive bilaterally Kameron sign: positive bilaterally Lumbar spine +R Trendelenburg Motor strength lower extremities ,thigh and legs 5/5 Right side , 5/5 Left side Deep tendon reflexes : Normal Knee Jerk. Normal Ankle Jerk Vertebral body tenderness over Francis Test positive Lumbar facet Loading Test: positive Right / positive Left Range of motion of the lumbar spine Flexion 30 degrees, extension 10 degrees Straight Leg Raise test: Left/ Right positive at degrees Trevor test: positive right / positive left. Severe tenderness over the Sacroiliac joint on the Right / Left sides Gaenslen test: positive bilaterally Seated flexion test: positive bilaterally. Sacral spine : Severe tenderness over the Sacroiliac joint: right side / left side Range of motion: Flexion of the lumbar spine <60 degrees Range of motion: Extension of the lumbar spine <20 degrees Gaenslen's Test positive Trevor test: positive right side / left side Thigh Thrust Test Sacral Thrust Test Imaging: MRI non contrast of R hip from 06/23/24 reviewed Assessment/ Plan : R hip DJD Recommendation of medication management. Short course of Percocet filled upon discharge. May follow up in the clinic and revisit intra articular injection at a later time. All questions answered. I have spent greater than 30 minutes on patient care today. Dr Brown was available by phone for the evaluation of this patient. The time was used to review the medical records including relevant urine studies and Prescription history (MAPs), review of the available imaging, evaluation and examination of the patient, coordination of care with the medical staff and if applicable referring physicians, as well as creation of the medical record - Pain Location Right Hip Non-Pharmacological Interventions: Position/Reposition, Reduce Environmental Stimuli Pharmacological Interventions: Discuss Pain Med Options Pain Comment: see MAR PQRS Narrative: Smoking Status Former smoker Blood Pressure [Left Arm] 111/57 Blood Pressure 127/83 Pain Intensity [Right Hip] 8 Pain Intensity 6 Pain Scale Used Numeric (1 - 10) Scale Used Numeric (1 - 10) Home Medications: Ambulatory Orders Atorvastatin [Lipitor] 40 mg PO HS #30 tab 08/09/15 Clopidogrel [Plavix] 75 mg PO DAILY tab 08/09/15 lisinopriL [Prinivil] 10 mg PO DAILY 05/14/17 Budesonide/Formoterol Fumarate [Symbicort 160-4.5 Mcg Inhaler] 2 puff INHALATION RT-BID 06/08/21 Albuterol Sulfate [Albuterol Sulfate Hfa] 2 puff PO RT-Q6H PRN 03/29/23 Tamsulosin [Flomax] 0.4 mg PO DAILY 03/29/23 Citalopram Hydrobromide [CeleXA] 20 mg PO HS 05/04/23 Cyclobenzaprine [Flexeril] 10 mg PO TID PRN 06/09/24 Ipratropium-Albuterol Nebulize [Duoneb 0.5 mg-3 mg/3 ml Soln] 3 ml INHALATION RT-QID PRN 06/09/24 Latanoprost [Latanoprost 0.005%] 1 drop BOTH EYES HS 06/22/24 Sennosides-Docusate Sodium [Senokot-S] 1 tab PO DAILY 06/22/24 oxyCODONE-APAP 7.5-325MG [Percocet 7.5-325 mg] 1 each PO Q4HR PRN 3 Days #18 tab 06/23/24 Controlled Substance Measures - Controlled Substance Measures Is patient prescribed a controlled substance at discharge?: Yes When asked, does pt state using other controlled substances?: Yes If prescribed controlled substance>3 days was MAPS reviewed?: Prescribed <3 Days
[2024-06-24] MEDS: LACTATED RINGERS 1,000 ML IV SCH ×2 (08:14→13:12)
[2024-06-24] MEDS: DEXAMETHASONE SOD PHOSPHATE 4 MG/ML 1 ML VIAL IV ONE (08:16)
[2024-06-24] MEDS: ONDANSETRON 4 MG/2 ML VIAL IVP ONE (08:22)
[2024-06-24 08:42] LABS: BUN/Creat Ratio 21.47 Ratio (12.00-20.00); Blood Urea Nitrogen 36.5 mg/dL (9.0-27.0); Calcium 8.6 mg/dL (8.7-10.3); Carbon Dioxide 22.6 mmol/L (21.6-31.8); Chloride 107 mmol/L (96-109); Glucose 91 mg/dL (70-110); Potassium 4.6 mmol/L (3.5-5.5); Sodium 140 mmol/L (135-145)
[2024-06-24 08:51] LABS: Basophils # (A) 0.04 X 10*3/uL (0.00-0.10); Basophils % (A) 0.4 %; Eosinophils # (A) 0.21 X 10*3/uL (0.04-0.35); Eosinophils % (A) 2.3 %; HCT 32.4 % (39.6-50.0); HGB 10.1 g/dL (13.0-17.0); Lymphocytes # (A) 1.36 X 10*3/uL (0.90-5.00); Lymphocytes % (A) 14.6 %; MCHC 31.2 g/dL (32.0-37.0); MCV 96.1 FL (80.0-97.0); Mean Platelet Volume 9.7 FL (9.5-12.2); Monocytes # (A) 1.05 X 10*3/uL (0.20-1.00); Monocytes % (A) 11.3 %; NRBC Per 100 WBC 0 X 10*3/uL (0.00-0.01); Neutrophils # (A) 6.59 X 10*3/uL (1.80-7.70); Platelet Count 305 X 10*3/uL (140-440); RBC 3.37 X 10*6/uL (4.40-5.60); RDW 15.6 % (11.5-14.5); WBC 9.29 X 10*3/uL (4.50-10.00)
[2024-06-24] MEDS: IPRATROPIUM-ALBUTEROL 3 ML NEB INHALATION PRN (08:57)
--- NOTE | 2024-06-24 11:48 | P.PN ---
Subjective Progress Note Date: 06/24/24 Hospital Course: 74 year old M with COPD, CVA, HTN, HLD, BPH presents to the ED for right hip pain. Apparently he slipped at home but did not fall. Patient reports right hip pain that has been ongoing for years but recently aggravated. He denies any LOC or head trauma. He reports difficulties with his ADL and IADLs because of this. Pain is 10/10, located in the right anterior hip. Patient is unable to describe it much more than this due to severe pain. Apparently he has been largely bed bound since 02/2023. In the ED he underwent extensive evaluation. BP 173/79, HR 85, T 98.5F, RR 22, 96% on RA. CBC, CMP significant for WBC 11, RBC 3.98, Hg 11.6, Hct 36.9, glu 127, alb 3.4. Hip XR negative. Patient is admitted for further workup and management. Hip CT showed nondisplaced fracture of the mid femoral neck in the axial plane not excluded, findings however could not be confirmed with additional images, MRI hip was ordered and showed suboptimal study without MRI evidence for acute or show structure in the right knee. Orthopedic surgery consulted, no plans for orthopedic surgery. Pain management consulted as patient is still not able to ambulate, PT OT following. Urology consulted for urine retention, patient was recently diagnosed with prostate cancer, will need to follow-up in clinic, Christopher catheter inserted 06/24, PT OT evaluation pending, Christopher remains in place, blood work significant for prerenal JESSIE, now on IV fluids, will keep patient overnight to monitor improvement of kidney function, possible discharge 06/25 Subjective: Continues to complain of inability to ambulate, right pain pain is 2/10 today Pertinent positives and negatives as discussed above, a complete review of systems was performed and all other systems are negative. Vitals Signs Reviewed. General: [nontoxic], [no distress], [appears at stated age] Derm: [warm], [dry] Head: [atraumatic], [normocephalic], [symmetric] Eyes: [EOMI], [no lid lag], [anicteric sclera] Mouth: [no lip lesion], [mucus membranes moist] Cardiovascular: [S1S2 reg], [no murmur] Lungs: [CTA bilateral], [no rhonchi, no rales] , [no accessory muscle use] Abdominal: [soft], [ nontender to palpation], [no guarding], [no appreciable organomegaly] Ext: [no gross muscle atrophy], [no edema], [no contractures], unable to fully assess due to significant pain in the right hip Neuro: [ CN II-XI grossly intact], [no focal neuro deficits] Psych: [Alert], [oriented], [appropriate affect] Data Reviewed Today: Pertinent Labs: WBC normal, hemoglobin 10.1, platelet count normal, sodium and potassium normal bicarb normal, creatinine up to 1.7 with elevated BUN 26.5 Assessment and Plan: JESSIE, prerenal -Creatinine up to 1.7, started on LR at 130 cc/h, repeat BMP, encouraged oral intake -Holding NSAIDs and lisinopril Debility secondary to right hip pain -No signs of fracture on hip MRI -Continue pain control with Dilaudid IM 1 mg IV every 2 hours as needed, Percocet 7.5 every 4 hours scheduled -PT OT pending -Orthopedic surgery consulted, appreciate recommendations -Pain management consulted, appreciate recommendations: Provided with 1 dose of IV Decadron 4 mg 03/26, will follow-up in pain clinic -Case management following -discussed plan of management in details with RN, patient and his Leukocytosis likely reactive -No signs of infection, afebrile, repeat CBC in a.m. Normocytic anemia -No signs of active bleeding, recommend outpatient workup COPD not in acute exacerbation -Continue DuoNeb every 4 hours as needed for shortness of breath/wheezing, Symbicort 2 inhalations twice daily History of CVA -Continue Plavix 75 mg daily, Lipitor 40 mg p.o. nightly Hypertension -Lisinopril 10 mg p.o. daily-now on hold due to JESSIE Hyperlipidemia: Lipitor as above Depression: Celexa 20 mg p.o. nightly BPH: Flomax 0.4 mg daily Recent diagnosis of prostate cancer, urinary retention: Urology following, continue Flomax, outpatient follow-up regarding prostate cancer treatment. DVT ppx: Lovenox Code status: Full code Anticipated discharge place: [facility] Anticipated discharge time: 24 to 48 hours Objective - Vital Signs Vital signs: Vital Signs Temp 97.7 F 06/24/24 07:00 Pulse 72 06/24/24 09:11 Resp 17 06/24/24 07:00 BP 97/57 06/24/24 07:00 Pulse Ox 94 L 06/24/24 07:00 FiO2 Intake & Output 06/23/24 06/24/24 06/24/24 18:59 06:59 18:59 Intake Total 118 Output Total 150 500 Balance -32 -500 Intake: Oral 118 Output: Urine 150 500 Other: Voiding Method Indwelling Catheter Indwelling Catheter Indwelling Catheter # Bowel Movements 0 - Labs CBC & Chem 7: 06/24/24 04:52 06/24/24 04:52 Labs: Abnormal Lab Results - Last 24 Hours (Table) 06/24/24 06/24/24 Range/Units 04:52 04:52 RBC 3.37 L (4.40-5.60) X 10*6/uL Hgb 10.1 L (13.0-17.0) g/dL Hct 32.4 L (39.6-50.0) % MCHC 31.2 L (32.0-37.0) g/dL RDW 15.6 H (11.5-14.5) % Monocytes # 1.05 H (0.20-1.00) X 10*3/uL BUN 36.5 H (9.0-27.0) mg/dL Creatinine 1.7 H (0.6-1.5) mg/dL Est GFR (CKD-EPI) 42 L (>=60) BUN/Creatinine Ratio 21.47 H (12.00-20.00) Ratio Calcium 8.6 L (8.7-10.3) mg/dL Microbiology - Last 24 Hours (Table) 06/22/24 16:40 Urine Culture - Preliminary Urine,Voided
[2024-06-24 14:23] LABS: African American GFR (CKD) 54 (>60 ml/min/1.73 sqM); Anion Gap 8 mmol/L; Blood Urea Nitrogen 40 mg/dL (9-20); Calcium 8.4 mg/dL (8.4-10.2); Carbon Dioxide 20 mmol/L (22-30); Chloride 104 mmol/L (98-107); Glucose 185 mg/dL (74-99); Non-African American GFR(CKD) 47 (>60 ml/min/1.73 sqM); Potassium 4.8 mmol/L (3.5-5.1); Sodium 132 mmol/L (137-145)
[2024-06-25 08:19] VITALS: BP 112/67; PULSE 66; RESP 16; TEMP 97.5
[2024-06-25 10:52] LABS: African American GFR (CKD) 80 (>60 ml/min/1.73 sqM); Anion Gap 4 mmol/L; Blood Urea Nitrogen 34 mg/dL (9-20); Calcium 8.9 mg/dL (8.4-10.2); Carbon Dioxide 26 mmol/L (22-30); Chloride 106 mmol/L (98-107); Glucose 85 mg/dL (74-99); Non-African American GFR(CKD) 70 (>60 ml/min/1.73 sqM); Potassium 4.2 mmol/L (3.5-5.1); Sodium 136 mmol/L (137-145)
--- NOTE | 2024-06-25 11:24 | P.DS ---
Providers Date of admission: 06/22/24 07:41 Attending physician: Amira Alcantar MD Consults: 06/22/24 14:05 Consult Physician Routine Consulting Provider: Sacha Garibay Consult Reason/Comments: chronic gutiérrez, known patient Do you want consulting provider notified?: Yes Consult Physician Stat Consulting Provider: Rob Lutz Consult Reason/Comments: Abnormal CT hip Do you want consulting provider notified?: Yes Primary care physician: Luis E Dobbins Hospital Course: Discharge Diagnosis: [] Hospital Course: 74 year old M with COPD, CVA, HTN, HLD, BPH presents to the ED for right hip pain. Apparently he slipped at home but did not fall. Patient reports right hip pain that has been ongoing for years but recently aggravated. He denies any LOC or head trauma. He reports difficulties with his ADL and IADLs because of this. Pain is 10/10, located in the right anterior hip. Patient is unable to describe it much more than this due to severe pain. Apparently he has been largely bed bound since 02/2023. In the ED he underwent extensive evaluation. BP 173/79, HR 85, T 98.5F, RR 22, 96% on RA. CBC, CMP significant for WBC 11, RBC 3.98, Hg 11.6, Hct 36.9, glu 127, alb 3.4. Hip XR negative. Patient is admitted for further workup and management. Hip CT showed nondisplaced fracture of the mid femoral neck in the axial plane not excluded, findings however could not be confirmed with additional images, MRI hip was ordered and showed suboptimal study without MRI evidence for acute or show structure in the right knee. Orthopedic surgery consulted, no plans for orthopedic surgery. Pain management consulted as patient is still not able to ambulate, PT OT following and recommends rehab placement, patient deemed stable for discharge on 06/25 Urology consulted for urine retention, patient was recently diagnosed with prostate cancer, will need to follow-up in clinic, Gutiérrez catheter inserted, patient will be discharged with Gutiérrez catheter in until he sees his urologist as he even has troubles using urinal. Patient to follow-up with urology as outpatient, patient will not receive any cancer treatment/testing while admitted to a rehab facility, urology office was called by RN to confirm. Of note, his hospital course was complicated by prerenal JESSIE that is resolved now after IV hydration, patient was encouraged to increase his oral fluid intake. He can be resumed on his home lisinopril at discharge Patient seen and examined at bedside. General: [nontoxic], [no distress], [appears at stated age] Derm: [warm], [dry] Head: [atraumatic], [normocephalic], [symmetric] Eyes: [EOMI], [no lid lag], [anicteric sclera] Mouth: [no lip lesion], [mucus membranes moist] Cardiovascular: [S1S2 reg], [no murmur] Lungs: [CTA bilateral], [no rhonchi, no rales] , [no accessory muscle use] Abdominal: [soft], [ nontender to palpation], [no guarding], [no appreciable organomegaly] Ext: [no gross muscle atrophy], [no edema], [no contractures], unable to fully assess due to significant pain in the right hip Neuro: [ CN II-XI grossly intact], [no focal neuro deficits] Psych: [Alert], [oriented], [appropriate affect] A total of 40 minutes of time were spent preparing this complex discharge summary. Patient was discharged on06/25/24. Patient Condition at Discharge: Stable Plan - Discharge Summary Discharge Rx Participant: No New Discharge Prescriptions: New oxyCODONE-APAP 7.5-325MG [Percocet 7.5-325 mg] 1 each PO Q4HR #18 tab Continue Atorvastatin [Lipitor] 40 mg PO HS #30 tab Clopidogrel [Plavix] 75 mg PO DAILY tab lisinopriL [Prinivil] 10 mg PO DAILY Tamsulosin [Flomax] 0.4 mg PO DAILY Cyclobenzaprine [Flexeril] 10 mg PO TID PRN PRN Reason: muscle relaxant Budesonide/Formoterol Fumarate [Symbicort 160-4.5 Mcg Inhaler] 2 puff INHALATION RT-BID Albuterol Sulfate [Albuterol Sulfate Hfa] 2 puff PO RT-Q6H PRN PRN Reason: Shortness Of Breath Citalopram Hydrobromide [CeleXA] 20 mg PO HS Ipratropium-Albuterol Nebulize [Duoneb 0.5 mg-3 mg/3 ml Soln] 3 ml INHALATION RT-QID PRN PRN Reason: Shortness Of Breath Sennosides-Docusate Sodium [Senokot-S] 1 tab PO DAILY Latanoprost [Latanoprost 0.005%] 1 drop BOTH EYES HS Discharge Medication List Atorvastatin [Lipitor] 40 mg PO HS #30 tab 08/09/15 [Rx] Clopidogrel [Plavix] 75 mg PO DAILY tab 08/09/15 [Rx] lisinopriL [Prinivil] 10 mg PO DAILY 05/14/17 [History] Budesonide/Formoterol Fumarate [Symbicort 160-4.5 Mcg Inhaler] 2 puff INHALATION RT-BID 06/08/21 [History] Albuterol Sulfate [Albuterol Sulfate Hfa] 2 puff PO RT-Q6H PRN 03/29/23 [History] Tamsulosin [Flomax] 0.4 mg PO DAILY 03/29/23 [History] Citalopram Hydrobromide [CeleXA] 20 mg PO HS 05/04/23 [History] Cyclobenzaprine [Flexeril] 10 mg PO TID PRN 06/09/24 [History] Ipratropium-Albuterol Nebulize [Duoneb 0.5 mg-3 mg/3 ml Soln] 3 ml INHALATION RT-QID PRN 06/09/24 [History] Latanoprost [Latanoprost 0.005%] 1 drop BOTH EYES HS 06/22/24 [History] Sennosides-Docusate Sodium [Senokot-S] 1 tab PO DAILY 06/22/24 [History] oxyCODONE-APAP 7.5-325MG [Percocet 7.5-325 mg] 1 each PO Q4HR #18 tab 06/25/24 [Rx] Follow up Appointment(s)/Referral(s): Epifanio Dobbins MD [Primary Care Provider] - 1-2 days Sacha Garibay MD [STAFF PHYSICIAN] - 1 Week Tiffanie Brown MD [STAFF PHYSICIAN] - 1 Week Rob Lutz MD [STAFF PHYSICIAN] - 10 Days Activity/Diet/Wound Care/Special Instructions: Orthopedic discharge instructions: 1. Toe-touch weightbearing with transfers on the right lower extremity 2. Ice the extremity for symptomatic relief 3. Pain medication as needed 4. Plan for follow-up with advanced orthopedics in 10 days for clinical and x- ray evaluation Please, follow-up with your primary care physician, urologist, pain specialist, orthopedic surgeon after discharge. Discharge Disposition: TRANSFER TO SNF/ECF
== END 2024-06-25 14:50 | DRG 536 ==
LOC: EC 04:19 → 6NMEDSUR 06:53 → OBSVTOIN 07:41
PROVIDERS: ADMIT Internal Medicine; ATTEND Internal Medicine
DX: S72.001A Fracture of unspecified part of neck of right femur, initial encounter for closed fracture (principal); N17.9 Acute kidney failure, unspecified; C61 Malignant neoplasm of prostate; D72.829 Elevated white blood cell count, unspecified; D64.9 Anemia, unspecified; E78.5 Hyperlipidemia, unspecified; J44.9 Chronic obstructive pulmonary disease, unspecified; I10 Essential (primary) hypertension; F32.A Depression, unspecified; M25.551 Pain in right hip; R33.8 Other retention of urine; M16.11 Unilateral primary osteoarthritis, right hip; N40.1 Benign prostatic hyperplasia with lower urinary tract symptoms; Z74.01 Bed confinement status; R29.6 Repeated falls; W19.XXXA Unspecified fall, initial encounter; Y92.099 Unspecified place in other non-institutional residence as the place of occurrence of the external cause; Z79.02 Long term (current) use of antithrombotics/antiplatelets; Z79.51 Long term (current) use of inhaled steroids; Z79.899 Other long term (current) drug therapy; Z86.73 Personal history of transient ischemic attack (TIA), and cerebral infarction without residual deficits; Z87.891 Personal history of nicotine dependence; Z96.642 Presence of left artificial hip joint; Z96.652 Presence of left artificial knee joint
CPT/HCPCS: 36415; 73502; 80048; 80053; 81001; 85025; 85610; 87086; 94640; 96374; 96376; 99285

== ENCOUNTER 2024-09-24 16:43 | Observation (INO) | payer MEDICARE ==
--- NOTE | 2024-09-24 17:51 | ED ---
General Adult HPI - General Chief complaint: Weakness Stated complaint: Weakness Time Seen by Provider: 09/24/24 16:48 Source: patient, family, RN notes reviewed Mode of arrival: EMS Limitations: no limitations - History of Present Illness Initial comments: Patient is a 74-year-old male present to the emergency department with increase in chronic weakness. Patient does have problems with chronic back and neck problems with inability to walk for over a year. Patient normally is able to help transfer and feed himself however is not able to the last few days. - Related Data Home Medications Medication Instructions Recorded Confirmed lisinopriL [Prinivil] 10 mg PO DAILY 05/14/17 06/22/24 Budesonide/Formoterol Fumarate 2 puff INHALATION RT-BID 06/08/21 06/22/24 [Symbicort 160-4.5 Mcg Inhaler] Albuterol Sulfate [Albuterol 2 puff PO RT-Q6H PRN 03/29/23 06/22/24 Sulfate Hfa] Tamsulosin [Flomax] 0.4 mg PO DAILY 03/29/23 06/22/24 Citalopram Hydrobromide [CeleXA] 20 mg PO HS 05/04/23 06/22/24 Cyclobenzaprine [Flexeril] 10 mg PO TID PRN 06/09/24 06/22/24 Ipratropium-Albuterol Nebulize 3 ml INHALATION RT-QID PRN 06/09/24 06/22/24 [Duoneb 0.5 mg-3 mg/3 ml Soln] Latanoprost [Latanoprost 0.005%] 1 drop BOTH EYES HS 06/22/24 06/22/24 Sennosides-Docusate Sodium 1 tab PO DAILY 06/22/24 06/22/24 [Senokot-S] Previous Rx's Medication Instructions Recorded Atorvastatin [Lipitor] 40 mg PO HS #30 tab 08/09/15 Clopidogrel [Plavix] 75 mg PO DAILY tab 08/09/15 oxyCODONE-APAP 7.5-325MG [Percocet 1 each PO Q4HR #18 tab 06/25/24 7.5-325 mg] polyethylene glycoL 3350 17 gm PO DAILY PRN #255 gm 06/25/24 [Polyethylene Glycol 3350] Allergies Allergy/AdvReac Type Severity Reaction Status Date / Time No Known Allergies Allergy Verified 06/22/24 08:47 Review of Systems ROS Statement: Those systems with pertinent positive or pertinent negative responses have been documented in the HPI. ROS Other: All systems not noted in ROS Statement are negative. Constitutional: Denies: fever Respiratory: Denies: dyspnea Cardiovascular: Denies: chest pain Gastrointestinal: Denies: abdominal pain Neurological: Reports: as per HPI, weakness. Denies: headache Past Medical History Past Medical History: COPD, CVA/TIA, Hyperlipidemia, Hypertension, Osteoarthritis (OA) Additional Past Medical History / Comment(s): fall 03-29-23-was seen in ER at [facility], steroids Mar 2023- LEGS GO NUMB-unable to walk-able to stand with asst to transfer only.- has not been able to walk since 02/2023.uses transfer equip to transfer to chairs and bed. uses electric chair. ( needs 2 person assist with gait belt) BPH. OCCASIONAL NOSE BLEEDS. PSA elevated MRI . hand tremors, gutiérrez for retention 05/2024 History of Any Multi-Drug Resistant Organisms: None Reported Past Surgical History: Back Surgery, Joint Replacement Additional Past Surgical History / Comment(s): left hip arthroplasty 2012, hemorrhoidectomy. neck surgery, prostate biopsy Past Anesthesia/Blood Transfusion Reactions: No Reported Reaction Additional Past Anesthesia/Blood Transfusion Reaction / Comment(s): has had hallucination after having anesthesia with last surgery-lower back. no hx blood transfusion Past Psychological History: No Psychological Hx Reported Smoking Status: Former smoker Past Alcohol Use History: Occasional Past Drug Use History: None Reported - Past Family History Father Family Medical History: Cancer Additional Family Medical History / Comment(s): Father of throat cancer in his 40's. Mother Family Medical History: Diabetes Mellitus Additional Family Medical History / Comment(s): Pt thinks mother may have had c ancer. Brother(s) Family Medical History: Cancer, CVA/TIA Additional Family Medical History / Comment(s): Youger brother had a CVA with speach difficulty but had full recovery. older brother had CA General Exam Limitations: no limitations General appearance: alert, in no apparent distress Head exam: Present: normocephalic Eye exam: Present: normal appearance, PERRL, EOMI ENT exam: Present: normal oropharynx Neck exam: Present: normal inspection. Absent: meningismus Respiratory exam: Present: normal lung sounds bilaterally Cardiovascular Exam: Present: regular rate, normal rhythm GI/Abdominal exam: Present: soft. Absent: tenderness Extremities exam: Present: other (Legs contracted) Neurological exam: Present: alert, motor sensory deficit (Extremity weakness with legs contracted) Psychiatric exam: Present: normal affect, normal mood Skin exam: Present: normal color Course Vital Signs 09/24/24 09/24/24 09/24/24 16:50 18:15 18:55 Temperature 98.0 F Pulse Rate 89 90 Respiratory 18 18 18 Rate Blood Pressure 109/64 110/69 O2 Sat by Pulse 96 97 Oximetry EKG Findings - EKG Results: EKG: interpreted by ERMD (Left axis), sinus rhythm, normal QRS, normal ST/T Medical Decision Making - Medical Decision Making Was pt. sent in by a medical professional or institution (Dr. PA, ORACLE EBS DEVELOPER, urgent care, hospital, or residential...) When possible be specific @ -No Did you speak to anyone other than the patient for history (EMS, parent, family, police, friend...)? 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 Why? @ -I reviewed and agree with nursing and triage notes Were old charts reviewed (outside hosp., previous admission, EMS record, old EKG, old radiological studies, urgent care reports/EKG's, residential records)? Report findings @ -No old charts were reviewed Differential Diagnosis (chest pain, altered mental status, abdominal pain women, abdominal pain men, vaginal bleeding, weakness, fever, dyspnea, syncope, headache, dizziness, GI bleed, back pain, seizure, CVA, palpatations, mental health, musculoskeletal)? @ -Differential Weakness: Hypoglycemia, shock, sepsis, hyponatremia, anemia, infection, NE, ETOH, adverse medicine reaction, overdose, stroke, this is not meant to be an all-inclusive list. EKG interpreted by me (3pts min.). @ -As above X-rays interpreted by me (1pt min.). @ -Chest x-ray shows no acute process CT interpreted by me (1pt min.). @ -CT brain without acute abnormality U/S interpreted by me (1pt. min.). @ -None done What testing was considered but not performed or refused? (CT, X-rays, U/S, labs)? Why? @ -Urinalysis pending What meds were considered but not given or refused? Why? @ -None Did you discuss the management of the patient with other professionals (professionals i.e. , PA, ORACLE EBS DEVELOPER, lab, RT, psych nurse, social media marketing analyst, distribution accounting clerk, teacher, quality officer, geriatric case manager)? Give summary @ -Case was discussed with Dr. Huynh who will admit covering Dr. Montalvo Was smoking cessation discussed for >3mins.? @ -No Was critical care preformed (if so, how long)? @ -No Were there social determinants of health that impacted care today? How? (Homelessness, low income, unemployed, alcoholism, drug addiction, transportation, low edu. Level, literacy, decrease access to med. care, usp, rehab)? @ -No Was there de-escalation of care discussed even if they declined (Discuss DNR or withdrawal of care, Hospice)? DNR status @ -No What co-morbidities impacted this encounter? (DM, HTN, Smoking, COPD, CAD, Cancer, CVA, ARF, Chemo, Hep., AIDS, mental health diagnosis, sleep apnea, morbid obesity)? @ -Chronic spinal problems and weakness Was patient admitted / discharged? Hospital course, mention meds given and route, prescriptions, significant lab abnormalities, going to OR and other pertinent info. @ -Patient presents with increased weakness. Unable to feed self or transfer. Patient will be admitted. Patient reevaluated. Patient family updated. Admission orders written Undiagnosed new problem with uncertain prognosis? @ -No Drug Therapy requiring intensive monitoring for toxicity (Heparin, Nitro, Insulin, Cardizem)? @ -No Were any procedures done? @ -No Diagnosis/symptom? @ -Weakness Acute, or Chronic, or Acute on Chronic? @ -Acute tensile Uncomplicated (without systemic symptoms) or Complicated (systemic symptoms)? @ -Default Side effects of treatment? @ -No Exacerbation, Progression, or Severe Exacerbation? @ -No Poses a threat to life or bodily function? How? (Chest pain, USA, NE, pneumonia, PE, COPD, DKA, ARF, appy, cholecystitis, CVA, Diverticulitis, Homicidal, Suic idal, threat to staff... and all critical care pts) @ -No - Lab Data Result diagrams: 09/24/24 18:05 09/24/24 18:05 Lab Results 09/24/24 09/24/24 09/24/24 Range/Units 18:05 18:05 18:05 WBC 9.62 (4.50-10.00) 10*3/uL RBC 3.93 L (4.40-5.60) 10*6/uL Hgb 12.1 L (13.0-17.0) g/dL Hct 35.9 L (39.6-50.0) % MCV 91.3 (80.0-97.0) fL MCH 30.8 (27.0-32.0) pg MCHC 33.7 (32.0-37.0) g/dL Plt Count 398 (140-440) 10*3/uL MPV 8.7 L (9.5-12.2) fL Immature Gran % (Auto) 0.7 % Neutrophils % 69.4 % Lymphocytes % 17.5 % Monocytes % 9.4 % Eosinophils % 2.6 % Basophils % 0.4 % Immature Gran # 0.07 H (0.00-0.04) 10*3/uL Neutrophils # 6.68 (1.80-7.70) 10*3/uL Lymphocytes # 1.68 (0.90-5.00) 10*3/uL Monocytes # 0.90 (0.20-1.00) 10*3/uL Eosinophils # 0.25 (0.04-0.35) 10*3/uL Basophils # 0.04 (0.00-0.10) 10*3/uL PT 10.4 (10.0-12.5) sec INR 0.9 (<1.2) APTT 26.4 (22.0-30.0) sec Sodium 136 L (137-145) mmol/L Potassium 4.6 (3.5-5.1) mmol/L Chloride 102 (98-107) mmol/L Carbon Dioxide 23 (22-30) mmol/L Anion Gap 11 mmol/L BUN 15 (9-20) mg/dL Creatinine 0.53 L (0.66-1.25) mg/dL Est GFR (CKD-EPI)AfAm >90 (>60 ml/min/1.73 sqM) Est GFR (CKD-EPI)NonAf >90 (>60 ml/min/1.73 sqM) Glucose 87 (74-99) mg/dL Plasma Lactic Acid John (0.7-2.0) mmol/L Calcium 9.0 (8.4-10.2) mg/dL Magnesium 2.1 (1.6-2.3) mg/dL Total Bilirubin 0.5 (0.2-1.3) mg/dL AST 32 (17-59) U/L ALT 29 (4-49) U/L Alkaline Phosphatase 95 (38-126) U/L Troponin I (0.000-0.034) ng/mL Total Protein 5.7 L (6.3-8.2) g/dL Albumin 3.1 L (3.5-5.0) g/dL TSH 2.560 (0.465-4.680) mIU/L Free T4 1.67 (0.78-2.19) ng/dL Urine Color Urine Appearance (Clear) Urine pH (5.0-8.0) Ur Specific Catlin (1.001-1.035) Urine Protein (Negative) Urine Glucose (UA) (Negative) Urine Ketones (Negative) Urine Blood (Negative) Urine Nitrite (Negative) Urine Bilirubin (Negative) Urine Urobilinogen (<2.0) mg/dL Ur Leukocyte Esterase (Negative) Urine RBC (0-5) /hpf Urine WBC (0-5) /hpf Urine WBC Clumps (None) /hpf Urine Bacteria (None) /hpf Urine Mucus (None) /hpf 09/24/24 09/24/24 09/24/24 Range/Units 18:05 18:05 20:08 WBC (4.50-10.00) 10*3/uL RBC (4.40-5.60) 10*6/uL Hgb (13.0-17.0) g/dL Hct (39.6-50.0) % MCV (80.0-97.0) fL MCH (27.0-32.0) pg MCHC (32.0-37.0) g/dL Plt Count (140-440) 10*3/uL MPV (9.5-12.2) fL Immature Gran % (Auto) % Neutrophils % % Lymphocytes % % Monocytes % % Eosinophils % % Basophils % % Immature Gran # (0.00-0.04) 10*3/uL Neutrophils # (1.80-7.70) 10*3/uL Lymphocytes # (0.90-5.00) 10*3/uL Monocytes # (0.20-1.00) 10*3/uL Eosinophils # (0.04-0.35) 10*3/uL Basophils # (0.00-0.10) 10*3/uL PT (10.0-12.5) sec INR (<1.2) APTT (22.0-30.0) sec Sodium (137-145) mmol/L Potassium (3.5-5.1) mmol/L Chloride (98-107) mmol/L Carbon Dioxide (22-30) mmol/L Anion Gap mmol/L BUN (9-20) mg/dL Creatinine (0.66-1.25) mg/dL Est GFR (CKD-EPI)AfAm (>60 ml/min/1.73 sqM) Est GFR (CKD-EPI)NonAf (>60 ml/min/1.73 sqM) Glucose (74-99) mg/dL Plasma Lactic Acid John 1.2 (0.7-2.0) mmol/L Calcium (8.4-10.2) mg/dL Magnesium (1.6-2.3) mg/dL Total Bilirubin (0.2-1.3) mg/dL AST (17-59) U/L ALT (4-49) U/L Alkaline Phosphatase (38-126) U/L Troponin I <0.012 (0.000-0.034) ng/mL Total Protein (6.3-8.2) g/dL Albumin (3.5-5.0) g/dL TSH (0.465-4.680) mIU/L Free T4 (0.78-2.19) ng/dL Urine Color Yellow Urine Appearance Cloudy (Clear) Urine pH 6.5 (5.0-8.0) Ur Specific Catlin 1.020 (1.001-1.035) Urine Protein Trace H (Negative) Urine Glucose (UA) Negative (Negative) Urine Ketones Negative (Negative) Urine Blood Small H (Negative) Urine Nitrite Positive (Negative) Urine Bilirubin Negative (Negative) Urine Urobilinogen 2.0 (<2.0) mg/dL Ur Leukocyte Esterase Large H (Negative) Urine RBC 18 H (0-5) /hpf Urine WBC 142 H (0-5) /hpf Urine WBC Clumps Few H (None) /hpf Urine Bacteria Many H (None) /hpf Urine Mucus Moderate H (None) /hpf Disposition Clinical Impression: Weakness Disposition: ADMITTED IP TO THIS HOSP Is patient prescribed a controlled substance at d/c from ED?: No Referrals: Epifanio Dobbins MD [Primary Care Provider] - 1-2 days Time of Disposition: 20:34
[2024-09-24 18:16] LABS: Basophils # (A) 0.04 10*3/uL (0.00-0.10); Basophils % (A) 0.4 %; Eosinophils # (A) 0.25 10*3/uL (0.04-0.35); Eosinophils % (A) 2.6 %; HCT 35.9 % (39.6-50.0); HGB 12.1 g/dL (13.0-17.0); Lymphocytes # (A) 1.68 10*3/uL (0.90-5.00); Lymphocytes % (A) 17.5 %; MCH 30.8 pg (27.0-32.0); MCHC 33.7 g/dL (32.0-37.0); MCV 91.3 fL (80.0-97.0); Monocytes # (A) 0.90 10*3/uL (0.20-1.00); Monocytes % (A) 9.4 %; Neutrophils # (A) 6.68 10*3/uL (1.80-7.70); Neutrophils % (A) 69.4 %; Platelet Count 398 10*3/uL (140-440); RBC 3.93 10*6/uL (4.40-5.60); RDW 13.5 % (11.5-14.5); WBC 9.62 10*3/uL (4.50-10.00)
[2024-09-24 18:27] LABS: ALT 29 U/L (4-49); AST 32 U/L (17-59); African American GFR (CKD) >90 (>60 ml/min/1.73 sqM); Albumin 3.1 g/dL (3.5-5.0); Alkaline Phosphatase 95 U/L (38-126); Anion Gap 11 mmol/L; Blood Urea Nitrogen 15 mg/dL (9-20); Calcium 9.0 mg/dL (8.4-10.2); Carbon Dioxide 23 mmol/L (22-30); Chloride 102 mmol/L (98-107); Glucose 87 mg/dL (74-99); Magnesium 2.1 mg/dL (1.6-2.3); Non-African American GFR(CKD) >90 (>60 ml/min/1.73 sqM); Potassium 4.6 mmol/L (3.5-5.1); Sodium 136 mmol/L (137-145); Total Protein 5.7 g/dL (6.3-8.2)
[2024-09-24 18:43] LABS: T4, Free (Free Thyroxine) 1.67 ng/dL (0.78-2.19)
[2024-09-24 18:44] LABS: INR 0.9 (<1.2); Partial Thromboplastin Time 26.4 sec (22.0-30.0); Prothrombin Time 10.4 sec (10.0-12.5)
--- NOTE | 2024-09-24 19:03 | CT ---
EXAMINATION TYPE: CT brain wo con DATE OF EXAM: 09/24/2024 6:40 PM COMPARISON: 03/29/2023. CLINICAL INDICATION: Male, 74 years old with history of weakness, weak TECHNIQUE: Brain: Axial CT images of the brain were obtained with coronal and sagittal reformats created and rev iewed. Contrast used: None. Oral contrast used: None. CT DLP: 1156.4 mGycm, Automated exposure control for dose reduction was used. FINDINGS: Brain: Extra-axial spaces: No abnormal extra-axial fluid collections. Ventricular system: Dilatation in proportion to cerebral atrophy. Cerebral parenchyma: Cerebral atrophy. No acute intraparenchymal hemorrhage or mass effect. The ngo -white junction is well differentiated. Scattered hypoattenuating areas are seen within the white mat ter. Cerebellum: Extensive white matter changes as Mass effect: No evidence of midline shift. Intracranial vasculature: unremarkable Soft tissues: Normal. Calvarium/osseous structures: No depressed skull fracture. Paranasal sinuses and mastoid air cells: Mild scattered paranasal sinus disease. Visualized orbits: Orbital contents are intact. IMPRESSION: 1. No acute intracranial process. 2. Stable white matter changes in the right cerebellum. [facility], , 09/24/2024 7:01 PM
--- NOTE | 2024-09-24 19:17 | XR ---
EXAMINATION TYPE: XR chest 2V DATE OF EXAM: 09/24/2024 6:59 PM COMPARISON: 2023. CLINICAL INDICATION: Male, 74 years old with history of Weakness; [facility] TECHNIQUE: XR chest 2V Frontal and lateral views of the chest. FINDINGS: Lungs/Pleura: There is no evidence of pleural effusion, focal consolidation, or pneumothorax. Pulmonary vascularity: Unremarkable. Heart/mediastinum: Cardiomediastinal silhouette is unremarkable. Musculoskeletal: No acute osseous pathology. There is fixation hardware in the lower cervical spine. Other findings: None IMPRESSION: No acute cardiopulmonary disease/process. [facility], , 09/24/2024 7:15 PM
[2024-09-24 20:24] LABS: Bacteria,Urine Many /hpf; Bilirubin,Urine Negative (Negative); Blood,Urine Small (Negative); Color,Urine Yellow; Glucose,Urine (UA) Negative (Negative); Ketones,Urine Negative (Negative); Leukocyte Esterase,Urine Large (Negative); Mucus,Urine Moderate /hpf; Nitrite,Urine Positive (Negative); PH, Urine 6.5 (5.0-8.0); Protein,Urine Trace (Negative); RBC,Urine 18 /hpf (0-5); Specific Gravity,Urine 1.020 (1.001-1.035); Urobilinogen,Urine 2.0 mg/dL (<2.0); WBC,Urine 142 /hpf (0-5)
[2024-09-24] MEDS ORDERED: NALOXONE 0.4 MG/ML 1 ML VIAL IV PRN (20:36)
--- NOTE | 2024-09-24 21:42 | P.HPIM ---
History of Present Illness H&P Date: 09/24/24 Patient is a 74 y/o M with a PMH of COPD, CVA, HLD, HTN, Prostate cancer presenting with weakness and confusion. He indicates both arms have been getting weaker and he can no longer hold a cup to drink water. He uses an electric chair at baseline. Usually able to transfer and feed himself but hasn't been able to past few days. Denies any LOC, Falls, SOB, Palps, Diaphoresis, edema, dizziness. Endorses Burning on urination, muscle stiffness, less frequent urination, and confusion. History is tough to get d/t confusion. He was sent to ED b/c home health care doc indicated that pt was deteriorating fast from baseline. Surgical Hx: -Back surgery 8 months ago, hip replacement Family Hx: -Dad throat cancer -Mom DM -Brother CA Social Hx: -Lives with HRB: -Tobacco: stopped 15 yrs ago -Alcohol: last drink 2/3 mos ago Allergies: None indicated Imaging: CXR: Negative EKG: Sinus, left axis deviation, QRS normal Brain CT: negative Labs: -WBC: 9.67 -HGB: 12.1 -Sodium: 136 -Cr: 0.53 -U/A: Tracce protein, Small blood, Large LE, 142 WBC, Many bacteria Vitals: -98.0, 90bpm, 18 RR, BP 110/69, O2 Sat 97% Review of systems: Pertinent positives and negatives as discussed in HPI, a complete review of systems was performed and all other systems are negative. Physical examination: Vital signs reviewed General: non toxic, no distress, appears at stated age, normal weight Derm: no unusual rashes/lesions, warm Head: atraumatic, normocephalic, symmetric Eyes: EOMI, anicteric sclera, pupils equal round reactive to light ENT: Nose and ears atraumatic Neck: No cervical lymphadenopathy, trachea midline, supple Mouth: no lip lesion, mucus membranes moist Cardiovascular: S1S2 reg, no murmur, positive dorsalis pedis pulse bilateral, no edema Lungs: CTA bilateral, no rhonchi, no rales, no accessory muscle use Abdominal: soft, nontender to palpation, no guarding Ext: muscle strength 5 out of 5 in upper extremities, Patient cannot move B/L LE, both legs atrophic Neuro: CN II-XI grossly intact, no gross focal neuro deficits Psych: Alert, oriented to person, place, and time Assessment/Plan: # acute complicated UTI #Weakness #acute metabolic encephalopathy 74 y/o with acute weakness and confusion with positive U/A and dysuria/reduced frequency without signs of systemic sxs. Neurologic exam negative, CT brain negative. Plan: -CBC -CMP -Glucose -U/A -Urine culture -Blood culture -Thyroid panel -CXR -EKG -Continue rocephin 2 gm IVPB IVF hydration NS 75 cc per hour #COPD, compensated History of COPD increases risk for delirium and infection. Assess for COPD exacerbation as a potential contributor to current symptoms. Monitor for hypoxia, hypercapnia, and respiratory infection. Plan: -CXR -Continue home symbicort, albuterol, budesonide -Monitor O2 and supplement O2 as needed #HLD #HTN Chronic Plan: -Continue atorvastatin 40mg DVT prophylaxis: [Lovenox 40mg sq] CODE STATUS: [] Discussed with: [Dr Alcantar] I have seen and evaluated the patient today. I Discussed the case with the resident and agree with the resident's findings I edited the assessment and nicky n as necessary as documented in the resident's note. Past Medical History Past Medical History: COPD, CVA/TIA, Hyperlipidemia, Hypertension, Osteoarthritis (OA) Additional Past Medical History / Comment(s): fall 03-29-23-was seen in ER at [facility], steroids Mar 2023- LEGS GO NUMB-unable to walk-able to stand with asst to transfer only.- has not been able to walk since 02/2023.uses transfer equip to transfer to chairs and bed. uses electric chair. ( needs 2 person assist with gait belt) BPH. OCCASIONAL NOSE BLEEDS. PSA elevated MRI . hand tremors, gutiérrez for retention 05/2024 History of Any Multi-Drug Resistant Organisms: None Reported Past Surgical History: Back Surgery, Joint Replacement Additional Past Surgical History / Comment(s): left hip arthroplasty 2012, hemorrhoidectomy. neck surgery, prostate biopsy Past Anesthesia/Blood Transfusion Reactions: No Reported Reaction Additional Past Anesthesia/Blood Transfusion Reaction / Comment(s): has had hallucination after having anesthesia with last surgery-lower back. no hx blood transfusion Past Psychological History: No Psychological Hx Reported Smoking Status: Former smoker Past Alcohol Use History: Occasional Past Drug Use History: None Reported - Past Family History Father Family Medical History: Cancer Additional Family Medical History / Comment(s): Father of throat cancer in his 40's. Mother Family Medical History: Diabetes Mellitus Additional Family Medical History / Comment(s): Pt thinks mother may have had cancer. Brother(s) Family Medical History: Cancer, CVA/TIA Additional Family Medical History / Comment(s): Youger brother had a CVA with speach difficulty but had full recovery. older brother had CA Medications and Allergies Home Medications Medication Instructions Recorded Confirmed Type Atorvastatin [Lipitor] 40 mg PO HS #30 tab 08/09/15 09/24/24 Rx Clopidogrel [Plavix] 75 mg PO DAILY tab 08/09/15 09/24/24 Rx lisinopriL [Prinivil] 10 mg PO DAILY 05/14/17 09/24/24 History Budesonide/Formoterol Fumarate 2 puff INHALATION RT-BID 06/08/21 09/24/24 History [Symbicort 160-4.5 Mcg Inhaler] Albuterol Sulfate [Albuterol 2 puff INHALATION RT-Q4H PRN 03/29/23 09/24/24 History Sulfate Hfa] Tamsulosin [Flomax] 0.4 mg PO DAILY 03/29/23 09/24/24 History Citalopram Hydrobromide [CeleXA] 20 mg PO HS 05/04/23 09/24/24 History Ipratropium-Albuterol Nebulize 3 ml INHALATION RT-QID PRN 06/09/24 09/24/24 History [Duoneb 0.5 mg-3 mg/3 ml Soln] Latanoprost [Latanoprost 0.005%] 1 drop BOTH EYES HS 06/22/24 09/24/24 History Sennosides-Docusate Sodium 1 tab PO DAILY 06/22/24 09/24/24 History [Senokot-S] polyethylene glycoL 3350 17 gm PO DAILY PRN #255 gm 06/25/24 09/24/24 Rx [Polyethylene Glycol 3350] Baclofen 10 mg PO TID 09/24/24 09/24/24 History Ergocalciferol (Vitamin D2) 1,250 mcg PO MO 09/24/24 09/24/24 History [Drisdol (GEQ) 1,250 MCG (50,000 IU)] Lactulose 10 gm PO DIRECTED 09/24/24 09/24/24 History oxyCODONE-APAP 7.5-325MG [Percocet 1 tab PO DAILY PRN 09/24/24 09/24/24 History 7.5-325 mg] Allergies Allergy/AdvReac Type Severity Reaction Status Date / Time No Known Allergies Allergy Verified 06/22/24 08:47 Physical Exam Vitals: Vital Signs Temp Pulse Resp BP Pulse Ox 09/24/24 18:55 90 18 110/69 97 09/24/24 18:15 18 09/24/24 16:50 98.0 F 89 18 109/64 96 Intake and Output 09/24/24 09/24/24 09/24/24 06:59 14:59 22:59 Other: Weight 56.699 kg Results CBC & Chem 7: 09/24/24 18:05 09/24/24 18:05 Labs: Abnormal Lab Results - Last 24 Hours (Table) 09/24/24 09/24/24 09/24/24 Range/Units 18:05 18:05 20:08 RBC 3.93 L (4.40-5.60) 10*6/uL Hgb 12.1 L (13.0-17.0) g/dL Hct 35.9 L (39.6-50.0) % MPV 8.7 L (9.5-12.2) fL Immature Gran # 0.07 H (0.00-0.04) 10*3/uL Sodium 136 L (137-145) mmol/L Creatinine 0.53 L (0.66-1.25) mg/dL Total Protein 5.7 L (6.3-8.2) g/dL Albumin 3.1 L (3.5-5.0) g/dL Urine Protein Trace H (Negative) Urine Blood Small H (Negative) Ur Leukocyte Esterase Large H (Negative) Urine RBC 18 H (0-5) /hpf Urine WBC 142 H (0-5) /hpf Urine WBC Clumps Few H (None) /hpf Urine Bacteria Many H (None) /hpf Urine Mucus Moderate H (None) /hpf
[2024-09-24] MEDS: cefTRIAXone IN SWFI 1,000 MG/10 ML SYRINGE IVP STA (21:43)
[2024-09-24] MEDS: BACLOFEN 10 MG TAB PO PRN (23:45)
[2024-09-25] MEDS: HYDROcodone/APAP 5-325MG 1 EACH TAB PO STA (02:23)
[2024-09-25] MEDS ORDERED: ALBUTEROL HFA INHALER INHALATION PRN (06:30)
[2024-09-25] MEDS: SODIUM CHLORIDE 0.9% 1,000 ML IV SCH (06:43)
[2024-09-25 08:10] LABS: Basophils # (A) 0.04 X 10*3/uL (0.00-0.10); Basophils % (A) 0.4 %; Eosinophils # (A) 0.44 X 10*3/uL (0.04-0.35); Eosinophils % (A) 4.8 %; HCT 34.0 % (39.6-50.0); HGB 11.1 g/dL (13.0-17.0); Immature Grans, Automated 0.80 %; Lymphocytes # (A) 1.49 X 10*3/uL (0.90-5.00); Lymphocytes % (A) 16.3 %; MCH 30.5 pg (27.0-32.0); MCHC 32.6 g/dL (32.0-37.0); MCV 93.4 FL (80.0-97.0); Monocytes # (A) 0.86 X 10*3/uL (0.20-1.00); Monocytes % (A) 9.4 %; NRBC Per 100 WBC 0 X 10*3/uL (0.00-0.01); Neutrophils # (A) 6.25 X 10*3/uL (1.80-7.70); Neutrophils % (A) 68.3 %; Platelet Count 372 X 10*3/uL (140-440); RBC 3.64 X 10*6/uL (4.40-5.60); RDW 13.7 % (11.5-14.5); WBC 9.15 X 10*3/uL (4.50-10.00)
[2024-09-25] MEDS: ENOXAPARIN 40 MG/0.4 ML SYRINGE SQ SCH (08:26)
[2024-09-25] MEDS: CLOPIDOGREL 75 MG TAB PO SCH (08:26)
[2024-09-25] MEDS: SENNOSIDES-DOCUSATE SODIUM 1 EACH TAB PO SCH (08:26)
[2024-09-25] MEDS: TAMSULOSIN 0.4 MG CAP.ER.24H PO SCH (08:26)
[2024-09-25 08:31] LABS: ALT 26 U/L (10-49); AST 28 U/L (14-35); Albumin 3.0 g/dL (3.8-4.9); Albumin/Globulin Ratio 1.36 Ratio (1.60-3.17); Alkaline Phosphatase 87 U/L (41-126); Anion Gap 10.50 mmol/L (4.00-12.00); BUN/Creat Ratio 19.67 Ratio (12.00-20.00); Blood Urea Nitrogen 11.8 mg/dL (9.0-27.0); Calcium 8.5 mg/dL (8.7-10.3); Carbon Dioxide 24.5 mmol/L (21.6-31.8); Chloride 102 mmol/L (96-109); Globulin 2.2 g/dL (1.6-3.3); Glucose 90 mg/dL (70-110); Potassium 3.8 mmol/L (3.5-5.5); Sodium 137 mmol/L (135-145); Total Protein 5.2 g/dL (6.2-8.2)
[2024-09-25] MEDS: SYMBICORT 160-4.5 MCG INHALER INHALATION SCH (09:13)
[2024-09-25] MEDS: IPRATROPIUM-ALBUTEROL 3 ML NEB INHALATION PRN (09:13)
[2024-09-25 09:40] LABS: African American GFR (CKD) >90 (>60 ml/min/1.73 sqM); Anion Gap 8 mmol/L; Blood Urea Nitrogen 12 mg/dL (9-20); Calcium 8.6 mg/dL (8.4-10.2); Carbon Dioxide 24 mmol/L (22-30); Chloride 104 mmol/L (98-107); Glucose 112 mg/dL (74-99); Non-African American GFR(CKD) >90 (>60 ml/min/1.73 sqM); Potassium 4.1 mmol/L (3.5-5.1); Sodium 136 mmol/L (137-145)
[2024-09-25] MEDS: oxyCODONE-APAP 7.5-325MG 1 EACH TAB PO PRN ×2 (11:37→19:09)
--- NOTE | 2024-09-25 13:01 | P.CNOR ---
History of Present Illness - HPI Consult date: 09/25/24 Requesting physician: Kat Pereira Consult reason: other (weakness, and spasticity) History of present illness: Patient is a 74-year-old male well known to our service who was seen and examined at the bedside by Dr. Dayo Wills this morning. He is status post posterior cervical decompression C4-T4 with fusion C4-T4 on 05/09/23. He also has a history of minimally-invasive posterior lateral decompression and fusion with transforaminal interbody fusion at L3-4 and L4-5 on 06/08/21. He does have a history of previous C5-6 and C6-7 anterior cervical decompression and fusion performed in 2017. He presented to the emergency department with weakness and confusion. He has continued to decline in overall function. He was unable to take care of himself at home.. He is unable ambulate on his lower extremities. He has weakness with his upper extremities. He uses a wheelchair at baseline. He is admitted to medicine. He is currently being treated for multiple medical diagnoses including acute complicated UTI, COPD, acute metabolic encephalopathy, hypertension, and hyperlipidemia. Consultation has also been placed with neurology. Past Medical History Past Medical History: COPD, CVA/TIA, Hyperlipidemia, Hypertension, Osteoarthritis (OA) Additional Past Medical History / Comment(s): fall 03-29-23-was seen in ER at [facility], [facility] Mar 2023- LEGS GO NUMB-unable to walk-able to stand with asst to transfer only.- has not been able to walk since 02/2023.uses transfer equip to transfer to chairs and bed. uses electric chair. ( needs 2 person assist with gait belt) BPH. OCCASIONAL NOSE BLEEDS. PSA elevated MRI . hand tremors, gutiérrez for retention 05/2024 History of Any Multi-Drug Resistant Organisms: None Reported Past Surgical History: Back Surgery, Joint Replacement Additional Past Surgical History / Comment(s): left hip arthroplasty 2012, hemorrhoidectomy. neck surgery, prostate biopsy Past Anesthesia/Blood Transfusion Reactions: No Reported Reaction Additional Past Anesthesia/Blood Transfusion Reaction / Comm: has had hallucination after having anesthesia with last surgery-lower back. no hx blood transfusion Past Psychological History: No Psychological Hx Reported Smoking Status: Former smoker Past Alcohol Use History: Occasional Past Drug Use History: None Reported - Past Family History Father Family Medical History: Cancer Additional Family Medical History / Comment(s): Father of throat cancer in his 40's. Mother Family Medical History: Diabetes Mellitus Additional Family Medical History / Comment(s): Pt thinks mother may have had cancer. Brother(s) Family Medical History: Cancer, CVA/TIA Additional Family Medical History / Comment(s): Joesphger brother had a CVA with speach difficulty but had full recovery. older brother had CA Medications and Allergies Home Medications Medication Instructions Recorded Confirmed Type Atorvastatin [Lipitor] 40 mg PO HS #30 tab 08/09/15 09/24/24 Rx Clopidogrel [Plavix] 75 mg PO DAILY tab 08/09/15 09/24/24 Rx lisinopriL [Prinivil] 10 mg PO DAILY 05/14/17 09/24/24 History Budesonide/Formoterol Fumarate 2 puff INHALATION RT-BID 06/08/21 09/24/24 History [Symbicort 160-4.5 Mcg Inhaler] Albuterol Sulfate [Albuterol 2 puff INHALATION RT-Q4H PRN 03/29/23 09/24/24 History Sulfate Hfa] Tamsulosin [Flomax] 0.4 mg PO DAILY 03/29/23 09/24/24 History Citalopram Hydrobromide [CeleXA] 20 mg PO HS 05/04/23 09/24/24 History Ipratropium-Albuterol Nebulize 3 ml INHALATION RT-QID PRN 06/09/24 09/24/24 History [Duoneb 0.5 mg-3 mg/3 ml Soln] Latanoprost [Latanoprost 0.005%] 1 drop BOTH EYES HS 06/22/24 09/24/24 History Sennosides-Docusate Sodium 1 tab PO DAILY 06/22/24 09/24/24 History [Senokot-S] polyethylene glycoL 3350 17 gm PO DAILY PRN #255 gm 06/25/24 09/24/24 Rx [Polyethylene Glycol 3350] Baclofen 10 mg PO TID 09/24/24 09/24/24 History Ergocalciferol (Vitamin D2) 1,250 mcg PO MO 09/24/24 09/24/24 History [Drisdol (GEQ) 1,250 MCG (50,000 IU)] Lactulose 10 gm PO DIRECTED 09/24/24 09/24/24 History oxyCODONE-APAP 7.5-325MG [Percocet 1 tab PO DAILY PRN 09/24/24 09/24/24 History 7.5-325 mg] Allergies Allergy/AdvReac Type Severity Reaction Status Date / Time No Known Allergies Allergy Verified 06/22/24 08:47 Physical Examination Physical Examination: Skin at the cervical spine is clear. Patient is nontender to palpation at the midline. There is some paravertebral spasm at the base of the neck. Negative Spurling sign bilaterally. Patient has reduced but adequate range of motion with flexion, extension, rotation, and bending. Well healed incision. He is able to move his arms and hands but has atrophy at his hands. He has very limited strength at his upper extremities. Right Lower extremity: Motor strength of the lower extremity is 5/5 including dorsiflexion, plantar flexion, extensor hallucis longus, hip flexion 3/5, knee extension abduction and adduction 5/5. Left Lower extremity: Motor strength of the lower extremity including hip flexion 4/5, knee extension abduction and adduction 5/5. Motor strength of lower extremity is 0/5 including dorsiflexion, extensor hallu cis longus, plantar flexion. Extensor lag to 20 degrees with significant spasm at the knee. He is unable to stand or ambulate independently. Results Pertinent studies: X-rays of the cervical spine taken in office on 07/18/24: reveals the anterior and posterior hardware appears to be intact. No obvious hardware failure. Align ment is maintained from C4-T4. No obvious change from prior films in January 2024. X-rays of the thoracic spine dated 07/18/24: taken in office shows the hardware at C4-T4 remains in maintained position anteriorly and posteriorly. No loosening. - Labs Labs: Abnormal Lab Results - Last 24 Hours (Table) 09/24/24 09/24/24 09/24/24 Range/Units 18:05 18:05 20:08 RBC 3.93 L (4.40-5.60) 10*6/uL Hgb 12.1 L (13.0-17.0) g/dL Hct 35.9 L (39.6-50.0) % MPV 8.7 L (9.5-12.2) fL Immature Gran # 0.07 H (0.00-0.04) 10*3/uL Eosinophils # (0.04-0.35) X 10*3/uL Sodium 136 L (137-145) mmol/L Creatinine 0.53 L (0.66-1.25) mg/dL Glucose (74-99) mg/dL Calcium (8.7-10.3) mg/dL Total Protein 5.7 L (6.3-8.2) g/dL Albumin 3.1 L (3.5-5.0) g/dL Albumin/Globulin Ratio (1.60-3.17) Ratio Free T3 pg/mL 2.00 L (2.30-4.20) pg/mL Urine Protein Trace H (Negative) Urine Blood Small H (Negative) Ur Leukocyte Esterase Large H (Negative) Urine RBC 18 H (0-5) /hpf Urine WBC 142 H (0-5) /hpf Urine WBC Clumps Few H (None) /hpf Urine Bacteria Many H (None) /hpf Urine Mucus Moderate H (None) /hpf 09/25/24 09/25/24 09/25/24 Range/Units 04:14 04:14 09:01 RBC 3.64 L (4.40-5.60) 10*6/uL Hgb 11.1 L (13.0-17.0) g/dL Hct 34.0 L (39.6-50.0) % MPV 9.1 L (9.5-12.2) fL Immature Gran # 0.07 H (0.00-0.04) 10*3/uL Eosinophils # 0.44 H (0.04-0.35) X 10*3/uL Sodium 136 L (137-145) mmol/L Creatinine 0.65 L (0.66-1.25) mg/dL Glucose 112 H (74-99) mg/dL Calcium 8.5 L (8.7-10.3) mg/dL Total Protein 5.2 L (6.3-8.2) g/dL Albumin 3.0 L (3.5-5.0) g/dL Albumin/Globulin Ratio 1.36 L (1.60-3.17) Ratio Free T3 pg/mL (2.30-4.20) pg/mL Urine Protein (Negative) Urine Blood (Negative) Ur Leukocyte Esterase (Negative) Urine RBC (0-5) /hpf Urine WBC (0-5) /hpf Urine WBC Clumps (None) /hpf Urine Bacteria (None) /hpf Urine Mucus (None) /hpf H & H 09/24/24 09/25/24 Range/Units 18:05 04:14 Hgb 12.1 L 11.1 L (13.0-17.0) g/dL Hct 35.9 L 34.0 L (39.6-50.0) % Coagulation 09/24/24 Range/Units 18:05 INR 0.9 (<1.2) Result Diagrams: 09/25/24 04:14 09/25/24 09:01 Assessment and Plan Assessment: Assessment: Status post posterior cervical decompression C4-T4 with fusion C4-T4 on 05/09/23. Status post minimally-invasive PLDF/TLIF at L3/4 and L4/5 on 06/08/21. History of C5-6 and C6-7 anterior cervical decompression and fusion performed on 06/12/2016. Central disc protrusion at C4/5 with effacement of the anterior thecal sac and right foraminal stenosis. Residual disc protrusion and myelomalacia at C6/7. Spondylolisthesis, C7/T1, T1/2, and T2/3. Central cord narrowing at T1/2. Low back pain. Inability to ambulate. Neck pain. Dexterity changes. Bilateral upper extremity radiculopathy. Chronic falls. Cervical myelopathy. Severe diminished quality of life. Severe muscle spasms. Acute comp. UTI Acute metabolic encephalopathy COPD Hypertension Hyperlipidemia (1) Inability to walk Current Visit: Yes Status: Acute Code(s): R26.2 - DIFFICULTY IN WALKING, NOT ELSEWHERE CLASSIFIED SNOMED Code(s): 965630184 (2) Spasticity Current Visit: Yes Status: Acute Code(s): R25.2 - CRAMP AND SPASM SNOMED Code(s): 605363445 (3) COPD (chronic obstructive pulmonary disease) Current Visit: Yes Status: Acute Code(s): J44.9 - CHRONIC OBSTRUCTIVE PULMONARY DISEASE, UNSPECIFIED SNOMED Code(s): 25405629 (4) Acute metabolic encephalopathy Current Visit: Yes Status: Acute Code(s): G93.41 - METABOLIC ENCEPHALOPATHY SNOMED Code(s): 87099678 (5) Hyperlipidemia Current Visit: No Status: Acute Code(s): E78.5 - HYPERLIPIDEMIA, UNSPECIFIED SNOMED Code(s): 80960835 (6) Hypertension Current Visit: No Status: Acute Code(s): I10 - ESSENTIAL (PRIMARY) HYPERTENSION SNOMED Code(s): 86213961 (7) Myelomalacia Current Visit: No Status: Acute Code(s): G95.89 - OTHER SPECIFIED DISEASES OF SPINAL CORD SNOMED Code(s): 35359918 (8) Myelomalacia of cervical cord Current Visit: No Status: Acute Code(s): G95.89 - OTHER SPECIFIED DISEASES OF SPINAL CORD SNOMED Code(s): 28362699 (9) Myelopathy Current Visit: No Status: Acute Code(s): G95.9 - DISEASE OF SPINAL CORD, UNSPECIFIED SNOMED Code(s): 75963855 (10) Spondylolisthesis Current Visit: No Status: Acute Code(s): M43.10 - SPONDYLOLISTHESIS, SITE UNSPECIFIED SNOMED Code(s): 132312148 (11) Spondylolisthesis, thoracic region Current Visit: No Status: Acute Code(s): M43.14 - SPONDYLOLISTHESIS, THORAC IC REGION SNOMED Code(s): 160251075 (12) Status post lumbar spinal fusion Current Visit: No Status: Acute Code(s): Z98.1 - ARTHRODESIS STATUS SNOMED Code(s): 37826742759426 (13) Upper extremity weakness Current Visit: No Status: Acute Code(s): R29.898 - OTH SYMPTOMS AND SIGNS INVOLVING THE MUSCULOSKELETAL SYSTEM SNOMED Code(s): 795679379 (14) Urinary tract infection Current Visit: No Status: Acute Code(s): N39.0 - URINARY TRACT INFECTION, SITE NOT SPECIFIED SNOMED Code(s): 76604499 (15) Degenerative disc disease Current Visit: No Status: Chronic Code(s): LCS1509 - SNOMED Code(s): 21104838 Plan: Plan: 1. The patient has had multiple surgical interventions at his cervical spine as well as his lumbar spine. He has continued to worsen. He has significant difficulty with regular activities of daily living. His quality of life is significantly diminished. The patient has a permanent spinal cord injury and has continued to worsen despite surgical decompression and stabilization. He is completely unable to mobilize and ambulate without assistance. He is completely unable to ambulate. He is not able to position himself on his own in a chair. He has permanent weakness at his bilateral lower extremities with essentially complete loss of use at his lower extremities. He has limited use of his upper extremities to assist him with positioning. He is feeling more weakness in his hands. I do not think that he would be safe at home and I think that he requires permanent mcfp with regular therapy to maintain his current function as best as possible. I recommend that they do not return home. Currently, patient should continue to be seen by medicine and treated for his multiple other medical diagnoses as well as including acute metabolic encephalopathy and acute complicated UTI. We are not planning for any surgical intervention at his cervical or lumbar spines as we do not feel any surgical intervention would provide any significant improvement of his symptoms. Given his ongoing decline, we do think further evaluation with neurology is a good plan of care. Neurology has been consult. Patient should continue working with physical therapy. We will plan have the patient follow-up in the outpatient setting as needed. He will continue with all conservative treatment options at this point. Time with Patient: Greater than 30 (including history, physical exam, and dictation)
--- NOTE | 2024-09-25 13:45 | P.PN ---
Subjective Progress Note Date: 09/25/24 Hospital Course: Patient is a 74 y/o M with a PMH of COPD, CVA, HLD, HTN, Prostate cancer presenting with weakness and confusion. He indicates both arms have been getting weaker and he can no longer hold a cup to drink water. He uses an electric chair at baseline. Usually able to transfer and feed himself but hasn't been able to past few days. Denies any LOC, Falls, SOB, Palps, Diaphoresis, edema, dizziness. Endorses Burning on urination, muscle stiffness, less frequent urination, and confusion. History is tough to get d/t confusion. He was sent to ED b/c home health care doc indicated that pt was deteriorating fast from baseline. Started rochephin for UTI, + U.A, continue home medications, and awaiting Urine culture and blood cultures. Patient seen by neurology and ortho. Ortho has no further re commendations for intervention. Patient also has ulcer on left heel, wound care. Subjective: Patient seen and examined at bedside. No acute events overnight. Pertinent positives and negatives as discussed above, a complete review of systems was performed and all other systems are negative. Vitals: Signs Reviewed Physical Exam: Vital signs reviewed General: non toxic, no distress, appears at stated age, normal weight Derm: no unusual rashes/lesions, warm Head: atraumatic, normocephalic, symmetric Eyes: EOMI, anicteric sclera, pupils equal round reactive to light ENT: Nose and ears atraumatic Neck: No cervical lymphadenopathy, trachea midline, supple Mouth: no lip lesion, mucus membranes moist Cardiovascular: S1S2 reg, no murmur, positive dorsalis pedis pulse bilateral, no edema Lungs: CTA bilateral, no rhonchi, no rales, no accessory muscle use Abdominal: soft, nontender to palpation, no guarding Ext: muscle strength 5 out of 5 in upper extremities, Patient cannot move B/L LE, both legs atrophic Neuro: CN II-XI grossly intact, no gross focal neuro deficits Psych: Alert, oriented to person, place, and time Data Received Today: Pertinent Labs: Temp: 97.7 WBC: Hgb: Hct: UA: + trace protein Blood: + Leukocyte esterase: + Large urine RBC: 18 + urine WBC: 142 + Urine bacteria: many + Urine mucus: moderate + Imaging: CT head: no acute changes Assessment and Plan: # acute complicated UTI #Weakness #acute metabolic encephalopathy 74 y/o with acute weakness and confusion with positive U/A and dysuria/reduced frequency without signs of systemic sxs. Neurologic exam negative, CT brain negative. Plan: -Urine culture -Blood culture -Continue rocephin 2 gm IVPB IVF hydration NS 75 cc per hour #Lower extremity weakness/ spasticity Neurology following to asses neuro function / spasticity Continue baclofen 10mg qid prn percocet 7.5/325 prn for pain #heal ulcer wound care #COPD, compensated History of COPD increases risk for delirium and infection. Assess for COPD exacerbation as a potential contributor to current symptoms. Monitor for hypoxia, hypercapnia, and respiratory infection. Plan: -CXR -Continue home symbicort, albuterol, budesonide -Monitor O2 and supplement O2 as needed #HLD #HTN Chronic Plan: -Continue atorvastatin 40mg DVT ppx: Lovenox Anticipated discharge place: Pending clinical course Anticipated discharge time: Pending clinical course Kat Pereira MD PGY-1 FM Dictation was produced using motify dictation software. please excuse any grammatical, word or spelling errors. I have seen and evaluated the patient today. Discussed with the resident and agree with the residents subjective and objective as documented in the note above. We discussed the assessment and plan as below. Acute metabolic encephalopathy due to UTI from indwelling catheter: Continue Rocephin 1g IV QD. Follow UCx + BCx. Gentle hydration with NS at 75 cc/hr. Lower extremity contractures with spasticity: Result of traumatic spinal cord injury. Pain management with Percocet 7.5-325 mg PO QD PRN + Baclofen 10 mg PO QID PRN. May benefit from Botox injections, Zanaflex or Valium if no relief. Consult Orthopedic surgery Dr. Wills for possible further imaging. Consult PT and OT to work with ROM and mobility. Poor prognosis. Neurology consulted as well. L heel pressure ulcer: Consult to wound care. Frequent re-positioning. Consider DME for suspension boots. High protein diet. COPD not in acute exacerbation: Symbicort 2 INH BID. DuoNeb QID PRN. HTN: Lisinopril 10 mg PO QD. HLD: Lipitor 40 mg PO QHS. BPH: Flomax 0.4 mg PO QD. Depression: Celexa 20 mg PO QHS. Objective - Vital Signs Vital signs: Vital Signs Temp 97.9 F 09/25/24 00:00 Pulse 85 09/25/24 00:00 Resp 19 09/25/24 00:00 BP 98/68 09/25/24 00:00 Pulse Ox 95 09/25/24 00:00 FiO2 Intake & Output 09/24/24 09/25/24 09/25/24 18:59 06:59 18:59 Output Total 450 Balance -450 Weight 56.699 kg 56.699 kg Output: Urine 450 - Labs CBC & Chem 7: 09/25/24 04:14 09/25/24 09:01 Labs: Abnormal Lab Results - Last 24 Hours (Table) 09/24/24 09/24/24 09/24/24 Range/Units 18:05 18:05 20:08 RBC 3.93 L (4.40-5.60) 10*6/uL Hgb 12.1 L (13.0-17.0) g/dL Hct 35.9 L (39.6-50.0) % MPV 8.7 L (9.5-12.2) fL Immature Gran # 0.07 H (0.00-0.04) 10*3/uL Sodium 136 L (137-145) mmol/L Creatinine 0.53 L (0.66-1.25) mg/dL Total Protein 5.7 L (6.3-8.2) g/dL Albumin 3.1 L (3.5-5.0) g/dL Free T3 pg/mL 2.00 L (2.30-4.20) pg/mL Urine Protein Trace H (Negative) Urine Blood Small H (Negative) Ur Leukocyte Esterase Large H (Negative) Urine RBC 18 H (0-5) /hpf Urine WBC 142 H (0-5) /hpf Urine WBC Clumps Few H (None) /hpf Urine Bacteria Many H (None) /hpf Urine Mucus Moderate H (None) /hpf
[2024-09-25] MEDS: ZINC OXIDE PASTE (Z-GUARD) 1 APPLIC TOPICAL PRN (15:41)
--- NOTE | 2024-09-25 16:55 | P.CONS ---
History of Present Illness - Reason for Consult Consult date: 09/25/24 rehab recommendations - Chief Complaint debility - History of Present Illness Mr Last Swanson is a 74-year-old right handed male who lives with his in a single-story home with ramp entry. Prior to admission patient was able to transfer to his wheelchair and perform feeding. Patient has not been able to walk for over a year. He has several different types of medical equipment at home to assist with mobility. was helping assist with his ADLs. Patient presented to [facility] on September 24 with complaints of progressive weakness and inability to feed himself. Patient with a known history of spinal cord injury with history of cervical and lumbar fusions. Patient has been unable to walk for over a year, was getting assistance with transfers using a gait belt. UA with a UTI, started on antibiotics per medical. Orthospine was consulted, no future surgeries planned. Recommended therapy and possible placement if is unable to care for him. PM&R consulted for rehabilitation recommendations. Patient is pending therapy evaluations 09/25: Patient denies CP, SOB, and abdominal pain. He denies headaches, dizziness, blurred vision. He reports that he had a BM in his brief, states that he can feel when he has a bowel movement, he has had a chronic catheter due to urinary retention/incontinence. He reports that he was in a rehab after his neck surgery, and was there for 6 weeks. He reports that the therapy "sucks ", but he is aware that his is unable to care for him at his current level of function. He reports that they have an EZ stand, but he has not been able to perform that type of transfer now. He reports pain in his right knee, does have "stiffness" in his legs, grossly appears he has leg contractures. He reports a wound on his left heel. Review of Systems ROS reviewed and listed above in HPI Past Medical History Past Medical History: COPD, CVA/TIA, Hyperlipidemia, Hypertension, Osteoarthritis (OA) Additional Past Medical History / Comment(s): fall 03-29-23-was seen in ER at [facility], cait Mar 2023- LEGS GO NUMB-unable to walk-able to stand with asst to transfer only.- has not been able to walk since 02/2023.uses transfer equip to transfer to chairs and bed. uses electric chair. ( needs 2 person assist with gait belt) BPH. OCCASIONAL NOSE BLEEDS. PSA elevated MRI . hand tremors, gutiérrez for retention 05/2024 History of Any Multi-Drug Resistant Organisms: None Reported Past Surgical History: Back Surgery, Joint Replacement Additional Past Surgical History / Comment(s): left hip arthroplasty 2012, hemorrhoidectomy. neck surgery, prostate biopsy Past Anesthesia/Blood Transfusion Reactions: No Reported Reaction Additional Past Anesthesia/Blood Transfusion Reaction / Comm: has had hallucination after having anesthesia with last surgery-lower back. no hx blood transfusion Past Psychological History: No Psychological Hx Reported Smoking Status: Former smoker Past Alcohol Use History: Occasional Past Drug Use History: None Reported - Past Family History Father Family Medical History: Cancer Additional Family Medical History / Comment(s): Father of throat cancer in his 40's. Mother Family Medical History: Diabetes Mellitus Additional Family Medical History / Comment(s): Pt thinks mother may have had cancer. Brother(s) Family Medical History: Cancer, CVA/TIA Additional Family Medical History / Comment(s): Youger brother had a CVA with speach difficulty but had full recovery. older brother had CA Medications and Allergies Home Medications Medication Instructions Recorded Confirmed Type Atorvastatin [Lipitor] 40 mg PO HS #30 tab 08/09/15 09/24/24 Rx Clopidogrel [Plavix] 75 mg PO DAILY tab 08/09/15 09/24/24 Rx lisinopriL [Prinivil] 10 mg PO DAILY 05/14/17 09/24/24 History Budesonide/Formoterol Fumarate 2 puff INHALATION RT-BID 06/08/21 09/24/24 History [Symbicort 160-4.5 Mcg Inhaler] Albuterol Sulfate [Albuterol 2 puff INHALATION RT-Q4H PRN 03/29/23 09/24/24 History Sulfate Hfa] Tamsulosin [Flomax] 0.4 mg PO DAILY 03/29/23 09/24/24 History Citalopram Hydrobromide [CeleXA] 20 mg PO HS 05/04/23 09/24/24 History Ipratropium-Albuterol Nebulize 3 ml INHALATION RT-QID PRN 06/09/24 09/24/24 History [Duoneb 0.5 mg-3 mg/3 ml Soln] Latanoprost [Latanoprost 0.005%] 1 drop BOTH EYES HS 06/22/24 09/24/24 History Sennosides-Docusate Sodium 1 tab PO DAILY 06/22/24 09/24/24 History [Senokot-S] polyethylene glycoL 3350 17 gm PO DAILY PRN #255 gm 06/25/24 09/24/24 Rx [Polyethylene Glycol 3350] Baclofen 10 mg PO TID 09/24/24 09/24/24 History Ergocalciferol (Vitamin D2) 1,250 mcg PO MO 09/24/24 09/24/24 History [Drisdol (GEQ) 1,250 MCG (50,000 IU)] Lactulose 10 gm PO DIRECTED 09/24/24 09/24/24 History oxyCODONE-APAP 7.5-325MG [Percocet 1 tab PO DAILY PRN 09/24/24 09/24/24 History 7.5-325 mg] Allergies Allergy/AdvReac Type Severity Reaction Status Date / Time No Known Allergies Allergy Verified 06/22/24 08:47 Physical Exam Vitals: Vital Signs Temp Pulse Pulse Resp BP BP Pulse Ox 09/25/24 14:02 98.3 F 89 18 96/61 95 09/25/24 09:27 89 18 09/25/24 09:13 89 18 100 09/25/24 07:04 97.7 F 83 17 109/70 97 09/25/24 00:00 97.9 F 85 19 98/68 95 09/24/24 22:54 98 F 87 20 100/62 96 09/24/24 18:55 90 18 110/69 97 09/24/24 18:15 18 09/24/24 16:50 98.0 F 89 18 109/64 96 Intake and Output 09/25/24 09/25/24 09/25/24 06:59 14:59 22:59 Output Total 450 Balance -450 Output: Urine 450 Other: Voiding Method Indwelling Catheter Weight 56.699 kg General: Well-developed, well-nourished, male, laying in bed, in no acute distress] HEENT: NC/AT, external ears intact, hearing intact to conversational speech Cardiovascular: B/L calves are supple, nontender, no cords, without peripheral edema, no cardiac distress Respiratory: Even and unlabored breathing on RA Abdomen: Soft, nontender, nondistended Genitourinary: Gutiérrez catheter intact Musculoskeletal: Generalized muscle wasting of the upper extremities, bilateral lower extremity flexion contractures left greater than right, interosseous muscle wasting MMT UE Sh Abd EE EF HG Right 4 4 4+ 4 Left 4 4 4+ 4 MMT LE HF KE DF EHL Right 1-2 2 4 4 Left 0-1 0 2 2 Skin: Dry skin to bilateral upper and lower extremities, left heel not assessed, peripheral IV Neurological: Alert and oriented x 4. CN II-XII: Grossly intact. Speech is clear, fluent Positive Kameron's bilaterally, positive clonus bilaterally Sensation: Sensation intact to light touch bilateral upper extremity, and lower extremities Psychiatric: Mood calm, affect flat cooperative. Results CBC & Chem 7: 09/25/24 04:14 09/25/24 09:01 Labs: Abnormal Lab Results - Last 24 Hours (Table) 09/24/24 09/24/24 09/24/24 Range/Units 18:05 18:05 20:08 RBC 3.93 L (4.40-5.60) 10*6/uL Hgb 12.1 L (13.0-17.0) g/dL Hct 35.9 L (39.6-50.0) % MPV 8.7 L (9.5-12.2) fL Immature Gran # 0.07 H (0.00-0.04) 10*3/uL Eosinophils # (0.04-0.35) X 10*3/uL Sodium 136 L (137-145) mmol/L Creatinine 0.53 L (0.66-1.25) mg/dL Glucose (74-99) mg/dL Calcium (8.7-10.3) mg/dL Total Protein 5.7 L (6.3-8.2) g/dL Albumin 3.1 L (3.5-5.0) g/dL Albumin/Globulin Ratio (1.60-3.17) Ratio Free T3 pg/mL 2.00 L (2.30-4.20) pg/mL Urine Protein Trace H (Negative) Urine Blood Small H (Negative) Ur Leukocyte Esterase Large H (Negative) Urine RBC 18 H (0-5) /hpf Urine WBC 142 H (0-5) /hpf Urine WBC Clumps Few H (None) /hpf Urine Bacteria Many H (None) /hpf Urine Mucus Moderate H (None) /hpf 09/25/24 09/25/24 09/25/24 Range/Units 04:14 04:14 09:01 RBC 3.64 L (4.40-5.60) 10*6/uL Hgb 11.1 L (13.0-17.0) g/dL Hct 34.0 L (39.6-50.0) % MPV 9.1 L (9.5-12.2) fL Immature Gran # 0.07 H (0.00-0.04) 10*3/uL Eosinophils # 0.44 H (0.04-0.35) X 10*3/uL Sodium 136 L (137-145) mmol/L Creatinine 0.65 L (0.66-1.25) mg/dL Glucose 112 H (74-99) mg/dL Calcium 8.5 L (8.7-10.3) mg/dL Total Protein 5.2 L (6.3-8.2) g/dL Albumin 3.0 L (3.5-5.0) g/dL Albumin/Globulin Ratio 1.36 L (1.60-3.17) Ratio Free T3 pg/mL (2.30-4.20) pg/mL Urine Protein (Negative) Urine Blood (Negative) Ur Leukocyte Esterase (Negative) Urine RBC (0-5) /hpf Urine WBC (0-5) /hpf Urine WBC Clumps (None) /hpf Urine Bacteria (None) /hpf Urine Mucus (None) /hpf Assessment and Plan Assessment: # Acute on chronic debility - PT/OT - Fall precautions # Impaired ADLs secondary to chronic spinal cord injury # Uncomplicated UTI - On Rocephin # Acute metabolic encephalopathy - Neurology consulted # History of C4-T4 cervical fusion in April 2023 # History of lumbar spinal fusion in 2021 # History of CVA # Mood - On Celexa #Bowel/ Bladder: Nursing to monitor and report concerns if any. -Patient reports chronic Gutiérrez catheter due to suspected neurogenic bladder #Skin/wound: Skin/Wound care to follow as needed. # Pain Management: Baclofen 10 mg 4 times daily as needed, Percocet 7.5 every 4 as needed - Recommend switching baclofen to scheduled 4 times daily given level of contractures # DVT Prophylaxis: defer to medical #Your medical dx and mgt Barriers: endurance, chronic debility Discharge recommendation: Given patient's progressive weakness over the past year and chronic debility, patient is more appropriate for subacute rehab program. He may need potential long-term care placement if patient's is not able to provide level of assistance that is needed which i foresee in his near future. Patient seen and examined in collaboration with Thank you for this consultation.
--- NOTE | 2024-09-25 19:32 | P.CNNES ---
<JoseluisGerrifrank - Last Filed: 09/25/24 17:08> History of Present Illness Consult date: 09/25/24 Requesting physician: Frde Vaughn Reason for Consult: weakness History of Present Illness: Patient is a 74-year-old male with past medical significant for CVA/TIA, hyperlipidemia, hypertension, hand tremors, wheelchair-bound presented to the ED with worsening chronic weakness. He was sent to the ED by his home health care doctor who indicated that the patient was deteriorating fast from baseline. Patient does have problems with the chronic back and neck problems with inability to walk for over a year. Patient is normally able to help transfer and feed himself however he has not been able to for the past few days. He can no longer hold a cup to drink water. Patient seen today in initial consultation for weakness. Patient/s provides all the history. Patient was last able to stand up completely with help was in May 2024. He has since deteriorated. He is not able to move his lower extremities at all and they are crossed over. He has noticed tremors in his b/l hands. He was able to step sideways until Apr 2024. He had two cervical spine surgeries in 2016 and 2023, lumbar spine surgery in 2022. Review of systems: Pertinent positives and negatives mentioned in the HPI. Rest of 14 point review of systems is negative. Vitals within normal limits Hemoglobin 11.1, TSH 2.560, free T4 1.67, free T3 2.00 UA protein, small blood, large leukocyte esterase, 80 RBC, 142 WBC, few WBC clumps, many bacteria, moderate mucus Brain CT shows no acute intracranial process, stable white matter changes in the right cerebellum Past Medical History Past Medical History: COPD, CVA/TIA, Hyperlipidemia, Hypertension, Osteoarthritis (OA) Additional Past Medical History / Comment(s): fall 03-29-23-was seen in ER at [facility], steroids Mar 2023- LEGS GO NUMB-unable to walk-able to stand with asst to transfer only.- has not been able to walk since 02/2023.uses transfer equip to transfer to chairs and bed. uses electric chair. ( needs 2 person assist with gait belt) BPH. OCCASIONAL NOSE BLEEDS. PSA elevated MRI . hand tremors, gutiérrez for retention 05/2024 History of Any Multi-Drug Resistant Organisms: None Reported Past Surgical History: Back Surgery, Joint Replacement Additional Past Surgical History / Comment(s): left hip arthroplasty 2013, hemorrhoidectomy. neck surgery, prostate biopsy Past Anesthesia/Blood Transfusion Reactions: No Reported Reaction Additional Past Anesthesia/Blood Transfusion Reaction / Comment(s): has had hallucination after having anesthesia with last surgery-lower back. no hx blood transfusion Past Psychological History: No Psychological Hx Reported Smoking Status: Former smoker Past Alcohol Use History: Occasional Past Drug Use History: None Reported - Past Family History Father Family Medical History: Cancer Additional Family Medical History / Comment(s): Father of throat cancer in his 40's. Mother Family Medical History: Diabetes Mellitus Additional Family Medical History / Comment(s): Pt thinks mother may have had cancer. Brother(s) Family Medical History: Cancer, CVA/TIA Additional Family Medical History / Comment(s): Joesphger brother had a CVA with speach difficulty but had full recovery. older brother had CA Medications and Allergies Home Medications Medication Instructions Recorded Confirmed Type Atorvastatin [Lipitor] 40 mg PO HS #30 tab 08/09/15 09/24/24 Rx Clopidogrel [Plavix] 75 mg PO DAILY tab 08/09/15 09/24/24 Rx lisinopriL [Prinivil] 10 mg PO DAILY 05/14/17 09/24/24 History Budesonide/Formoterol Fumarate 2 puff INHALATION RT-BID 06/08/21 09/24/24 History [Symbicort 160-4.5 Mcg Inhaler] Albuterol Sulfate [Albuterol 2 puff INHALATION RT-Q4H PRN 03/29/23 09/24/24 History Sulfate Hfa] Tamsulosin [Flomax] 0.4 mg PO DAILY 03/29/23 09/24/24 History Citalopram Hydrobromide [CeleXA] 20 mg PO HS 05/04/23 09/24/24 History Ipratropium-Albuterol Nebulize 3 ml INHALATION RT-QID PRN 06/09/24 09/24/24 History [Duoneb 0.5 mg-3 mg/3 ml Soln] Latanoprost [Latanoprost 0.005%] 1 drop BOTH EYES HS 06/22/24 09/24/24 History Sennosides-Docusate Sodium 1 tab PO DAILY 06/22/24 09/24/24 History [Senokot-S] polyethylene glycoL 3350 17 gm PO DAILY PRN #255 gm 06/25/24 09/24/24 Rx [Polyethylene Glycol 3350] Baclofen 10 mg PO TID 09/24/24 09/24/24 History Ergocalciferol (Vitamin D2) 1,250 mcg PO MO 09/24/24 09/24/24 History [Drisdol (GEQ) 1,250 MCG (50,000 IU)] Lactulose 10 gm PO DIRECTED 09/24/24 09/24/24 History oxyCODONE-APAP 7.5-325MG [Percocet 1 tab PO DAILY PRN 09/24/24 09/24/24 History 7.5-325 mg] Allergies Allergy/AdvReac Type Severity Reaction Status Date / Time No Known Allergies Allergy Verified 06/22/24 08:47 Physical Examination - Vital Signs Vital Signs: Vital Signs Temp Pulse Pulse Resp BP BP Pulse Ox 09/25/24 09:27 89 18 09/25/24 09:13 89 18 100 09/25/24 00:00 97.9 F 85 19 98/68 95 09/24/24 22:54 98 F 87 20 100/62 96 09/24/24 18:55 90 18 110/69 97 09/24/24 18:15 18 09/24/24 16:50 98.0 F 89 18 109/64 96 Intake and Output 09/24/24 09/25/24 09/25/24 22:59 06:59 14:59 Output Total 450 Balance -450 Output: Urine 450 Other: Weight 56.699 kg 56.699 kg General: no distress, lying in bed comfortably Neuro: Patient is awake alert and oriented x 3. Extraocular movements intact no nystagmus, face is symmetric, facial sensation normal. On muscle strength testing, there is 4/5 in b/l UE, 1/5 in b/l LE, tremors on b/l hands, asterixis Deep tendon reflexes are symmetric 1 at biceps, 1 at brachioradialis on right UE, 2 at biceps, brachioradialis on left UE, 1 at the knees on right LE Sensory to touch is diminished on b/l LE Cerebellar function showed no ataxia or dysmetria, for [id number] testing, Results - Laboratory Findings CBC and BMP: 09/25/24 04:14 09/25/24 09:01 Abnormal Lab Findings: Abnormal Labs 09/24/24 09/24/24 09/24/24 18:05 18:05 20:08 RBC 3.93 L Hgb 12.1 L Hct 35.9 L MPV 8.7 L Immature Gran # 0.07 H Eosinophils # Sodium 136 L Creatinine 0.53 L Glucose Calcium Total Protein 5.7 L Albumin 3.1 L Albumin/Globulin Ratio Free T3 pg/mL 2.00 L Urine Protein Trace H Urine Blood Small H Ur Leukocyte Esterase Large H Urine RBC 18 H Urine WBC 142 H Urine WBC Clumps Few H Urine Bacteria Many H Urine Mucus Moderate H 09/25/24 09/25/24 09/25/24 04:14 04:14 09:01 RBC 3.64 L Hgb 11.1 L Hct 34.0 L MPV 9.1 L Immature Gran # 0.07 H Eosinophils # 0.44 H Sodium 136 L Creatinine 0.65 L Glucose 112 H Calcium 8.5 L Total Protein 5.2 L Albumin 3.0 L Albumin/Globulin Ratio 1.36 L Free T3 pg/mL Urine Protein Urine Blood Ur Leukocyte Esterase Urine RBC Urine WBC Urine WBC Clumps Urine Bacteria Urine Mucus Assessment and Plan Assessment: Spastic contracture of b/l LE History of CVA/TIA Hyperlipidemia Hypertension Severe cervical thoracic myelopathy with myelomalacia, severe cervical stenosis, spondylolisthesis s/p posterior cervical decompression and fusion Uses electric chair at baseline Plan: Brain CT shows no acute intracranial process, stable white matter changes in the right cerebellum TSH 2.560, free T4 1.67, free T3 2.00 UA protein, small blood, large leukocyte esterase, 80 RBC, 142 WBC, few WBC clumps, many bacteria, moderate mucus Currently on Rocephin 1 mg IV every 24 hours empirically for pyelonephritis Home meds atorvastatin 40 mg p.o. at bedtime, clopidogrel 75 mg p.o. daily have been resumed Obtain A1c, vitamin B12, folate, lipid panel, ammonia level Orthopedic surgery consulted, recommend conservative management PM&R consulted DVT prophylaxis: Enoxaparin 40 mg SQ daily Dictation was produced using [employer] software. please excuse any grammatical, word or spelling errors. Janae Huggins MD PGY-2 IM <[email or web address] - Last Filed: 09/25/24 19:32> Physical Examination - Vital Signs Vital Signs: Vital Signs Temp Pulse Pulse Resp BP BP Pulse Ox 09/25/24 14:02 98.3 F 89 18 96/61 95 09/25/24 09:27 89 18 09/25/24 09:13 89 18 100 09/25/24 07:04 97.7 F 83 17 109/70 97 09/25/24 00:00 97.9 F 85 19 98/68 95 09/24/24 22:54 98 F 87 20 100/62 96 Intake and Output 09/25/24 09/25/24 09/25/24 06:59 14:59 22:59 Output Total 450 310 Balance -450 -310 Output: Urine 450 310 Other: Voiding Method Indwelling Catheter Weight 56.699 kg Results - Laboratory Findings CBC and BMP: 09/25/24 04:14 09/25/24 09:01 Abnormal Lab Findings: Abnormal Labs 09/24/24 09/24/24 09/24/24 18:05 18:05 20:08 RBC 3.93 L Hgb 12.1 L Hct 35.9 L MPV 8.7 L Immature Gran # 0.07 H Eosinophils # Sodium 136 L Creatinine 0.53 L Glucose Calcium Total Protein 5.7 L Albumin 3.1 L Albumin/Globulin Ratio Free T3 pg/mL 2.00 L Urine Protein Trace H Urine Blood Small H Ur Leukocyte Esterase Large H Urine RBC 18 H Urine WBC 142 H Urine WBC Clumps Few H Urine Bacteria Many H Urine Mucus Moderate H 09/25/24 09/25/24 09/25/24 04:14 04:14 09:01 RBC 3.64 L Hgb 11.1 L Hct 34.0 L MPV 9.1 L Immature Gran # 0.07 H Eosinophils # 0.44 H Sodium 136 L Creatinine 0.65 L Glucose 112 H Calcium 8.5 L Total Protein 5.2 L Albumin 3.0 L Albumin/Globulin Ratio 1.36 L Free T3 pg/mL Urine Protein Urine Blood Ur Leukocyte Esterase Urine RBC Urine WBC Urine WBC Clumps Urine Bacteria Urine Mucus Assessment and Plan Plan: I was present for the reynoso and critical components of this encounter and I agree with the assessment and plan as documented above. Patient has history of cervical myelopathy, with myelomalacia, status post 2 cervical spinal surgery on 06/12/2016 and then on 05/09/2023. He also has history of lumbar surgery for spinal stenosis on 06/08/2021. Patient has developed rapid decline since April 2024. Until April 2023, he was able to stand up with help and take some sidesteps with help, and turn around with help (from his ) to sit onto the commode or his wheelchair. His left leg was giving out and fell couple times. However since May he has not able to stand at all. His arms are also getting worse, not able to feed. On examination, his muscle strength is (right/left deltoid 5-4+/5-4+, biceps 4+/4+, triceps 4/4, finance consultant 5/5. He is very spastic in the lower limbs with scissoring of his lower legs. DTRs are 2+ in the right upper limb, 3 in left upper limb, and he has sustained clonus bilaterally. Tone is mildly increased on the right, moderately on the left. It appears patient's myelopathy is getting worse. We will discuss with orthopedic surgery if repeat imaging with MRI of the cervical and lumbar spine is indicated, although their note indicates no intervention being entertained at this point. We will increase baclofen to 20 mg 3 times daily. He may benefit from Botox injections for his lower limb spasticity. Agree with the management plan mentioned in the above resident's note.
[2024-09-25] MEDS: ATORVASTATIN 40 MG TAB PO SCH (20:07)
[2024-09-25] MEDS: CITALOPRAM HYDROBROMIDE 20 MG TAB PO SCH (20:07)
[2024-09-25] MEDS: LATANOPROST 0.005% OPHTH DROPS 2.5 ML BTL BOTH EYES SCH (20:49)
[2024-09-25] MEDS: MENTHOL-CAMPHOR LOTION 222 APPLIC/222 ML BOTTLE TOPICAL PRN (20:50)
[2024-09-26] MEDS: BACLOFEN 10 MG TAB PO PRN (09:01)
[2024-09-26 09:19] LABS: Cholesterol 123.00 mg/dL (0.00-200.00); HDL Cholesterol 28.70 mg/dL (40.00-60.00); LDL Cholesterol,Calculated 76.0 mg/dL (0.0-131.0); Triglycerides 91.30 mg/dL (0.00-149.00); VLDL Calculation 18.26 mg/dL (5.00-40.00)
--- NOTE | 2024-09-26 11:02 | P.CONS ---
History of Present Illness - Reason for Consult Consult date: 09/26/24 wound care - History of Present Illness This is a 74-year-old patient being seen on 4 S. for a pressure ulcer to the left heel. Patient states that he has been having treatment to the site utilizing honey. 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 Ulceration measures approximately 2.5 x 4.0 x 0.2 cm with minimal slough and nonviable tissue present granulation seen throughout the wound bed. Wound edges are attached to the wound base no tunneling or undermining noted. Fat layer is exposed. Review Of Systems: Constitutional: No fever, no chills, no night sweats. No weight change. No weakness, fatigue or lethargy. No daytime sleepiness. Integumentary:reports wounds, no lesions. No rash or pruritus. No unusual bruising. No change in hair or nails. Physical exam: General Appearance: Alert, cooperative, no distress, appears stated age. Skin: See HPI all other Skin color, texture, tugor normal, no rashes or lesions. Neurologic: Alert oriented x3 Assessment: 1. Stage II pressure ulcer left heel Plan: 1. Apply collagen, saline moist gauze and bordered foam. Avoid pressure to the left heel. Thank you for the consultation any questions please contact the wound care center DNP note has been reviewed and discussed with Dr. Vences and the impression and plan of care has been directed as dictated. Past Medical History Past Medical History: COPD, CVA/TIA, Hyperlipidemia, Hypertension, Osteoarthritis (OA) Additional Past Medical History / Comment(s): fall 03-29-23-was seen in ER at [facility], [facility] Mar 2023- LEGS GO NUMB-unable to walk-able to stand with asst to transfer only.- has not been able to walk since 02/2023.uses transfer equip to transfer to chairs and bed. uses electric chair. ( needs 2 person assist with gait belt) BPH. OCCASIONAL NOSE BLEEDS. PSA elevated MRI . hand tremors, gutiérrez for retention 05/2024 History of Any Multi-Drug Resistant Organisms: None Reported Past Surgical History: Back Surgery, Joint Replacement Additional Past Surgical History / Comment(s): left hip arthroplasty 2012, hemorrhoidectomy. neck surgery, prostate biopsy Past Anesthesia/Blood Transfusion Reactions: No Reported Reaction Additional Past Anesthesia/Blood Transfusion Reaction / Comm: has had hallucinat ion after having anesthesia with last surgery-lower back. no hx blood transfusion Past Psychological History: No Psychological Hx Reported Smoking Status: Former smoker Past Alcohol Use History: Occasional Past Drug Use History: None Reported - Past Family History Father Family Medical History: Cancer Additional Family Medical History / Comment(s): Father of throat cancer in his 40's. Mother Family Medical History: Diabetes Mellitus Additional Family Medical History / Comment(s): Pt thinks mother may have had cancer. Brother(s) Family Medical History: Cancer, CVA/TIA Additional Family Medical History / Comment(s): Joesphger brother had a CVA with speach difficulty but had full recovery. older brother had CA Medications and Allergies Home Medications Medication Instructions Recorded Confirmed Type Atorvastatin [Lipitor] 40 mg PO HS #30 tab 08/09/15 09/24/24 Rx Clopidogrel [Plavix] 75 mg PO DAILY tab 08/09/15 09/24/24 Rx lisinopriL [Prinivil] 10 mg PO DAILY 05/14/17 09/24/24 History Budesonide/Formoterol Fumarate 2 puff INHALATION RT-BID 06/08/21 09/24/24 History [Symbicort 160-4.5 Mcg Inhaler] Albuterol Sulfate [Albuterol 2 puff INHALATION RT-Q4H PRN 03/29/23 09/24/24 History Sulfate Hfa] Tamsulosin [Flomax] 0.4 mg PO DAILY 03/29/23 09/24/24 History Citalopram Hydrobromide [CeleXA] 20 mg PO HS 05/04/23 09/24/24 History Ipratropium-Albuterol Nebulize 3 ml INHALATION RT-QID PRN 06/09/24 09/24/24 History [Duoneb 0.5 mg-3 mg/3 ml Soln] Latanoprost [Latanoprost 0.005%] 1 drop BOTH EYES HS 06/22/24 09/24/24 History Sennosides-Docusate Sodium 1 tab PO DAILY 06/22/24 09/24/24 History [Senokot-S] polyethylene glycoL 3350 17 gm PO DAILY PRN #255 gm 06/25/24 09/24/24 Rx [Polyethylene Glycol 3350] Baclofen 10 mg PO TID 09/24/24 09/24/24 History Ergocalciferol (Vitamin D2) 1,250 mcg PO MO 09/24/24 09/24/24 History [Drisdol (GEQ) 1,250 MCG (50,000 IU)] Lactulose 10 gm PO DIRECTED 09/24/24 09/24/24 History oxyCODONE-APAP 7.5-325MG [Percocet 1 tab PO DAILY PRN 09/24/24 09/24/24 History 7.5-325 mg] Allergies Allergy/AdvReac Type Severity Reaction Status Date / Time No Known Allergies Allergy Verified 06/22/24 08:47 Physical Exam Vitals: Vital Signs Temp Pulse Resp BP Pulse Ox FiO2 09/26/24 08:30 93 L 21 09/26/24 07:14 97.8 F 74 17 127/68 92 L 09/26/24 01:14 97.6 F 83 19 116/73 98 09/25/24 18:50 97.3 F L 84 18 108/63 96 09/25/24 14:02 98.3 F 89 18 96/61 95 Intake and Output 09/25/24 09/26/24 09/26/24 22:59 06:59 14:59 Output Total 310 400 Balance -310 -400 Output: Urine 310 400 Other: Voiding Method Indwelling Catheter Results CBC & Chem 7: 09/25/24 04:14 09/25/24 09:01 Labs: Abnormal Lab Results - Last 24 Hours (Table) 09/26/24 Range/Units 03:18 HDL Cholesterol 28.70 L (40.00-60.00) mg/dL Microbiology - Last 24 Hours (Table) 09/24/24 21:43 Blood Culture - Preliminary Blood 09/24/24 20:08 Urine Culture - Preliminary Urine,Voided Gram Neg Bacilli Assessment and Plan (1) Pressure ulcer of left heel, stage 2 Current Visit: Yes Status: Acute Code(s): L89.622 - PRESSURE ULCER OF LEFT HEEL, STAGE 2 SNOMED Code(s): 43892721112569
[2024-09-26 11:45] VITALS: BMI 16.9
[2024-09-26 13:25] LABS: Basophils # (A) 0.02 10*3/uL (0.00-0.10); Basophils % (A) 0.2 %; Eosinophils # (A) 0.30 10*3/uL (0.04-0.35); Eosinophils % (A) 3.3 %; HCT 34.0 % (39.6-50.0); HGB 11.3 g/dL (13.0-17.0); Lymphocytes # (A) 1.62 10*3/uL (0.90-5.00); Lymphocytes % (A) 17.7 %; MCH 30.7 pg (27.0-32.0); MCHC 33.2 g/dL (32.0-37.0); MCV 92.4 fL (80.0-97.0); Monocytes # (A) 0.60 10*3/uL (0.20-1.00); Monocytes % (A) 6.6 %; Neutrophils # (A) 6.54 10*3/uL (1.80-7.70); Neutrophils % (A) 71.7 %; Platelet Count 418 10*3/uL (140-440); RBC 3.68 10*6/uL (4.40-5.60); RDW 13.7 % (11.5-14.5); WBC 9.13 10*3/uL (4.50-10.00)
[2024-09-26 13:43] LABS: African American GFR (CKD) >90 (>60 ml/min/1.73 sqM); Anion Gap 8 mmol/L; Blood Urea Nitrogen 10 mg/dL (9-20); Calcium 8.8 mg/dL (8.4-10.2); Carbon Dioxide 24 mmol/L (22-30); Chloride 104 mmol/L (98-107); Glucose 134 mg/dL (74-99); Non-African American GFR(CKD) >90 (>60 ml/min/1.73 sqM); Potassium 4.3 mmol/L (3.5-5.1); Sodium 136 mmol/L (137-145)
--- NOTE | 2024-09-26 15:19 | P.DS ---
Providers Date of admission: 09/24/24 20:37 Attending physician: Amira Alcantar MD Consults: 09/24/24 20:36 Consult Physician Routine Consulting Provider: Zach Russell Consult Reason/Comments: weakness Do you want consulting provider notified?: Yes 09/25/24 11:13 Consult Physician Routine Consulting Provider: Lennox Wills Consult Reason/Comments: worsening spascity Do you want consulting provider notified?: Yes 09/25/24 13:18 Consult Physician Routine Consulting Provider: Saw Talavera Consult Reason/Comments: inpatient rehab Do you want consulting provider notified?: Yes Primary care physician: Luis E Gómeznitin Hospital Course: Discharge Diagnosis: Complicated UTI Spasticity COPD not in exacerbation HTN HLD BPH Depression Hospital Course: Patient is a 74 y/o M with a PMH of COPD, CVA, HLD, HTN, BPH Prostate cancer who presented with weakness and confusion. He was sent to ED b/c home health care doc indicated that pt was deteriorating fast from baseline. In the ED, he was noted to have worsening myelopathy and encephalopathy. Found to have UTI. Neuro/Ortho consulted for myelopathy. Started rochephin for UTI, + U.A, continue home medications, and UA + and UC + for G - bacilli. Patient also has indwelling gutiérrez. Patient seen by neurology and ortho. Ortho has no further recommendations for intervention, not a candidate for surgery. Patient also seen by neuro and baclofen was increased to 20mg TID from 10mg. Pts Pain management with Percocet 7.5-325 mg PO QD PRN. Patient also has ulcer on left heel, wound care ordered for discharge. After fluids and antibiotic patient mental status returned to baseline and stated he felt much better. Patient biggest concern is worsening spasticity and would like to get rehab, rehab of choice of [facility]. Continued patients tamsolusin for BPH. Patient will be discharged on cefdinir 300mg BID for 5 more days to complete tx for complicated UTI. Pt will f/u with PCP and ortho. Patient seen and examined at bedside. Hemodynamicaly stable Vital signs reviewed and stable. Physical examination: Vital signs reviewed General: non toxic, no distress, appears at stated age, normal weight Derm: no unusual rashes/lesions, warm Head: atraumatic, normocephalic, symmetric Eyes: EOMI, anicteric sclera, pupils equal round reactive to light ENT: Nose and ears atraumatic Neck: No cervical lymphadenopathy, trachea midline, supple Mouth: no lip lesion, mucus membranes moist Cardiovascular: S1S2 reg, no murmur, positive dorsalis pedis pulse bilateral, no edema Lungs: CTA bilateral, no rhonchi, no rales, no accessory muscle use Abdominal: soft, nontender to palpation, no guarding Ext: muscle strength 5 out of 5 in upper extremities, Patient cannot move B/L LE, both legs atrophic Psych: Alert, oriented to person, place, and time A total of greater than 30 minutes of time were spent preparing this complex discharge summary. Patient was discharged on 09/26/2024. Kat Pereira MD PGY-1 FM Dictation was produced using [employer] dictation software. please excuse any grammatical, word or spelling errors. I saw and evaluated the patient during the reynoso and critical portions of this encounter, and discussed the case in detail with the resident author of this note, I agree with the Assessment and Plan, and my changes, if any, are highlighted in blue. Patient Condition at Discharge: Stable Plan - Discharge Summary New Discharge Prescriptions: New Baclofen [Lioresal] 20 mg PO TID PRN tab PRN Reason: Muscle Spasm Cefdinir 300 mg PO Q12HR #10 cap Continue Atorvastatin [Lipitor] 40 mg PO HS #30 tab Clopidogrel [Plavix] 75 mg PO DAILY tab lisinopriL [Prinivil] 10 mg PO DAILY Tamsulosin [Flomax] 0.4 mg PO DAILY Budesonide/Formoterol Fumarate [Symbicort 160-4.5 Mcg Inhaler] 2 puff INHALATION RT-BID Albuterol Sulfate [Albuterol Sulfate Hfa] 2 puff INHALATION RT-Q4H PRN PRN Reason: Shortness Of Breath Citalopram Hydrobromide [CeleXA] 20 mg PO HS Ipratropium-Albuterol Nebulize [Duoneb 0.5 mg-3 mg/3 ml Soln] 3 ml INHALATION RT-QID PRN PRN Reason: Shortness Of Breath Sennosides-Docusate Sodium [Senokot-S] 1 tab PO DAILY Latanoprost [Latanoprost 0.005%] 1 drop BOTH EYES HS polyethylene glycoL 3350 [Polyethylene Glycol 3350] 17 gm PO DAILY PRN #255 gm PRN Reason: Constipation Ergocalciferol (Vitamin D2) [Drisdol (GEQ) 1,250 MCG (50,000 IU)] 1,250 mcg PO MO Lactulose 10 gm PO DIRECTED Changed oxyCODONE-APAP 7.5-325MG [Percocet 7.5-325 mg] 1 tab PO DAILY PRN #3 tab PRN Reason: Pain Discontinued Baclofen 10 mg PO TID Discharge Medication List Atorvastatin [Lipitor] 40 mg PO HS #30 tab 08/09/15 [Rx] Clopidogrel [Plavix] 75 mg PO DAILY tab 08/09/15 [Rx] lisinopriL [Prinivil] 10 mg PO DAILY 05/14/17 [History] Budesonide/Formoterol Fumarate [Symbicort 160-4.5 Mcg Inhaler] 2 puff INHALATION RT-BID 06/08/21 [History] Albuterol Sulfate [Albuterol Sulfate Hfa] 2 puff INHALATION RT-Q4H PRN 03/29/23 [History] Tamsulosin [Flomax] 0.4 mg PO DAILY 03/29/23 [History] Citalopram Hydrobromide [CeleXA] 20 mg PO HS 05/04/23 [History] Ipratropium-Albuterol Nebulize [Duoneb 0.5 mg-3 mg/3 ml Soln] 3 ml INHALATION RT-QID PRN 06/09/24 [History] Latanoprost [Latanoprost 0.005%] 1 drop BOTH EYES HS 06/22/24 [History] Sennosides-Docusate Sodium [Senokot-S] 1 tab PO DAILY 06/22/24 [History] polyethylene glycoL 3350 [Polyethylene Glycol 3350] 17 gm PO DAILY PRN #255 gm 0 06/25/24 [Rx] Ergocalciferol (Vitamin D2) [Drisdol (GEQ) 1,250 MCG (50,000 IU)] 1,250 mcg PO MO 09/24/24 [History] Lactulose 10 gm PO DIRECTED 09/24/24 [History] Baclofen [Lioresal] 20 mg PO TID PRN tab 09/26/24 [Rx] Cefdinir 300 mg PO Q12HR #10 cap 09/26/24 [Rx] oxyCODONE-APAP 7.5-325MG [Percocet 7.5-325 mg] 1 tab PO DAILY PRN #3 tab 09/26/24 [Rx] Follow up Appointment(s)/Referral(s): Epifanio Dobbins MD [Primary Care Provider] - 1-2 days ([facility] please call for follow-up appointment.) Musa Zafar PAC [PHYSICIAN [employer]ER] - 1 Week Wound Center,[facility] [NON-STAFF] - 1-2 Days Discharge Disposition: TRANSFER TO SNF/ECF
[2024-09-26 16:30] VITALS: BP 112/66; PULSE 79; RESP 18; TEMP 99.4
== END 2024-09-26 17:06 ==
LOC: SUPCPDRO 16:43 → EC 16:43 → 6NMEDSUR 20:36 → OBSVTOIN 20:37 → INTOOBSV 20:37 → 4SSUR 20:57 → UNDODISIN 09-26 17:06
PROVIDERS: ADMIT Internal Medicine; ATTEND Internal Medicine
DX: T83.511A Infection and inflammatory reaction due to indwelling urethral catheter, initial encounter (principal); G93.41 Metabolic encephalopathy; G95.89 Other specified diseases of spinal cord; N39.0 Urinary tract infection, site not specified; L89.622 Pressure ulcer of left heel, stage 2; J44.9 Chronic obstructive pulmonary disease, unspecified; I10 Essential (primary) hypertension; M48.04 Spinal stenosis, thoracic region; M62.838 Other muscle spasm; M48.02 Spinal stenosis, cervical region; E78.5 Hyperlipidemia, unspecified; M43.13 Spondylolisthesis, cervicothoracic region; N40.1 Benign prostatic hyperplasia with lower urinary tract symptoms; R33.8 Other retention of urine; N39.498 Other specified urinary incontinence; F32.A Depression, unspecified; R25.1 Tremor, unspecified; R29.6 Repeated falls; R53.81 Other malaise; M50.123 Cervical disc disorder at C6-C7 level with radiculopathy; Z99.3 Dependence on wheelchair; Z98.1 Arthrodesis status; Z79.51 Long term (current) use of inhaled steroids; Z79.02 Long term (current) use of antithrombotics/antiplatelets; Z79.899 Other long term (current) drug therapy; Z91.81 History of falling; Z96.642 Presence of left artificial hip joint; Z89.511 Acquired absence of right leg below knee; Z86.73 Personal history of transient ischemic attack (TIA), and cerebral infarction without residual deficits; Z85.46 Personal history of malignant neoplasm of prostate; Z87.891 Personal history of nicotine dependence; Z87.828 Personal history of other (healed) physical injury and trauma
CPT/HCPCS: 36415; 70450; 71046; 80048; 80053; 80061; 81001; 82140; 82607; 82747; 83036; 83605; 83735; 84439; 84443; 84481; 84484; 85025; 85610; 85730; 87040; 87077; 87086; 87186; 93005; 94640; 94760; 96361; 96365; 96372; 96374; 96376; 99285